=== PATIENT | male | born 1940 | race African-American/Black ===

== ENCOUNTER 2016-05-29 23:06 | Inpatient (IN) | payer OTHER, BC ==
[2016-05-29] MEDS ORDERED: ASPIRIN 81 MG CHEWABLE TABLETS PO ONE (23:47)
--- NOTE | 2016-05-29 23:47 | PDOC ---
History of Present Illness - General History Source: Patient Exam Limitations: No Limitations - History of Present Illness Initial Comments: 05/29/16 23:48 The patient is a 76 year old with a significant past medical history of hypertension, diabetes, non-ischemic dilated cardiomyopathy s/p AICD, and CHF who presents the emergency department with SOB and tachycardia since yesterday. Patient states the SOB has worsened today since 1 PM. He denies Chest pain, fever, chills, nausea, vomiting. He reports having sick contacts at home, denies recent travels. Hemodialysis Charge Nurse: Dr. Doe PCP: Dr. Negro <Philippe Toribio - Last Filed: 05/30/16 02:01> <Katia Haney - Last Filed: 05/30/16 02:04> - General Chief Complaint: Chest Pain Stated Complaint: CHEST PAIN Time Seen by Provider: 05/29/16 23:29 Past History <Philippe Toribio - Last Filed: 05/30/16 02:01> - Past Medical History Anemia: No Cancer: No Cardiac Disorders: Yes COPD: Yes CHF: No Diabetes: Yes HTN: Yes Hypercholesterolemia: Yes Kidney Stones: Yes Suicide Attempt (Hx): No Thyroid Disease: No - Surgical History Cardiac Surgery: Yes (AICD) Orthopedic Surgery: Yes (lt KNEE SX) - Psycho/Social/Smoking Cessation Hx Anxiety: No Suicidal Ideation: No Smoking Status: Yes Smoking History: Former smoker Have you smoked in the past 12 months: No Number of Cigarettes Smoked Daily: 0 If you are a former smoker, when did you quit?: 6 years ago Information on smoking cessation initiated: No 'Breaking Loose' booklet given: 06/20/11 Hx Alcohol Use: No Drug/Substance Use Hx: No Substance Use Type: None Hx Substance Use Treatment: No <Katia Haney - Last Filed: 05/30/16 02:04> - Past Medical History Allergies/Adverse Reactions: Allergies Allergy/AdvReac Type Severity Reaction Status Date / Time weed pollen Allergy Verified 05/29/16 23:22 Home Medications: Ambulatory Orders Lisinopril 2.5 mg PO DAILY 07/19/11 Cholecalciferol (Vitamin D3) [Vitamin D3 -] 1,000 unit PO DAILY 09/09/14 Metformin HCl [Metformin HCl ER] 1,000 mg PO BID 09/09/14 Metoprolol Succinate [Toprol Xl] 125 mg PO AM 09/09/14 [place]-3 Fatty Acids [Fish Oil] 300 mg PO DAILY 09/09/14 Potassium Chloride 10 meq PO BID 09/09/14 Furosemide [Lasix -] 40 mg PO DAILY #30 tablet 04/30/15 Ipratropium/Albuterol Sulfate [Combivent Respimat Inhal [place]] 4 gm IH QID #1 aer.w.adap 04/30/15 Acetaminophen W/ Codeine #3 [Tylenol # 3] 1 combo PO Q4H PRN #14 tablet MDD 6 Metoprolol Succinate [Toprol Xl] 100 mg PO HS 05/18/15 Rosuvastatin Calcium [Crestor] 5 mg PO DAILY 05/18/15 Tamsulosin HCl [Flomax] 0.4 mg PO DAILY 05/18/15 Acetaminophen [Tylenol] 650 mg PO Q4HWA PRN #50 tablet 12/31/15 Apixaban [Eliquis] 5 mg PO DAILY 05/30/16 Review of Systems - Review of Systems Able to Perform ROS?: Yes Comments:: 05/29/16 23:49 CONSTITUTIONAL: Absent: fever, chills, diaphoresis, generalized weakness, malaise, loss of appetite HEENT: Absent: rhinorrhea, nasal congestion, throat pain, throat swelling, difficulty swallowing, mouth swelling, ear pain, eye pain, visual Changes CARDIOVASCULAR: Absent: chest pain, syncope, palpitations, irregular heart rate, lightheadedness , peripheral edema RESPIRATORY: Present: SOB Absent: cough, dyspnea with exertion, orthopnea, wheezing, stridor, hemoptysis GASTROINTESTINAL: Absent: abdominal pain, abdominal distension, nausea, vomiting, diarrhea, constipation, melena, hematochezia GENITOURINARY: Absent: dysuria, frequency, urgency, hesitancy, hematuria, flank pain, genital pain MUSCULOSKELETAL: Absent: myalgia, arthralgia, joint swelling SKIN: Absent: rash, itching, pallor HEMATOLOGIC/IMMUNOLOGIC: Absent: easy bleeding, easy bruising, lymphadenopathy, frequent infections ENDOCRINE: Absent: unexplained weight gain, unexplained weight loss, heat intolerance, cold intolerance NEUROLOGIC: Absent: headache, focal weakness or paresthesias, dizziness, unsteady gait, seizure, mental status changes, bladder or bowel incontinence PSYCHIATRIC: Absent: anxiety, depression, suicidal or homicidal ideation, hallucinations. <Philippe Toribio - Last Filed: 05/30/16 02:01> *Physical Exam - Vital Signs Last Vital Signs Temp Pulse Resp BP Pulse Ox 98.0 F 91 H 20 156/86 96 05/29/16 23:22 05/29/16 23:22 05/29/16 23:22 05/29/16 23:22 05/29/16 23:22 - Physical Exam Comments: 05/29/16 23:50 GENERAL: Well developed, well nourished. Awake and alert. No acute distress. HEENT: Normocephalic, atraumatic. PERRLA, EOMI. No conjunctival pallor. Sclera are non- icteric. Moist mucous membranes. Oropharynx is clear. NECK: Supple. Full ROM. No JVD. Carotid pulses 2+ and symmetric, without bruits. No thyromegaly. No lymphadenopathy. CARDIOVASCULAR: Tachycardia. No murmurs, rubs, or gallops. Distal pulses are 2+ and symmetric. PULMONARY: No evidence of respiratory distress. Lungs clear to auscultation bilaterally. No wheezing, rales or rhonchi. ABDOMINAL: Soft. Non-tender. Non-distended. No rebound or guarding. No organomegaly. Normoactive bowel sounds. MUSCULOSKELETAL Normal range of motion at all joints. No bony deformities or tenderness. No CVA tenderness. EXTREMITIES: No cyanosis. No clubbing. No edema. No calf tenderness. SKIN: Warm and dry. Normal capillary refill. No rashes. No jaundice. NEUROLOGICAL: Alert, awake, appropriate. Cranial nerves 2-12 intact. No deficits to light touch and temperature in face, upper extremities and lower extremities. No motor deficits in the in face, upper extremities and lower extremities. Normoreflexic in the upper and lower extremities. Normal speech. Toes are down-going bilaterally. Gait is normal without ataxia. PSYCHIATRIC: Cooperative. Good eye contact. Appropriate mood and affect. <Philippe Toribio - Last Filed: 05/30/16 02:01> - Vital Signs Last Vital Signs Temp Pulse Resp BP Pulse Ox 98.0 F 91 H 20 156/86 96 05/29/16 23:22 05/29/16 23:22 05/29/16 23:22 05/29/16 23:22 05/29/16 23:22 <Katia Haney - Last Filed: 05/30/16 02:04> ED Treatment Course - LABORATORY CBC & Chemistry Diagram: 05/30/16 00:05 05/30/16 00:05 <Philippe Toribio - Last Filed: 05/30/16 02:01> - LABORATORY CBC & Chemistry Diagram: 05/30/16 00:05 05/30/16 00:05 <Katia Haney - Last Filed: 05/30/16 02:04> Medical Decision Making - Medical Decision Making 05/30/16 01:[address] Negro at 01:33. Paged [address]. Negro at 01:50. 05/30/16 02:[address] Negro. 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 <Philippe Toribio - Last Filed: 05/30/16 02:01> - Discharge Dispostion Admit: Yes <Katia Haney - Last Filed: 05/30/16 02:04> Diagnosis at time of Disposition: Acute on chronic systolic CHF (congestive heart failure) - Referrals Referrals: Lyndsey Nergo MD [Primary Care Provider] -
[2016-05-30] MEDS ORDERED: ASPIRIN 81 MG CHEWABLE TABLETS ONE (00:13)
[2016-05-30 00:26] LABS: BASOPHIL 0.5 % (0-2.0); EOSINOPHIL 1.8 % (0-4.5); MCH 23.3 pg (25.7-33.7); MCHC 31.8 g/dl (32.0-35.9); MEAN CELL VOLUME 73.4 fl (80-96); MEAN PLT VOLUME 9.1 fl (7.5-11.1); NEUTROPHILS 70.7 % (42.8-82.8); PLATELET COUNT 212 K/MM3 (134-434); RDW 16.7 % (11.9-15.9); WHITE BLOOD COUNT 10.2 K/mm3 (4.0-10.0)
[2016-05-30 00:52] LABS: ALBUMIN 3.4 g/dl (3.4-5.0); ANION GAP 11 (8-16); BILIRUBIN,TOTAL 1.5 mg/dL (0.2-1.0); CALCIUM 8.5 mg/dL (8.5-10.1); CO2 27 mmol/L (21-32); COCKROFT - GAULT 78.17; CREATININE 1.1 mg/dL (0.7-1.3); GLUCOSE,RANDOM 144 mg/dL (74-106); MAGNESIUM 1.5 mg/dL (1.8-2.4); SGOT/AST 10 U/L (15-37); SGPT/ALT 16 U/L (12-78); TOT PROT 6.9 g/dl (6.4-8.2)
[2016-05-30 00:55] LABS: ALK PHOS 52 U/L (45-117); TROPONIN I < 0.02 ng/ml (0.00-0.05)
[2016-05-30 00:58] LABS: INR 1.43 (0.82-1.09); PROTHROMBIN TIME (PATIENT) 15.8 SEC (9.98-11.88)
[2016-05-30] MEDS ORDERED: MAGNESIUM SULF 50% (8.12 MEQ/2 ML-1 GM VIAL) IVPB ONE (01:22)
[2016-05-30] MEDS ORDERED: FUROSEMIDE 40 MG/4 ML INJECTABLE VIAL IVPUSH ONE (01:23)
[2016-05-30] MEDS ORDERED: MAGNESIUM SULF 50% (8.12 MEQ/2 ML-1 GM VIAL) ONE (01:42)
[2016-05-30] MEDS: FUROSEMIDE 40 MG/4 ML INJECTABLE VIAL IVPUSH SCH ×2 (06:18→14:07)
[2016-05-30 06:29] LABS: TROPONIN I < 0.02 ng/ml (0.00-0.05)
--- NOTE | 2016-05-30 10:42 | HP ---
Admitting History and Physical - Primary Care Physician PCP: Lyndsey Negro - Admission Chief Complaint: sob, not able to sleep History of Present Illness: 76 yr old male came in for Shortness of breath not able to sleep at night, constantly turning. he said thjs started about a week ago , no leg swelling no chest pain, no nausea. per patient his abdomen has been increasing in size, he is schedule for kidney stones removal on june 07 he says he feels that he feels better since he got oxygen and lasix in ER History Source: Patient, Medical Record - Past Medical History Cardiovascular: Yes: CAD (non-obstructive CAD, recent cath at [facility]--2014, 30% LAD, EF 35%), CHF (Non-ischemic cardiomyopathy s/p ICD for primary prevention), HTN, Other ([employer] device interrogation 12/2014: NSVT, one run required ATP) Endocrine: Yes: Diabetes Mellitus - Smoking History Smoking history: Former smoker Have you smoked in the past 12 months: No Aproximately how many cigarettes per day: 0 If you are a former smoker, when did you quit?: 2009 - Alcohol/Substance Use Hx Alcohol Use: No - Social History ADL: Independent History of Recent Travel: No Home Medications - Allergies Allergies/Adverse Reactions: Allergies Allergy/AdvReac Type Severity Reaction Status Date / Time weed pollen Allergy Verified 05/29/16 23:22 - Home Medications Home Medications: Ambulatory Orders Lisinopril 2.5 mg PO DAILY 07/19/11 Cholecalciferol (Vitamin D3) [Vitamin D3 -] 1,000 unit PO DAILY 09/09/14 Metformin HCl [Metformin HCl ER] 1,000 mg PO BID 09/09/14 Metoprolol Succinate [Toprol Xl] 125 mg PO AM 09/09/14 [place]-3 Fatty Acids [Fish Oil] 300 mg PO DAILY 09/09/14 Potassium Chloride 10 meq PO BID 09/09/14 Furosemide [Lasix -] 40 mg PO DAILY #30 tablet 04/30/15 Ipratropium/Albuterol Sulfate [Combivent Respimat Inhal [place]] 4 gm IH QID #1 aer.w.adap 04/30/15 Acetaminophen W/ Codeine #3 [Tylenol # 3] 1 combo PO Q4H PRN #14 tablet MDD 6 Metoprolol Succinate [Toprol Xl] 100 mg PO HS 05/18/15 Rosuvastatin Calcium [Crestor] 5 mg PO DAILY 05/18/15 Tamsulosin HCl [Flomax] 0.4 mg PO DAILY 05/18/15 Acetaminophen [Tylenol] 650 mg PO Q4HWA PRN #50 tablet 12/31/15 Apixaban [Eliquis] 5 mg PO DAILY 05/30/16 Tamsulosin HCl [Flomax] 0.4 mg PO DAILY #30 cap.er.24h 05/30/16 Physical Examination Vital Signs: Vital Signs Temperature 98.2 F 05/30/16 09:52 Pulse Rate 60 05/30/16 09:52 Respiratory Rate 18 05/30/16 09:52 Blood Pressure 121/87 05/30/16 09:52 O2 Sat by Pulse Oximetry (%) 98 05/30/16 09:52 Problem List - Problems (1) Acute on chronic systolic CHF (congestive heart failure) Assessment/Plan: tele admission cardiac enzymes 2 sets negative echo iv lasix bid monitor lytes K> 4 Mag > 2 magnesium repleted recheck daily weights nasal oxygen Code(s): I50.23 - ACUTE ON CHRONIC SYSTOLIC (CONGESTIVE) HEART FAILURE (2) Diabetes Assessment/Plan: check hga1c and lipid profile metformin bid Code(s): E11.9 - TYPE 2 DIABETES MELLITUS WITHOUT COMPLICATIONS Qualifiers: Diabetes mellitus type: type 2 (3) BPH (benign prostatic hyperplasia) Assessment/Plan: flomax Code(s): N40.0 - BENIGN PROSTATIC HYPERPLASIA WITHOUT LOWER URINRY TRACT SYMP (4) ASHD (arteriosclerotic heart disease) Assessment/Plan: asa cath in past non obstructive check lipd proifle LDL < 100 goal Code(s): I25.10 - ATHSCL HEART DISEASE OF [place] CORONARY ARTERY W/O ANG PCTRS (5) Hypertension Assessment/Plan: toprol lisinopril Code(s): I10 - ESSENTIAL (PRIMARY) HYPERTENSION Qualifiers: Hypertension type: essential hypertension Qualified Code(s): I10 - Essential (primary) hypertension (6) Non-ischemic cardiomyopathy Assessment/Plan: icd Code(s): I42.9 - CARDIOMYOPATHY, UNSPECIFIED
--- NOTE | 2016-05-30 12:04 | CON.CARD ---
Consult Consult Specialty:: Cardiology Referred by:: ER Reason for Consultation:: SOB - History of Present Illness Chief Complaint: SOB History of Present Illness: 76 year old man with a history of HTN, DMII, NICM with severe LV dysfunction s/ p ICD, chronic systolic CHF, recently dx paroxysmal atrial fibrillation admitted with sob. Pt. seen and examined today in [facility]. He states that for the past few days he has been experiencing some orthopnea at night time. Then last night he felt severe sob and thus came to the ER. He also admits to eating barbeque ribs yesterday for . He also states that he has had some confusion with his lasix recently and has been taking it every other day instead of everyday. denies palpitations, lightheadedness, dizziness. no chest pain. - History Source History Provided By: Patient, Medical Record Limitations to Obtaining History: No Limitations - Past Medical History Cardio/Vascular: Yes: AFIB, CAD (non-obstructive CAD, recent cath at [facility] --12/2014, 30% LAD, EF 35%), CHF (Non-ischemic cardiomyopathy s/p ICD for primary prevention), HTN, Other ([employer] device interrogation 12/2014: NSVT, one run required ATP) Endocrine: Yes: Diabetes Mellitus - Past Surgical History Past Surgical History: Yes: AICD - Alcohol/Substance Use Hx Alcohol Use: No - Smoking History Smoking history: Former smoker Have you smoked in the past 12 months: No Aproximately how many cigarettes per day: 0 If you are a former smoker, when did you quit?: 2009 - Social History Usual Living Arrangement: With Spouse ADL: Independent History of Recent Travel: No Home Medications - Allergies Allergies/Adverse Reactions: Allergies Allergy/AdvReac Type Severity Reaction Status Date / Time weed pollen Allergy Verified 05/29/16 23:22 - Home Medications Home Medications: Ambulatory Orders Lisinopril 2.5 mg PO DAILY 07/19/11 Cholecalciferol (Vitamin D3) [Vitamin D3 -] 1,000 unit PO DAILY 09/09/14 Metformin HCl [Metformin HCl ER] 1,000 mg PO BID 09/09/14 Metoprolol Succinate [Toprol Xl] 125 mg PO AM 09/09/14 [place]-3 Fatty Acids [Fish Oil] 300 mg PO DAILY 09/09/14 Potassium Chloride 10 meq PO BID 09/09/14 Furosemide [Lasix -] 40 mg PO DAILY #30 tablet 04/30/15 Ipratropium/Albuterol Sulfate [Combivent Respimat Inhal [place]] 4 gm IH QID #1 aer.w.adap 04/30/15 Acetaminophen W/ Codeine #3 [Tylenol # 3] 1 combo PO Q4H PRN #14 tablet MDD 6 Metoprolol Succinate [Toprol Xl] 100 mg PO HS 05/18/15 Rosuvastatin Calcium [Crestor] 5 mg PO DAILY 05/18/15 Tamsulosin HCl [Flomax] 0.4 mg PO DAILY 05/18/15 Acetaminophen [Tylenol] 650 mg PO Q4HWA PRN #50 tablet 12/31/15 Apixaban [Eliquis] 5 mg PO DAILY 05/30/16 Tamsulosin HCl [Flomax] 0.4 mg PO DAILY #30 cap.er.24h 05/30/16 Family Disease History - Family Disease History Family History: Denies Review of Systems - Review of Systems Constitutional: denies: No Symptoms, Chills, Diaphoresis, Fever, Lethargy, Loss of Appetite, Malaise, Night Sweats, Unintentional Wgt. Loss, Weakness, Other Eyes: denies: No Symptoms, Blind Spots, Blurred Vision, Double Vision, Eye Pain , Floaters, Photophobia, Recent Change in Vision, Other HENT: denies: No Symptoms, Difficult Swallowing, Ear Discharge, Ear Pain, Epistaxis, Gingival Bleeding, Hearing Loss, Mouth Swelling, Nasal Congestion, Ocular Prosthesis, Throat Pain, Toothache, Ringing in Ears, Other Neck: denies: No Symptoms, Decreased ROM, Lumps, Pain on Movement, Stiffness, Swollen Glands, Tenderness, Other Cardiovascular: reports: Edema, Shortness of Breath. denies: No Symptoms, Chest Pain, Palpitations, Other Respiratory: reports: Exercise Intolerance, Orthopnea, PND, SOB, SOB on Exertion. denies: No Symptoms, Cough, Hemoptysis, Snoring, Wheezing, Other Gastrointestinal: reports: Bloating. denies: No Symptoms, Abdominal Pain, Constipation, Diarrhea, Dysphagia, Indigestion, Melena, Nausea, Rectal Bleeding , Vomiting, Vomiting Blood, Other Genitourinary: denies: No Symptoms, Burning, Discharge, Dysuria, Flank Pain, Frequency, Hematuria, Incontinence, Lesions, Menses, Pain, Testicular Mass, Testicular Pain, Testicular Swelling, Urgency, Vaginal Bleeding, Other Breasts: denies: No Symptoms Reported, See HPI, Breast Implants, Discharge from Nipple, Lumps, Pain, Skin Changes, Other Musculoskeletal: denies: No Symptoms, Back Pain, Crepitus, Decreased ROM, Extremity Pain, Joint Pain, Joint Swelling, Muscle Pain, Muscle Cramps, Muscle Weakness, Other Integumentary: denies: No Symptoms, Blister, Bruising, Change in Color, Eczema, Erythema, Incision, Lesions, Lump, Pallor, Pruritis, Rash, Wound, Other Neurological: denies: No Symptoms, Change in LOC, Change in Speech, Confusion, Dizziness, Headache, Incoordination, Numbness, Parasthesia, Pre-Existing Deficit , Seizure, Syncope, Tremors, Unsteady Gait, Weakness, Other Endocrine: denies: No Symptoms, Excessive Sweating, Flushing, Increased Hunger, Increased Thirst, Intolerance to Cold, Intolerance to Heat, Unexplained Weight Gain, Unexplained Weight Loss, Other Hematology/Lymphatic: denies: No Symptoms, Easily Bruised, Excessive Bleeding, Swollen Glands, Other Psychiatric: denies: No Symptoms, Altered Sleep Pattern, Anxiety, Depression, Hallucinations, Panic, Paranoia, Suicidal, Other - Risk Factors Known Risk Factors: Yes: Diabetes Mellitus, Hypercholesterolemia, Hypertension Vital Signs: Vital Signs Temperature 98.2 F 05/30/16 09:52 Pulse Rate 60 05/30/16 09:52 Respiratory Rate 18 05/30/16 09:52 Blood Pressure 121/87 05/30/16 09:52 O2 Sat by Pulse Oximetry (%) 98 05/30/16 09:52 Constitutional: Yes: Well Nourished, No Distress, Calm Eyes: Yes: WNL, Conjunctiva Clear, EOM Intact, PERRL HENT: Yes: WNL, Atraumatic, Normocephalic Neck: Yes: WNL, Supple, Trachea Midline Respiratory: Yes: Regular, On Nasal O2, Rales. No: Rhonchi, SOB, Wheezes Gastrointestinal: Yes: WNL, Normal Bowel Sounds, Soft. No: Distention, Tenderness Renal/: Yes: WNL Cardiovascular: Yes: Pulse Irregular. No: Bradycardia, Tachycardia, Gallop, Rub , Varicosities JVD: No Carotid Bruit: No PMI: Non-Displaced Heart Sounds: Yes: S1, S2. No: Split S2, S3, S4, Clicks, Gallop, Rub, Bruit Murmur: No: Systolic Murmur, Diastolic Murmur Musculoskeletal: Yes: WNL Extremities: Yes: WNL Edema: Yes Edema: LLE: Trace, RLE: Trace Peripheral Pulses WNL: Yes Peripheral Pulses: 2+ Left Doralis Pedis, 2+ Right Dorsalis Pedis Integumentary: Yes: WNL Neurological: Yes: WNL, Alert, Oriented, Cran Nerves II-XII Intact ...Motor Strength: WNL Psychiatric: Yes: WNL, Alert, Oriented - Other Data Labs, Other Data: INR, PTT INR 1.43 (0.82-1.09) H D 05/30/16 00:05 Troponin, BNP 05/30/16 05:40 Troponin I < 0.02 Troponin, BNP 05/30/16 05:40 Troponin I < 0.02 [id number], apcs, pvcs, nonspecific ST abnl, possible Lateral ischemia Echo: Report Reviewed Prior Cardiac Procedures: Cardiac Catheterization Imaging - Results Chest X-ray: Report Reviewed, Image Reviewed EKG: Report Reviewed, Image Reviewed Other: Report Reviewed, Image Reviewed Problem List - Problems (1) Acute on chronic systolic CHF (congestive heart failure) Code(s): I50.23 - ACUTE ON CHRONIC SYSTOLIC (CONGESTIVE) HEART FAILURE (2) Diabetes Code(s): E11.9 - TYPE 2 DIABETES MELLITUS WITHOUT COMPLICATIONS Qualifiers: Diabetes mellitus type: type 2 (3) Hypertension Code(s): I10 - ESSENTIAL (PRIMARY) HYPERTENSION Qualifiers: Hypertension type: essential hypertension Qualified Code(s): I10 - Essential (primary) hypertension (4) Non-ischemic cardiomyopathy Code(s): I42.9 - CARDIOMYOPATHY, UNSPECIFIED (5) Pulmonary hypertension Code(s): I27.2 - OTHER SECONDARY PULMONARY HYPERTENSION (6) Shortness of breath Code(s): R06.02 - SHORTNESS OF BREATH Assessment/Plan 76 year old man with a history of HTN, DMII, NICM with severe LV dysfunction s/ p ICD, chronic systolic CHF, recently dx paroxysmal atrial fibrillation admitted with sob. Pt. seen and examined today in [facility]. He states that for the past few days he has been experiencing some orthopnea at night time. Then last night he felt severe sob and thus came to the ER. He also admits to eating barbeque ribs yesterday for . He also states that he has had some confusion with his lasix recently and has been taking it every other day instead of everyday. denies palpitations, lightheadedness, dizziness. no chest pain. SOB-acute on chronic systolic CHF with known chronic systolic CHF, NICM -secondary to Lasix and dietary non-adherence -significantly improved with Lasix in ER -cont Lasix diuresis 40mg IV BID -monitor strict I/Os and daily weights -monitor bun/creat and electrolytes and replete as needed -re-evaluate tomorrow can likely transition back to po lasix -cont home toprol and lisinopril Afib-paroxysmal, NSR on admission ekg -resume home Toprol XL 125mg po in am and 100mg in pm -resume home eliquis 5mg bid HTN-adequately controlled -cont home medical regimen
[2016-05-30] MEDS ORDERED: METOPROLOL SUCCINATE 100 MG TAB.SR.24H (FP) PO ONE (12:26)
[2016-05-30] MEDS ORDERED: LISINOPRIL 5 MG TABLET (FP) PO ONE (12:27)
[2016-05-30] MEDS ORDERED: POTASSIUM CHLORIDE TABS 20 MEQ TABLET.ER (FP) PO ONE ×2 (12:27→12:31)
[2016-05-30] MEDS ORDERED: METOPROLOL SUCCINATE 50 MG TAB.SR.24H (FP) ONE (12:31)
[2016-05-30] MEDS ORDERED: LISINOPRIL 5 MG TABLET (FP) ONE (12:31)
[2016-05-30 13:28] LABS: ANION GAP 9 (8-16); CALCIUM 8.8 mg/dL (8.5-10.1); CO2 30 mmol/L (21-32); COCKROFT - GAULT 95.54; CREATININE 0.9 mg/dL (0.7-1.3); GLUCOSE,RANDOM 102 mg/dL (74-106); MAGNESIUM 1.9 mg/dL (1.8-2.4)
[2016-05-30 13:31] LABS: TROPONIN I < 0.02 ng/ml (0.00-0.05)
[2016-05-30] MEDS ORDERED: FUROSEMIDE 40 MG/4 ML INJECTABLE VIAL ONE (14:04)
[2016-05-30] MEDS: APIXABAN 5 MG TABLET PO SCH ×2 (14:07→21:10)
--- NOTE | 2016-05-30 15:08 | EKG ---
Test Reason : Blood Pressure : / mmHG Vent. Rate : 091 BPM Atrial Rate : 091 BPM P-R Int : 230 ms QRS Dur : 122 ms QT Int : 374 ms P-R-T Axes : 086 -61 096 degrees QTc Int : 460 ms SINUS RHYTHM WITH MARKED SINUS ARRHYTHMIA WITH 1ST DEGREE A-V BLOCK WITH FREQUENT PREMATURE VENTRICULAR COMPLEXES LEFT AXIS DEVIATION NON-SPECIFIC INTRA-VENTRICULAR CONDUCTION DELAY ABNORMAL ECG WHEN COMPARED WITH ECG OF 18-MAY-2015 16:49, ABERRANT CONDUCTION IS NO LONGER PRESENT MA INTERVAL HAS INCREASED INVERTED T WAVES HAVE REPLACED NONSPECIFIC T WAVE ABNORMALITY IN LATERAL LEADS Confirmed by ABRAHAM NOLEN MD ([id number]) on 05/30/2016 3:07:52 PM Referred By: Confirmed By:ABRAHAM NOLEN MD
[2016-05-30] MEDS: metFORMIN HCL 500 MG TABLET (FP) PO SCH (18:15)
[2016-05-30 18:54] VITALS: BMI 29.5
[2016-05-30] MEDS: METOPROLOL SUCCINATE 100 MG TAB.SR.24H (FP) PO SCH (21:10)
[2016-05-30] MEDS: ROSUVASTATIN CA 5 MG TABLET (FP) PO SCH (21:10)
[2016-05-30] MEDS ORDERED: APIXABAN 2.5 MG TABLET PO SCH (22:00)
[2016-05-30] MEDS ORDERED: ONDANSETRON 4 MG/2 ML VIAL ONE (22:57)
[2016-05-30] MEDS ORDERED: ONDANSETRON 4 MG/2 ML VIAL IVPB ONE (23:45)
[2016-05-31] MEDS: metFORMIN HCL 500 MG TABLET (FP) PO SCH ×2 (06:06→17:34)
[2016-05-31] MEDS: FUROSEMIDE 40 MG/4 ML INJECTABLE VIAL IVPUSH SCH ×2 (06:06→14:28)
[2016-05-31 07:42] LABS: CHOLESTEROL 93 mg/dL (50-200)
[2016-05-31 07:43] LABS: ALBUMIN 3.6 g/dl (3.4-5.0); ANION GAP 7 (8-16); CO2 32 mmol/L (21-32); GLUCOSE,RANDOM 113 mg/dL (74-106); MAGNESIUM 1.7 mg/dL (1.8-2.4)
[2016-05-31 07:46] LABS: MCH 23.3 pg (25.7-33.7); MCHC 31.5 g/dl (32.0-35.9); MEAN CELL VOLUME 73.9 fl (80-96); MEAN PLT VOLUME 8.8 fl (7.5-11.1); PLATELET COUNT 225 K/MM3 (134-434); RDW 16.6 % (11.9-15.9); WHITE BLOOD COUNT 9.6 K/mm3 (4.0-10.0)
[2016-05-31 07:50] LABS: ALK PHOS 56 U/L (45-117); BILIRUBIN,TOTAL 1.6 mg/dL (0.2-1.0); COCKROFT - GAULT 85.01; PHOSPHOROUS 4.2 mg/dL (2.5-4.9); SGOT/AST 8 U/L (15-37); SGPT/ALT 18 U/L (12-78); TOT PROT 7.4 g/dl (6.4-8.2)
[2016-05-31 08:21] LABS: INR 1.47 (0.82-1.09); PROTHROMBIN TIME (PATIENT) 16.3 SEC (9.98-11.88)
[2016-05-31 08:24] LABS: ACTIVATED PTT 39.5 SECONDS (26.9-34.4)
[2016-05-31 08:42] LABS: LDL CHOLESTEROL (ONLY SJRH) 44 mg/dL (5-100)
[2016-05-31] MEDS ORDERED: MAGNESIUM SULF 50% (8.12 MEQ/2 ML-1 GM VIAL) IVPB ONE (08:53)
--- NOTE | 2016-05-31 08:53 | PN ---
Progress Note, Physician History of Present Illness: feels better - Current Medication List Current Medications: Active Medications Apixaban (Eliquis -) 5 mg PO BID [facility] Last Admin: 05/30/16 21:10 Dose: 5 mg Aspirin (Ecotrin -) 81 mg PO DAILY [facility] Cholecalciferol (Vitamin D3 -) 1,000 unit PO DAILY [facility] Furosemide (Lasix Injection -) 40 mg IVPUSH BID@0600,1400 [facility] Last Admin: 05/31/16 06:06 Dose: 40 mg Lisinopril (Prinivil) 2.5 mg PO DAILY [facility] Magnesium Sulfate (Magnesium Sulfate) 1 gm IVPB ONCE ONE Stop: 05/31/16 08:54 Metformin HCl (Glucophage -) 1,000 mg PO BID@0700,1630 [facility] Last Admin: 05/31/16 06:06 Dose: 1,000 mg Metoprolol Succinate (Toprol Xl -) 100 mg PO BID [facility] Last Admin: 05/30/16 21:10 Dose: 100 mg Potassium Chloride (K-Dur -) 20 meq PO DAILY [facility] Rosuvastatin Calcium (Crestor -) 5 mg PO HS [facility] Last Admin: 05/30/16 21:10 Dose: 5 mg - Objective Vital Signs: Vital Signs Temperature 97.9 F 05/31/16 06:00 Pulse Rate 69 05/31/16 06:00 Respiratory Rate 20 05/31/16 06:00 Blood Pressure 116/71 05/31/16 06:00 O2 Sat by Pulse Oximetry (%) 96 05/30/16 21:00 Cardiovascular: Yes: Regular Rate and Rhythm Respiratory: Yes: Regular, CTA Bilaterally Gastrointestinal: Yes: Normal Bowel Sounds, Soft Labs: CBC, BMP 05/31/16 06:00 05/31/16 06:00 INR, PTT INR 1.47 (0.82-1.09) H 05/31/16 06:00 Assessment/Plan - Problems (1) Acute on chronic systolic CHF (congestive heart failure) Assessment/Plan: tele admission cardiac enzymes 2 sets negative echo iv lasix bid monitor lytes K> 4 Mag > 2 magnesium repleted recheck daily weights nasal oxygen Code(s): I50.23 - ACUTE ON CHRONIC SYSTOLIC (CONGESTIVE) HEART FAILURE (2) Diabetes Assessment/Plan: check hga1c and lipid profile metformin bid add jardiance as outpatient for elevated a1c and cardio protection Code(s): E11.9 - TYPE 2 DIABETES MELLITUS WITHOUT COMPLICATIONS Qualifiers: Diabetes mellitus type: type 2 (3) BPH (benign prostatic hyperplasia) Assessment/Plan: flomax Code(s): N40.0 - BENIGN PROSTATIC HYPERPLASIA WITHOUT LOWER URINRY TRACT SYMP (4) ASHD (arteriosclerotic heart disease) Assessment/Plan: asa cath in past non obstructive check lipd proifle LDL < 100 goal Code(s): I25.10 - ATHSCL HEART DISEASE OF [place] CORONARY ARTERY W/O ANG PCTRS (5) Hypertension Assessment/Plan: toprol lisinopril Code(s): I10 - ESSENTIAL (PRIMARY) HYPERTENSION Qualifiers: Hypertension type: essential hypertension Qualified Code(s): I10 - Essential (primary) hypertension (6) Non-ischemic cardiomyopathy Assessment/Plan: icd Code(s): I42.9 - CARDIOMYOPATHY, UNSPECIFIED
[2016-05-31] MEDS: METOPROLOL SUCCINATE 100 MG TAB.SR.24H (FP) PO SCH ×2 (09:03→21:11)
[2016-05-31] MEDS: CHOLECALCIFEROL (VITAMIN D3) 1,000 UNIT TABLET (FP) PO SCH (09:03)
[2016-05-31] MEDS: POTASSIUM CHLORIDE TABS 20 MEQ TABLET.ER (FP) PO SCH (09:03)
[2016-05-31] MEDS: ASPIRIN COATED 81 MG TABLET.EC PO SCH (09:04)
[2016-05-31] MEDS: APIXABAN 5 MG TABLET PO SCH ×2 (09:04→21:11)
--- NOTE | 2016-05-31 09:08 | PN ---
Progress Note, Physician Chief Complaint: Feeling mild improvement TELE: NSR, PACs, PVCs rare - Current Medication List Current Medications: Active Medications Apixaban (Eliquis -) 5 mg PO BID [facility] Last Admin: 05/31/16 09:04 Dose: 5 mg Aspirin (Ecotrin -) 81 mg PO DAILY [facility] Last Admin: 05/31/16 09:04 Dose: 81 mg Cholecalciferol (Vitamin D3 -) 1,000 unit PO DAILY [facility] Last Admin: 05/31/16 09:03 Dose: 1,000 unit Furosemide (Lasix Injection -) 40 mg IVPUSH BID@0600,1400 [facility] Last Admin: 05/31/16 06:06 Dose: 40 mg Lisinopril (Prinivil) 2.5 mg PO DAILY [facility] Metformin HCl (Glucophage -) 1,000 mg PO BID@0700,1630 [facility] Last Admin: 05/31/16 06:06 Dose: 1,000 mg Metoprolol Succinate (Toprol Xl -) 100 mg PO BID [facility] Last Admin: 05/31/16 09:03 Dose: 100 mg Potassium Chloride (K-Dur -) 20 meq PO DAILY [facility] Last Admin: 05/31/16 09:03 Dose: 20 meq Rosuvastatin Calcium (Crestor -) 5 mg PO HS [facility] Last Admin: 05/30/16 21:10 Dose: 5 mg - Objective Vital Signs: Vital Signs Temperature 97.9 F 05/31/16 06:00 Pulse Rate 69 05/31/16 06:00 Respiratory Rate 20 05/31/16 06:00 Blood Pressure 116/71 05/31/16 06:00 O2 Sat by Pulse Oximetry (%) 96 05/30/16 21:00 Constitutional: Yes: Calm Cardiovascular: Yes: Regular Rate and Rhythm Respiratory: Yes: CTA Bilaterally Gastrointestinal: Yes: Soft Edema: No Neurological: Yes: Alert Labs: CBC, BMP 05/31/16 06:00 05/31/16 06:00 INR, PTT INR 1.47 (0.82-1.09) H 05/31/16 06:00 Laboratory Tests 05/31/16 05/31/16 06:00 06:00 WBC 9.6 Hct 41.0 Plt Count 225 Sodium 139 Potassium 4.5 Creatinine 1.0 B-Natriuretic Peptide 1045.11 H - ....Imaging EKG: Image Reviewed Assessment/Plan NICM s/p ICD PAF Acute on chronic exacerbation systolic CHF 1.SOB-acute on chronic systolic CHF with known chronic systolic CHF, NICM -secondary to Lasix and dietary non-adherence -cont Lasix diuresis 40mg IV BID -monitor strict I/Os and daily weights; replete electrolytes -monitor bun/creat and electrolytes and replete as needed -cont home toprol and lisinopril Afib-paroxysmal, NSR on admission ekg -resume home Toprol XL 125mg po in am and 100mg in pm -resume home eliquis 5mg bid
[2016-05-31 09:29] LABS: PLATELET ESTIMATE ADEQUATE (NORMAL)
[2016-05-31 09:37] LABS: FRAGMENTED CELL 1+; OVALOCYTES 1+
[2016-05-31] MEDS: LISINOPRIL 5 MG TABLET (FP) PO SCH ×2 (10:10→12:40)
[2016-05-31] MEDS: ROSUVASTATIN CA 5 MG TABLET (FP) PO SCH (21:11)
[2016-06-01] MEDS: metFORMIN HCL 500 MG TABLET (FP) PO SCH ×2 (06:16→16:42)
[2016-06-01] MEDS: FUROSEMIDE 40 MG/4 ML INJECTABLE VIAL IVPUSH SCH (06:16)
[2016-06-01 08:20] LABS: ALBUMIN 3.5 g/dl (3.4-5.0); ANION GAP 8 (8-16); CALCIUM 8.6 mg/dL (8.5-10.1); CO2 32 mmol/L (21-32); GLUCOSE,RANDOM 124 mg/dL (74-106); MAGNESIUM 1.8 mg/dL (1.8-2.4)
[2016-06-01 08:24] LABS: ALK PHOS 52 U/L (45-117); BILIRUBIN,TOTAL 0.9 mg/dL (0.2-1.0); COCKROFT - GAULT 78.96; CREATININE 1.1 mg/dL (0.7-1.3); SGOT/AST 7 U/L (15-37); SGPT/ALT 15 U/L (12-78); TOT PROT 7.1 g/dl (6.4-8.2)
--- NOTE | 2016-06-01 08:51 | PN ---
Progress Note, Physician Chief Complaint: feels much better TELE: NSR, first degree AV block, rare PVCs - Current Medication List Current Medications: Active Medications Apixaban (Eliquis -) 5 mg PO BID [facility] Last Admin: 05/31/16 21:11 Dose: 5 mg Aspirin (Ecotrin -) 81 mg PO DAILY [facility] Last Admin: 05/31/16 09:04 Dose: 81 mg Cholecalciferol (Vitamin D3 -) 1,000 unit PO DAILY [facility] Last Admin: 05/31/16 09:03 Dose: 1,000 unit Furosemide (Lasix Injection -) 40 mg IVPUSH BID@0600,1400 [facility] Last Admin: 06/01/16 06:16 Dose: 40 mg Lisinopril (Prinivil) 2.5 mg PO DAILY [facility] Last Admin: 05/31/16 12:40 Dose: 2.5 mg Metformin HCl (Glucophage -) 1,000 mg PO BID@0700,1630 [facility] Last Admin: 06/01/16 06:16 Dose: 1,000 mg Metoprolol Succinate (Toprol Xl -) 100 mg PO [facility] Last Admin: 05/31/16 21:11 Dose: 100 mg Metoprolol Succinate 100 mg/ (Metoprolol Succinate 25 mg) 125 mg PO DAILY [facility] Potassium Chloride (K-Dur -) 20 meq PO DAILY [facility] Last Admin: 05/31/16 09:03 Dose: 20 meq Rosuvastatin Calcium (Crestor -) 5 mg PO [facility] Last Admin: 05/31/16 21:11 Dose: 5 mg - Objective Vital Signs: Vital Signs Temperature 97.2 F L 06/01/16 06:00 Pulse Rate 76 06/01/16 06:00 Respiratory Rate 18 06/01/16 06:00 Blood Pressure 106/59 06/01/16 06:00 O2 Sat by Pulse Oximetry (%) 95 05/31/16 20:10 Constitutional: Yes: Calm Cardiovascular: Yes: Regular Rate and Rhythm Respiratory: Yes: CTA Bilaterally Gastrointestinal: Yes: Soft Edema: No Neurological: Yes: Alert, Oriented Labs: CBC, BMP 05/31/16 06:00 06/01/16 07:00 INR, PTT INR 1.47 (0.82-1.09) H 05/31/16 06:00 Laboratory Tests 06/01/16 07:00 Potassium 4.5 BUN 19 H D Creatinine 1.1 Magnesium 1.8 - ....Imaging EKG: Image Reviewed Assessment/Plan NICM s/p ICD PAF Acute on chronic exacerbation systolic CHF REC: Switch to PO Lasix today. D/C planning for tomorrow if remains stable.
[2016-06-01] MEDS ORDERED: METOPROLOL SUCCINATE 100 MG TAB.SR.24H (FP) PO ONE (09:04)
[2016-06-01] MEDS ORDERED: METOPROLOL SUCCINATE 25 MG TAB.SR.24H (FP) ONE (09:04)
[2016-06-01] MEDS: METOPROLOL SUCCINATE 100 MG, METOPROLOL SUCCINATE 25 MG PO SCH (09:12)
[2016-06-01] MEDS: ASPIRIN COATED 81 MG TABLET.EC PO SCH (09:12)
[2016-06-01] MEDS: CHOLECALCIFEROL (VITAMIN D3) 1,000 UNIT TABLET (FP) PO SCH (09:12)
[2016-06-01] MEDS: POTASSIUM CHLORIDE TABS 20 MEQ TABLET.ER (FP) PO SCH (09:13)
[2016-06-01] MEDS: LISINOPRIL 5 MG TABLET (FP) PO SCH (09:13)
[2016-06-01] MEDS: APIXABAN 5 MG TABLET PO SCH ×2 (09:13→21:23)
[2016-06-01] MEDS ORDERED: METOPROLOL SUCCINATE 100 MG TAB.SR.24H (FP) PO SCH (10:00)
--- NOTE | 2016-06-01 10:09 | PN ---
Progress Note, Physician History of Present Illness: feels better - Current Medication List Current Medications: Active Medications Apixaban (Eliquis -) 5 mg PO BID [facility] Last Admin: 06/01/16 09:13 Dose: 5 mg Aspirin (Ecotrin -) 81 mg PO DAILY [facility] Last Admin: 06/01/16 09:12 Dose: 81 mg Cholecalciferol (Vitamin D3 -) 1,000 unit PO DAILY [facility] Last Admin: 06/01/16 09:12 Dose: 1,000 unit Furosemide (Lasix -) 40 mg PO DAILY [facility] Lisinopril (Prinivil) 2.5 mg PO DAILY [facility] Last Admin: 06/01/16 09:13 Dose: 2.5 mg Metformin HCl (Glucophage -) 1,000 mg PO BID@0700,1630 [facility] Last Admin: 06/01/16 06:16 Dose: 1,000 mg Metoprolol Succinate (Toprol Xl -) 100 mg PO [facility] Last Admin: 05/31/16 21:11 Dose: 100 mg Metoprolol Succinate 100 mg/ (Metoprolol Succinate 25 mg) 125 mg PO DAILY [facility] Last Admin: 06/01/16 09:12 Dose: 125 mg Potassium Chloride (K-Dur -) 20 meq PO DAILY [facility] Last Admin: 06/01/16 09:13 Dose: 20 meq Rosuvastatin Calcium (Crestor -) 5 mg PO HS [facility] Last Admin: 05/31/16 21:11 Dose: 5 mg - Objective Vital Signs: Vital Signs Temperature 98.1 F 06/01/16 09:15 Pulse Rate 70 06/01/16 09:15 Respiratory Rate 20 06/01/16 09:15 Blood Pressure 120/64 06/01/16 09:15 O2 Sat by Pulse Oximetry (%) 95 05/31/16 20:10 Cardiovascular: Yes: Murmur, S1, S2 Respiratory: Yes: Regular, CTA Bilaterally Gastrointestinal: Yes: Normal Bowel Sounds, Soft Labs: CBC, BMP 05/31/16 06:00 06/01/16 07:00 INR, PTT INR 1.47 (0.82-1.09) H 05/31/16 06:00 Assessment/Plan - Problems (1) Acute on chronic systolic CHF (congestive heart failure) Assessment/Plan: tele admission cardiac enzymes 2 sets negative echo iv lasix bid--TO PO TODAY monitor lytes K> 4 Mag > 2 magnesium repleted recheck daily weights nasal oxygen Code(s): I50.23 - ACUTE ON CHRONIC SYSTOLIC (CONGESTIVE) HEART FAILURE (2) Diabetes Assessment/Plan: check hga1c and lipid profile metformin bid add jardiance as outpatient for elevated a1c and cardio protection Code(s): E11.9 - TYPE 2 DIABETES MELLITUS WITHOUT COMPLICATIONS Qualifiers: Diabetes mellitus type: type 2 (3) BPH (benign prostatic hyperplasia) Assessment/Plan: flomax Code(s): N40.0 - BENIGN PROSTATIC HYPERPLASIA WITHOUT LOWER URINRY TRACT SYMP (4) ASHD (arteriosclerotic heart disease) Assessment/Plan: asa cath in past non obstructive check lipd proifle LDL < 100 goal Code(s): I25.10 - ATHSCL HEART DISEASE OF [place] CORONARY ARTERY W/O ANG PCTRS (5) Hypertension Assessment/Plan: toprol lisinopril Code(s): I10 - ESSENTIAL (PRIMARY) HYPERTENSION Qualifiers: Hypertension type: essential hypertension Qualified Code(s): I10 - Essential (primary) hypertension (6) Non-ischemic cardiomyopathy Assessment/Plan: icd Code(s): I42.9 - CARDIOMYOPATHY, UNSPECIFIED
[2016-06-01] MEDS: METOPROLOL SUCCINATE 100 MG TAB.SR.24H (FP) PO SCH (21:23)
[2016-06-01] MEDS: ROSUVASTATIN CA 5 MG TABLET (FP) PO SCH (21:23)
[2016-06-02] MEDS: metFORMIN HCL 500 MG TABLET (FP) PO SCH (06:34)
--- NOTE | 2016-06-02 08:41 | DS ---
Physical Examination Vital Signs: Vital Signs Temperature 97.9 F 06/02/16 02:00 Pulse Rate 79 06/02/16 02:00 Respiratory Rate 20 06/02/16 02:00 Blood Pressure 139/66 06/02/16 02:00 O2 Sat by Pulse Oximetry (%) 96 06/01/16 20:09 Findings/Remarks: FEELS BETTER Cardiovascular: Yes: S1, S2 Respiratory: Yes: Regular, CTA Bilaterally Gastrointestinal: Yes: Normal Bowel Sounds, Soft Edema: No Labs: CBC, BMP 05/31/16 06:00 06/01/16 07:00 Discharge Summary Reason For Visit: ACUTE SYSTOLIC CHF Current Active Problems ASHD (arteriosclerotic heart disease) (Acute) Acute CHF (congestive heart failure) (Acute) Acute on chronic systolic CHF (congestive heart failure) (Acute) BPH (benign prostatic hyperplasia) (Acute) Cough (Acute) Diabetes (Acute) Hypertension (Acute) Non-ischemic cardiomyopathy (Acute) Non-sustained ventricular tachycardia (Acute) Pulmonary hypertension (Acute) Shortness of breath (Acute) Hospital Course: 76 yr old male came in for Shortness of breath not able to sleep at night, constantly turning. he said thjs started about a week ago , no leg swelling no chest pain, no nausea. per patient his abdomen has been increasing in size, he is schedule for kidney stones removal on june 07 he says he feels that he feels better since he got oxygen and lasix in ER History Source: Patient, Medical Record - Past Medical History Cardiovascular: Yes: CAD (non-obstructive CAD, recent cath at [facility]--2014, 30% LAD, EF 35%), CHF (Non-ischemic cardiomyopathy s/p ICD for primary prevention), HTN, Other (Silver Push device interrogation 12/2014: NSVT, one run required ATP) Endocrine: Yes: Diabetes Mellitus - Smoking History Smoking history: Former smoker - Problems (1) Acute on chronic systolic CHF (congestive heart failure) Assessment/Plan: tele admission cardiac enzymes 2 sets negative echo iv lasix bid--ON PO LASIX monitor lytes K> 4 Mag > 2 magnesium repleted recheck daily weights nasal oxygen Code(s): I50.23 - ACUTE ON CHRONIC SYSTOLIC (CONGESTIVE) HEART FAILURE (2) Diabetes Assessment/Plan: check hga1c and lipid profile metformin bid add jardiance as outpatient for elevated a1c and cardio protection Code(s): E11.9 - TYPE 2 DIABETES MELLITUS WITHOUT COMPLICATIONS Qualifiers: Diabetes mellitus type: type 2 (3) BPH (benign prostatic hyperplasia) Assessment/Plan: flomax Code(s): N40.0 - BENIGN PROSTATIC HYPERPLASIA WITHOUT LOWER URINRY TRACT SYMP (4) ASHD (arteriosclerotic heart disease) Assessment/Plan: asa cath in past non obstructive check lipd proifle LDL < 100 goal Code(s): I25.10 - ATHSCL HEART DISEASE OF [place] CORONARY ARTERY W/O ANG PCTRS (5) Hypertension Assessment/Plan: toprol lisinopril Code(s): I10 - ESSENTIAL (PRIMARY) HYPERTENSION Qualifiers: Hypertension type: essential hypertension Qualified Code(s): I10 - Essential (primary) hypertension (6) Non-ischemic cardiomyopathy Assessment/Plan: icd Code(s): I42.9 - CARDIOMYOPATHY, UNSPECIFIED - Instructions Referrals: Lyndsey Negro MD [Primary Care Provider] - - Home Medications Comprehensive Discharge Medication List: Ambulatory Orders Lisinopril 2.5 mg PO DAILY 07/19/11 Cholecalciferol (Vitamin D3) [Vitamin D3 -] 1,000 unit PO DAILY 09/09/14 Metformin HCl [Metformin HCl ER] 1,000 mg PO BID 09/09/14 Metoprolol Succinate [Toprol Xl] 125 mg PO AM 09/09/14 [place]-3 Fatty Acids [Fish Oil] 300 mg PO DAILY 09/09/14 Potassium Chloride 10 meq PO BID 09/09/14 Furosemide [Lasix -] 40 mg PO DAILY #30 tablet 04/30/15 Ipratropium/Albuterol Sulfate [Combivent Respimat Inhal [place]] 4 gm IH QID #1 aer.w.adap 04/30/15 Acetaminophen W/ Codeine #3 [Tylenol # 3] 1 combo PO Q4H PRN #14 tablet MDD 6 Metoprolol Succinate [Toprol Xl] 100 mg PO HS 05/18/15 Rosuvastatin Calcium [Crestor] 5 mg PO DAILY 05/18/15 Tamsulosin HCl [Flomax] 0.4 mg PO DAILY 05/18/15 Acetaminophen [Tylenol] 650 mg PO Q4HWA PRN #50 tablet 12/31/15 Apixaban [Eliquis] 5 mg PO DAILY 05/30/16 Tamsulosin HCl [Flomax] 0.4 mg PO DAILY #30 cap.er.24h 05/30/16
[2016-06-02] MEDS ORDERED: METOPROLOL SUCCINATE 100 MG TAB.SR.24H (FP) PO ONE (09:04)
[2016-06-02] MEDS ORDERED: METOPROLOL SUCCINATE 25 MG TAB.SR.24H (FP) ONE (09:05)
[2016-06-02] MEDS: CHOLECALCIFEROL (VITAMIN D3) 1,000 UNIT TABLET (FP) PO SCH (09:12)
[2016-06-02] MEDS: APIXABAN 5 MG TABLET PO SCH (09:12)
[2016-06-02] MEDS: METOPROLOL SUCCINATE 100 MG, METOPROLOL SUCCINATE 25 MG PO SCH (09:12)
[2016-06-02] MEDS: POTASSIUM CHLORIDE TABS 20 MEQ TABLET.ER (FP) PO SCH (09:12)
[2016-06-02] MEDS: ASPIRIN COATED 81 MG TABLET.EC PO SCH (09:12)
[2016-06-02] MEDS: LISINOPRIL 5 MG TABLET (FP) PO SCH (09:17)
--- NOTE | 2016-06-02 09:17 | PN ---
Progress Note, Physician Chief Complaint: feels much better TELE: NSR w/ PVCs - Current Medication List Current Medications: Active Medications Apixaban (Eliquis -) 5 mg PO BID [facility] Last Admin: 06/01/16 21:23 Dose: 5 mg Aspirin (Ecotrin -) 81 mg PO DAILY [facility] Last Admin: 06/01/16 09:12 Dose: 81 mg Cholecalciferol (Vitamin D3 -) 1,000 unit PO DAILY [facility] Last Admin: 06/01/16 09:12 Dose: 1,000 unit Furosemide (Lasix -) 40 mg PO DAILY [facility] Lisinopril (Prinivil) 2.5 mg PO DAILY [facility] Last Admin: 06/01/16 09:13 Dose: 2.5 mg Metformin HCl (Glucophage -) 1,000 mg PO BID@0700,1630 [facility] Last Admin: 06/02/16 06:34 Dose: 1,000 mg Metoprolol Succinate (Toprol Xl -) 100 mg PO [facility] Last Admin: 06/01/16 21:23 Dose: 100 mg Metoprolol Succinate 100 mg/ (Metoprolol Succinate 25 mg) 125 mg PO DAILY [facility] Last Admin: 06/01/16 09:12 Dose: 125 mg Potassium Chloride (K-Dur -) 20 meq PO DAILY [facility] Last Admin: 06/01/16 09:13 Dose: 20 meq Rosuvastatin Calcium (Crestor -) 5 mg PO HS [facility] Last Admin: 06/01/16 21:23 Dose: 5 mg - Objective Vital Signs: Vital Signs Temperature 97.9 F 06/02/16 02:00 Pulse Rate 79 06/02/16 02:00 Respiratory Rate 20 06/02/16 02:00 Blood Pressure 139/66 06/02/16 02:00 O2 Sat by Pulse Oximetry (%) 96 06/01/16 20:09 Constitutional: Yes: No Distress Respiratory: Yes: CTA Bilaterally Gastrointestinal: Yes: Soft Edema: No Neurological: Yes: Alert Labs: CBC, BMP 05/31/16 06:00 06/01/16 07:00 INR, PTT INR 1.47 (0.82-1.09) H 05/31/16 06:00 Assessment/Plan Assessment/Plan NICM s/p ICD PAF Acute on chronic exacerbation systolic CHF REC: Clinically much improved. No sig arrhythmias on tele Ok to d/c home with outpatient f/u with me in 1-2 weeks.
[2016-06-02 09:19] VITALS: BP 111/63; PULSE 65; TEMP 97.7
[2016-06-02] MEDS ORDERED: FUROSEMIDE 40 MG TABLET (FP) PO SCH (10:00)
== END 2016-06-02 13:10 | disposition home or self-care (01) | DRG 293 ==
LOC: JER 23:06 → JERBED 05-30 02:04 → UNDOADMIN 05-30 02:15 → J4S 05-30 17:00
PROVIDERS: ADMIT Family Medicine; ATTEND Family Medicine
DX: I11.0 Hypertensive heart disease with heart failure (principal); I50.23 Acute on chronic systolic (congestive) heart failure; I25.10 Atherosclerotic heart disease of native coronary artery without angina pectoris; N40.0 Benign prostatic hyperplasia without lower urinary tract symptoms; E11.9 Type 2 diabetes mellitus without complications; I27.2 Other secondary pulmonary hypertension; I42.9 Cardiomyopathy, unspecified; I48.0 Paroxysmal atrial fibrillation; Z87.891 Personal history of nicotine dependence; R00.0 Tachycardia, unspecified
CPT/HCPCS: 36415; 71010-TC; 80048; 80053; 80061; 82550; 83036; 83721; 83735; 83880; 84100; 84484; 85025; 85379; 85610; 85730; 93005; 93010; 97116-GP; 97161-GP; 99285-25

== ENCOUNTER 2016-08-18 02:01 | Inpatient (IN) | payer OTHER, BC ==
--- NOTE | 2016-08-18 03:03 | PDOC ---
History of Present Illness - General History Source: Patient Exam Limitations: No Limitations - History of Present Illness Initial Comments: 08/18/16 03:14 The patient is a 76 year old male with significant past medical history of hypertension, hyperlipidemia, diabetes, CAD, nonischemic dilated cardiomyopathy s/p AICD, CHF, kidney stones who presents to the ED for 3 days of SOB. Patient reports his SOB is alleviated at rest. States he has not seen his PMD or baby sitter in over a month, but is compliant with his medications. Patient reports he feels his SOB is consistent with his previous CHF. Patient also has complaints of chest tightness, bilateral lower extremities swelling, and bilateral flank pain. Denies lightheadedness, diaphoresis, chest pain, jaw pain , shoulder pain, arm pain, nausea or vomiting. The patient denies fever, chills, cough, abdominal pain, and diarrhea. The patient denies dysuria, hematuria, urgency, and frequency. Allergies: NKDA Social History: No alcohol, tobacco, or drug use reported. Past [facility] PCP: Dr. Lyndsey Negro Contact Center Consultant: Dr. Steven Doe <Dona Morris - Last Filed: 08/18/16 03:43> - General History Source: Patient <Blu Tolbert - Last Filed: 08/18/16 23:45> - General Chief Complaint: Shortness of Breath Stated Complaint: DIFFICULTY BREATHING Time Seen by Provider: 08/18/16 02:59 Past History <Dona Morris - Last Filed: 08/18/16 03:43> - Past Medical History Anemia: No Cancer: No Cardiac Disorders: Yes COPD: Yes CHF: No Diabetes: Yes HTN: Yes Hypercholesterolemia: Yes Kidney Stones: Yes Suicide Attempt (Hx): No Thyroid Disease: No - Surgical History Cardiac Surgery: Yes (AICD) Orthopedic Surgery: Yes (LEFT KNEE) - Psycho/Social/Smoking Cessation Hx Anxiety: No Suicidal Ideation: No Smoking Status: Yes Smoking History: Never smoked Have you smoked in the past 12 months: No Number of Cigarettes Smoked Daily: 0 If you are a former smoker, when did you quit?: 2009 Information on smoking cessation initiated: No 'Breaking Loose' booklet given: 06/20/11 Hx Alcohol Use: No Drug/Substance Use Hx: No Substance Use Type: None Hx Substance Use Treatment: No <DeboraBlu - Last Filed: 08/18/16 23:45> - Past Medical History Allergies/Adverse Reactions: Allergies Allergy/AdvReac Type Severity Reaction Status Date / Time weed pollen Allergy Verified 08/18/16 02:26 Home Medications: Ambulatory Orders Lisinopril 2.5 mg PO DAILY 07/19/11 Cholecalciferol (Vitamin D3) [Vitamin D3 -] 1,000 unit PO DAILY 09/09/14 Metformin HCl [Metformin HCl ER] 1,000 mg PO BID 09/09/14 Metoprolol Succinate [Toprol Xl] 125 mg PO AM 09/09/14 [place]-3 Fatty Acids [Fish Oil] 300 mg PO DAILY 09/09/14 Potassium Chloride 10 meq PO BID 09/09/14 Furosemide [Lasix -] 40 mg PO DAILY #30 tablet 04/30/15 Ipratropium/Albuterol Sulfate [Combivent Respimat Inhal [place]] 4 gm IH QID #1 aer.w.adap 04/30/15 Rosuvastatin Calcium [Crestor] 5 mg PO DAILY 05/18/15 Apixaban [Eliquis] 5 mg PO DAILY 05/30/16 Tamsulosin HCl [Flomax] 0.4 mg PO DAILY #30 cap.er.24h 05/30/16 Cholecalciferol (Vitamin D3) [Vitamin D3] 1,000 unit PO DAILY 08/18/16 Cyanocobalamin (Vitamin B-12) [Vitamin B-12] 1,000 mcg SL DAILY 08/18/16 Review of Systems - Review of Systems Able to Perform ROS?: Yes Comments:: 08/18/16 03:15 CONSTITUTIONAL: Absent: fever, chills, diaphoresis, generalized weakness, malaise, loss of appetite HEENT: Absent: rhinorrhea, nasal congestion, throat pain, throat swelling, difficulty swallowing, mouth swelling, ear pain, eye pain, visual Changes CARDIOVASCULAR: +bilateral leg swelling Absent: chest pain, syncope, palpitations, irregular heart rate, lightheadedness RESPIRATORY: +SOB, chest tightness Absent: cough, dyspnea with exertion, orthopnea, wheezing , stridor, hemoptysis GASTROINTESTINAL: Absent: abdominal pain, abdominal distension, nausea, vomiting, diarrhea, constipation, melena, hematochezia GENITOURINARY: +bilateral flank pain Absent: dysuria, frequency, urgency, hesitancy, hematuria , genital pain MUSCULOSKELETAL: Absent: myalgia, arthralgia, joint swelling SKIN: Absent: rash, itching, pallor NEUROLOGIC: Absent: headache, focal weakness or paresthesias, dizziness, unsteady gait, seizure, mental status changes, bladder or bowel incontinence <Dona Morris - Last Filed: 08/18/16 03:43> *Physical Exam - Vital Signs Last Vital Signs Temp Pulse Resp BP Pulse Ox 99.5 F 84 18 148/96 95 08/18/16 02:17 08/18/16 02:17 08/18/16 02:17 08/18/16 02:17 08/18/16 02:17 - Physical Exam Comments: 08/18/16 03:15 GENERAL: Well developed, well nourished. Awake and alert. No acute distress. HEENT: Normocephalic, atraumatic. PERRLA, EOMI. No conjunctival pallor. Sclera are non- icteric. Moist mucous membranes. Oropharynx is clear. NECK: Supple. Full ROM. No JVD. Carotid pulses 2+ and symmetric, without bruits. No thyromegaly. No lymphadenopathy. CARDIOVASCULAR: Regular rate and rhythm. No murmurs, rubs, or gallops. Distal pulses are 2+ and symmetric. PULMONARY: No evidence of respiratory distress. Decreased breath sounds bilaterally. Lungs clear to auscultation bilaterally. No wheezing, rales or rhonchi. No conversational dyspnea. No retractions. ABDOMINAL: Soft. Non-tender. Non-distended. No rebound or guarding. No organomegaly. Normoactive bowel sounds. MUSCULOSKELETAL Normal range of motion at all joints. No bony deformities or tenderness. No CVA tenderness. EXTREMITIES: No cyanosis. No clubbing. Bilateral lower extremities +1 nonpitting edema. No calf tenderness. SKIN: Warm and dry. Normal capillary refill. No rashes. No jaundice. NEUROLOGICAL: Alert, awake, appropriate. Cranial nerves 2-12 intact. Moving all extremities. No gross neurological deficits. <Dona Morris - Last Filed: 08/18/16 03:43> - Vital Signs Last Vital Signs Temp Pulse Resp BP Pulse Ox 99.5 F 84 18 148/96 95 08/18/16 02:17 08/18/16 02:17 08/18/16 02:17 08/18/16 02:17 08/18/16 02:17 <Blu Tolbert - Last Filed: 08/18/16 23:45> Heart Score/ECG Review - ECG Impressions Comment:: 08/18/16 03:43 Sinus rhythm with frequent and consecutive premature ventricular complexes and fusion complexes @82bpm L axis deviation Nonspecific intraventricular conduction delay ST & T wave abnormality, consider lateral ischemia Abnormal ECG <Dona Morris - Last Filed: 08/18/16 03:43> ED Treatment Course - LABORATORY CBC & Chemistry Diagram: 08/18/16 03:19 08/18/16 03:19 <Dona Morris - Last Filed: 08/18/16 03:43> - LABORATORY CBC & Chemistry Diagram: 08/18/16 03:19 08/18/16 11:00 <Blu Tolbert - Last Filed: 08/18/16 23:45> Medical Decision Making - Medical Decision Making 08/18/16 23:45 Dr. Tolbert: The scribe's documentation has been prepared under my direction and personally reviewed by me in its entirery. I confirm that the note above accurately reflects all work, treatment, procedures, and medical decision making performed by me. <Blu Tolbert - Last Filed: 08/18/16 23:45> *DC/Admit/Observation/Transfer - Attestations Scribe Attestion: 08/18/16 03:15 Documentation prepared by Dona Morris, acting as diagnostic medical sonographer for Blu Tolbert MD/DO. <Dona Morris - Last Filed: 08/18/16 03:43> <Blu Tolbert - Last Filed: 08/18/16 23:45> Diagnosis at time of Disposition: Acute on chronic systolic CHF (congestive heart failure) - Discharge Dispostion Condition at time of disposition: Stable - Referrals
[2016-08-18] MEDS ORDERED: FUROSEMIDE 40 MG/4 ML INJECTABLE VIAL IVPUSH ONE (03:04)
[2016-08-18] MEDS ORDERED: FUROSEMIDE 40 MG/4 ML INJECTABLE VIAL ONE (03:29)
[2016-08-18 03:30] LABS: BASOPHIL 0.5 % (0-2.0); EOSINOPHIL 0.7 % (0-4.5); MCH 22.9 pg (25.7-33.7); MCHC 31.4 g/dl (32.0-35.9); MEAN CELL VOLUME 73.1 fl (80-96); MEAN PLT VOLUME 8.3 fl (7.5-11.1); PLATELET COUNT 211 K/MM3 (134-434); RDW 15.8 % (11.9-15.9); WHITE BLOOD COUNT 12.7 K/mm3 (4.0-10.0)
[2016-08-18 03:44] LABS: URINE APPEARANCE CLEAR; URINE BILIRUBIN NEGATIVE (NEGATIVE); URINE BLOOD NEGATIVE (NEGATIVE); URINE COLOR YELLOW; URINE GLUCOSE (UA) NEGATIVE (NEGATIVE); URINE KETONE NEGATIVE (NEGATIVE); URINE LEUK ESTERASE NEGATIVE (NEGATIVE); URINE NITRITE NEGATIVE (NEGATIVE); URINE UROBILINOGEN NEGATIVE E.U./dl (0.2-1.0)
[2016-08-18 03:46] LABS: INR 1.28 (0.82-1.09); PROTHROMBIN TIME (PATIENT) 14.2 SEC (9.98-11.88)
[2016-08-18 03:50] LABS: URINE PROTEIN 1+ (NEGATIVE)
[2016-08-18 03:54] LABS: URINE BACTERIA RARE /hpf (NONE SEEN); URINE HYALINE CAST 13 /lpf; URINE MUCUS RARE; URINE RBC 1 /hpf (0-3); URINE WBC 4 /hpf (3-5)
[2016-08-18 03:57] LABS: ALBUMIN 3.5 g/dl (3.4-5.0); ANION GAP 7 (8-16); BILIRUBIN,TOTAL 1.5 mg/dL (0.2-1.0); CALCIUM 8.6 mg/dL (8.5-10.1); CO2 27 mmol/L (21-32); CREATININE 0.9 mg/dL (0.7-1.3); GLUCOSE,RANDOM 153 mg/dL (74-106); SGOT/AST 11 U/L (15-37); SGPT/ALT 14 U/L (12-78); TOT PROT 6.9 g/dl (6.4-8.2)
[2016-08-18 04:00] LABS: ALK PHOS 54 U/L (45-117); TROPONIN I < 0.02 ng/ml (0.00-0.05)
--- NOTE | 2016-08-18 07:56 | PDOC ---
*Physical Exam - Vital Signs Last Vital Signs Temp Pulse Resp BP Pulse Ox 99.5 F 84 20 108/62 96 08/18/16 02:17 08/18/16 06:12 08/18/16 06:12 08/18/16 06:12 08/18/16 06:12 <Teresa Sun - Last Filed: 08/18/16 10:41> - Vital Signs Last Vital Signs Temp Pulse Resp BP Pulse Ox 99.5 F 84 20 108/62 96 08/18/16 02:17 08/18/16 06:12 08/18/16 06:12 08/18/16 06:12 08/18/16 06:12 <Yamilet Us - Last Filed: 08/18/16 14:53> ED Treatment Course - LABORATORY CBC & Chemistry Diagram: 08/18/16 03:19 08/18/16 03:19 - ADDITIONAL ORDERS Additional order review: Laboratory Results 08/18/16 08/18/16 08/18/16 03:43 03:19 03:19 INR 1.28 H Sodium 140 Potassium 4.3 Chloride 106 Carbon Dioxide 27 Anion Gap 7 L BUN 16 Creatinine 0.9 Creat Clearance w eGFR > 60 Random Glucose 153 H D Calcium 8.6 Total Bilirubin 1.5 H D AST 11 L D ALT 14 Alkaline Phosphatase 54 Creatine Kinase 72 Troponin I < 0.02 B-Natriuretic Peptide 2654.98 H Total Protein 6.9 Albumin 3.5 Urine Color Yellow Urine Appearance Clear Urine pH 5.0 Urine Protein 1+ H Urine Glucose (UA) Negative Urine Ketones Negative Urine Blood Negative Urine Nitrite Negative Urine Bilirubin Negative Urine Urobilinogen Negative Ur Leukocyte Esterase Negative Urine RBC 1 Urine WBC 4 Ur Epithelial Cells Rare Urine Bacteria Rare Hyaline Casts 13 Urine Mucus Rare 08/18/16 03:19 RBC 4.68 MCV 73.1 L MCHC 31.4 L RDW 15.8 MPV 8.3 Neutrophils % 84.0 H D Lymphocytes % 5.3 L D Monocytes % 9.5 Eosinophils % 0.7 Basophils % 0.5 - Medications Given in the ED: ED Medications Discontinued Medications Generic Name Dose Route Start Last Admin Trade Name Freq PRN Reason Stop Dose Admin Furosemide 60 mg 08/18/16 03:04 08/18/16 03:43 Lasix Injection - IVPUSH 08/18/16 03:05 60 mg ONCE ONE Administration <Teresa Sun - Last Filed: 08/18/16 10:41> - LABORATORY CBC & Chemistry Diagram: 08/18/16 03:19 08/18/16 11:00 - ADDITIONAL ORDERS Additional order review: Laboratory Results 08/18/16 08/18/16 08/18/16 03:43 03:19 03:19 INR 1.28 H Sodium 140 Potassium 4.3 Chloride 106 Carbon Dioxide 27 Anion Gap 7 L BUN 16 Creatinine 0.9 Creat Clearance w eGFR > 60 Random Glucose 153 H D Calcium 8.6 Total Bilirubin 1.5 H D AST 11 L D ALT 14 Alkaline Phosphatase 54 Creatine Kinase 72 Troponin I < 0.02 B-Natriuretic Peptide 2654.98 H Total Protein 6.9 Albumin 3.5 Urine Color Yellow Urine Appearance Clear Urine pH 5.0 Urine Protein 1+ H Urine Glucose (UA) Negative Urine Ketones Negative Urine Blood Negative Urine Nitrite Negative Urine Bilirubin Negative Urine Urobilinogen Negative Ur Leukocyte Esterase Negative Urine RBC 1 Urine WBC 4 Ur Epithelial Cells Rare Urine Bacteria Rare Hyaline Casts 13 Urine Mucus Rare 08/18/16 03:19 RBC 4.68 MCV 73.1 L MCHC 31.4 L RDW 15.8 MPV 8.3 Neutrophils % 84.0 H D Lymphocytes % 5.3 L D Monocytes % 9.5 Eosinophils % 0.7 Basophils % 0.5 - Medications Given in the ED: ED Medications Discontinued Medications Generic Name Dose Route Start Last Admin Trade Name Ena PRN Reason Stop Dose Admin Furosemide 60 mg 08/18/16 03:04 08/18/16 03:43 Lasix Injection - IVPUSH 08/18/16 03:05 60 mg ONCE ONE Administration <Yamilet Us - Last Filed: 08/18/16 14:53> Medical Decision Making - Medical Decision Making 08/18/16 07:[address] Lyndsey Negro. Phone service states that Dr. Lyndsey Negro is hooker on for himself. 08/18/16 08:[address] Lyndsey Negro. 08/18/16 09:[address] Lyndsey Negro. 08/18/16 09:[address] Lyndsey Negro. Office states that Dr. Mayberry is hooker on as is in house. 08/18/16 09:[address] Mayberry 08/18/16 09:45 Second overhead page to Dr. Mayberry 08/18/16 10:25 Third overhead page to Dr. Mayberry 08/18/16 10:27 Placed call to the office, to inform staff of multiple page attempts in order to reach wither Dr. Mayberry or their [employer]PERATOR with no response. Dayna states that she will page Dr. Mayberry. <Teresa Sun - Last Filed: 08/18/16 10:41> - Medical Decision Making 08/18/16 07:52 Pt reassessed. He states the shortness of breath has not changed much. I will d/ w PMD and admit. Will consult Dr. Doe from cardiology. <Yamilet Us - Last Filed: 08/18/16 14:53> *DC/Admit/Observation/Transfer - Attestations Scribe Attestion: 08/18/16 07:55 Documentation prepared by Teresa Sun, acting as medical language specialist for Yamilet Us MD. <Teresa Sun - Last Filed: 08/18/16 10:41> - Discharge Dispostion Admit: Yes <Yamilet Us - Last Filed: 08/18/16 14:53> Diagnosis at time of Disposition: Acute on chronic systolic CHF (congestive heart failure) - Discharge Dispostion Condition at time of disposition: Stable - Referrals - Patient Instructions - Post Discharge Activity
--- NOTE | 2016-08-18 09:14 | PN ---
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 Denies chest pain, palps or ICD discharges. No fever or chills. + PND Denies recent dietary indiscretions. Has been compliant with all meds including his usual Lasix 40mg PO daily. Of note, he had not required diuretics despite longstanding severe LV dysfunction until 2016. - Current Medication List Current Medications: Reviewed in EMR - Objective Vital Signs: Vital Signs Temperature 99.5 F 08/18/16 02:17 Pulse Rate 84 08/18/16 06:12 Respiratory Rate 20 08/18/16 06:12 Blood Pressure 108/62 08/18/16 06:12 O2 Sat by Pulse Oximetry (%) 96 08/18/16 06:12 Constitutional: Yes: No Distress, Calm HENT: Yes: Other Neck: Yes: Other (+ JVD) Cardiovascular: Yes: Pulse Irregular (PVCs) Respiratory: Yes: Other (Slight decreased breath sounds at bases. No wheezing or rales.) Gastrointestinal: Yes: Soft, Distention (No rebound or guarding tenderness.) Edema: Yes Edema: LLE: 1+ (at ankle), RLE: 1+ (at ankle) Peripheral Pulses WNL: Yes Neurological: Yes: Alert, Oriented ...Motor Strength: WNL Labs: CBC, BMP 08/18/16 03:19 08/18/16 03:19 INR, PTT INR 1.28 (0.82-1.09) H 08/18/16 03:19 Laboratory Tests 08/18/16 08/18/16 08/18/16 03:19 03:19 03:19 WBC 12.7 H D Hgb 10.7 L D Hct 34.2 L D Plt Count 211 INR 1.28 H Sodium 140 Potassium 4.3 BUN 16 Creatinine 0.9 Random Glucose 153 H D AST 11 L D ALT 14 Troponin I < 0.02 B-Natriuretic Peptide 2654.98 H Urine Protein Urine Glucose (UA) Urine Ketones Urine Blood Urine Nitrite Urine Bilirubin Urine Urobilinogen Ur Leukocyte Esterase 08/18/16 03:43 WBC Hgb Hct Plt Count INR Sodium Potassium BUN Creatinine Random Glucose AST ALT Troponin I B-Natriuretic Peptide Urine Protein 1+ H Urine Glucose (UA) Negative Urine Ketones Negative Urine Blood Negative Urine Nitrite Negative Urine Bilirubin Negative Urine Urobilinogen Negative Ur Leukocyte Esterase Negative - ....Imaging X-ray: Image Reviewed EKG: Image Reviewed (NSR, IVCD, PVCs, NSST changes) Problem List - Problems (1) Acute CHF (congestive heart failure) Code(s): I50.9 - HEART FAILURE, UNSPECIFIED Qualifiers: Congestive heart failure type: systolic Qualified Code(s): I50.21 - Acute systolic (congestive) heart failure (2) ASHD (arteriosclerotic heart disease) Assessment/Plan: -Non-obstructive Code(s): I25.10 - ATHSCL HEART DISEASE OF [place] CORONARY ARTERY W/O ANG PCTRS (3) Non-ischemic cardiomyopathy Assessment/Plan: s/p ICD Code(s): I42.9 - CARDIOMYOPATHY, UNSPECIFIED (4) Non-sustained ventricular tachycardia Code(s): I47.2 - VENTRICULAR TACHYCARDIA (5) Diabetes Code(s): E11.9 - TYPE 2 DIABETES MELLITUS WITHOUT COMPLICATIONS Qualifiers: Diabetes mellitus type: type 2 Diabetes mellitus complication status: with unspecified complications Assessment/Plan IMP: Non-ischemic CM with acute on chronic systolic CHF Non-obstructive CAD NSVT PAF REC: 1. Acute on chronic systolic CHF: -cycle cardiac enzymes and repeat Echo -Telemetry -Lasix 40mg IV daily with daily electrolytes and daily weights. -Routine ICD interrogations in office have been fine 2. CAD: -non-obstructive -Continue ASA 81mg daily and statin 3. NSVT: -Telemetry -Continue Toprol 125mg AM, 100mg PM -Keep Mg2+ > 2.0 and K+ > 4.0 4. PAF: -Continue Eliquis 5mg PO BID and Toprol
[2016-08-18] MEDS: APIXABAN 5 MG TABLET PO SCH ×2 (10:56→21:59)
[2016-08-18] MEDS: METOPROLOL SUCCINATE 100 MG TAB.SR.24H (FP) PO SCH ×2 (10:56→21:59)
--- NOTE | 2016-08-18 11:21 | EKG ---
Test Reason : Blood Pressure : / mmHG Vent. Rate : 082 BPM Atrial Rate : 082 BPM P-R Int : 206 ms QRS Dur : 122 ms QT Int : 380 ms P-R-T Axes : 086 -39 103 degrees QTc Int : 443 ms SINUS RHYTHM WITH FREQUENT and consecutive PREMATURE VENTRICULAR COMPLEXES AND FUSION COMPLEXES LEFT AXIS DEVIATION NON-SPECIFIC INTRA-VENTRICULAR CONDUCTION DELAY ABNORMAL ECG WHEN COMPARED WITH ECG OF 29-MAY-2016 23:16, FUSION COMPLEXES ARE NOW PRESENT Confirmed by DAVID LYNCH MD ([id number]) on 08/18/2016 11:21:16 AM Referred By: Confirmed By:ADVID LYNCH MD
--- NOTE | 2016-08-18 11:40 | HP ---
Admitting History and Physical - Primary Care Physician PCP: Lyndsey Negro - Admission Chief Complaint: SOB, CHF EXACERBATION History of Present Illness: The patient is a 76 year old male with significant past medical history of hypertension, hyperlipidemia, diabetes, CAD, nonischemic dilated cardiomyopathy s/p AICD, CHF, kidney stones who presented to the [facility] ED with chief complain of SOB on exertion,gradually worsening, from past 3 days. He was seen by his Ceo Dr Doe 1 month ago, and is compliant with his medication. He also complains of mild bilateral flank discomfort secondary to known renal stones that is being followed up by Dr Sanchez as outpatient. Denies lightheadedness, diaphoresis, chest pain, jaw pain, shoulder pain, arm pain, nausea or vomiting. History Source: Patient - Past Medical History Cardiovascular: Yes: AFIB, CAD (non-obstructive CAD, recent cath at [facility]- -12/2014, 30% LAD, EF 35%), CHF (Non-ischemic cardiomyopathy s/p ICD for primary prevention), HTN, Other ([employer] device interrogation 12/2014: NSVT, one run required ATP) Renal/: Yes: Renal Calculi Endocrine: Yes: Diabetes Mellitus - Past Surgical History Past Surgical History: Yes: AICD - Smoking History Smoking history: Never smoked Have you smoked in the past 12 months: No Aproximately how many cigarettes per day: 0 If you are a former smoker, when did you quit?: 2009 - Alcohol/Substance Use Hx Alcohol Use: No - Social History ADL: Independent History of Recent Travel: No Home Medications - Allergies Allergies/Adverse Reactions: Allergies Allergy/AdvReac Type Severity Reaction Status Date / Time weed pollen Allergy Verified 08/18/16 02:26 - Home Medications Home Medications: Ambulatory Orders Lisinopril 2.5 mg PO DAILY 07/19/11 Cholecalciferol (Vitamin D3) [Vitamin D3 -] 1,000 unit PO DAILY 09/09/14 Metformin HCl [Metformin HCl ER] 1,000 mg PO BID 09/09/14 Metoprolol Succinate [Toprol Xl] 125 mg PO AM 09/09/14 [place]-3 Fatty Acids [Fish Oil] 300 mg PO DAILY 09/09/14 Potassium Chloride 10 meq PO BID 09/09/14 Furosemide [Lasix -] 40 mg PO DAILY #30 tablet 04/30/15 Ipratropium/Albuterol Sulfate [Combivent Respimat Inhal [place]] 4 gm IH QID #1 aer.w.adap 04/30/15 Rosuvastatin Calcium [Crestor] 5 mg PO DAILY 05/18/15 Apixaban [Eliquis] 5 mg PO DAILY 05/30/16 Tamsulosin HCl [Flomax] 0.4 mg PO DAILY #30 cap.er.24h 05/30/16 Cholecalciferol (Vitamin D3) [Vitamin D3] 1,000 unit PO DAILY 08/18/16 Cyanocobalamin (Vitamin B-12) [Vitamin B-12] 1,000 mcg SL DAILY 08/18/16 Review of Systems - Review of Systems Constitutional: reports: Lethargy Eyes: reports: No Symptoms HENT: reports: No Symptoms Neck: reports: No Symptoms Cardiovascular: reports: Edema (BLLE), Shortness of Breath Respiratory: reports: Orthopnea, SOB on Exertion Gastrointestinal: reports: No Symptoms Genitourinary: reports: Flank Pain (BL) Breasts: reports: No Symptoms Reported Musculoskeletal: reports: No Symptoms Integumentary: reports: No Symptoms Neurological: reports: No Symptoms Endocrine: reports: No Symptoms Hematology/Lymphatic: reports: No Symptoms Psychiatric: reports: No Symptoms Pain Intensity: 3 Physical Examination Vital Signs: Vital Signs Temperature 99.5 F 08/18/16 02:17 Pulse Rate 70 08/18/16 11:07 Respiratory Rate 18 08/18/16 11:07 Blood Pressure 112/72 08/18/16 11:07 O2 Sat by Pulse Oximetry (%) 99 08/18/16 11:07 Constitutional: Yes: Well Nourished, No Distress, Calm Cardiovascular: Yes: Regular Rate and Rhythm Respiratory: Yes: Regular, Diminished (BLL) Gastrointestinal: Yes: Normal Bowel Sounds Musculoskeletal: Yes: WNL Extremities: Yes: WNL Edema: Yes Edema: LLE: Trace, RLE: Trace Peripheral Pulses WNL: Yes Neurological: Yes: Alert, Oriented Psychiatric: Yes: Alert, Oriented Imaging - Results Chest X-ray: Report Reviewed Problem List - Problems (1) Acute on chronic systolic CHF (congestive heart failure) Assessment/Plan: -telemetry -IV furosemide -cardiology consult -echo -monitor I&O's -daily weights Code(s): I50.23 - ACUTE ON CHRONIC SYSTOLIC (CONGESTIVE) HEART FAILURE (2) Shortness of breath Assessment/Plan: -nasal o2 to maintain spo2 >90% Code(s): R06.02 - SHORTNESS OF BREATH (3) Bilateral nephrolithiasis Assessment/Plan: -pain management -work up as outpatient by Dr Sanchez Code(s): N20.0 - CALCULUS OF KIDNEY Assessment/Plan -telemetry -IV furosemide -cardiology consult -echo -monitor I&O's -daily weights -pain management -labs in am -stool OB and iron profile for mild anemia -uc for leukocytosis, although could be inflammatory
[2016-08-18 11:51] LABS: TROPONIN I < 0.02 ng/ml (0.00-0.05)
[2016-08-18 11:53] LABS: ANION GAP 7 (8-16); CO2 32 mmol/L (21-32); GLUCOSE,RANDOM 129 mg/dL (74-106)
[2016-08-18 13:08] VITALS: BMI 28.8
[2016-08-19 07:33] LABS: BASOPHIL 0.4 % (0-2.0); EOSINOPHIL 1.4 % (0-4.5); MCH 23.6 pg (25.7-33.7); MCHC 32.4 g/dl (32.0-35.9); MEAN CELL VOLUME 72.8 fl (80-96); MEAN PLT VOLUME 8.7 fl (7.5-11.1); PLATELET COUNT 203 K/MM3 (134-434)
[2016-08-19 07:56] LABS: ALBUMIN 3.3 g/dl (3.4-5.0); ANION GAP 6 (8-16); BILIRUBIN,TOTAL 1.5 mg/dL (0.2-1.0); CALCIUM 8.7 mg/dL (8.5-10.1); CO2 33 mmol/L (21-32); CREATININE 0.8 mg/dL (0.7-1.3); GLUCOSE,RANDOM 123 mg/dL (74-106); SGOT/AST 8 U/L (15-37); SGPT/ALT 12 U/L (12-78)
[2016-08-19 07:57] LABS: ALK PHOS 48 U/L (45-117); TOT PROT 6.6 g/dl (6.4-8.2)
--- NOTE | 2016-08-19 08:16 | PN ---
Progress Note, Physician Chief Complaint: feeling slightly improved ECHO: Severe global LV dysfx, mild to mod MR TELE: NSR with intermittent pacing and one 18 beat run NSVT - Current Medication List Current Medications: Active Medications Acetaminophen (Tylenol -) 650 mg PO Q6H PRN PRN Reason: FEVER OR PAIN Apixaban (Eliquis -) 5 mg PO BID [facility] Last Admin: 08/18/16 21:59 Dose: 5 mg Furosemide (Lasix Injection -) 40 mg IVPB DAILY [facility] Metoprolol Succinate (Toprol Xl -) 100 mg PO BID [facility] Last Admin: 08/18/16 21:59 Dose: 100 mg - Objective Vital Signs: Vital Signs Temperature 98.4 F 08/19/16 06:00 Pulse Rate 70 08/19/16 06:00 Respiratory Rate 20 08/19/16 06:00 Blood Pressure 108/63 08/19/16 06:00 O2 Sat by Pulse Oximetry (%) 97 08/18/16 21:00 Constitutional: Yes: No Distress Eyes: Yes: Conjunctiva Clear Cardiovascular: Yes: Regular Rate and Rhythm Respiratory: Yes: Other (slightly decreased breath sounds at bases) Gastrointestinal: Yes: Soft, Abdomen, Obese Edema: Yes Edema: LLE: 1+, RLE: 1+ Neurological: Yes: Alert, Oriented ...Motor Strength: WNL Labs: CBC, BMP 08/19/16 06:07 INR, PTT INR 1.28 (0.82-1.09) H 08/18/16 03:19 - ....Imaging EKG: Image Reviewed Problem List - Problems (1) Acute CHF (congestive heart failure) Code(s): I50.9 - HEART FAILURE, UNSPECIFIED Qualifiers: Congestive heart failure type: systolic Qualified Code(s): I50.21 - Acute systolic (congestive) heart failure (2) ASHD (arteriosclerotic heart disease) Code(s): I25.10 - ATHSCL HEART DISEASE OF [place] CORONARY ARTERY W/O ANG PCTRS (3) Non-ischemic cardiomyopathy Code(s): I42.9 - CARDIOMYOPATHY, UNSPECIFIED (4) Non-sustained ventricular tachycardia Code(s): I47.2 - VENTRICULAR TACHYCARDIA (5) Diabetes Code(s): E11.9 - TYPE 2 DIABETES MELLITUS WITHOUT COMPLICATIONS Qualifiers: Diabetes mellitus type: type 2 Diabetes mellitus complication status: with unspecified complications Assessment/Plan IMP: Non-ischemic CM with acute on chronic systolic CHF Non-obstructive CAD NSVT PAF REC: 1. Acute on chronic systolic CHF: -Telemetry -Lasix 40mg IV daily with daily electrolytes and daily weights. 2. CAD: -non-obstructive -Continue ASA 81mg daily and statin 3. NSVT: -Telemetry -Continue Toprol 125mg AM, 100mg PM -Keep Mg2+ > 2.0 and K+ > 4.0
[2016-08-19 09:30] LABS: MAGNESIUM 1.9 mg/dL (1.8-2.4)
[2016-08-19] MEDS: FUROSEMIDE 40 MG/4 ML INJECTABLE VIAL IVPB SCH (09:39)
[2016-08-19] MEDS: METOPROLOL SUCCINATE 25 MG TAB.SR.24H (FP) PO SCH (09:40)
[2016-08-19] MEDS: APIXABAN 5 MG TABLET PO SCH ×2 (09:40→21:31)
[2016-08-19] MEDS: METOPROLOL SUCCINATE 100 MG TAB.SR.24H (FP) PO SCH ×2 (09:40→21:31)
[2016-08-19] MEDS: MAGNESIUM OXIDE 400 MG TABLET (FP) PO SCH ×2 (09:40→21:31)
[2016-08-19] MEDS: ACETAMINOPHEN 325 MG TABLET (FP) PO PRN (09:46)
--- NOTE | 2016-08-19 11:38 | PN ---
Progress Note, Physician - Current Medication List Current Medications: Active Medications Acetaminophen (Tylenol -) 650 mg PO Q6H PRN PRN Reason: FEVER OR PAIN Last Admin: 08/19/16 09:46 Dose: 650 mg Apixaban (Eliquis -) 5 mg PO BID [facility] Last Admin: 08/19/16 09:40 Dose: 5 mg Furosemide (Lasix Injection -) 40 mg IVPB DAILY [facility] Last Admin: 08/19/16 09:39 Dose: 40 mg Magnesium Oxide (Mag-Ox -) 400 mg PO BID [facility] Stop: 08/22/16 23:59 Last Admin: 08/19/16 09:40 Dose: 400 mg Metoprolol Succinate (Toprol Xl -) 100 mg PO BID [facility] Last Admin: 08/19/16 09:40 Dose: 100 mg Metoprolol Succinate (Toprol Xl -) 25 mg PO DAILY [facility] Last Admin: 08/19/16 09:40 Dose: 25 mg - Objective Vital Signs: Vital Signs Temperature 98.2 F 08/19/16 09:00 Pulse Rate 73 08/19/16 09:00 Respiratory Rate 20 08/19/16 09:00 Blood Pressure 139/85 08/19/16 09:00 O2 Sat by Pulse Oximetry (%) 97 08/19/16 09:00 Constitutional: Yes: Calm Cardiovascular: Yes: Regular Rate and Rhythm, S1, S2 Respiratory: Yes: Diminished, Wheezes Gastrointestinal: Yes: Normal Bowel Sounds, Soft Neurological: Yes: Alert Labs: CBC, BMP 08/19/16 06:07 08/19/16 06:07 INR, PTT INR 1.28 (0.82-1.09) H 08/18/16 03:19 Problem List - Problems (1) Acute on chronic systolic CHF (congestive heart failure) Assessment/Plan: iv lasix monitor the lytes Code(s): I50.23 - ACUTE ON CHRONIC SYSTOLIC (CONGESTIVE) HEART FAILURE (2) ASHD (arteriosclerotic heart disease) Assessment/Plan: statin and asa Code(s): I25.10 - ATHSCL HEART DISEASE OF [place] CORONARY ARTERY W/O ANG PCTRS (3) Non-sustained ventricular tachycardia Assessment/Plan: monitor lytes toprol Code(s): I47.2 - VENTRICULAR TACHYCARDIA (4) PAF (paroxysmal atrial fibrillation) Assessment/Plan: BB and eliquis Code(s): I48.0 - PAROXYSMAL ATRIAL FIBRILLATION
[2016-08-20 06:06] LABS: SERUM IRON 27 ug/dL (38-169); TOTAL IRON BINDING CAPACITY 243 ug/dL (250-450); UIBC 216 ug/dL (111-343)
[2016-08-20 08:18] LABS: ALBUMIN 3.4 g/dl (3.4-5.0); ANION GAP 5 (8-16); CALCIUM 9.1 mg/dL (8.5-10.1); CO2 34 mmol/L (21-32); GLUCOSE,RANDOM 122 mg/dL (74-106); MAGNESIUM 2.1 mg/dL (1.8-2.4)
[2016-08-20 08:21] LABS: ALK PHOS 52 U/L (45-117); BILIRUBIN,TOTAL 0.9 mg/dL (0.2-1.0); CREATININE 0.8 mg/dL (0.7-1.3); SGOT/AST 8 U/L (15-37); SGPT/ALT 14 U/L (12-78)
--- NOTE | 2016-08-20 09:13 | PN ---
Progress Note, Physician History of Present Illness: seen and examined today in [facility]. no overnight events. no new complaints. states he is feeling better. le edema resolved, abdominal distention improved. - Current Medication List Current Medications: Active Medications Acetaminophen (Tylenol -) 650 mg PO Q6H PRN PRN Reason: FEVER OR PAIN Last Admin: 08/19/16 09:46 Dose: 650 mg Apixaban (Eliquis -) 5 mg PO BID [facility] Last Admin: 08/19/16 21:31 Dose: 5 mg Furosemide (Lasix Injection -) 40 mg IVPB DAILY [facility] Last Admin: 08/19/16 09:39 Dose: 40 mg Magnesium Oxide (Mag-Ox -) 400 mg PO BID [facility] Stop: 08/22/16 23:59 Last Admin: 08/19/16 21:31 Dose: 400 mg Metoprolol Succinate (Toprol Xl -) 100 mg PO BID [facility] Last Admin: 08/19/16 21:31 Dose: 100 mg Metoprolol Succinate (Toprol Xl -) 25 mg PO DAILY [facility] Last Admin: 08/19/16 09:40 Dose: 25 mg - Objective Vital Signs: Vital Signs Temperature 98 F 08/20/16 06:00 Pulse Rate 60 08/20/16 06:00 Respiratory Rate 18 08/20/16 06:00 Blood Pressure 127/77 08/20/16 06:00 O2 Sat by Pulse Oximetry (%) 97 08/19/16 21:00 Constitutional: Yes: Well Nourished, No Distress, Calm Eyes: Yes: WNL, Conjunctiva Clear, EOM Intact, PERRL HENT: Yes: WNL, Atraumatic, Normocephalic Neck: Yes: WNL, Supple, Trachea Midline Cardiovascular: Yes: Regular Rate and Rhythm, S1, S2. No: Bradycardia, Tachycardia, Pulse Irregular, Bruit, JVD, Gallop, Murmur, Rub, S3, S4, Varicosities Respiratory: Yes: Regular, CTA Bilaterally. No: Rales, Rhonchi, Wheezes Gastrointestinal: Yes: Normal Bowel Sounds, Soft, Distention. No: Tenderness Musculoskeletal: Yes: WNL Extremities: Yes: WNL Edema: No Peripheral Pulses WNL: Yes Peripheral Pulses: Left Doralis Pedis: 2+, Right Dorsalis Pedis: 2+ Integumentary: Yes: WNL Neurological: Yes: Alert, Oriented Psychiatric: Yes: Alert, Oriented Labs: CBC, BMP 08/19/16 06:07 08/20/16 06:00 INR, PTT INR 1.28 (0.82-1.09) H 08/18/16 03:19 - ....Imaging Chest X-ray: Report Reviewed, Image Reviewed EKG: Report Reviewed, Image Reviewed Other: Report Reviewed, Image Reviewed (tele-nsr, pvcs, intermittent vpaced, no further NSVT recorded) Assessment/Plan IMP: Non-ischemic CM with acute on chronic systolic CHF Non-obstructive CAD NSVT PAF REC: SOB-abdominal distention, Acute on chronic systolic CHF, NICM with severe LV dysfunction, s/p ICD -significantly improved, close to euvolemic, no LE edema, lungs clear, abdominal distention improving -cont Lasix 40mg IV daily for 1 more day with a plan to transition to po Lasix tomorrow, monitor daily electrolytes and daily weights. CAD-stable, non-obstructive CAD -Cont ASA 81mg daily and statin -outpatient f/up NSVT-improved -ICD in place -cont Telemetry for now -Cont Toprol 125mg AM, 100mg PM -Keep Mg2+ > 2.0 and K+ > 4.0 PAF-controlled -cont eliquis -cont Toprol as above
[2016-08-20] MEDS: APIXABAN 5 MG TABLET PO SCH ×2 (09:40→21:45)
[2016-08-20] MEDS: FUROSEMIDE 40 MG/4 ML INJECTABLE VIAL IVPB SCH (09:40)
[2016-08-20] MEDS: METOPROLOL SUCCINATE 25 MG TAB.SR.24H (FP) PO SCH (09:40)
[2016-08-20] MEDS: MAGNESIUM OXIDE 400 MG TABLET (FP) PO SCH ×2 (09:41→21:45)
[2016-08-20] MEDS: METOPROLOL SUCCINATE 100 MG TAB.SR.24H (FP) PO SCH ×2 (09:41→21:45)
[2016-08-20] MEDS: ACETAMINOPHEN 325 MG TABLET (FP) PO PRN (09:52)
--- NOTE | 2016-08-20 14:23 | PN ---
Progress Note, Physician Chief Complaint: AWAKE ALERT MY FIRST ENCOUNTER WITH THIS PATIENT EVENTS AND RECORDS REVIEWED DENIES CHEST PAIN AND NO DYSPNEA - Current Medication List Current Medications: Active Medications Acetaminophen (Tylenol -) 650 mg PO Q6H PRN PRN Reason: FEVER OR PAIN Last Admin: 08/20/16 09:52 Dose: 650 mg Apixaban (Eliquis -) 5 mg PO BID [facility] Last Admin: 08/20/16 09:40 Dose: 5 mg Furosemide (Lasix Injection -) 40 mg IVPB DAILY [facility] Last Admin: 08/20/16 09:40 Dose: 40 mg Magnesium Oxide (Mag-Ox -) 400 mg PO BID [facility] Stop: 08/22/16 23:59 Last Admin: 08/20/16 09:41 Dose: 400 mg Metoprolol Succinate (Toprol Xl -) 100 mg PO BID [facility] Last Admin: 08/20/16 09:41 Dose: 100 mg Metoprolol Succinate (Toprol Xl -) 25 mg PO DAILY [facility] Last Admin: 08/20/16 09:40 Dose: 25 mg - Objective Vital Signs: Vital Signs Temperature 98.5 F 08/20/16 09:53 Pulse Rate 78 08/20/16 09:53 Respiratory Rate 20 08/20/16 09:53 Blood Pressure 113/78 08/20/16 09:53 O2 Sat by Pulse Oximetry (%) 96 08/20/16 09:53 Constitutional: Yes: No Distress Eyes: Yes: WNL HENT: Yes: WNL Neck: Yes: WNL Cardiovascular: Yes: Pulse Irregular Respiratory: Yes: WNL Gastrointestinal: Yes: WNL Genitourinary: Yes: WNL Musculoskeletal: Yes: Muscle Weakness Extremities: Yes: WNL Edema: No Peripheral Pulses WNL: Yes Integumentary: Yes: WNL Wound/Incision: Yes: Clean/Dry Neurological: Yes: WNL ...Motor Strength: WNL Psychiatric: Yes: WNL Labs: CBC, BMP 08/19/16 06:07 08/20/16 06:00 INR, PTT INR 1.28 (0.82-1.09) H 08/18/16 03:19 Problem List - Problems (1) ASHD (arteriosclerotic heart disease) Code(s): I25.10 - ATHSCL HEART DISEASE OF [place] CORONARY ARTERY W/O ANG PCTRS (2) Acute CHF (congestive heart failure) Code(s): I50.9 - HEART FAILURE, UNSPECIFIED Qualifiers: Congestive heart failure type: systolic Qualified Code(s): I50.21 - Acute systolic (congestive) heart failure (3) Acute on chronic systolic CHF (congestive heart failure) Code(s): I50.23 - ACUTE ON CHRONIC SYSTOLIC (CONGESTIVE) HEART FAILURE (4) Hypertension Code(s): I10 - ESSENTIAL (PRIMARY) HYPERTENSION Qualifiers: Hypertension type: essential hypertension Qualified Code(s): I10 - Essential (primary) hypertension (5) Diabetes Code(s): E11.9 - TYPE 2 DIABETES MELLITUS WITHOUT COMPLICATIONS Qualifiers: Diabetes mellitus type: type 2 Diabetes mellitus complication status: with unspecified complications Assessment/Plan LASIX IV DAILY WEIGHTS LOW SODIUM DIET NUTRITION CONSULT LABS REVIEWED 02 SUPPORT
[2016-08-21] MEDS: METOPROLOL SUCCINATE 25 MG TAB.SR.24H (FP) PO SCH (09:05)
[2016-08-21] MEDS: METOPROLOL SUCCINATE 100 MG TAB.SR.24H (FP) PO SCH ×2 (09:06→22:10)
[2016-08-21] MEDS: MAGNESIUM OXIDE 400 MG TABLET (FP) PO SCH ×2 (09:06→22:09)
[2016-08-21] MEDS: FUROSEMIDE 40 MG/4 ML INJECTABLE VIAL IVPB SCH (09:06)
[2016-08-21] MEDS: APIXABAN 5 MG TABLET PO SCH ×2 (09:06→22:09)
--- NOTE | 2016-08-21 09:18 | PN ---
Progress Note, Physician History of Present Illness: seen and examined today in [facility]. no overnight events. no new complaints. ambulatory in room without limitation. - Current Medication List Current Medications: Active Medications Acetaminophen (Tylenol -) 650 mg PO Q6H PRN PRN Reason: FEVER OR PAIN Last Admin: 08/20/16 09:52 Dose: 650 mg Apixaban (Eliquis -) 5 mg PO BID [facility] Last Admin: 08/21/16 09:06 Dose: 5 mg Furosemide (Lasix Injection -) 40 mg IVPB DAILY [facility] Last Admin: 08/21/16 09:06 Dose: 40 mg Magnesium Oxide (Mag-Ox -) 400 mg PO BID [facility] Stop: 08/22/16 23:59 Last Admin: 08/21/16 09:06 Dose: 400 mg Metoprolol Succinate (Toprol Xl -) 100 mg PO BID [facility] Last Admin: 08/21/16 09:06 Dose: 100 mg Metoprolol Succinate (Toprol Xl -) 25 mg PO DAILY [facility] Last Admin: 08/21/16 09:05 Dose: 25 mg - Objective Vital Signs: Vital Signs Temperature 97.9 F 08/21/16 06:00 Pulse Rate 63 08/21/16 06:00 Respiratory Rate 19 08/21/16 06:00 Blood Pressure 121/60 08/21/16 06:00 O2 Sat by Pulse Oximetry (%) 99 08/20/16 21:00 Constitutional: Yes: No Distress, Calm, Obese Eyes: Yes: Conjunctiva Clear, EOM Intact, PERRL HENT: Yes: Atraumatic, Normocephalic Neck: Yes: Supple, Trachea Midline Cardiovascular: Yes: Pulse Irregular, Murmur, S1, S2. No: Regular Rate and Rhythm, Bradycardia, Tachycardia, Bruit, JVD, Gallop, Rub, S3, S4, Varicosities Respiratory: Yes: Regular, Diminished, On Nasal O2. No: Rales, Rhonchi, SOB, Wheezes Gastrointestinal: Yes: Normal Bowel Sounds, Abdomen, Obese. No: Distention, Tenderness Musculoskeletal: Yes: WNL Extremities: Yes: WNL Edema: No Peripheral Pulses WNL: Yes Peripheral Pulses: Left Doralis Pedis: 2+, Right Dorsalis Pedis: 2+ Integumentary: Yes: WNL Neurological: Yes: Alert, Oriented Psychiatric: Yes: Alert, Oriented Labs: CBC, BMP 08/19/16 06:07 08/20/16 06:00 INR, PTT INR 1.28 (0.82-1.09) H 08/18/16 03:19 - ....Imaging Chest X-ray: Report Reviewed, Image Reviewed EKG: Report Reviewed, Image Reviewed Other: Report Reviewed, Image Reviewed (tele-nsr, frequent pvcs, intermittent vpaced, v couplets and occ triplet) Assessment/Plan IMP: Non-ischemic CM with acute on chronic systolic CHF Non-obstructive CAD NSVT PAF REC: SOB-abdominal distention, Acute on chronic systolic CHF, NICM with severe LV dysfunction, s/p ICD -significantly improved, close to euvolemic -I/Os not recorded, weight approx the same -cont Lasix 40mg IV daily again for 1 more day with a plan to likely transition to po Lasix tomorrow, monitor daily electrolytes and daily weights. -ok from a cardiac standpoint to start discharge planning CAD-stable, non-obstructive CAD -Cont ASA 81mg daily and statin -outpatient f/up NSVT-improved, no further NSVT recorded -ICD in place -cont Telemetry for now -Cont Toprol 125mg AM, 100mg PM -Keep Mg2+ > 2.0 and K+ > 4.0 PAF-controlled -cont eliquis -cont Toprol as above
[2016-08-21] MEDS ORDERED: SIMETHICONE 80 MG TAB.CHEW (FP) PO PRN (14:06)
--- NOTE | 2016-08-21 14:10 | PN ---
Progress Note, Physician Chief Complaint: AWAKE ALERT C/O ABD BLOATING - Current Medication List Current Medications: Active Medications Acetaminophen (Tylenol -) 650 mg PO Q6H PRN PRN Reason: FEVER OR PAIN Last Admin: 08/20/16 09:52 Dose: 650 mg Al Hydroxide/Mg Hydroxide (Mylanta Suspension -) 30 ml PO Q6HPO [facility] Apixaban (Eliquis -) 5 mg PO BID [facility] Last Admin: 08/21/16 09:06 Dose: 5 mg Furosemide (Lasix Injection -) 40 mg IVPB DAILY [facility] Last Admin: 08/21/16 09:06 Dose: 40 mg Magnesium Oxide (Mag-Ox -) 400 mg PO BID [facility] Stop: 08/22/16 23:59 Last Admin: 08/21/16 09:06 Dose: 400 mg Metoprolol Succinate (Toprol Xl -) 100 mg PO BID [facility] Last Admin: 08/21/16 09:06 Dose: 100 mg Metoprolol Succinate (Toprol Xl -) 25 mg PO DAILY [facility] Last Admin: 08/21/16 09:05 Dose: 25 mg Simethicone (Mylicon -) 80 mg PO Q4H PRN PRN Reason: GAS - Objective Vital Signs: Vital Signs Temperature 98.5 F 08/21/16 13:34 Pulse Rate 59 L 08/21/16 13:34 Respiratory Rate 18 08/21/16 13:34 Blood Pressure 125/58 08/21/16 13:34 O2 Sat by Pulse Oximetry (%) 94 L 08/21/16 09:00 Constitutional: Yes: No Distress Eyes: Yes: WNL HENT: Yes: WNL Neck: Yes: WNL Cardiovascular: Yes: WNL Respiratory: Yes: WNL Gastrointestinal: Yes: Other Genitourinary: Yes: WNL Musculoskeletal: Yes: WNL Extremities: Yes: WNL Edema: No Peripheral Pulses WNL: Yes Integumentary: Yes: WNL Wound/Incision: Yes: Clean/Dry Neurological: Yes: WNL ...Motor Strength: WNL Psychiatric: Yes: WNL Labs: CBC, BMP 08/19/16 06:07 08/20/16 06:00 INR, PTT INR 1.28 (0.82-1.09) H 08/18/16 03:19 Problem List - Problems (1) ASHD (arteriosclerotic heart disease) Code(s): I25.10 - ATHSCL HEART DISEASE OF [place] CORONARY ARTERY W/O ANG PCTRS (2) Acute CHF (congestive heart failure) Code(s): I50.9 - HEART FAILURE, UNSPECIFIED Qualifiers: Congestive heart failure type: systolic Qualified Code(s): I50.21 - Acute systolic (congestive) heart failure (3) Acute on chronic systolic CHF (congestive heart failure) Code(s): I50.23 - ACUTE ON CHRONIC SYSTOLIC (CONGESTIVE) HEART FAILURE (4) Hypertension Code(s): I10 - ESSENTIAL (PRIMARY) HYPERTENSION Qualifiers: Hypertension type: essential hypertension Qualified Code(s): I10 - Essential (primary) hypertension (5) Diabetes Code(s): E11.9 - TYPE 2 DIABETES MELLITUS WITHOUT COMPLICATIONS Qualifiers: Diabetes mellitus type: type 2 Diabetes mellitus complication status: with unspecified complications Assessment/Plan LASIX IV DAILY WEIGHTS LOW SODIUM DIET NUTRITION CONSULT LABS REVIEWED 02 SUPPORT GORDON AND GAS-X ADDED
[2016-08-21] MEDS ORDERED: MAG HYDROX/AL HYDROX/SIMETH 355 ML ORAL.SUSP PO SCH (18:00)
[2016-08-22 07:41] LABS: WHITE BLOOD COUNT 9.9 K/mm3 (4.0-10.0)
[2016-08-22 07:42] LABS: MCH 23.3 pg (25.7-33.7); MCHC 31.7 g/dl (32.0-35.9); MEAN CELL VOLUME 73.5 fl (80-96); MEAN PLT VOLUME 8.8 fl (7.5-11.1); PLATELET COUNT 238 K/MM3 (134-434); RDW 15.6 % (11.9-15.9)
[2016-08-22 08:04] LABS: ALBUMIN 3.6 g/dl (3.4-5.0); ANION GAP 6 (8-16); BILIRUBIN,TOTAL 0.9 mg/dL (0.2-1.0); CALCIUM 9.2 mg/dL (8.5-10.1); CO2 34 mmol/L (21-32); CREATININE 0.9 mg/dL (0.7-1.3); GLUCOSE,RANDOM 139 mg/dL (74-106); SGPT/ALT 19 U/L (12-78); TOT PROT 7.3 g/dl (6.4-8.2)
[2016-08-22 08:05] LABS: ALK PHOS 57 U/L (45-117); SGOT/AST 12 U/L (15-37)
--- NOTE | 2016-08-22 09:36 | PN ---
Progress Note, Physician History of Present Illness: seen and examined today in [facility]. states he is feeling better. states he was ambulatory in the hallway yesterday with no limitations. - Current Medication List Current Medications: Active Medications Acetaminophen (Tylenol -) 650 mg PO Q6H PRN PRN Reason: FEVER OR PAIN Last Admin: 08/20/16 09:52 Dose: 650 mg Apixaban (Eliquis -) 5 mg PO BID [facility] Last Admin: 08/21/16 22:09 Dose: 5 mg Furosemide (Lasix -) 40 mg PO BID@1000,1400 [facility] Magnesium Oxide (Mag-Ox -) 400 mg PO BID [facility] Stop: 08/22/16 23:59 Last Admin: 08/21/16 22:09 Dose: 400 mg Metoprolol Succinate (Toprol Xl -) 100 mg PO BID [facility] Last Admin: 08/21/16 22:10 Dose: 100 mg Metoprolol Succinate (Toprol Xl -) 25 mg PO DAILY [facility] Last Admin: 08/21/16 09:05 Dose: 25 mg Simethicone (Mylicon -) 80 mg PO Q4H PRN PRN Reason: GAS - Objective Vital Signs: Vital Signs Temperature 98.1 F 08/22/16 05:21 Pulse Rate 60 08/22/16 05:21 Respiratory Rate 20 08/22/16 05:21 Blood Pressure 116/60 08/22/16 05:21 O2 Sat by Pulse Oximetry (%) 96 08/21/16 20:34 Constitutional: Yes: No Distress, Calm, Obese Eyes: Yes: Conjunctiva Clear, EOM Intact, PERRL HENT: Yes: Atraumatic, Normocephalic Neck: Yes: Supple, Trachea Midline Cardiovascular: Yes: Pulse Irregular, S1, S2. No: Regular Rate and Rhythm, Bradycardia, Tachycardia, Bruit, JVD, Gallop, Murmur, Rub, S3, S4, Varicosities Respiratory: Yes: Regular, Diminished. No: Rales, Rhonchi, SOB, Wheezes Gastrointestinal: Yes: Normal Bowel Sounds, Distention. No: Tenderness Musculoskeletal: Yes: WNL Extremities: Yes: WNL Edema: No Peripheral Pulses WNL: Yes Peripheral Pulses: Left Doralis Pedis: 2+, Right Dorsalis Pedis: 2+ Integumentary: Yes: WNL Neurological: Yes: Alert, Oriented, Cran Nerves II-XII Intact Psychiatric: Yes: Alert, Oriented Labs: CBC, BMP 08/22/16 05:35 08/22/16 05:35 INR, PTT INR 1.28 (0.82-1.09) H 08/18/16 03:19 - ....Imaging Chest X-ray: Report Reviewed, Image Reviewed EKG: Report Reviewed, Image Reviewed Other: Report Reviewed, Image Reviewed (tele-nsr, frequent pvcs, intermittent vpaced, no further nsvt) Assessment/Plan IMP: Non-ischemic CM with acute on chronic systolic CHF Non-obstructive CAD NSVT PAF REC: SOB-abdominal distention, Acute on chronic systolic CHF, NICM with severe LV dysfunction, s/p ICD -significantly improved, close to euvolemic -can transition Lasix to 40mg po bid with plan for continued gentle diuresis as outpatient and close outpatient f/up -ok from a cardiac standpoint for discharge CAD-stable, non-obstructive CAD -Cont ASA 81mg daily and statin -outpatient f/up NSVT-improved, no further NSVT recorded -ICD in place -cont Telemetry for now -Cont Toprol 125mg AM, 100mg PM -Keep Mg2+ > 2.0 and K+ > 4.0 PAF-controlled -cont eliquis -cont Toprol as above
[2016-08-22] MEDS: METOPROLOL SUCCINATE 100 MG TAB.SR.24H (FP) PO SCH ×2 (09:38→21:49)
[2016-08-22] MEDS: APIXABAN 5 MG TABLET PO SCH ×2 (09:38→21:49)
[2016-08-22] MEDS: METOPROLOL SUCCINATE 25 MG TAB.SR.24H (FP) PO SCH (09:38)
[2016-08-22] MEDS: MAGNESIUM OXIDE 400 MG TABLET (FP) PO SCH ×2 (09:39→21:49)
[2016-08-22] MEDS: FUROSEMIDE 40 MG TABLET (FP) PO SCH ×2 (09:39→13:19)
--- NOTE | 2016-08-22 12:26 | PN ---
Progress Note, Physician Chief Complaint: patient complaining of abdominal bloating and nausea when he drinks water he says he is scared of eating food he has been passing gas - Current Medication List Current Medications: Active Medications Acetaminophen (Tylenol -) 650 mg PO Q6H PRN PRN Reason: FEVER OR PAIN Last Admin: 08/20/16 09:52 Dose: 650 mg Apixaban (Eliquis -) 5 mg PO BID [facility] Last Admin: 08/22/16 09:38 Dose: 5 mg Furosemide (Lasix -) 40 mg PO BID@1000,1400 [facility] Last Admin: 08/22/16 09:39 Dose: 40 mg Magnesium Oxide (Mag-Ox -) 400 mg PO BID [facility] Stop: 08/22/16 23:59 Last Admin: 08/22/16 09:39 Dose: 400 mg Metoprolol Succinate (Toprol Xl -) 100 mg PO BID [facility] Last Admin: 08/22/16 09:38 Dose: 100 mg Metoprolol Succinate (Toprol Xl -) 25 mg PO DAILY [facility] Last Admin: 08/22/16 09:38 Dose: 25 mg Simethicone (Mylicon -) 80 mg PO Q4H PRN PRN Reason: GAS Last Admin: 08/22/16 11:23 Dose: 80 mg - Objective Vital Signs: Vital Signs Temperature 98.5 F 08/22/16 10:00 Pulse Rate 64 08/22/16 10:00 Respiratory Rate 18 08/22/16 10:00 Blood Pressure 105/64 08/22/16 10:00 O2 Sat by Pulse Oximetry (%) 96 08/22/16 09:00 Constitutional: Yes: Calm Neck: Yes: Trachea Midline Cardiovascular: Yes: Regular Rate and Rhythm, S1, S2 Respiratory: Yes: CTA Bilaterally Gastrointestinal: Yes: Normal Bowel Sounds, Soft, Distention Edema: No Neurological: Yes: Alert, Oriented Labs: CBC, BMP 08/22/16 05:35 08/22/16 05:35 INR, PTT INR 1.28 (0.82-1.09) H 08/18/16 03:19 Problem List - Problems (1) Abdominal bloating Assessment/Plan: GI abdominal ct scan Code(s): R14.0 - ABDOMINAL DISTENSION (GASEOUS) (2) Acute on chronic systolic CHF (congestive heart failure) Assessment/Plan: iv lasix to po lasix bid monitor the lytes- stable Code(s): I50.23 - ACUTE ON CHRONIC SYSTOLIC (CONGESTIVE) HEART FAILURE (3) ASHD (arteriosclerotic heart disease) Assessment/Plan: statin and asa Code(s): I25.10 - ATHSCL HEART DISEASE OF [place] CORONARY ARTERY W/O ANG PCTRS (4) Non-sustained ventricular tachycardia Assessment/Plan: stable Code(s): I47.2 - VENTRICULAR TACHYCARDIA (5) PAF (paroxysmal atrial fibrillation) Assessment/Plan: BB and eliquis Code(s): I48.0 - PAROXYSMAL ATRIAL FIBRILLATION
--- NOTE | 2016-08-22 20:26 | CON.GI ---
Consult Consult Specialty:: gastroenterology Referred by:: Dr Perry - History of Present Illness History of Present Illness: Patient is a 89 year old male of descent with underlying history of paroxysmal afib, HTN, hypercholesterolemia, COPD, diastolic dysfunction, hypertrophic cardiomyopathy, mild aortic stenosis, diabetes mellitus, carotid stenosis, OSAS, GERD and DJD referred from rehab for rapid afib over 100 bpm, strip not available for review, reports mild weakness but denies chest pain, dyspnea, palpitations, near or true syncope, orthopnea, PND or LE edema. Patient has chronic constipation, excessive bloating and abdominal distention. Never had a colonoscopy. He denies family history of colon cancer - Past Medical History Cardio/Vascular: Yes: AFIB, CAD (non-obstructive CAD, recent cath at [facility] --12/2014, 30% LAD, EF 35%), CHF (Non-ischemic cardiomyopathy s/p ICD for primary prevention), HTN, Other ([employer] device interrogation 12/2014: NSVT, one run required ATP) Renal/: Yes: Renal Calculi Endocrine: Yes: Diabetes Mellitus - Past Surgical History Past Surgical History: Yes: AICD - Alcohol/Substance Use Hx Alcohol Use: No - Smoking History Smoking history: Never smoked Have you smoked in the past 12 months: No Aproximately how many cigarettes per day: 0 If you are a former smoker, when did you quit?: 2009 - Social History Usual Living Arrangement: With Spouse ADL: Independent History of Recent Travel: No Home Medications - Allergies Allergies/Adverse Reactions: Allergies Allergy/AdvReac Type Severity Reaction Status Date / Time weed pollen Allergy Verified 08/18/16 02:26 - Home Medications Home Medications: Ambulatory Orders Lisinopril 2.5 mg PO DAILY 07/19/11 Cholecalciferol (Vitamin D3) [Vitamin D3 -] 1,000 unit PO DAILY 09/09/14 Metformin HCl [Metformin HCl ER] 1,000 mg PO BID 09/09/14 Metoprolol Succinate [Toprol Xl] 125 mg PO AM 09/09/14 [place]-3 Fatty Acids [Fish Oil] 300 mg PO DAILY 09/09/14 Potassium Chloride 10 meq PO BID 09/09/14 Furosemide [Lasix -] 40 mg PO DAILY #30 tablet 04/30/15 Ipratropium/Albuterol Sulfate [Combivent Respimat Inhal [place]] 4 gm IH QID #1 aer.w.adap 04/30/15 Rosuvastatin Calcium [Crestor] 5 mg PO DAILY 05/18/15 Apixaban [Eliquis] 5 mg PO DAILY 05/30/16 Tamsulosin HCl [Flomax] 0.4 mg PO DAILY #30 cap.er.24h 05/30/16 Cholecalciferol (Vitamin D3) [Vitamin D3] 1,000 unit PO DAILY 08/18/16 Cyanocobalamin (Vitamin B-12) [Vitamin B-12] 1,000 mcg SL DAILY 08/18/16 Physical Exam-GI Vital Signs: Vital Signs Temperature 98.1 F 08/22/16 18:00 Pulse Rate 57 L 08/22/16 18:00 Respiratory Rate 18 08/22/16 18:00 Blood Pressure 121/54 08/22/16 18:00 O2 Sat by Pulse Oximetry (%) 96 08/22/16 09:00 Constitutional: Yes: Well Nourished Eyes: Yes: Conjunctiva Clear HENT: Yes: Atraumatic Neck: Yes: Supple Cardiovascular: Yes: Regular Rate and Rhythm Respiratory: Yes: CTA Bilaterally Gastrointestinal Inspection: Yes: Distention ...Palpate: Yes: Soft. No: Firm/Rigid, Guarding, Hepatomegaly, Mass, Pulsatile Mass, Splenomegaly Labs: CBC, BMP 08/22/16 05:35 08/22/16 05:35 INR, PTT INR 1.28 (0.82-1.09) H 08/18/16 03:19 Problem List - Problems (1) IBS (irritable bowel syndrome) Assessment/Plan: suspect small bowel bacterial overgrowth and pancreatic insufficiency R>FUA pancreatic enzyme fleet enema lactose free, low residue diet Code(s): K58.9 - IRRITABLE BOWEL SYNDROME WITHOUT DIARRHEA
[2016-08-22] MEDS: metroNIDAZOLE 250 MG TABLET PO SCH (21:49)
[2016-08-22] MEDS: SODIUM PHOSPHATE/NA BIPHOS 133 ML ENEMA PR SCH (21:50)
[2016-08-23] MEDS: SODIUM PHOSPHATE/NA BIPHOS 133 ML ENEMA PR SCH (01:25)
[2016-08-23] MEDS: metroNIDAZOLE 250 MG TABLET PO SCH ×2 (06:10→13:08)
[2016-08-23] MEDS ORDERED: PT OWN MED DRAWER 7, Y5N ONE (09:08)
[2016-08-23] MEDS: METOPROLOL SUCCINATE 25 MG TAB.SR.24H (FP) PO SCH (09:09)
[2016-08-23] MEDS: FUROSEMIDE 40 MG TABLET (FP) PO SCH ×2 (09:09→13:08)
[2016-08-23] MEDS: METOPROLOL SUCCINATE 100 MG TAB.SR.24H (FP) PO SCH (09:09)
[2016-08-23] MEDS: APIXABAN 5 MG TABLET PO SCH (09:09)
[2016-08-23] MEDS: LIPASE/PROTEASE/AMYLASE 6,000 UNIT CAPSULE PO SCH ×2 (09:10→12:31)
--- NOTE | 2016-08-23 09:12 | PN ---
Progress Note, Physician Chief Complaint: returned from Abdominal Xray CT A/P yesterday showed diverticulosis, but no other acute pathology He feels better- less SOB, walked around. No palps or chest pain History of Present Illness: TELE: reviewed. NSR with couplets and rare 3 beat clusters of NSVT (has ICD) - Current Medication List Current Medications: Active Medications Acetaminophen (Tylenol -) 650 mg PO Q6H PRN PRN Reason: FEVER OR PAIN Last Admin: 08/20/16 09:52 Dose: 650 mg Apixaban (Eliquis -) 5 mg PO BID [facility] Last Admin: 08/23/16 09:09 Dose: 5 mg Furosemide (Lasix -) 40 mg PO BID@1000,1400 [facility] Last Admin: 08/23/16 09:09 Dose: 40 mg Metoprolol Succinate (Toprol Xl -) 100 mg PO BID [facility] Last Admin: 08/23/16 09:09 Dose: 100 mg Metoprolol Succinate (Toprol Xl -) 25 mg PO DAILY [facility] Last Admin: 08/23/16 09:09 Dose: 25 mg Metronidazole (Flagyl -) 250 mg PO TID [facility] Last Admin: 08/23/16 06:10 Dose: 250 mg Pancrelipase (Creon Dr 6,000 Units Capsule) 3 cap PO TIDCM [facility] Last Admin: 08/23/16 09:10 Dose: 3 cap Simethicone (Mylicon -) 80 mg PO Q4H PRN PRN Reason: GAS Last Admin: 08/22/16 11:23 Dose: 80 mg - Objective Vital Signs: Vital Signs Temperature 97.7 F 08/23/16 06:00 Pulse Rate 68 08/23/16 06:00 Respiratory Rate 20 08/23/16 06:00 Blood Pressure 134/75 08/23/16 06:00 O2 Sat by Pulse Oximetry (%) 96 08/23/16 06:00 Constitutional: Yes: No Distress, Calm Eyes: Yes: Conjunctiva Clear, EOM Intact Neck: Yes: Supple Cardiovascular: Yes: Regular Rate and Rhythm Respiratory: Yes: CTA Bilaterally Gastrointestinal: Yes: Soft (mildly distended. Non-tender) Edema: No Neurological: Yes: Alert, Oriented Labs: CBC, BMP 08/22/16 05:35 08/22/16 05:35 INR, PTT INR 1.28 (0.82-1.09) H 08/18/16 03:19 Laboratory Tests 08/18/16 08/18/16 08/19/16 03:19 11:00 06:07 WBC 10.0 Hgb 11.3 L RDW 16.0 H Plt Count Sodium Potassium BUN Creatinine Calcium AST ALT Alkaline Phosphatase Troponin I < 0.02 < 0.02 Albumin Lipase 08/19/16 08/21/16 08/22/16 06:07 14:27 05:35 WBC 9.9 Hgb 12.3 RDW Plt Count 238 Sodium Potassium Pending BUN Creatinine Pending Calcium Pending AST ALT Alkaline Phosphatase Troponin I Albumin Lipase 43 L 08/22/16 05:35 WBC Hgb RDW Plt Count Sodium 145 Potassium 4.6 BUN 20 H Creatinine 0.9 Calcium AST 12 L D ALT 19 D Alkaline Phosphatase 57 Troponin I Albumin 3.6 Lipase - ....Imaging EKG: Image Reviewed Problem List - Problems (1) Acute CHF (congestive heart failure) Code(s): I50.9 - HEART FAILURE, UNSPECIFIED Qualifiers: Congestive heart failure type: systolic Qualified Code(s): I50.21 - Acute systolic (congestive) heart failure (2) ASHD (arteriosclerotic heart disease) Code(s): I25.10 - ATHSCL HEART DISEASE OF [place] CORONARY ARTERY W/O ANG PCTRS (3) Non-ischemic cardiomyopathy Code(s): I42.9 - CARDIOMYOPATHY, UNSPECIFIED (4) Non-sustained ventricular tachycardia Code(s): I47.2 - VENTRICULAR TACHYCARDIA (5) Diabetes Code(s): E11.9 - TYPE 2 DIABETES MELLITUS WITHOUT COMPLICATIONS Qualifiers: Diabetes mellitus type: type 2 Diabetes mellitus complication status: with unspecified complications Assessment/Plan IMP: Non-ischemic CM with acute on chronic systolic CHF now clinically improved after several days IV Lasix Non-obstructive CAD NSVT PAF REC: SOB-abdominal distention, Acute on chronic systolic CHF, NICM with severe LV dysfunction, s/p ICD -now euvolemic. -Agree with increased maintenance dose of Lasix: 40mg BID. -ok from a cardiac standpoint for discharge, will consider Entresto for him going forward. CAD-stable, non-obstructive CAD -Cont ASA 81mg daily and statin NSVT-improved -ICD in place -Cont Toprol 125mg AM, 100mg PM -Keep Mg2+ > 2.0 and K+ > 4.0 -Will need close monitoring of outpatient labs; may need oral K+ and Mg2+ supplimentation in future. PAF-discovered on routine ICD interrogation in office this year. -cont Liu.
--- NOTE | 2016-08-23 12:19 | DS ---
Physical Examination Vital Signs: Vital Signs Temperature 98 F 08/23/16 10:00 Pulse Rate 68 08/23/16 10:00 Respiratory Rate 18 08/23/16 10:00 Blood Pressure 148/64 08/23/16 10:00 O2 Sat by Pulse Oximetry (%) 96 08/23/16 09:00 feeling better today had multiple BM and now feels less bloated Constitutional: Yes: Calm Neck: Yes: Trachea Midline Cardiovascular: Yes: Regular Rate and Rhythm, S1, S2 Respiratory: Yes: CTA Bilaterally Gastrointestinal: Yes: Soft, Distention (less distended today) Neurological: Yes: Alert, Oriented Labs: CBC, BMP 08/22/16 05:35 08/22/16 05:35 Discharge Summary Reason For Visit: ACUTE ON CHRONIC SYSTOLIC CHF Current Active Problems ASHD (arteriosclerotic heart disease) (Acute) Abdominal bloating (Acute) Acute CHF (congestive heart failure) (Acute) Acute on chronic systolic CHF (congestive heart failure) (Acute) Bilateral nephrolithiasis (Acute) Cough (Acute) Hypertension (Acute) IBS (irritable bowel syndrome) (Acute) Non-ischemic cardiomyopathy (Acute) Non-sustained ventricular tachycardia (Acute) PAF (paroxysmal atrial fibrillation) (Acute) Pulmonary hypertension (Acute) Shortness of breath (Acute) Hospital Course: PCP: Lyndsey Negro - Admission Chief Complaint: SOB, CHF EXACERBATION History of Present Illness: The patient is a 76 year old male with significant past medical history of hypertension, hyperlipidemia, diabetes, CAD, nonischemic dilated cardiomyopathy s/p AICD, CHF, kidney stones who presented to the [facility] ED with chief complain of SOB on exertion,gradually worsening, from past 3 days. He was seen by his Pediatric Genetic Counselor Dr Doe 1 month ago, and is compliant with his medication. He also complains of mild bilateral flank discomfort secondary to known renal stones that is being followed up by Dr Sanchez as outpatient. Denies lightheadedness, diaphoresis, chest pain, jaw pain, shoulder pain, arm pain, nausea or vomiting. History Source: Patient - Past Medical History Cardiovascular: Yes: AFIB, CAD (non-obstructive CAD, recent cath at [facility]- -12/2014, 30% LAD, EF 35%), CHF (Non-ischemic cardiomyopathy s/p ICD for primary prevention), HTN, Other ([employer] device interrogation 12/2014: NSVT, one run required ATP) Renal/: Yes: Renal Calculi Endocrine: Yes: Diabetes Mellitus - Past Surgical History Past Surgical History: Yes: AICD - Smoking History Smoking history: Never smoked Have you smoked in the past 12 months: No Aproximately how many cigarettes per day: 0 If you are a former smoker, when did you quit?: 2009 in hospital acute on chronic systolic CHF improved with iv lasix switched to lasix bid monitor lytes at outpatient NSVT improved ICD In place toprol 125mg in am and toprol 100mg in pm abdominal distension ct scan shows sigmoid diverticulosis stop metformin GI saw patient pancreatic enzynes and flagyl started patient got fleet enema now improved Condition: Stable - Instructions Diet, Activity, Other Instructions: stop metformin because of bloating take lasix twice daily continue flagyl and pancreatic enzymes for alteast for one month Referrals: Lyndsey Negro MD [Primary Care Provider] - 1 Week Nicolas Huang MD [Staff Physician] - 3 Weeks Disposition: HOME - Home Medications Comprehensive Discharge Medication List: Ambulatory Orders Lisinopril 2.5 mg PO DAILY 07/19/11 Cholecalciferol (Vitamin D3) [Vitamin D3 -] 1,000 unit PO DAILY 09/09/14 Metformin HCl [Metformin HCl ER] 1,000 mg PO BID 09/09/14 Metoprolol Succinate [Toprol Xl] 125 mg PO AM 09/09/14 [place]-3 Fatty Acids [Fish Oil] 300 mg PO DAILY 09/09/14 Potassium Chloride 10 meq PO BID 09/09/14 Furosemide [Lasix -] 40 mg PO DAILY #30 tablet 04/30/15 Ipratropium/Albuterol Sulfate [Combivent Respimat Inhal [place]] 4 gm IH QID #1 aer.w.adap 04/30/15 Rosuvastatin Calcium [Crestor] 5 mg PO DAILY 05/18/15 Apixaban [Eliquis] 5 mg PO DAILY 05/30/16 Tamsulosin HCl [Flomax] 0.4 mg PO DAILY #30 cap.er.24h 05/30/16 Cholecalciferol (Vitamin D3) [Vitamin D3] 1,000 unit PO DAILY 08/18/16 Cyanocobalamin (Vitamin B-12) [Vitamin B-12] 1,000 mcg SL DAILY 08/18/16
[2016-08-23 15:59] VITALS: BP 115/52; PULSE 58; TEMP 97.9
== END 2016-08-23 16:00 | disposition home or self-care (01) | DRG 292 ==
LOC: JER 02:01 → JERBED 09:25 → J4W 11:19
PROVIDERS: ADMIT Family Medicine; ATTEND Family Medicine
DX: I11.0 Hypertensive heart disease with heart failure (principal); I47.1 Supraventricular tachycardia; I50.23 Acute on chronic systolic (congestive) heart failure; I48.0 Paroxysmal atrial fibrillation; I27.2 Other secondary pulmonary hypertension; E78.5 Hyperlipidemia, unspecified; I25.10 Atherosclerotic heart disease of native coronary artery without angina pectoris; E11.9 Type 2 diabetes mellitus without complications; N20.0 Calculus of kidney; N40.0 Benign prostatic hyperplasia without lower urinary tract symptoms; K57.90 Diverticulosis of intestine, part unspecified, without perforation or abscess without bleeding; K58.9 Irritable bowel syndrome, unspecified
CPT/HCPCS: 36415; 71010-TC; 74020-TC; 74176-TC; 80048; 80053; 81003; 81015; 82550; 82728; 83036; 83540; 83550; 83690; 83735; 83880; 84484; 85025; 85027; 85610; 93005; 93010; 93306-TC; 99285-25; Q9967

== ENCOUNTER 2019-02-26 09:59 | Inpatient (IN) | payer OTHER, BC ==
--- NOTE | 2019-02-26 11:10 | PDOC ---
History of Present Illness <Armida Mcmillan - Last Filed: 02/26/19 13:07> - General History Source: Patient Exam Limitations: No Limitations - History of Present Illness Initial Comments: 02/26/19 10:30 PCP: Dr. Negro Cards: Dr. Doe GI: Dr. Huang PMH: 78 yo M PMH hypertension, hyperlipidemia, diverticulitis, diabetes, CAD, non-ischemic dilated cardiomyopathy s/p AICD, CHF, kidney stones presenting with diarrhea for 2 days. Patient reports chronic intermittent diarrhea / " loose stools" that have been worked up by PCP with abx (Flagyl?) in 2017 with some symptomatic improvement. Multiple episodes per month, current episode 2 days with 7-8 watery BMs, fecal urgency has resulted in several accidents - denies incontinence. No numbness / tingling / neuro complaints in saddle region or other. Denies travel, recent novel foods, any milk products, bloody BMs, recent ABX / hospitalizations, no current fevers, chills, nausea, vomiting. Patient endorses feeling in his USOH except for diarrhea. He denies back pain, endorsing diffuse abdominal discomfort. Endorses dark colored stools - on iron. Compliant with all medications, questionable followup. No colonoscopies previously. Ventral abdominal hernia, never given him issues. No Hx of abdominal surgery. All: NKDA Meds: Per chart PMH: As above PSH: Denies abdominal surgeries <Kaz Gonzalez - Last Filed: 02/26/19 14:32> - General Chief Complaint: Back Pain Stated Complaint: LOWER BACK/ CHILLS Time Seen by Provider: 02/26/19 10:26 Past History <McmillanArmida - Last Filed: 02/26/19 13:07> - Travel Traveled outside of the country in the last 30 days: No Close contact w/someone who was outside of country & ill: No - Past Medical History Anemia: No Cancer: No Cardiac Disorders: Yes COPD: Yes CHF: No Diabetes: Yes HTN: Yes Hypercholesterolemia: Yes Kidney Stones: Yes Thyroid Disease: No - Surgical History Cardiac Surgery: Yes (AICD) Orthopedic Surgery: Yes (LEFT KNEE) - Immunization History Immunization Up to Date: Yes - Psycho Social/Smoking Cessation Hx Smoking Status: Yes Smoking History: Never smoked Have you smoked in the past 12 months: No Number of Cigarettes Smoked Daily: 0 If you are a former smoker, when did you quit?: 2009 Information on smoking cessation initiated: No 'Breaking Loose' booklet given: 06/20/11 Hx Alcohol Use: No Drug/Substance Use Hx: No Substance Use Type: None Hx Substance Use Treatment: No <Kaz Gonzalez - Last Filed: 02/26/19 14:32> - Past Medical History Allergies/Adverse Reactions: Allergies Allergy/AdvReac Type Severity Reaction Status Date / Time weed pollen Allergy Verified 08/18/16 02:26 Home Medications: Ambulatory Orders Metoprolol Succinate [Toprol Xl] 125 mg PO AM 09/09/14 Potassium Chloride 10 meq PO BID 09/09/14 Ipratropium/Albuterol Sulfate [Combivent Respimat 20-100 Mcg] 4 gm IH QID #1 aer.w.adap 04/30/15 Rosuvastatin Calcium [Crestor] 5 mg PO DAILY 05/18/15 Tamsulosin HCl [Flomax] 0.4 mg PO DAILY #30 cap.er.24h 05/30/16 Cholecalciferol (Vitamin D3) [Vitamin D3] 1,000 unit PO DAILY 08/18/16 Cyanocobalamin (Vitamin B-12) [Vitamin B-12] 1,000 mcg SL DAILY 08/18/16 Apixaban [Eliquis -] 5 mg PO BID tablet 08/23/16 Apixaban [Eliquis] 5 mg PO DAILY #60 tab MDD 2 08/23/16 Furosemide [Lasix -] 40 mg PO BID@1000,1400 #20 tablet MDD 2 08/23/16 Lipase/Protease/Amylase [Creon Dr 6,000 Units Capsule] 3 cap PO TIDCM #90 cap MDD 3 08/23/16 Magnesium Oxide [Mag-Ox -] 400 mg PO BID #20 tablet MDD 2 08/23/16 Metoprolol Succinate [Toprol XL -] 25 mg PO DAILY #30 tab MDD 1 08/23/16 Metoprolol Succinate [Toprol XL -] 100 mg PO BID #60 tab MDD 2 08/23/16 [place]-3 Fatty Acids [Fish Oil] 300 mg PO DAILY #30 tab MDD 1 08/23/16 metroNIDAZOLE [Flagyl -] 250 mg PO TID #60 tablet MDD 3 08/23/16 Review of Systems - Review of Systems Able to Perform ROS?: Yes Is the patient limited Upper Sorbian proficient: Yes Constitutional: Yes: Chills (several days ago). No: Diaphoresis, Fever, Loss of Appetite, Weakness HEENTM: Yes: Nose Congestion (several days ago). No: Recent change in vision, Throat Pain Respiratory: Yes: Wheezing (chronic). No: Cough, Shortness of Breath Cardiac (ROS): No: Chest Pain, Edema, Irregular Heart Rate, Lightheadedness, Palpitations, Chest Tightness ABD/GI: Yes: Abdominal Distended (intermittent), Diarrhea, Other (ventral hernia ). No: Constipated, Nausea, Poor Appetite, Poor Fluid Intake, Vomiting : No: Dysuria, Discharge, Frequency Musculoskeletal: No: Muscle Pain, Muscle Weakness Integumentary: No: Change in Color, Lesions, Pallor, Rash Neurological: No: Headache, Numbness, Tingling, Weakness Psychiatric: No: Stressors, Change in Appetite Endocrine: No: Increased Urine, Unexplained Weight Gain, Change in Weight Hematologic/Lymphatic: Yes: Other (on blood thinner). No: Anemia, Blood Clots, Easy Bleeding All Other Systems: Reviewed and Negative <Kaz Gonzalez - Last Filed: 02/26/19 14:32> *Physical Exam - Vital Signs Last Vital Signs Temp Pulse Resp BP Pulse Ox 100.0 F H 72 18 112/58 L 100 02/26/19 11:17 02/26/19 11:17 02/26/19 11:17 02/26/19 11:17 02/26/19 11:17 <Armida Mcmillan - Last Filed: 02/26/19 13:07> - Vital Signs Last Vital Signs Temp Pulse Resp BP Pulse Ox 98.6 F 85 17 137/66 98 02/26/19 10:08 02/26/19 10:08 02/26/19 10:08 02/26/19 10:08 02/26/19 10:08 - Physical Exam 02/26/19 11:48 Vitals reviewed, AFVSS, low-grade 100.0 rectal temp GEN: Well appearing, appears stated age, NAD, comfortable. AAOx3. HEENT: NCAT, EOMI, PERRL. Sclera anicteric, noninjected. No facial asymmetry. Moist mucous membranes. Normal voice. Trachea midline. CV: RRR, S1/S2, no murmurs / rubs / gallops appreciated. LUNG: CTAB, normal work of breathing. Diffuse wheezes, no rales or rhonchi. No cough. Speaking full sentences. GI: Soft, mild distention compared with baseline, diffusely tender to aggressive palpation, +BS, no guarding, no rebound. No masses. Neg CVAT b/l. EXTREMITIES: 2+ distal pulses. No LE edema. No obvious deformities of all extremities. SKIN: Warm, dry, no rashes appreciated. PSYCH: Normal mood and affect. Cooperative and appropriate. NEURO: CN grossly intact. Moving all extremities well. Normal strength and sensation grossly. Normal gait. No saddle anesthesia. Rectal: Normal tone, no masses, brown stool in vault <Kaz Gonzalez - Last Filed: 02/26/19 14:32> ED Treatment Course - LABORATORY CBC & Chemistry Diagram: 02/26/19 11:10 02/26/19 11:10 - ADDITIONAL ORDERS Additional order review: Laboratory Results 02/26/19 02/26/19 02/26/19 11:15 11:10 11:10 PT with INR 17.80 H INR 1.50 H Sodium Potassium Chloride Carbon Dioxide Anion Gap BUN Creatinine Est GFR (CKD-EPI)AfAm Est GFR (CKD-EPI)NonAf Random Glucose Calcium Phosphorus 4.0 Magnesium 2.3 Total Bilirubin AST ALT Alkaline Phosphatase Total Protein Albumin Urine Color Urine Appearance Urine pH Ur Specific [place] Urine Protein Urine Glucose (UA) Urine Ketones Urine Blood Urine Nitrite Urine Bilirubin Urine Urobilinogen Ur Leukocyte Esterase Urine WBC (Auto) Urine RBC (Auto) Urine Casts (Auto) U Epithel Cells (Auto) Urine Bacteria (Auto) Stool Occult Blood Negative 02/26/19 02/26/19 11:10 11:10 PT with INR INR Sodium 137 Potassium 4.5 Chloride 104 Carbon Dioxide 28 Anion Gap 5 L BUN 30.9 H Creatinine 1.5 H Est GFR (CKD-EPI)AfAm 51.31 Est GFR (CKD-EPI)NonAf 44.27 Random Glucose 112 H Calcium 8.8 Phosphorus Magnesium Total Bilirubin 0.8 AST 27 ALT 22 Alkaline Phosphatase 66 Total Protein 8.1 Albumin 3.9 Urine Color Yellow Urine Appearance Cloudy Urine pH 5.0 Ur Specific [place] 1.017 Urine Protein 1+ H Urine Glucose (UA) Negative Urine Ketones Negative Urine Blood 1+ H Urine Nitrite Negative Urine Bilirubin Negative Urine Urobilinogen 0.2 Ur Leukocyte Esterase 2+ H Urine WBC (Auto) 138 Urine RBC (Auto) 8.2 Urine Casts (Auto) 32 U Epithel Cells (Auto) 1.3 Urine Bacteria (Auto) 2321.1 Stool Occult Blood 02/26/19 11:10 RBC 4.74 MCV 71.3 L MCHC 31.2 L RDW 17.4 H MPV 8.9 Neutrophils % 66.3 Lymphocytes % 11.8 Monocytes % 20.9 H Eosinophils % 0.1 D Basophils % 0.9 - Medications Given in the ED: ED Medications Discontinued Medications Generic Name Dose Route Start Last Admin Trade Name Luis Fernandoq PRN Reason Stop Dose Admin Acetaminophen 1,000 mg 02/26/19 11:24 02/26/19 11:35 Ofirmev Injection - IVPB 02/26/19 11:25 1,000 mg ONCE ONE Administration Albuterol/Ipratropium 1 amp 02/26/19 11:34 02/26/19 11:54 Duoneb - NEB 02/26/19 11:35 1 amp ONCE ONE Administration Sodium Chloride 500 ml 02/26/19 11:24 02/26/19 11:35 Normal Saline - IV 02/26/19 11:25 500 ml ONCE ONE Administration <Armida Mcmillan - Last Filed: 02/26/19 13:07> - LABORATORY CBC & Chemistry Diagram: 02/26/19 11:10 02/26/19 11:10 <Kaz Gonzalez - Last Filed: 02/26/19 14:32> Medical Decision Making - Medical Decision Making 02/26/19 11:52 78 yo M PMH hypertension, hyperlipidemia, diverticulitis, diabetes, CAD, non- ischemic dilated cardiomyopathy s/p AICD, CHF, kidney stones presenting with acute on chronic diarrhea. Hx notable for prior workup with infectious diarrhea as outpatient, history of diverticulitis, recent ?viral syndrome, good PO, watery diarrhea, no recent ABX/hospitalizations/different foods, no colonoscopies. Exam notable for low-grade fever, normal rectal tone, very mild abdominal tenderness, some distention. DDX: Infectious diarrhea (bacterial overgrowth vs colonization), diverticulitis, malignancy, no concern for spinal cord pathology - no signs of compression / patient denies incontinence. - CBC, CMP, Mg, Phos - UA, UCx - CTAP with contrast - 1g Ofirmev - 500cc NS - FOBT - Influenza - Duonebs 02/26/19 12:39 - Pt with Cr 1.5, GFR adequate, s/p 500cc bolus, consentable 02/26/19 13:09 - UTI, Cr elevation 0.9>1.5 - Admit for UTI - Anemic, FOBT negative - Electrolytes WNL - Influenza negative - CTX 1 g - CT pending official read Dispo: Admit, pending CTAP 02/26/19 14:30 EKbpm, first degree AV block with PVCs, Left [place] Deviation, widened QRS, T wave aVL c/w prior, unchanged since August 18, 2016 <Kaz Gonzalez - Last Filed: 02/26/19 14:32> Discharge - Discharge Information Problems reviewed: Yes - Admission Yes <Armida Mcmillan - Last Filed: 02/26/19 13:07> - Discharge Information Problems reviewed: Yes <Kaz Gonzalez - Last Filed: 02/26/19 14:32> - Discharge Information Clinical Impression/Diagnosis: ARLENE (acute kidney injury), UTI (urinary tract infection), Diarrhea Condition: Fair
[2019-02-26] MEDS ORDERED: SODIUM CHLORIDE 0.9% 500 ML INFUS.BAG IV ONE (11:24)
[2019-02-26] MEDS ORDERED: ACETAMINOPHEN 1000 MG/100 ML VIAL (NON FORMULARY) IVPB ONE (11:24)
--- NOTE | 2019-02-26 11:24 | PDOC ---
Attending Attestation - Resident Resident Name: Kaz Gonzalez - ED Attending Attestation I have performed the following: I have examined & evaluated the patient, The case was reviewed & discussed with the resident, I agree w/resident's findings & plan - HPI HPI: 02/26/19 11:27 78 year old male with significant past medical history of hypertension, hyperlipidemia, diabetes, CAD, nonischemic dilated cardiomyopathy s/p AICD, CHF , kidney stones, diverticular disease who presented to the [facility] ED with watery diarrhea x 3 days, a/w diffuse abdominal pain. +dark stools, but no blood, takes iron pills. 2 days ago he had mild cough, since resolved. No vomiting, nausea, no fever or chills. No SOB or CP. No recent hospitalization, no travel. No sick contacts No suspicious food intake. no prior colonoscopy PMD Dr Negro 02/26/19 11:27 02/26/19 13:09 - Physicial Exam PE: 02/26/19 11:27 Agree with the resident's HPI and PE as documented in the electronic medical record. NAD, well appearing, EOMI, PERRL, nl conjunctiva, anicteric; neck supple. lungs with bilateral wheezing, no respiratory distress. RRR, abdomen soft Ventral hernia, reducible. +diffuse abdominal tenderness, +protuberant.. No rebound, no guarding. Back nontender. no CVAT. no aguila's no mcburneys point tenderness. rectal tone intact, no gross bleed. SEGUNDO x4, no focal neuro deficits. No peripheral edema. normal color for ethnicity , WW. 02/26/19 11:34 - Medical Decision Making 02/26/19 11:35 Vital Signs Temp Pulse Resp BP Pulse Ox 100.0 F H 72 18 112/58 L 100 02/26/19 11:17 02/26/19 11:17 02/26/19 11:17 02/26/19 11:17 02/26/19 11:17 DDx abdominal pain: Renal colic, biliary colic, metabolic/electrolyte derangements. GERD, PUD, esophageal spasm, pancreatitis, hepatitis, constipation , colitis, gastroenteritis, cholecystitis, UTI, pyelonephritis, ileus, SBO, medication side effect, hernia, appendicitis, diverticulitis, msk strain, mesenteric adenitis, psoas abscess. Vital signs with low-grade fever, normotensive no tachycardia normal respirations., Patient is given gentle IV fluids given his CHF, Tylenol for pain and low-grade fever. Laboratory results with normal WBC count, Coags normal. LFTs are normal. Electrolytes are also normal. However creatinine is increased up to 1.5 when his baseline of 0.8 nearly doubling compared to his prior results in 2017 Urinalysis preliminarily positive for some blood, leukoesterase and WBCs could be UTI will treat appropriately, IV ceftriaxone. Follow-up on urine cultures. Negative flu test and negative occult blood in stool CT scan with IV contrast The patient has been educated on the risks and benefits of exam including nephrotoxicity/renal injury and organ failure. Hydration with IV fluids Consent form signed for the iodinated contrast. GFR 44-31 can receive IV contrast 02/26/19 13:05 CT without acute pathology noted. Incidental left adrenal nodule could be adenoma slightly more prominent, follow-up is advised chronic colonic diverticuli nonobstructing kidney stones results provided to the patient admitting for ARLENE/diarrheal illness, UTI f/u cultures, IV ceftriaxone, continued medical management, gentle fluids. supportive care for the diarrhea., likely viral (no other risk factors to suggest C diff, bacterial, no recent travel, no abx use) s/o to KATIE Aguayo admitting to Dr Negro/Vicky 02/26/19 15:20
[2019-02-26] MEDS ORDERED: ACETAMINOPHEN INJECTION 100 ML IVPB ONE (11:31)
[2019-02-26] MEDS ORDERED: ALBUTEROL SO4 2.5/IPRATROPIUM 0.5 INH SOL 3 ML VIAL.NEB. NEB ONE ×2 (11:34→11:52)
[2019-02-26 11:48] LABS: HEMATOCRIT 33.8 % (35.4-49); HEMOGLOBIN 10.6 GM/dL (11.7-16.9); MCH 22.3 pg (25.7-33.7); MCHC 31.2 g/dl (32.0-35.9); MEAN CELL VOLUME 71.3 fl (80-96); RBC 4.74 M/mm3 (4.00-5.60); RDW 17.4 % (11.9-15.9); WHITE BLOOD COUNT 7.5 K/mm3 (4.0-10.0)
[2019-02-26 11:49] LABS: BASO % 0.9 % (0-2.0); EOS % 0.1 % (0-4.5); LYMPH % 11.8 % (8-40); MEAN PLT VOLUME 8.9 fl (7.5-11.1); MONO % 20.9 % (3.8-10.2); NEUT % 66.3 % (42.8-82.8); PLATELET COUNT 286 K/MM3 (134-434)
[2019-02-26 11:55] LABS: EPI CELLS 1.3 /HPF (0-5/HPF); HYALINE CASTS 32 /lpf (0-8); URINE APPEARANCE CLOUDY; URINE BACTERIA 2321.1 /hpf (NEGATIVE); URINE BILIRUBIN NEGATIVE (NEGATIVE); URINE COLOR YELLOW; URINE GLUCOSE (UA) NEGATIVE (NEGATIVE); URINE KETONE NEGATIVE (NEGATIVE); URINE LEUK ESTERASE 2+ (NEGATIVE); URINE NITRITE NEGATIVE (NEGATIVE); URINE PROTEIN 1+ (NEGATIVE); URINE UROBILINOGEN 0.2 mg/dL (0.2-1.0); URINE WBC 138 /hpf (0-5)
[2019-02-26 12:08] LABS: MAGNESIUM 2.3 mg/dL (1.8-2.4)
[2019-02-26 12:09] LABS: INR 1.5 (0.83-1.09); PROTHROMBIN TIME (PATIENT) 17.8 SEC (9.7-13.0)
[2019-02-26 12:11] LABS: ALBUMIN 3.9 g/dl (3.4-5.0); BILIRUBIN,TOTAL 0.8 mg/dL (0.2-1); BLOOD UREA NITROGEN 30.9 mg/dL (7-18); CALCIUM 8.8 mg/dL (8.5-10.1); CREATININE 1.5 mg/dL (0.55-1.3); POTASSIUM 4.5 mmol/L (3.5-5.1); TOT PROT 8.1 g/dl (6.4-8.2)
[2019-02-26 12:35] LABS: URINE RBC 8.2 /hpf (0-4)
[2019-02-26 14:17] LABS: ANISOCYTOSIS 3+; MACROCYTOSIS 0; OVALOCYTE 1+; PLATELET ESTIMATE NORMAL
[2019-02-26] MEDS ORDERED: CEFTRIAXONE 1 GM in DEXTROSE 5%-WATER - 100 ML IVPB ONE (14:20)
[2019-02-26] MEDS ORDERED: CEFTRIAXONE 1 GM/50 ML BAG ONE (14:31)
--- NOTE | 2019-02-26 16:34 | HP ---
Admitting History and Physical - Primary Care Physician PCP: Lyndsey Negro - Admission Chief Complaint: Loose stools History of Present Illness: Patient is a 78 y/o male with past medical history of HTN, HLD, DM, CAD, nonischemic dilated cardiomyopathy s/p AICD, CHF, kidney stones, diverticular disease. Patient presented to ER after experiencing non-bloody loose stool for 2 days. He also states having episodes where he is losing control of BM. Denies recent travel, but states experiencing night wakening. Denies abdominal pain. Complain of lower back pain described as burning and sharp x 2 days, denies hematuria and dysuria. History Source: Patient Limitations to Obtaining History: No Limitations - Past Medical History Cardiovascular: Yes: AFIB, CAD (non-obstructive CAD, recent cath at [facility]- -12/2014, 30% LAD, EF 35%), CHF (Non-ischemic cardiomyopathy s/p ICD for primary prevention), HTN, Other ([employer] device interrogation 12/2014: NSVT, one run required ATP) Renal/: Yes: Renal Calculi Endocrine: Yes: Diabetes Mellitus - Past Surgical History Past Surgical History: Yes: AICD - Smoking History Smoking history: Never smoked Have you smoked in the past 12 months: No Aproximately how many cigarettes per day: 0 If you are a former smoker, when did you quit?: 2009 - Alcohol/Substance Use Hx Alcohol Use: No - Social History ADL: Independent History of Recent Travel: No Home Medications - Allergies Allergies/Adverse Reactions: Allergies Allergy/AdvReac Type Severity Reaction Status Date / Time weed pollen Allergy Verified 08/18/16 02:26 - Home Medications Home Medications: Ambulatory Orders Apixaban [Eliquis] 5 mg PO BID 02/26/19 Cholecalciferol (Vitamin D3) [Vitamin D3 -] 1,000 unit PO DAILY 02/26/19 Cyanocobalamin (Vitamin B-12) [Vitamin B-12] 1,000 mcg PO DAILY 02/26/19 Fluticasone/Umeclidin/Vilanter [Trelegy Ellipta 100-62.5-25] 1 puff PO DAILY Furosemide [Lasix -] 40 mg PO DAILY 02/26/19 Lipase/Protease/Amylase [Zenpep Dr 25,000 Unit Capsule] 1 cap PO TID 02/26/19 Metoprolol Succinate 125 mg PO AM 02/26/19 Metoprolol Succinate [Toprol Xl] 100 mg PO HS 02/26/19 [place]-3S/Dha/Epa/Fish Oil [[place]-3 Fish Oil 1,000 mg Sfgl] 1 cap PO DAILY Sacubitril/Valsartan [Entresto 97 mg-103 mg Tablet] 1 tab PO BID 02/26/19 Tamsulosin HCl [Flomax] 0.4 mg PO DAILY 02/26/19 Review of Systems - Review of Systems Constitutional: reports: No Symptoms Eyes: reports: No Symptoms HENT: reports: No Symptoms Neck: reports: No Symptoms Cardiovascular: reports: No Symptoms Respiratory: reports: No Symptoms Gastrointestinal: reports: Abdominal Pain, Diarrhea Genitourinary: reports: No Symptoms Musculoskeletal: reports: Back Pain Integumentary: reports: No Symptoms Neurological: reports: No Symptoms Endocrine: reports: No Symptoms Hematology/Lymphatic: reports: No Symptoms Psychiatric: reports: No Symptoms Physical Examination Vital Signs: Vital Signs Temperature 97.9 F 02/26/19 16:21 Pulse Rate 60 02/26/19 16:21 Respiratory Rate 20 02/26/19 16:21 Blood Pressure 110/55 L 02/26/19 16:21 O2 Sat by Pulse Oximetry (%) 100 02/26/19 16:21 Constitutional: Yes: No Distress, Calm Eyes: Yes: Conjunctiva Clear HENT: Yes: Atraumatic Neck: Yes: Supple Cardiovascular: Yes: Regular Rate and Rhythm Respiratory: Yes: Regular Gastrointestinal: Yes: Normal Bowel Sounds, Soft Musculoskeletal: Yes: WNL Extremities: Yes: WNL Edema: No Neurological: Yes: Alert, Oriented Psychiatric: Yes: Alert, Oriented Labs: CBC, BMP 02/26/19 11:10 02/26/19 11:10 Problem List - Problems (1) ARLENE (acute kidney injury) Assessment/Plan: -BUN/Cr 30.9/1.5 -Renal consult -monitor renal function daily for downtrend Code(s): N17.9 - ACUTE KIDNEY FAILURE, UNSPECIFIED (2) Diarrhea Assessment/Plan: -GI consult -CTAP shows 1.2cm left adrenal nodule which appears slightly more prominent probably representing an adenoma, colonic diverticulosis, small nonobstructing bilateral renal calculi -Stool O&P, Stool Culture, Stool WBC, Calpoprectin -clear liquid diet Code(s): R19.7 - DIARRHEA, UNSPECIFIED (3) UTI (urinary tract infection) Assessment/Plan: -ID consult -UA shows 2+ leuks, 1+ blood, 1+ protein -UC pending -no leukocytosis -afebrile -received Ceftriaxone 1g IVPB x 1 dose in ER Code(s): N39.0 - URINARY TRACT INFECTION, SITE NOT SPECIFIED (4) Diabetes Assessment/Plan: -BGM ACHS -ISS -HgA1c Code(s): E11.9 - TYPE 2 DIABETES MELLITUS WITHOUT COMPLICATIONS Qualifiers: Diabetes mellitus type: type 2 Diabetes mellitus complication status: with unspecified complications (5) Hypertension Assessment/Plan: -Furosemide -low Na diet Code(s): I10 - ESSENTIAL (PRIMARY) HYPERTENSION Qualifiers: Hypertension type: essential hypertension Qualified Code(s): I10 - Essential (primary) hypertension (6) PAF (paroxysmal atrial fibrillation) Assessment/Plan: -Eliquis Code(s): I48.0 - PAROXYSMAL ATRIAL FIBRILLATION Assessment/Plan see problem list dvt ppx
[2019-02-26 17:50] VITALS: BMI 29.2
[2019-02-26] MEDS ORDERED: PATIENT'S OWN MEDICATION (NON-FORMULARY) (Ipratropium/Albuterol Sulfate [Combivent Respima IH SCH (18:00)
[2019-02-26] MEDS: LIPASE/PROTEASE/AMYLASE 6,000 UNIT CAPSULE PO SCH (18:43)
[2019-02-26] MEDS ORDERED: HEPARIN NA (PORCINE) 5,000 UNITS/ML 1ML VIAL SQ SCH (22:00)
[2019-02-26] MEDS ORDERED: MAGNESIUM OXIDE 400 MG TABLET (FP) PO SCH (22:00)
[2019-02-26] MEDS: APIXABAN 5 MG TABLET PO SCH (23:06)
[2019-02-26] MEDS: ROSUVASTATIN CA 5 MG TABLET (FP) PO SCH (23:06)
[2019-02-26] MEDS: INSULIN SLIDING SCALE (NOVOLOG) 1 VIAL SQ SCH (23:25)
[2019-02-27] MEDS ORDERED: ALBUTEROL SO4 2.5/IPRATROPIUM 0.5 INH SOL 3 ML VIAL.NEB. NEB PRN (01:06)
[2019-02-27] MEDS: INSULIN SLIDING SCALE (NOVOLOG) 1 VIAL SQ SCH ×4 (06:47→21:47)
[2019-02-27 08:26] LABS: EOS % 0.4 % (0-4.5); HEMATOCRIT 31.2 % (35.4-49); HEMOGLOBIN 9.9 GM/dL (11.7-16.9); LYMPH % 16.5 % (8-40); MCH 22.2 pg (25.7-33.7); MCHC 31.8 g/dl (32.0-35.9); MEAN CELL VOLUME 69.9 fl (80-96); MEAN PLT VOLUME 8.3 fl (7.5-11.1); NEUT % 58.1 % (42.8-82.8); PLATELET COUNT 249 K/MM3 (134-434); RBC 4.47 M/mm3 (4.00-5.60); RDW 17.2 % (11.9-15.9); WHITE BLOOD COUNT 6.1 K/mm3 (4.0-10.0)
[2019-02-27] MEDS ORDERED: TAMSULOSIN HCL 0.4 MG CAP PO SCH (08:30)
[2019-02-27 09:00] LABS: ALBUMIN 3.2 g/dl (3.4-5.0); BILIRUBIN,TOTAL 0.5 mg/dL (0.2-1); BLOOD UREA NITROGEN 22.8 mg/dL (7-18); CALCIUM 7.9 mg/dL (8.5-10.1); CREATININE 1.2 mg/dL (0.55-1.3); MAGNESIUM 2.2 mg/dL (1.8-2.4); PHOSPHOROUS 3.5 mg/dL (2.5-4.9); POTASSIUM 3.8 mmol/L (3.5-5.1); TOT PROT 6.9 g/dl (6.4-8.2)
--- NOTE | 2019-02-27 09:04 | CON.GI ---
Consult Consult Specialty:: GI Referred by:: Nellie Aguayo NP Reason for Consultation:: Diarrhea - History of Present Illness History of Present Illness: Patient is a 78 y/o male with past medical history of HTN, HLD, DM, CAD, nonischemic dilated cardiomyopathy s/p AICD, CHF, kidney stones, diverticular disease. He says experiencing non-bloody loose stool which started 2 days ago. He also states having episodes where he is losing control of BM. Denies recent travel or antibiotic use, but states experiencing night wakening. He says loose stool was relieved with PeptoBismol at home. CTAP shows 1.2cm left adrenal nodule which appears slightly more prominent probably representing an adenoma, colonic diverticulosis, small nonobstructing bilateral renal calculi. He says this morning he began developing lower abdominal cramping. Denies nausea, vomiting, rectal bleeding, blood in stool or melena. He says he does not think he's had a colonoscopy before. - History Source History Provided By: Patient Limitations to Obtaining History: No Limitations - Past Medical History Cardio/Vascular: Yes: AFIB, CAD (non-obstructive CAD, recent cath at [facility] --12/2014, 30% LAD, EF 35%), CHF (Non-ischemic cardiomyopathy s/p ICD for primary prevention), HTN, Other ([employer] device interrogation 12/2014: NSVT, one run required ATP) Renal/: Yes: Renal Calculi Endocrine: Yes: Diabetes Mellitus - Past Surgical History Past Surgical History: Yes: AICD - Alcohol/Substance Use Hx Alcohol Use: No - Smoking History Smoking history: Never smoked Have you smoked in the past 12 months: No Aproximately how many cigarettes per day: 0 If you are a former smoker, when did you quit?: 2009 - Social History Usual Living Arrangement: With Spouse ADL: Independent History of Recent Travel: No Home Medications - Allergies Allergies/Adverse Reactions: Allergies Allergy/AdvReac Type Severity Reaction Status Date / Time weed pollen Allergy Verified 08/18/16 02:26 - Home Medications Home Medications: Ambulatory Orders Apixaban [Eliquis] 5 mg PO BID 02/26/19 Cholecalciferol (Vitamin D3) [Vitamin D3 -] 1,000 unit PO DAILY 02/26/19 Cyanocobalamin (Vitamin B-12) [Vitamin B-12] 1,000 mcg PO DAILY 02/26/19 Fluticasone/Umeclidin/Vilanter [Trelegy Ellipta 100-62.5-25] 1 puff PO DAILY Furosemide [Lasix -] 40 mg PO DAILY 02/26/19 Lipase/Protease/Amylase [Zenpep Dr 25,000 Unit Capsule] 1 cap PO TID 02/26/19 Metoprolol Succinate 125 mg PO AM 02/26/19 Metoprolol Succinate [Toprol Xl] 100 mg PO HS 02/26/19 [place]-3S/Dha/Epa/Fish Oil [[place]-3 Fish Oil 1,000 mg Sfgl] 1 cap PO DAILY Sacubitril/Valsartan [Entresto 97 mg-103 mg Tablet] 1 tab PO BID 02/26/19 Tamsulosin HCl [Flomax] 0.4 mg PO DAILY 02/26/19 Review of Systems - Review of Systems Constitutional: reports: No Symptoms Eyes: reports: No Symptoms HENT: reports: No Symptoms Neck: reports: No Symptoms Cardiovascular: reports: No Symptoms Respiratory: reports: No Symptoms Gastrointestinal: reports: Abdominal Pain, Diarrhea Genitourinary: reports: No Symptoms Breasts: reports: No Symptoms Reported Musculoskeletal: reports: No Symptoms Integumentary: reports: No Symptoms Neurological: reports: No Symptoms Endocrine: reports: No Symptoms Hematology/Lymphatic: reports: No Symptoms Psychiatric: reports: No Symptoms Physical Exam-GI Vital Signs: Vital Signs Temperature 98.4 F 02/27/19 05:00 Pulse Rate 91 H 02/27/19 05:00 Respiratory Rate 02/27/19 05:00 Blood Pressure 98/43 L 02/27/19 05:00 O2 Sat by Pulse Oximetry (%) 95 02/26/19 21:00 Constitutional: Yes: No Distress, Calm Eyes: Yes: Conjunctiva Clear HENT: Yes: Atraumatic Cardiovascular: Yes: Regular Rate and Rhythm Respiratory: Yes: Regular, CTA Bilaterally Gastrointestinal Inspection: Yes: Distention. No: WNL, Ascites, Hernia, Scars, Other ...Auscultate: Yes: Normoactive Bowel Sounds. No: Hyperactive Bowel Sounds, Hypoactive Bowel Sounds, No Bowel Sounds, Other ...Palpate: Yes: Soft, Tenderness (lower abdomen). No: Firm/Rigid, Guarding, Hepatomegaly, Mass, Pulsatile Mass, Splenomegaly, Tenderness, Epigastium, Tenderness, Rebound, Other ...Percussion: Yes: Tympanitic. No: Dullness, Fluid Wave, Other Neurological: Yes: Alert, Oriented Psychiatric: Yes: Alert, Oriented Labs: CBC, BMP 02/27/19 07:42 02/27/19 07:42 INR, PTT INR 1.50 (0.83-1.09) H 02/26/19 11:10 Imaging - Results Cat Scan: Report Reviewed Problem List - Problems (1) Diarrhea Assessment/Plan: >CTAP shows 1.2cm left adrenal nodule which appears slightly more prominent probably representing an adenoma, colonic diverticulosis, small nonobstructing bilateral renal calculi >Stool Culture, Stool WBC, Calpoprectin, and Ova and Parasite ordered >clear liquid diet >will start in Ceftriaxone 1g IVPB daily and Flagyl 500mg IVPB q8h Code(s): R19.7 - DIARRHEA, UNSPECIFIED
--- NOTE | 2019-02-27 09:06 | PN ---
Progress Note, Physician - Current Medication List Current Medications: Active Medications Albuterol/Ipratropium (Duoneb -) 1 amp NEB RQID PRN PRN Reason: SHORTNESS OF BREATH Last Admin: 02/27/19 02:45 Dose: 1 amp Apixaban (Eliquis -) 5 mg PO BID [facility] Last Admin: 02/26/19 23:06 Dose: 5 mg Cholecalciferol (Vitamin D3 -) 1,000 unit PO DAILY [facility] Cyanocobalamin (Vitamin B12 -) 1,000 mcg PO DAILY [facility] Furosemide (Lasix -) 40 mg PO DAILY [facility] Insulin Aspart (Novolog Vial Sliding Scale -) 1 vial SQ ACHS [facility]; Protocol Last Admin: 02/27/19 06:47 Dose: Not Given Mometasone Furoate (Asmanex 220mcg -) 1 puff IH HS [facility] Pancrelipase (Creon Dr 6,000 Units Capsule) 3 cap PO TIDCM [facility] Last Admin: 02/26/19 18:43 Dose: Not Given Rosuvastatin Calcium (Crestor -) 5 mg PO HS [facility] Last Admin: 02/26/19 23:06 Dose: 5 mg Umeclidinium/Vilanterol (Anoro Ellipta 62.5-25 Mcg Inh) 1 puff IH DAILY [facility] - Objective Vital Signs: Vital Signs Temperature 98.4 F 02/27/19 05:00 Pulse Rate 91 H 02/27/19 05:00 Respiratory Rate 20 02/27/19 05:00 Blood Pressure 98/43 L 02/27/19 05:00 O2 Sat by Pulse Oximetry (%) 95 02/26/19 21:00 Labs: CBC, BMP 02/27/19 07:42 02/27/19 07:42 INR, PTT INR 1.50 (0.83-1.09) H 02/26/19 11:10 Assessment/Plan - Problems (1) ARLENE (acute kidney injury) Assessment/Plan: -BUN/Cr 30.9/1.5 -Renal consult -monitor renal function daily for downtrend Code(s): N17.9 - ACUTE KIDNEY FAILURE, UNSPECIFIED (2) Diarrhea Assessment/Plan: -GI consult -CTAP shows 1.2cm left adrenal nodule which appears slightly more prominent probably representing an adenoma, colonic diverticulosis, small nonobstructing bilateral renal calculi -Stool O&P, Stool Culture, Stool WBC, Calpoprectin -clear liquid diet Code(s): R19.7 - DIARRHEA, UNSPECIFIED (3) UTI (urinary tract infection) Assessment/Plan: -ID consult -UA shows 2+ leuks, 1+ blood, 1+ protein -UC pending -no leukocytosis -afebrile -received Ceftriaxone 1g IVPB x 1 dose in ER Code(s): N39.0 - URINARY TRACT INFECTION, SITE NOT SPECIFIED (4) Diabetes Assessment/Plan: -BGM ACHS -ISS -HgA1c Code(s): E11.9 - TYPE 2 DIABETES MELLITUS WITHOUT COMPLICATIONS Qualifiers: Diabetes mellitus type: type 2 Diabetes mellitus complication status: with unspecified complications (5) Hypertension Assessment/Plan: -Furosemide -low Na diet Code(s): I10 - ESSENTIAL (PRIMARY) HYPERTENSION Qualifiers: Hypertension type: essential hypertension Qualified Code(s): I10 - Essential (primary) hypertension (6) PAF (paroxysmal atrial fibrillation) Assessment/Plan: -Eliquis Code(s): I48.0 - PAROXYSMAL ATRIAL FIBRILLATION
[2019-02-27] MEDS ORDERED: FUROSEMIDE 40 MG TABLET (FP) PO SCH (10:00)
[2019-02-27] MEDS ORDERED: PATIENT'S OWN MEDICATION (NON-FORMULARY) (Omega-3 Fatty Acids [Fish Oil] 300 MG) PO SCH (10:00)
[2019-02-27 10:21] LABS: ANISOCYTOSIS 3+; MACROCYTOSIS 0; PLATELET ESTIMATE NORMAL
[2019-02-27] MEDS: LIPASE/PROTEASE/AMYLASE 6,000 UNIT CAPSULE PO SCH ×3 (11:41→18:39)
[2019-02-27] MEDS: CHOLECALCIFEROL (VIT D3) 1,000 UNIT (25 MCG) TABLET PO SCH (11:44)
[2019-02-27] MEDS: FUROSEMIDE 40 MG TABLET (FP) PO SCH (11:44)
[2019-02-27] MEDS: APIXABAN 5 MG TABLET PO SCH ×2 (11:44→21:48)
[2019-02-27] MEDS: CYANOCOBALAMIN 1,000 MCG TABLET (FP) PO SCH (11:44)
[2019-02-27] MEDS: UMECLIDINIUM/VILANTEROL (ANORO) 62.5/25 MCG INHALER IH SCH (11:47)
[2019-02-27] MEDS ORDERED: cefTRIAXone SODIUM 1 GM VIAL ONE (11:48)
[2019-02-27] MEDS ORDERED: DEXTROSE 5%-WATER - 50 ML IVPB ONE (11:49)
[2019-02-27] MEDS: CEFTRIAXONE 1 GM in DEXTROSE 5%-WATER - 50 ML IVPB SCH (11:50)
--- NOTE | 2019-02-27 14:51 | CON.CARD ---
Cardiology Consult (text) - Consultation Consultation Note: Chief Complaint: diarrhea, abd pain History of Present Illness: 78 year old man with a history of HTN, DM, NICM with severe LV dysfunction s/p ICD, chronic systolic CHF, paroxysmal atrial fibrillation, hld here with diarrhea, abd pain. No cp sob palps dizzy loc pnd orthopnea le edema. Found to have colitis, evan. - History Source History Provided By: Patient, Medical Record Limitations to Obtaining History: No Limitations - Past Medical History Cardio/Vascular: Yes: AFIB, CAD (non-obstructive CAD, recent cath at [facility] --12/2014, 30% LAD, EF 35%), CHF (Non-ischemic cardiomyopathy s/p ICD for primary prevention), HTN, Other ([employer] device interrogation 12/2014: NSVT, one run required ATP) Endocrine: Yes: Diabetes Mellitus - Past Surgical History Past Surgical History: Yes: AICD - Alcohol/Substance Use Hx Alcohol Use: No - Smoking History Smoking history: Former smoker Have you smoked in the past 12 months: No Aproximately how many cigarettes per day: 0 If you are a former smoker, when did you quit?: 2009 - Social History Usual Living Arrangement: With Spouse ADL: Independent History of Recent Travel: No Home Medications - Allergies Allergies/Adverse Reactions: Home Medications Medication Instructions Recorded Apixaban [Eliquis] 5 mg PO BID 02/26/19 Cholecalciferol (Vitamin D3) 1,000 unit PO DAILY 02/26/19 [Vitamin D3 -] Cyanocobalamin (Vitamin B-12) 1,000 mcg PO DAILY 02/26/19 [Vitamin B-12] Fluticasone/Umeclidin/Vilanter 1 puff PO DAILY 02/26/19 [Trelegy Ellipta 100-62.5-25] Furosemide [Lasix -] 40 mg PO DAILY 02/26/19 Lipase/Protease/Amylase [Zenpep Dr 1 cap PO TID 02/26/19 25,000 Unit Capsule] Metoprolol Succinate 125 mg PO AM 02/26/19 Metoprolol Succinate [Toprol Xl] 100 mg PO HS 02/26/19 [place]-3S/Dha/Epa/Fish Oil [[place]-3 1 cap PO DAILY 02/26/19 Fish Oil 1,000 mg Sfgl] Sacubitril/Valsartan [Entresto 97 1 tab PO BID 02/26/19 mg-103 mg Tablet] Tamsulosin HCl [Flomax] 0.4 mg PO DAILY 02/26/19 Potassium Citrate ER 15 meq PO BID 02/27/19 Allergies Allergy/AdvReac Type Severity Reaction Status Date / Time weed pollen Allergy Verified 08/18/16 02:26 Family Disease History - Family Disease History Family History: Denies Review of Systems per hpi; all others nl - Risk Factors Known Risk Factors: Yes: Diabetes Mellitus, Hypercholesterolemia, Hypertension Vital Signs: Vital Signs Period Temp Pulse Resp BP Sys/[place] Pulse Ox Last 24 Hr 97.8 F-98.4 F 60-91 20-20 98-143/43-75 95-100 Constitutional: Yes: Well Nourished, No Distress, Calm Eyes: Conjunctiva Clear, HENT: Atraumatic, Normocephalic Neck: Supple, Trachea Midline Respiratory: Yes: Regular, On Nasal O2, Rales. No: Rhonchi, SOB, Wheezes Gastrointestinal: Normal Bowel Sounds, Soft. No: Distention, Tenderness Cardiovascular: Yes: Pulse Irregular. No: Bradycardia, Tachycardia, Gallop, Rub , Varicosities JVD: No Carotid Bruit: No PMI: Non-Displaced Heart Sounds: Yes: S1, S2. No: Split S2, S3, S4, Clicks, Gallop, Rub, Bruit Murmur: No: Systolic Murmur, Diastolic Murmur Musculoskeletal: Yes: WNL Extremities: Yes: WNL Edema: no Peripheral Pulses WNL: Yes Peripheral Pulses: 2+ Left Doralis Pedis, 2+ Right Dorsalis Pedis Integumentary: Yes: WNL Psychiatric: Yes: WNL, Alert, Oriented Laboratory Last Values WBC 6.1 K/mm3 (4.0-10.0) 02/27/19 07:42 RBC 4.47 M/mm3 (4.00-5.60) 02/27/19 07:42 Hgb 9.9 GM/dL (11.7-16.9) L 02/27/19 07:42 Hct 31.2 % (35.4-49) L 02/27/19 07:42 MCV 69.9 fl (80-96) L 02/27/19 07:42 MCH 22.2 pg (25.7-33.7) L 02/27/19 07:42 MCHC 31.8 g/dl (32.0-35.9) L 02/27/19 07:42 RDW 17.2 % (11.9-15.9) H 02/27/19 07:42 Plt Count 249 K/MM3 (134-434) 02/27/19 07:42 MPV 8.3 fl (7.5-11.1) 02/27/19 07:42 Absolute Neuts (auto) 3.5 K/mm3 (1.5-8.0) 02/27/19 07:42 Neutrophils % 58.1 % (42.8-82.8) 02/27/19 07:42 Neutrophils % (Manual) 54.7 % (42.8-82.8) 02/27/19 07:42 Band Neutrophils % 0.0 % 02/27/19 07:42 Lymphocytes % 16.5 % (8-40) D 02/27/19 07:42 Lymphocytes % (Manual) 18.6 % (8-40) D 02/27/19 07:42 Monocytes % 24.0 % (3.8-10.2) H 02/27/19 07:42 Monocytes % (Manual) 24 % (3.8-10.2) H D 02/27/19 07:42 Eosinophils % 0.4 % (0-4.5) D 02/27/19 07:42 Eosinophils % (Manual) 0.0 % (0-4.5) 02/27/19 07:42 Basophils % 1.0 % (0-2.0) 02/27/19 07:42 Basophils % (Manual) 1.0 % (0-2.0) 02/27/19 07:42 Myelocytes % (Man) 0 % (0-2) 02/27/19 07:42 Promyelocytes % (Man) 0 % (0-2) 02/27/19 07:42 Blast Cells % (Manual) 0 % (0-0) 02/27/19 07:42 Nucleated RBC % 0 % (0-0) 02/27/19 07:42 Metamyelocytes 1 % (0-2) D 02/27/19 07:42 Hypochromia 0 02/27/19 07:42 Platelet Estimate Normal 02/27/19 07:42 Polychromasia 2+ 02/27/19 07:42 Poikilocytosis 1+ 02/27/19 07:42 Anisocytosis 3+ 02/27/19 07:42 Microcytosis 3+ 02/27/19 07:42 Macrocytosis 0 02/27/19 07:42 Ovalocytes 1+ 02/26/19 11:10 Schistocytes 1+ 02/27/19 07:42 PT with INR 17.80 SEC (9.7-13.0) H 02/26/19 11:10 INR 1.50 (0.83-1.09) H 02/26/19 11:10 Sodium 139 mmol/L (136-145) 02/27/19 07:42 Potassium 3.8 mmol/L (3.5-5.1) 02/27/19 07:42 Chloride 107 mmol/L (98-107) 02/27/19 07:42 Carbon Dioxide 26 mmol/L (21-32) 02/27/19 07:42 Anion Gap 6 MMOL/L (8-16) L 02/27/19 07:42 BUN 22.8 mg/dL (7-18) H 02/27/19 07:42 Creatinine 1.2 mg/dL (0.55-1.3) 02/27/19 07:42 Est GFR (CKD-EPI)AfAm 67.20 02/27/19 07:42 Est GFR (CKD-EPI)NonAf 57.98 02/27/19 07:42 POC Glucometer 132 UNITS (80-120) 02/27/19 11:54 Random Glucose 108 mg/dL (74-106) H 02/27/19 07:42 Calcium 7.9 mg/dL (8.5-10.1) L 02/27/19 07:42 Phosphorus 3.5 mg/dL (2.5-4.9) 02/27/19 07:42 Magnesium 2.2 mg/dL (1.8-2.4) 02/27/19 07:42 Total Bilirubin 0.5 mg/dL (0.2-1) 02/27/19 07:42 AST 23 U/L (15-37) 02/27/19 07:42 ALT 21 U/L (13-61) 02/27/19 07:42 Alkaline Phosphatase 54 U/L (45-117) 02/27/19 07:42 Total Protein 6.9 g/dl (6.4-8.2) 02/27/19 07:42 Albumin 3.2 g/dl (3.4-5.0) L 02/27/19 07:42 TSH 2.01 uIU/ml (0.358-3.74) 02/27/19 07:42 Thyroxine (T4) 8.5 ug/dl (4.5-13.9) 02/27/19 07:42 Urine Color Yellow 02/26/19 11:10 Urine Appearance Cloudy 02/26/19 11:10 Urine pH 5.0 (5.0-8.0) 02/26/19 11:10 Ur Specific [place] 1.017 (1.010-1.035) 02/26/19 11:10 Urine Protein 1+ (NEGATIVE) H 02/26/19 11:10 Urine Glucose (UA) Negative (NEGATIVE) 02/26/19 11:10 Urine Ketones Negative (NEGATIVE) 02/26/19 11:10 Urine Blood 1+ (NEGATIVE) H 02/26/19 11:10 Urine Nitrite Negative (NEGATIVE) 02/26/19 11:10 Urine Bilirubin Negative (NEGATIVE) 02/26/19 11:10 Urine Urobilinogen 0.2 mg/dL (0.2-1.0) 02/26/19 11:10 Ur Leukocyte Esterase 2+ (NEGATIVE) H 02/26/19 11:10 Urine WBC (Auto) 138 /hpf (0-5) 02/26/19 11:10 Urine RBC (Auto) 8.2 /hpf (0-4) 02/26/19 11:10 Urine Casts (Auto) 32 /lpf (0-8) 02/26/19 11:10 U Epithel Cells (Auto) 1.3 /HPF (0-5/HPF) 02/26/19 11:10 Urine Bacteria (Auto) 2321.1 /hpf (NEGATIVE) 02/26/19 11:10 Stool Occult Blood Negative (NEGATIVE) 02/26/19 11:15 Influenza A (Rapid) Negative (Negative) 02/26/19 11:30 Influenza B (Rapid) Negative (Negative) 02/26/19 11:30 ecg: sr 1st avb, no ischemic changes, nonspec ivcd Assessment/Plan 78 year old man with a history of HTN, DM, NICM with severe LV dysfunction s/p ICD, chronic systolic CHF, paroxysmal atrial fibrillation, hld here with diarrhea, abd pain. colitis: -abx per GI evan: -likely due to diarrhea -cr improving today chronic systolic CHF: -seems euvolemic now -cont home lasix 40 qd -resume home toprol and entresto when bp improves (still low) -outpt icd checks Afib-paroxysmal: -in sr, cont bb for rate control when bp improves -cont eliquis hld: -cont statin HTN: -on low side, likely due to vol depletion 2/2 diarrhea, hold home meds for now
--- NOTE | 2019-02-27 16:49 | CONSULT ---
Consult - text type - Consultation Consultation Note: Renal consult for ARLENE/CKD This is a 78 year old gentleman with history of hypertension, CHF/nonischemic cardiomyopathy with AICD, CAD, DM, nephrolithiasis who presented with complaints of loose stools over several days. Pt denies any history of CKD but does have history of nephrolithiasis requiring stenting in the past. Denies any flank pain, hematuira, dysuria, frequency or urgency. He denies any abd pain or cramping. No diarrhea today. PMhx: as above Allergies: NKDA Family Hx: NC Social Hx: no T/A/D ROS: as per HPI, all other pertinent ros negative Home Medications Medication Instructions Recorded Apixaban [Eliquis] 5 mg PO BID 02/26/19 Cholecalciferol (Vitamin D3) 1,000 unit PO DAILY 02/26/19 [Vitamin D3 -] Cyanocobalamin (Vitamin B-12) 1,000 mcg PO DAILY 02/26/19 [Vitamin B-12] Fluticasone/Umeclidin/Vilanter 1 puff PO DAILY 02/26/19 [Trelegy Ellipta 100-62.5-25] Furosemide [Lasix -] 40 mg PO DAILY 02/26/19 Lipase/Protease/Amylase [Zenpep Dr 1 cap PO TID 02/26/19 25,000 Unit Capsule] Metoprolol Succinate 125 mg PO AM 02/26/19 Metoprolol Succinate [Toprol Xl] 100 mg PO HS 02/26/19 [place]-3S/Dha/Epa/Fish Oil [[place]-3 1 cap PO DAILY 02/26/19 Fish Oil 1,000 mg Sfgl] Sacubitril/Valsartan [Entresto 97 1 tab PO BID 02/26/19 mg-103 mg Tablet] Tamsulosin HCl [Flomax] 0.4 mg PO DAILY 02/26/19 Potassium Citrate ER 15 meq PO BID 02/27/19 Vital Signs Temperature 97.8 F 02/27/19 14:30 Pulse Rate 85 02/27/19 14:30 Respiratory Rate 02/27/19 14:30 Blood Pressure 113/75 02/27/19 14:30 O2 Sat by Pulse Oximetry (%) 95 02/27/19 09:00 Intake & Output 02/24/19 02/25/19 02/26/19 02/27/19 23:59 23:59 23:59 23:59 Intake Total 200 500 Balance 200 500 Weight 95.283 kg NAD awake and alert neck supple no JVD RRR, no M/R CTA, no rales or wheeze soft NT/ND no LE edema, clubbing or cyanoiss no CVA tenderness CBC, BMP 02/27/19 07:42 02/27/19 07:42 Current Medications Albuterol/Ipratropium (Duoneb -) 1 amp NEB RQID PRN PRN Reason: SHORTNESS OF BREATH Last Admin: 02/27/19 02:45 Dose: 1 amp Apixaban (Eliquis -) 5 mg PO BID [facility] Last Admin: 02/27/19 11:44 Dose: 5 mg Cholecalciferol (Vitamin D3 -) 1,000 unit PO DAILY [facility] Last Admin: 02/27/19 11:44 Dose: 1,000 unit Cyanocobalamin (Vitamin B12 -) 1,000 mcg PO DAILY [facility] Last Admin: 02/27/19 11:44 Dose: 1,000 mcg Furosemide (Lasix -) 40 mg PO DAILY [facility] Last Admin: 02/27/19 11:44 Dose: 40 mg Ceftriaxone Sodium 1 gm/ (Dextrose) 50 mls @ 100 mls/hr IVPB DAILY [facility]; Protocol Last Admin: 02/27/19 11:50 Dose: 100 mls/hr Metronidazole (Flagyl 500mg Premixed Ivpb -) 500 mg in 100 mls @ 100 mls/hr IVPB Q8H-IV [facility] Last Admin: 02/27/19 11:51 Dose: 100 mls/hr Insulin Aspart (Novolog Vial Sliding Scale -) 1 vial SQ ACHS [facility]; Protocol Last Admin: 02/27/19 11:55 Dose: Not Given Mometasone Furoate (Asmanex 220mcg -) 1 puff IH HS [facility] Pancrelipase (Creon Dr 6,000 Units Capsule) 3 cap PO TIDCM [facility] Last Admin: 02/27/19 11:44 Dose: 3 cap Rosuvastatin Calcium (Crestor -) 5 mg PO HS [facility] Last Admin: 02/26/19 23:06 Dose: 5 mg Umeclidinium/Vilanterol (Anoro Ellipta 62.5-25 Mcg Inh) 1 puff IH DAILY [facility] Last Admin: 02/27/19 11:47 Dose: 1 puff 78 year old gentleman with history of hypertension, CHF/nonischemic cardiomyopathy with AICD, CAD, DM, nephrolithiasis who presented with complaints of loose stools over several days. 1. Elevated serum Cr now normalized, with normal eGFR 2. Adrenal adenoma 3. Diarrhea 4. CHF/Cardiomyopathy 5. DM Renal function stable. No further work up is needed at this time. Pt tolerating oral diet, no need for IVF. Check plasma renin activity, serum aldosterone will need repeat imaging CT with contrast of adrenal glands in 3-4 months Continue Abx as per primary GI follow up Continue lasix daily, low sodium diet Thank you Toy Swanson DO
[2019-02-27] MEDS ORDERED: INSULIN (NOVOLOG) ASPART 100 UNITS/ML 10ML VIAL ONE (19:48)
[2019-02-27] MEDS: ROSUVASTATIN CA 5 MG TABLET (FP) PO SCH (21:48)
[2019-02-27] MEDS: MOMETASONE FUROATE 220 MCG/IH INHALER IH SCH (21:48)
[2019-02-28] MEDS: INSULIN SLIDING SCALE (NOVOLOG) 1 VIAL SQ SCH ×4 (06:05→21:33)
--- NOTE | 2019-02-28 08:11 | PN ---
Progress Note, Physician - Current Medication List Current Medications: Active Medications Albuterol/Ipratropium (Duoneb -) 1 amp NEB RQID PRN PRN Reason: SHORTNESS OF BREATH Last Admin: 02/27/19 02:45 Dose: 1 amp Apixaban (Eliquis -) 5 mg PO BID [facility] Last Admin: 02/27/19 21:48 Dose: 5 mg Cholecalciferol (Vitamin D3 -) 1,000 unit PO DAILY [facility] Last Admin: 02/27/19 11:44 Dose: 1,000 unit Cyanocobalamin (Vitamin B12 -) 1,000 mcg PO DAILY [facility] Last Admin: 02/27/19 11:44 Dose: 1,000 mcg Furosemide (Lasix -) 40 mg PO DAILY [facility] Last Admin: 02/27/19 11:44 Dose: 40 mg Ceftriaxone Sodium 1 gm/ (Dextrose) 50 mls @ 100 mls/hr IVPB DAILY [facility]; Protocol Last Admin: 02/27/19 11:50 Dose: 100 mls/hr Metronidazole (Flagyl 500mg Premixed Ivpb -) 500 mg in 100 mls @ 100 mls/hr IVPB Q8H-IV [facility] Last Admin: 02/28/19 02:25 Dose: 100 mls/hr Insulin Aspart (Novolog Vial Sliding Scale -) 1 vial SQ ACHS [facility]; Protocol Last Admin: 02/28/19 06:05 Dose: Not Given Mometasone Furoate (Asmanex 220mcg -) 1 puff IH HS [facility] Last Admin: 02/27/19 21:48 Dose: 1 puff Pancrelipase (Creon Dr 6,000 Units Capsule) 3 cap PO TIDCM [facility] Last Admin: 02/27/19 18:39 Dose: 3 cap Rosuvastatin Calcium (Crestor -) 5 mg PO HS [facility] Last Admin: 02/27/19 21:48 Dose: 5 mg Umeclidinium/Vilanterol (Anoro Ellipta 62.5-25 Mcg Inh) 1 puff IH DAILY [facility] Last Admin: 02/27/19 11:47 Dose: 1 puff - Objective Vital Signs: Vital Signs Temperature 98.1 F 02/28/19 06:02 Pulse Rate 88 02/28/19 06:02 Respiratory Rate 18 02/28/19 06:02 Blood Pressure 106/47 L 02/28/19 06:02 O2 Sat by Pulse Oximetry (%) 95 02/27/19 21:00 Cardiovascular: Yes: S1, S2 Respiratory: Yes: Regular, CTA Bilaterally Gastrointestinal: Yes: Normal Bowel Sounds, Soft Labs: CBC, BMP 02/27/19 07:42 02/27/19 07:42 INR, PTT INR 1.50 (0.83-1.09) H 02/26/19 11:10 Assessment/Plan - Problems (1) ARLENE (acute kidney injury) Assessment/Plan: -BUN/Cr Laboratory Tests 02/26/19 02/27/19 11:10 07:42 BUN 30.9 H 22.8 H Creatinine 1.5 H 1.2 -Stable -Renal consult -monitor renal function daily for downtrend Code(s): N17.9 - ACUTE KIDNEY FAILURE, UNSPECIFIED (2) Diarrhea Assessment/Plan: -GI consult -CTAP shows 1.2cm left adrenal nodule which appears slightly more prominent probably representing an adenoma, colonic diverticulosis, small nonobstructing bilateral renal calculi -Stool O&P, Stool Culture, Stool WBC, Calpoprectin -advance diet Code(s): R19.7 - DIARRHEA, UNSPECIFIED (3) UTI (urinary tract infection) Assessment/Plan: -ID consult -UA shows 2+ leuks, 1+ blood, 1+ protein -UC pending Microbiology 02/26/19 11:10 Urine - Urine Clean Catch Urine Culture - Preliminary Non Lactose Fermenting Gnb -no leukocytosis -afebrile -received Ceftriaxone 1g IVPB x 1 dose in ER Code(s): N39.0 - URINARY TRACT INFECTION, SITE NOT SPECIFIED (4) Diabetes Assessment/Plan: -BGM ACHS -ISS -HgA1c Code(s): E11.9 - TYPE 2 DIABETES MELLITUS WITHOUT COMPLICATIONS Qualifiers: Diabetes mellitus type: type 2 Diabetes mellitus complication status: with unspecified complications (5) Hypertension Assessment/Plan: -Furosemide -low Na diet Code(s): I10 - ESSENTIAL (PRIMARY) HYPERTENSION Qualifiers: Hypertension type: essential hypertension Qualified Code(s): I10 - Essential (primary) hypertension (6) PAF (paroxysmal atrial fibrillation) Assessment/Plan: -Eliquis Code(s): I48.0 - PAROXYSMAL ATRIAL FIBRILLATION
[2019-02-28] MEDS ORDERED: PT OWN MED DRAWER 7, Y5N ONE (08:57)
[2019-02-28] MEDS ORDERED: cefTRIAXone SODIUM 1 GM VIAL ONE (08:57)
[2019-02-28] MEDS ORDERED: DEXTROSE 5%-WATER - 50 ML IVPB ONE (08:58)
--- NOTE | 2019-02-28 09:08 | PN.GI ---
GI Progress Note Subjective: Patient denies further episodes of diarrhea. Denies nausea, vomiting, abdominal pain, rectal bleeding. - Objective Vital Signs: Vital Signs Temperature 98.1 F 02/28/19 06:02 Pulse Rate 88 02/28/19 06:02 Respiratory Rate 18 02/28/19 06:02 Blood Pressure 106/47 L 02/28/19 06:02 O2 Sat by Pulse Oximetry (%) 95 02/27/19 21:00 Constitutional: No Distress, Calm Eyes: Yes: Conjunctiva Clear HENT: Yes: Atraumatic Cardiovascular: Yes: Regular Rate and Rhythm Respiratory: Yes: Regular, CTA Bilaterally Gastrointestinal Inspection: Yes: Distention. No: WNL, Ascites, Hernia, Scars, Other ...Auscultate: Yes: Normoactive Bowel Sounds. No: Hyperactive Bowel Sounds, Hypoactive Bowel Sounds, No Bowel Sounds, Other ...Palpate: Yes: Soft, Tenderness (umbilical). No: Firm/Rigid, Guarding, Hepatomegaly, Mass, Pulsatile Mass, Splenomegaly, Tenderness, Epigastium, Tenderness, Rebound, Other ...Percussion: Yes: Tympanitic. No: Dullness, Fluid Wave, Other Neurological: Yes: Alert Psychiatric: Yes: Alert Labs: CBC, BMP 02/27/19 07:42 02/27/19 07:42 INR, PTT INR 1.50 (0.83-1.09) H 02/26/19 11:10 Active Medications Generic Name Dose Route Start Last Admin Trade Name Freq PRN Reason Stop Dose Admin Albuterol/Ipratropium 1 amp 02/27/19 01:06 02/27/19 02:45 Duoneb - NEB 1 amp RQID PRN Administration SHORTNESS OF BREATH Apixaban 5 mg 02/26/19 22:00 02/27/19 21:48 Eliquis - PO 5 mg BID [facility] Administration Cholecalciferol 1,000 unit 02/27/19 10:00 02/27/19 11:44 Vitamin D3 - PO 1,000 unit DAILY [facility] Administration Cyanocobalamin 1,000 mcg 02/27/19 10:00 02/27/19 11:44 Vitamin B12 - PO 1,000 mcg DAILY [facility] Administration Furosemide 40 mg 02/27/19 10:00 02/27/19 11:44 Lasix - PO 40 mg DAILY [facility] Administration Ceftriaxone Sodium 1 gm/ 50 mls @ 100 mls/hr 02/27/19 10:00 02/27/19 11:50 Dextrose IVPB 100 mls/hr DAILY [facility] Administration Protocol Metronidazole 500 mg in 100 mls @ 100 mls/hr 02/27/19 10:00 02/28/19 02:25 Flagyl 500mg Premixed Ivpb - IVPB 100 mls/hr Q8H-IV [facility] Administration Insulin Aspart 1 vial 02/26/19 22:00 02/28/19 06:05 Novolog Vial Sliding Scale - SQ Not Given ACHS [facility] Protocol Mometasone Furoate 1 puff 02/27/19 22:00 02/27/19 21:48 Asmanex 220mcg - IH 1 puff HS [facility] Administration Pancrelipase 3 cap 02/26/19 17:30 02/27/19 18:[address] 6,000 Units Capsule PO 3 cap TIDCM [facility] Administration Rosuvastatin Calcium 5 mg 02/26/19 22:00 02/27/19 21:48 Crestor - PO 5 mg HS [facility] Administration Umeclidinium/Vilanterol 1 puff 02/27/19 10:00 02/27/19 11:47 Anoro Ellipta 62.5-25 Mcg Inh IH 1 puff DAILY [facility] Administration Problem List - Problems (1) Diarrhea Assessment/Plan: >CTAP shows 1.2cm left adrenal nodule which appears slightly more prominent probably representing an adenoma, colonic diverticulosis, small nonobstructing bilateral renal calculi >Stool Culture, Stool WBC, Calpoprectin, and Ova and Parasite ordered >will upgrade diet to low fiber lactose free >Zosyn and Flagyl Code(s): R19.7 - DIARRHEA, UNSPECIFIED
[2019-02-28] MEDS: CEFTRIAXONE 1 GM in DEXTROSE 5%-WATER - 50 ML IVPB SCH (10:22)
[2019-02-28] MEDS: APIXABAN 5 MG TABLET PO SCH ×2 (10:22→21:33)
[2019-02-28] MEDS: LIPASE/PROTEASE/AMYLASE 6,000 UNIT CAPSULE PO SCH ×3 (10:22→17:37)
[2019-02-28] MEDS: CHOLECALCIFEROL (VIT D3) 1,000 UNIT (25 MCG) TABLET PO SCH (10:22)
[2019-02-28] MEDS: CYANOCOBALAMIN 1,000 MCG TABLET (FP) PO SCH (10:22)
[2019-02-28] MEDS: UMECLIDINIUM/VILANTEROL (ANORO) 62.5/25 MCG INHALER IH SCH (10:25)
[2019-02-28] MEDS: FUROSEMIDE 40 MG TABLET (FP) PO SCH (10:27)
--- NOTE | 2019-02-28 11:55 | EKG ---
Test Reason : Blood Pressure : / mmHG Vent. Rate : 077 BPM Atrial Rate : 077 BPM P-R Int : 252 ms QRS Dur : 118 ms QT Int : 384 ms P-R-T Axes : 063 -48 076 degrees QTc Int : 434 ms SINUS RHYTHM WITH 1ST DEGREE A-V BLOCK WITH OCCASIONAL PREMATURE VENTRICULAR COMPLEXES LEFT AXIS DEVIATION NON-SPECIFIC INTRA-VENTRICULAR CONDUCTION DELAY NONSPECIFIC ST AND T WAVE ABNORMALITY ABNORMAL ECG WHEN COMPARED WITH ECG OF 18-AUG-2016 03:32, FUSION COMPLEXES ARE NO LONGER PRESENT [place] INTERVAL HAS INCREASED T WAVE INVERSION LESS EVIDENT IN LATERAL LEADS Confirmed by DAVID LYNCH MD ([id number]) on 02/28/2019 11:55:01 AM Referred By: Confirmed By:DAVID LYNCH MD
--- NOTE | 2019-02-28 13:53 | PN ---
Progress Note (short form) - Note Progress Note: Renal follow up for adrenal nodule [facility] no acute complaints no shortness of breath or chest pain no diarrhea Vital Signs Temperature 97.3 F L 02/28/19 13:36 Pulse Rate 70 02/28/19 13:36 Respiratory Rate 20 02/28/19 13:36 Blood Pressure 135/61 02/28/19 13:36 O2 Sat by Pulse Oximetry (%) 95 02/27/19 21:00 Intake & Output 02/25/19 02/26/19 02/27/19 02/28/19 23:59 23:59 23:59 23:59 Intake Total 736 172 7175 Balance 824 298 0870 Weight 95.283 kg NAD RRR, no M/R CTA, no rales or wheeze soft NT/ND no LE edema, clubbing or cyanoiss no CVA tenderness CBC, BMP 02/27/19 07:42 02/27/19 07:42 Current Medications Albuterol/Ipratropium (Duoneb -) 1 amp NEB RQID PRN PRN Reason: SHORTNESS OF BREATH Last Admin: 02/27/19 02:45 Dose: 1 amp Apixaban (Eliquis -) 5 mg PO BID [facility] Last Admin: 02/28/19 10:22 Dose: 5 mg Cholecalciferol (Vitamin D3 -) 1,000 unit PO DAILY [facility] Last Admin: 02/28/19 10:22 Dose: 1,000 unit Cyanocobalamin (Vitamin B12 -) 1,000 mcg PO DAILY [facility] Last Admin: 02/28/19 10:22 Dose: 1,000 mcg Furosemide (Lasix -) 40 mg PO DAILY [facility] Last Admin: 02/28/19 10:27 Dose: 40 mg Ceftriaxone Sodium 1 gm/ (Dextrose) 50 mls @ 100 mls/hr IVPB DAILY [facility]; Protocol Last Admin: 02/28/19 10:22 Dose: 100 mls/hr Metronidazole (Flagyl 500mg Premixed Ivpb -) 500 mg in 100 mls @ 100 mls/hr IVPB Q8H-IV [facility] Last Admin: 02/28/19 10:22 Dose: 100 mls/hr Insulin Aspart (Novolog Vial Sliding Scale -) 1 vial SQ ACHS [facility]; Protocol Last Admin: 02/28/19 13:41 Dose: Not Given Mometasone Furoate (Asmanex 220mcg -) 1 puff IH HS [facility] Last Admin: 02/27/19 21:48 Dose: 1 puff Pancrelipase (Creon Dr 6,000 Units Capsule) 3 cap PO TIDCM [facility] Last Admin: 02/28/19 13:43 Dose: 3 cap Rosuvastatin Calcium (Crestor -) 5 mg PO HS [facility] Last Admin: 02/27/19 21:48 Dose: 5 mg Umeclidinium/Vilanterol (Anoro Ellipta 62.5-25 Mcg Inh) 1 puff IH DAILY [facility] Last Admin: 02/28/19 10:25 Dose: 1 puff 78 year old gentleman with history of hypertension, CHF/nonischemic cardiomyopathy with AICD, CAD, DM, nephrolithiasis who presented with complaints of loose stools over several days. 1. Elevated serum Cr now normalized, with normal eGFR 2. Adrenal adenoma 3. Diarrhea 4. CHF/Cardiomyopathy 5. DM Renal function stable. No further work up is needed at this time. Check plasma renin activity, serum aldosterone- results pending will need repeat imaging CT with contrast of adrenal glands in 3-4 months Continue Abx as per primary GI follow up Continue lasix daily, low sodium diet Thank you Toy Swanson DO
--- NOTE | 2019-02-28 16:26 | PN ---
Progress Note (short form) - Note Progress Note: s: no chest pain, palps, dizziness, dyspnea Current Medications Albuterol/Ipratropium (Duoneb -) 1 amp NEB RQID PRN PRN Reason: SHORTNESS OF BREATH Last Admin: 02/27/19 02:45 Dose: 1 amp Apixaban (Eliquis -) 5 mg PO BID [facility] Last Admin: 02/28/19 10:22 Dose: 5 mg Cholecalciferol (Vitamin D3 -) 1,000 unit PO DAILY [facility] Last Admin: 02/28/19 10:22 Dose: 1,000 unit Cyanocobalamin (Vitamin B12 -) 1,000 mcg PO DAILY [facility] Last Admin: 02/28/19 10:22 Dose: 1,000 mcg Furosemide (Lasix -) 40 mg PO DAILY [facility] Last Admin: 02/28/19 10:27 Dose: 40 mg Ceftriaxone Sodium 1 gm/ (Dextrose) 50 mls @ 100 mls/hr IVPB DAILY [facility]; Protocol Last Admin: 02/28/19 10:22 Dose: 100 mls/hr Metronidazole (Flagyl 500mg Premixed Ivpb -) 500 mg in 100 mls @ 100 mls/hr IVPB Q8H-IV [facility] Last Admin: 02/28/19 10:22 Dose: 100 mls/hr Insulin Aspart (Novolog Vial Sliding Scale -) 1 vial SQ ACHS [facility]; Protocol Last Admin: 02/28/19 13:41 Dose: Not Given Mometasone Furoate (Asmanex 220mcg -) 1 puff IH [facility] Last Admin: 02/27/19 21:48 Dose: 1 puff Pancrelipase (Creon Dr 6,000 Units Capsule) 3 cap PO TIDCM [facility] Last Admin: 02/28/19 13:43 Dose: 3 cap Rosuvastatin Calcium (Crestor -) 5 mg PO HS [facility] Last Admin: 02/27/19 21:48 Dose: 5 mg Umeclidinium/Vilanterol (Anoro Ellipta 62.5-25 Mcg Inh) 1 puff IH DAILY [facility] Last Admin: 02/28/19 10:25 Dose: 1 puff Vital Signs Period Temp Pulse Resp BP Sys/[place] Pulse Ox Last 24 Hr 97.3 F-98.9 F 65-88 18-20 105-135/47-65 95 Constitutional: Yes: Well Nourished, No Distress, Calm Eyes: Conjunctiva Clear, HENT: Atraumatic, Normocephalic Neck: Supple, Trachea Midline Respiratory: Yes: Regular, On Nasal O2, Rales. No: Rhonchi, SOB, Wheezes Gastrointestinal: Normal Bowel Sounds, Soft. No: Distention, Tenderness Cardiovascular: Yes: Pulse Irregular. No: Bradycardia, Tachycardia, Gallop, Rub , Varicosities JVD: No Carotid Bruit: No PMI: Non-Displaced Heart Sounds: Yes: S1, S2. 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 colitis: -abx per GI evan: -likely due to diarrhea, Cr improved chronic systolic CHF: -seems euvolemic now -cont home lasix 40 qd -resume home toprol and entresto when bp improves (still low) -outpt icd checks Afib-paroxysmal: -in sr, cont bb for rate control when bp improves -cont eliquis hld: -cont statin HTN: -on low side, likely due to vol depletion 2/2 diarrhea, hold home meds for now
--- NOTE | 2019-02-28 17:39 | PN ---
Progress Note (short form) - Note Progress Note: ID CONSULT DICTATED ACUTE GASTROENTERITIS ENTEROBACTER UTI OBTAIN STOOL STUDIES OK TO SUBSTITUTE BACTRIM DS PO BID X 7D
[2019-02-28] MEDS: ROSUVASTATIN CA 5 MG TABLET (FP) PO SCH (21:33)
[2019-02-28] MEDS: MOMETASONE FUROATE 220 MCG/IH INHALER IH SCH (21:35)
[2019-03-01] MEDS: INSULIN SLIDING SCALE (NOVOLOG) 1 VIAL SQ SCH ×2 (06:21→12:27)
[2019-03-01] MEDS ORDERED: cefTRIAXone SODIUM 1 GM VIAL ONE (08:54)
[2019-03-01] MEDS ORDERED: PT OWN MED DRAWER 7, Y5N ONE (08:54)
[2019-03-01] MEDS ORDERED: DEXTROSE 5%-WATER - 50 ML IVPB ONE (08:54)
[2019-03-01] MEDS: CEFTRIAXONE 1 GM in DEXTROSE 5%-WATER - 50 ML IVPB SCH (10:03)
[2019-03-01] MEDS: CYANOCOBALAMIN 1,000 MCG TABLET (FP) PO SCH (10:04)
[2019-03-01] MEDS: APIXABAN 5 MG TABLET PO SCH (10:04)
[2019-03-01] MEDS: CHOLECALCIFEROL (VIT D3) 1,000 UNIT (25 MCG) TABLET PO SCH (10:05)
[2019-03-01] MEDS: LIPASE/PROTEASE/AMYLASE 6,000 UNIT CAPSULE PO SCH ×2 (10:05→12:31)
[2019-03-01] MEDS: FUROSEMIDE 40 MG TABLET (FP) PO SCH (10:05)
[2019-03-01] MEDS: UMECLIDINIUM/VILANTEROL (ANORO) 62.5/25 MCG INHALER IH SCH (10:06)
--- NOTE | 2019-03-01 10:08 | DS ---
Physical Examination Vital Signs: Vital Signs Temperature 98.9 F 03/01/19 06:24 Pulse Rate 83 03/01/19 06:24 Respiratory Rate 20 03/01/19 06:24 Blood Pressure 107/45 L 03/01/19 06:24 O2 Sat by Pulse Oximetry (%) 97 02/28/19 21:00 Cardiovascular: Yes: S1, S2 Respiratory: Yes: Regular, CTA Bilaterally Gastrointestinal: Yes: Normal Bowel Sounds, Soft. No: Tenderness Labs: CBC, BMP 02/27/19 07:42 02/27/19 07:42 Discharge Summary Problems reviewed: Yes Reason For Visit: ACUTE KIDNEY INJURY,UTI,DIARRHEA Current Active Problems ARLENE (acute kidney injury) (Acute) ARLENE (acute kidney injury) (Acute) Abdominal bloating (Acute) Diarrhea (Acute) IBS (irritable bowel syndrome) (Acute) UTI (urinary tract infection) (Acute) Hospital Course: Problems (1) ARLENE (acute kidney injury) Assessment/Plan: -BUN/Cr Laboratory Tests 02/26/19 02/27/19 11:10 07:42 BUN 30.9 H 22.8 H Creatinine 1.5 H 1.2 -Stable -Renal consult -monitor renal function daily for downtrend Code(s): N17.9 - ACUTE KIDNEY FAILURE, UNSPECIFIED (2) Diarrhea Assessment/Plan: -GI consult -CTAP shows 1.2cm left adrenal nodule which appears slightly more prominent probably representing an adenoma, colonic diverticulosis, small nonobstructing bilateral renal calculi -Stool O&P, Stool Culture, Stool WBC, Calpoprectin -advance diet Code(s): R19.7 - DIARRHEA, UNSPECIFIED (3) UTI (urinary tract infection) Assessment/Plan: -ID consult -UA shows 2+ leuks, 1+ blood, 1+ protein -UC pending Microbiology 02/26/19 11:10 Urine - Urine Clean Catch Urine Culture - Preliminary Non Lactose Fermenting Gnb -no leukocytosis -afebrile -received Ceftriaxone 1g IVPB---po bactrim Code(s): N39.0 - URINARY TRACT INFECTION, SITE NOT SPECIFIED (4) Diabetes Assessment/Plan: -BGM ACHS -ISS -HgA1c Code(s): E11.9 - TYPE 2 DIABETES MELLITUS WITHOUT COMPLICATIONS Qualifiers: Diabetes mellitus type: type 2 Diabetes mellitus complication status: with unspecified complications (5) Hypertension Assessment/Plan: -Furosemide -low Na diet Code(s): I10 - ESSENTIAL (PRIMARY) HYPERTENSION Qualifiers: Hypertension type: essential hypertension Qualified Code(s): I10 - Essential (primary) hypertension (6) PAF (paroxysmal atrial fibrillation) Assessment/Plan: -Eliquis -start metoprolol 50 and adjust as outpatient Code(s): I48.0 - PAROXYSMAL ATRIAL FIBRILLATION Condition: Improved - Instructions Referrals: Lyndsey Negro MD [Primary Care Provider] - 1 Week Disposition: HOME - Home Medications Comprehensive Discharge Medication List: Ambulatory Orders Apixaban [Eliquis] 5 mg PO BID 02/26/19 Cholecalciferol (Vitamin D3) [Vitamin D3 -] 1,000 unit PO DAILY 02/26/19 Cyanocobalamin (Vitamin B-12) [Vitamin B-12] 1,000 mcg PO DAILY 02/26/19 Fluticasone/Umeclidin/Vilanter [Trelegy Ellipta 100-62.5-25] 1 puff PO DAILY Furosemide [Lasix -] 40 mg PO DAILY 02/26/19 Lipase/Protease/Amylase [Zenpep Dr 25,000 Unit Capsule] 1 cap PO TID 02/26/19 [place]-3S/Dha/Epa/Fish Oil [[place]-3 Fish Oil 1,000 mg Sfgl] 1 cap PO DAILY Sacubitril/Valsartan [Entresto 97 mg-103 mg Tablet] 1 tab PO BID 02/26/19 Tamsulosin HCl [Flomax] 0.4 mg PO DAILY 02/26/19 Potassium Citrate ER 15 meq PO BID 02/27/19 Albuterol 2.5/Ipratropium 0.5 [Duoneb -] 1 amp NEB RQID PRN amp 03/01/19 Metoprolol Succinate [Toprol Xl -] 50 mg PO DAILY #30 tablet 03/01/19 Sulfamethoxazole/Trimethoprim [Bactrim Ds -] 1 tab PO BID #14 tablet 03/01/19
[2019-03-01 12:11] LABS: BASO % 1.1 % (0-2.0); EOS % 1.6 % (0-4.5); HEMATOCRIT 32.1 % (35.4-49); LYMPH % 18.5 % (8-40); MCHC 31.2 g/dl (32.0-35.9); MEAN CELL VOLUME 70.6 fl (80-96); MEAN PLT VOLUME 8.2 fl (7.5-11.1); MONO % 21.7 % (3.8-10.2); NEUT % 57.1 % (42.8-82.8); PLATELET COUNT 244 K/MM3 (134-434); RBC 4.54 M/mm3 (4.00-5.60); RDW 16.9 % (11.9-15.9); WHITE BLOOD COUNT 5.4 K/mm3 (4.0-10.0)
[2019-03-01 12:43] LABS: ALBUMIN 3.4 g/dl (3.4-5.0); BILIRUBIN,TOTAL 0.6 mg/dL (0.2-1); BLOOD UREA NITROGEN 13.5 mg/dL (7-18); CALCIUM 8.4 mg/dL (8.5-10.1); CREATININE 1.1 mg/dL (0.55-1.3); POTASSIUM 3.4 mmol/L (3.5-5.1); TOT PROT 7.3 g/dl (6.4-8.2)
[2019-03-01] MEDS ORDERED: POTASSIUM CHLORIDE TABS 20 MEQ TABLET.ER (FP) PO ONE (12:46)
--- NOTE | 2019-03-01 13:15 | PN ---
Progress Note (short form) - Note Progress Note: Renal follow up for adrenal nodule Seen and examined at the bedside offers no acute complaints making urine no flank pain Vital Signs Temperature 98.0 F 03/01/19 09:00 Pulse Rate 82 03/01/19 09:00 Respiratory Rate 18 03/01/19 09:00 Blood Pressure 131/72 03/01/19 09:00 O2 Sat by Pulse Oximetry (%) 97 03/01/19 09:00 Intake & Output 02/26/19 02/27/19 02/28/19 03/01/19 23:59 23:59 23:59 23:59 Intake Total 260 784 7912 100 Balance 713 031 0476 100 Weight 95.283 kg NAD RRR, no M/R CTA, no rales or wheeze soft NT/ND no LE edema, clubbing or cyanoiss no CVA tenderness CBC, BMP 03/01/19 11:55 03/01/19 11:55 Current Medications Albuterol/Ipratropium (Duoneb -) 1 amp NEB RQID PRN PRN Reason: SHORTNESS OF BREATH Last Admin: 02/27/19 02:45 Dose: 1 amp Apixaban (Eliquis -) 5 mg PO BID [facility] Last Admin: 03/01/19 10:04 Dose: 5 mg Cholecalciferol (Vitamin D3 -) 1,000 unit PO DAILY [facility] Last Admin: 03/01/19 10:05 Dose: 1,000 unit Cyanocobalamin (Vitamin B12 -) 1,000 mcg PO DAILY [facility] Last Admin: 03/01/19 10:04 Dose: 1,000 mcg Furosemide (Lasix -) 40 mg PO DAILY [facility] Last Admin: 03/01/19 10:05 Dose: 40 mg Ceftriaxone Sodium 1 gm/ (Dextrose) 50 mls @ 100 mls/hr IVPB DAILY [facility]; Protocol Last Admin: 03/01/19 10:03 Dose: 100 mls/hr Metronidazole (Flagyl 500mg Premixed Ivpb -) 500 mg in 100 mls @ 100 mls/hr IVPB Q8H-IV [facility] Last Admin: 03/01/19 10:03 Dose: 100 mls/hr Insulin Aspart (Novolog Vial Sliding Scale -) 1 vial SQ ACHS [facility]; Protocol Last Admin: 03/01/19 12:27 Dose: Not Given Mometasone Furoate (Asmanex 220mcg -) 1 puff IH HS [facility] Last Admin: 02/28/19 21:35 Dose: 1 puff Non-Formulary Medication (Potassium Citrate Er) 15 meq PO BID [facility] Pancrelipase (Creon Dr 6,000 Units Capsule) 3 cap PO TIDCM [facility] Last Admin: 03/01/19 12:31 Dose: 3 cap Rosuvastatin Calcium (Crestor -) 5 mg PO HS [facility] Last Admin: 02/28/19 21:33 Dose: 5 mg Umeclidinium/Vilanterol (Anoro Ellipta 62.5-25 Mcg Inh) 1 puff IH DAILY [facility] Last Admin: 03/01/19 10:06 Dose: 1 puff 78 year old gentleman with history of hypertension, CHF/nonischemic cardiomyopathy with AICD, CAD, DM, nephrolithiasis who presented with complaints of loose stools over several days. 1. Elevated serum Cr now normalized, with normal eGFR 2. Adrenal adenoma 3. Diarrhea 4. CHF/Cardiomyopathy 5. DM Renal function stable. No further work up is needed at this time. Check plasma renin activity, serum aldosterone- results pending will need repeat imaging CT with contrast of adrenal glands in 3-4 months discharge planning as per primary can follow up renin/adlosterone levels as an outpatient, no clinical signs of hyperaldosteronism Thank you Toy Swanson DO
[2019-03-01 13:53] LABS: ANISOCYTOSIS 1+; MACROCYTOSIS 0; OVALOCYTE 1+; PLATELET ESTIMATE NORMAL; TARGET CELLS 1+
[2019-03-01 14:09] VITALS: BP 147/60; PULSE 80; TEMP 98.2
--- NOTE | 2019-03-01 15:33 | PN ---
Progress Note (short form) - Note Progress Note: s: no chest pain, palps, dizziness, dyspnea Home Medications Medication Instructions Recorded Apixaban [Eliquis] 5 mg PO BID 02/26/19 Cholecalciferol (Vitamin D3) 1,000 unit PO DAILY 02/26/19 [Vitamin D3 -] Cyanocobalamin (Vitamin B-12) 1,000 mcg PO DAILY 02/26/19 [Vitamin B-12] Fluticasone/Umeclidin/Vilanter 1 puff PO DAILY 02/26/19 [Trelegy Ellipta 100-62.5-25] Furosemide [Lasix -] 40 mg PO DAILY 02/26/19 Lipase/Protease/Amylase [Zenpep Dr 1 cap PO TID 02/26/19 25,000 Unit Capsule] [place]-3S/Dha/Epa/Fish Oil [[place]ins-3 1 cap PO DAILY 02/26/19 Fish Oil 1,000 mg Sfgl] Sacubitril/Valsartan [Entresto 97 1 tab PO BID 02/26/19 mg-103 mg Tablet] Tamsulosin HCl [Flomax] 0.4 mg PO DAILY 02/26/19 Potassium Citrate ER 15 meq PO BID 02/27/19 Albuterol 2.5/Ipratropium 0.5 1 amp NEB RQID PRN amp 03/01/19 [Duoneb -] Metoprolol Succinate [Toprol Xl -] 50 mg PO DAILY #30 tablet 03/01/19 Sulfamethoxazole/Trimethoprim 1 tab PO BID #14 tablet 03/01/19 [Bactrim Ds -] Vital Signs Period Temp Pulse Resp BP Sys/[place] Pulse Ox Last 24 Hr 98.0 F-98.9 F 80-99 18-20 107-149/45-72 97-97 Constitutional: Yes: Well Nourished, No Distress, Calm Eyes: Conjunctiva Clear, HENT: Atraumatic, Normocephalic Neck: Supple, Trachea Midline Respiratory: Yes: Regular, On Nasal O2, Rales. No: Rhonchi, SOB, Wheezes Gastrointestinal: Normal Bowel Sounds, Soft. No: Distention, Tenderness Cardiovascular: Yes: Pulse Irregular. No: Bradycardia, Tachycardia, Gallop, Rub , Varicosities JVD: No Carotid Bruit: No PMI: Non-Displaced Heart Sounds: Yes: S1, S2. 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 colitis: -abx per GI, ID evan: -likely due to diarrhea, Cr improved chronic systolic CHF: -seems euvolemic now -cont home lasix 40 qd -continue toprol and entresto -outpt icd checks Afib-paroxysmal: -in sr, cont bb for rate control -cont eliquis hld: -cont statin HTN: -continue entresto and toprol (resumed at lower dose due to low bp's here, f/u with cardiology 2 weeks)
[2019-03-01] MEDS ORDERED: POTASSIUM CITRATE 15 MEQ PO SCH (22:00)
[2019-03-06 12:12] LABS: RENIN ACTIVITY(PRA) 9.979 ng/mL/hr (0.167-5.380)
== END 2019-03-01 15:22 | disposition home or self-care (01) | DRG 690 ==
LOC: JER 09:59 → JERBED 13:08 → J7W 17:25
PROVIDERS: ADMIT Family Medicine; ATTEND Family Medicine
DX: N39.0 Urinary tract infection, site not specified (principal); N17.9 Acute kidney failure, unspecified; I50.22 Chronic systolic (congestive) heart failure; I42.8 Other cardiomyopathies; E11.9 Type 2 diabetes mellitus without complications; I48.0 Paroxysmal atrial fibrillation; I10 Essential (primary) hypertension; E78.5 Hyperlipidemia, unspecified; I25.10 Atherosclerotic heart disease of native coronary artery without angina pectoris; K52.9 Noninfective gastroenteritis and colitis, unspecified; B96.89 Other specified bacterial agents as the cause of diseases classified elsewhere
CPT/HCPCS: 36415; 74177-TC; 80053; 81003; 82088; 82272; 82962; 83735; 84100; 84244; 84436; 84443; 85025; 85610; 87086; 87186; 87804; 93005; 93010; 94640; 97116-GP; 97161-GP; 99283-25; J0131

== ENCOUNTER 2019-11-10 19:38 | Inpatient (IN) | payer OTHER, BC ==
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
--- OUTSIDE RECORDS SUMMARY | 2019-11-10 20:25 | XMS ---
:1940 Demographics Address [address] [place] [address] Preferred Language en Marital Status Not or Latter-Day Affiliation BA Race BL Ethnic Group Not or Author Organization [facility] Support Name Relationship Address Phone RE Unavailable Unavailable Unavailable AUTUMN CABRERA [address] [place] [address] Re-disclosure Warning The records that you are about to access may contain information from federally- assisted alcohol or drug abuse programs. If such information is present, then the following federally mandated warning applies: This information has been disclosed to you from records protected by federal confidentiality rules (42 CFR part 2). The federal rules prohibit you from making any further disclosure of this information unless further disclosure is expressly permitted by the written consent of the person to whom it pertains or as otherwise permitted by 42 CFR part 2. A general authorization for the release of medical or other information is NOT sufficient for this purpose. The Federal rules restrict any use of the information to criminally investigate or prosecute any alcohol or drug abuse patient.The records that you are about to access may contain highly sensitive health information, the redisclosure of which is protected by Article 27-F of the [facility] Public Health law. If you continue you may haveaccess to information: Regarding HIV / AIDS; Provided by facilities licensed or operated by the [facility] Office of Mental Health; or Provided by the [facility] Office for People With Developmental Disabilities. If such information is present, then the following [facility] mandated warning applies: This information has been disclosed to you from confidential records which are protected by state law. State law prohibits you from making any further disclosure of this information without the specific written consent of the person to whom it pertains, or as otherwise permitted by law. Any unauthorized further disclosure in violation of state law may result in a fine or fpc sentence or both. A general authorization for the release of medical or other information is NOT sufficient authorization for further disclosure. Insurance Providers Payer name Policy type Policy ID Covered Covered green party's Policy P oma / Coverage green party ID relationship to [employer] Inf ormation type nieto MEDICARE [id number] BLUE CROSS [id number] [place] [id number] OTHER 89 BC PPO [id number] SP [id number] MEDICARE [id number] A Social History Code Duration Value Status Description Data Source(s ) Smoking Unknown if ever completed Unknown if ever Tammy Goodson smoked [facility]
[2019-11-10 20:45] LABS: BASO % 0.8 % (0-2.0); EOS % 3.9 % (0-4.5); HEMATOCRIT 34.5 % (35.4-49); HEMOGLOBIN 10.6 GM/dL (11.7-16.9); LYMPH % 13.3 % (8-40); MCH 22.5 pg (25.7-33.7); MCHC 30.6 g/dl (32.0-35.9); MEAN CELL VOLUME 73.5 fl (80-96); MEAN PLT VOLUME 8.5 fl (7.5-11.1); MONO % 14.9 % (3.8-10.2); NEUT % 67.1 % (42.8-82.8); PLATELET COUNT 263 K/MM3 (134-434); RDW 16.2 % (11.9-15.9); WHITE BLOOD COUNT 7.5 K/mm3 (4.0-10.0)
[2019-11-10 20:58] LABS: INR 1.39 (0.83-1.09); PROTHROMBIN TIME (PATIENT) 16.5 SEC (9.7-13.0)
[2019-11-10 21:01] LABS: ACTIVATED PTT 38.6 SECONDS (25.2-36.5)
[2019-11-10 21:17] LABS: ALBUMIN 3.4 g/dl (3.4-5.0); ALK PHOS 70 U/L (45-117); ANION GAP 6 MMOL/L (8-16); BILIRUBIN,TOTAL 0.6 mg/dL (0.2-1); BLOOD UREA NITROGEN 15.4 mg/dL (7-18); CALCIUM 8.7 mg/dL (8.5-10.1); CHLORIDE 104 mmol/L (98-107); CO2 29 mmol/L (21-32); CREATININE 1.1 mg/dL (0.55-1.3); GLUCOSE,RANDOM 192 mg/dL (74-106); POTASSIUM 4.4 mmol/L (3.5-5.1); SGOT/AST 17 U/L (15-37); SGPT/ALT 13 U/L (13-61); SODIUM 139 mmol/L (136-145); TOT PROT 7.3 g/dl (6.4-8.2)
--- NOTE | 2019-11-10 22:14 | HP ---
Admitting History and Physical - Primary Care Physician PCP: Lyndsey Negro - Admission Chief Complaint: Syncope, Palpitations, AICD Discharging History of Present Illness: This is a 79 y/o male with significant past medical history of HTN, HLD, DM, CAD, Nonischemic Dilated Cardiomyopathy s/p AICD ([employer] 2011), CHF, Renal Colic, Diverticulosis. Who presents via ambulance to the ED for palpitations and syncopal episode x today. Per the patient 2 days ago his AICD discharged, when he was trying to break up a fight between his grandchildren. He reports not seeking medical attention. Patient reports while sitting in his chair watching television with his , he suddenly began to have severe palpitations and SOB. He denies that his AICD discharged, but became unresponsive for a few minutes, his caught him to prevent him from falling out of the chair. He reports feeling back to his baseline. Patient denies fever, chills, cough, CP, N/V/D, constipation, melena, hematochezia, hematuria, dysuria. Patient denies sick contacts or recent travel. History Source: Patient Limitations to Obtaining History: No Limitations - Past Medical History Cardiovascular: Yes: AFIB, CAD (non-obstructive CAD, recent cath at [facility]--12/2014, 30% LAD, EF 35%), CHF (Non-ischemic cardiomyopathy s/p ICD for primary prevention), HTN, Other ([employer] device interrogation 12/2014: NSVT, one run required ATP) Renal/: Yes: Renal Calculi Endocrine: Yes: Diabetes Mellitus - Past Surgical History Past Surgical History: Yes: AICD Additional Past Surgical History: Left Knee Artthroscopy - Smoking History Smoking history: Former smoker Have you smoked in the past 12 months: No Aproximately how many cigarettes per day: 0 If you are a former smoker, when did you quit?: 2009 - Alcohol/Substance Use Hx Alcohol Use: No History of Substance Use: reports: None - Social History Usual Living Arrangement: Yes: With Spouse ADL: Independent Occupation: Retired History of Recent Travel: No Home Medications - Allergies Allergies/Adverse Reactions: Allergies Allergy/AdvReac Type Severity Reaction Status Date / Time weed pollen Allergy Verified 11/10/19 19:44 - Home Medications Home Medications: Ambulatory Orders Apixaban [Eliquis] 5 mg PO BID 02/26/19 Cholecalciferol (Vitamin D3) [Vitamin D3 -] 1,000 unit PO DAILY 02/26/19 Cyanocobalamin (Vitamin B-12) [Vitamin B-12] 1,000 mcg PO DAILY 02/26/19 Fluticasone/Umeclidin/Vilanter [Trelegy Ellipta 100-62.5-25] 1 puff PO DAILY 02/26/19 Furosemide [Lasix -] 40 mg PO DAILY 02/26/19 Lipase/Protease/Amylase [Zenpep Dr 25,000 Unit Capsule] 1 cap PO TID 02/26/19 Francis-3S/Dha/Epa/Fish Oil [Francis-3 Fish Oil 1,000 mg Sfgl] 1 cap PO DAILY 02/26/19 Sacubitril/Valsartan [Entresto 97 mg-103 mg Tablet] 1 tab PO BID 02/26/19 Tamsulosin HCl [Flomax] 0.4 mg PO DAILY 02/26/19 Potassium Citrate ER 15 meq PO BID 02/27/19 Albuterol 2.5/Ipratropium 0.5 [Duoneb -] 1 amp NEB RQID PRN amp 03/01/19 Metoprolol Succinate [Toprol Xl -] 50 mg PO DAILY #30 tablet 03/01/19 Sulfamethoxazole/Trimethoprim [Bactrim Ds -] 1 tab PO BID #14 tablet 03/01/19 Family Medical History Family History: As Documented Family Hx Coronary Artery Disease: Mother Review of Systems - Review of Systems Constitutional: reports: No Symptoms Eyes: reports: No Symptoms HENT: reports: No Symptoms Neck: reports: No Symptoms Cardiovascular: reports: Palpitations, Shortness of Breath Respiratory: reports: SOB, SOB on Exertion Gastrointestinal: reports: No Symptoms Genitourinary: reports: No Symptoms Breasts: reports: No Symptoms Reported Musculoskeletal: reports: No Symptoms Integumentary: reports: No Symptoms Neurological: reports: Dizziness, Syncope Endocrine: reports: No Symptoms Hematology/Lymphatic: reports: No Symptoms Psychiatric: reports: No Symptoms Pain Intensity: 0 Physical Examination Vital Signs: Vital Signs Temperature 98.1 F 11/10/19 19:40 Pulse Rate 78 11/10/19 20:39 Respiratory Rate 22 H 11/10/19 20:39 Blood Pressure 122/77 11/10/19 20:39 O2 Sat by Pulse Oximetry (%) 97 11/10/19 20:39 Constitutional: Yes: Mild Distress, Obese Eyes: Yes: Conjunctiva Clear, PERRL HENT: Yes: Atraumatic, Normocephalic Neck: Yes: Supple, Trachea Midline Cardiovascular: Yes: Regular Rate and Rhythm Respiratory: Yes: On Nasal O2, Rhonchi, SOB on Exertion, Wheezes Gastrointestinal: Yes: Normal Bowel Sounds, Soft, Abdomen, Obese ...Rectal Exam: Yes: Deferred Renal/: Yes: WNL Breast(s): Yes: WNL Musculoskeletal: Yes: WNL Extremities: Yes: WNL Edema: No Peripheral Pulses WNL: Yes Integumentary: Yes: WNL Neurological: Yes: WNL, Alert, Oriented, Cran Nerves II-XII Intact ...Motor Strength: WNL Psychiatric: Yes: WNL, Alert, Oriented Labs: CBC, BMP 11/10/19 20:08 11/10/19 20:08 Laboratory Results - last 24 hr 11/10/19 11/10/19 11/10/19 20:08 20:08 20:08 WBC 7.5 RBC 4.70 Hgb 10.6 L Hct 34.5 L MCV 73.5 L MCH 22.5 L MCHC 30.6 L RDW 16.2 H Plt Count 263 MPV 8.5 Absolute Neuts (auto) 5.0 Neutrophils % 67.1 Lymphocytes % 13.3 D Monocytes % 14.9 H Eosinophils % 3.9 D Basophils % 0.8 Nucleated RBC % 0 PT with INR 16.50 H INR 1.39 H PTT (Actin FS) 38.6 H Sodium 139 Potassium 4.4 Chloride 104 Carbon Dioxide 29 Anion Gap 6 L BUN 15.4 Creatinine 1.1 Est GFR (CKD-EPI)AfAm 74.13 Est GFR (CKD-EPI)NonAf 63.96 Random Glucose 192 H Calcium 8.7 Magnesium 1.9 Total Bilirubin 0.6 AST 17 ALT 13 Alkaline Phosphatase 70 Creatine Kinase 95 Troponin I < 0.02 B-Natriuretic Peptide Total Protein 7.3 Albumin 3.4 TSH 1.30 D 11/10/19 20:08 WBC RBC Hgb Hct MCV MCH MCHC RDW Plt Count MPV Absolute Neuts (auto) Neutrophils % Lymphocytes % Monocytes % Eosinophils % Basophils % Nucleated RBC % PT with INR INR PTT (Actin FS) Sodium Potassium Chloride Carbon Dioxide Anion Gap BUN Creatinine Est GFR (CKD-EPI)AfAm Est GFR (CKD-EPI)NonAf Random Glucose Calcium Magnesium Total Bilirubin AST ALT Alkaline Phosphatase Creatine Kinase Troponin I B-Natriuretic Peptide 295.2 Total Protein Albumin TSH Intake & Output 11/08/19 11/09/19 11/10/19 11/11/19 23:59 23:59 23:59 23:59 Weight 92.986 kg Current Medications Generic Name Dose Route Start Last Admin Trade Name Freq PRN Reason Stop Dose Admin Apixaban 5 mg 11/10/19 22:15 11/10/19 23:17 Eliquis - PO 5 mg BID [facility] Administration Cholecalciferol 1,000 unit 11/11/19 10:00 Vitamin D3 - PO DAILY [facility] Cyanocobalamin 1,000 mcg 11/11/19 10:00 Vitamin B12 - PO DAILY [facility] Furosemide 40 mg 11/11/19 10:00 Lasix - PO DAILY [facility] Metoprolol Succinate 50 mg 11/11/19 10:00 Toprol Xl - PO DAILY [facility] Non-Formulary Medication 1 puff 11/11/19 10:00 Fluticasone/Umeclidin/Vilanter [Trelegy Ellipta 100-62.5-25] PO DAILY [facility] Non-Formulary Medication 15 meq 11/11/19 10:00 Potassium Citrate Er PO BID [facility] Caiod-1-Dufe Ethyl Esters 1 gm 11/11/19 10:00 Lovaza - PO DAILY [facility] Pancrelipase 4 cap 11/11/19 08:[address] 6,000 Units Capsule PO TIDCM [facility] Sacubitril/Valsartan 1 tab 11/10/19 22:15 11/10/19 23:17 Entresto 97 Mg-103 Mg Tablet PO 1 tab BID [facility] Administration Tamsulosin HCl 0.4 mg 11/11/19 08:30 Flomax - PO DAILY@0830 [facility] Imaging - Results Chest X-ray: Image Reviewed EKG: Image Reviewed Problem List - Problems (1) Syncope and collapse Assessment/Plan: Likely secondary to dysrhythmia Continue cardiac monitoring [employer] interrogated in ED- report reviewed Appreciate Cardiology consult EKG- SR with 1st degree AV-block Serial enzymes Carotid Doppler r/o stenosis Monitor CBC, CMP, Mg level-pending Code(s): R55 - SYNCOPE AND COLLAPSE (2) Palpitations Assessment/Plan: see above Code(s): R00.2 - PALPITATIONS (3) AICD discharge Assessment/Plan: [employer] interrogated in ED- report reviewed Appreciate Cardiology consult Cardiac Monitoring Monitor CMP Code(s): Z45.02 - ENCNTR FOR ADJUST AND MGMT OF AUTOMATIC IMPLNTBL CARD DEFIB (4) Shortness of breath Assessment/Plan: Likely secondary to dysrhythmia vs cardiomyopathy Chest Xray reviewed O2 Monitor vitals Albuterol MDI Continue current meds Consider Pulmonology consult if condition worsens Code(s): R06.02 - SHORTNESS OF BREATH (5) Non-ischemic cardiomyopathy Assessment/Plan: s/p AICD EKG- reviewed Continue current meds Monitor CMP Code(s): I42.9 - CARDIOMYOPATHY, UNSPECIFIED (6) ASHD (arteriosclerotic heart disease) Assessment/Plan: Continue current meds Code(s): I25.10 - ATHSCL HEART DISEASE OF [place] CORONARY ARTERY W/O ANG PCTRS (7) BPH (benign prostatic hyperplasia) Assessment/Plan: stable Continue Flomax Code(s): N40.0 - BENIGN PROSTATIC HYPERPLASIA WITHOUT LOWER URINRY TRACT SYMP (8) Hypertension Assessment/Plan: stable Monitor BP Continue current meds with parameters Monitor renal function Code(s): I10 - ESSENTIAL (PRIMARY) HYPERTENSION Qualifiers: Hypertension type: essential hypertension Qualified Code(s): I10 - E ssential (primary) hypertension (9) IBS (irritable bowel syndrome) Assessment/Plan: stable Continue current med Code(s): K58.9 - IRRITABLE BOWEL SYNDROME WITHOUT DIARRHEA Qualifiers: Irritable bowel syndrome type: with diarrhea Qualified Code(s): K58.0 - Irritable bowel syndrome with diarrhea (10) PAF (paroxysmal atrial fibrillation) Assessment/Plan: stable EKG- 1st degree AV- Block [id number] 5 Continue Eliquis, Metoprolol with parameters Code(s): I48.0 - PAROXYSMAL ATRIAL FIBRILLATION (11) Diabetes Assessment/Plan: stable BGMs ISS Monitor CMP Code(s): E11.9 - TYPE 2 DIABETES MELLITUS WITHOUT COMPLICATIONS Qualifiers: Diabetes mellitus type: type 2 Diabetes mellitus complication status: with unspecified complications (12) Encounter for screening laboratory testing for COVID-19 virus Assessment/Plan: Low Risk] COVID PCR-pending Isolation Precautions Code(s): Z11.59 - ENCOUNTER FOR SCREENING FOR OTHER VIRAL DISEASES Assessment/Plan This is a 79 y/o male with significant past medical history of HTN, HLD, DM, CAD, Nonischemic Dilated Cardiomyopathy s/p AICD ([employer] 2011), CHF, Renal Colic, Diverticulosis. Admitted to Telemetry for Syncope, Palpitations, AICD Discharging for further evaluation of their emergent condition. Plan: See Problem List FEN Fluid Restriction 1L Replete lytes prn Low Na, Diabetic Diet DVT ppx OOB SCDs Continue Eliquis Code Status: Full Code Dispo: Requires Inpatient Care Visit type - Medication Review Med list reviewed for High Risk Meds patients 65 and older: Yes - Emergency Visit Emergency Visit: Yes ED Registration Date: 11/10/19 Care time: The patient presented to the Emergency Department on the above date and was hospitalized for further evaluation of their emergent condition. - New Patient This patient is new to me today: Yes Date on this admission: 11/10/19 - Critical Care Critical Care patient: No
--- OUTSIDE RECORDS SUMMARY | 2019-11-10 22:17 | XMS ---
:1940 Demographics Address [address] [place] [address] Preferred Language en Marital Status Not or Quaker Affiliation BA Race BL Ethnic Group Not or Author Organization [facility] Support Name Relationship Address Phone RE, RETIRED Unavailable Unavailable Unavailable RE Unavailable Unavailable Unavailable AUTUMN CABRERA [address] [place] [address] Re-disclosure Warning The records that you are [...] is protected by Article 27-F of the [facility] Public Health law. If you continue you may haveaccess to information: Regarding HIV / AIDS; Provided by facilities licensed or operated by the [facility] Office of Mental Health; or Provided by the [facility] Office for People With Developmental Disabilities. If such information is present, then the following [facility] mandated warning applies: This information has been [...] law may result in a fine or half-way sentence or both. A general authorization for the release of medical or other information is NOT sufficient authorization for further disclosure. Insurance Providers Payer name Policy type Policy ID Covered Covered green party's Policy P oma / Coverage green party ID relationship to [employer] Inf ormation type nieto MEDICARE [id number] BLUE CROSS [id number] [place] [id number] OTHER 89 BC PPO [id number] SP [id number] MEDICARE [id number] A Social History Code Duration Value Status Description Data Source(s ) Smoking Unknown if ever completed Unknown if ever Tammy Goodson smoked [facility]
[2019-11-10] MEDS ORDERED: APIXABAN 5 MG TABLET ONE (22:39)
[2019-11-10] MEDS: SACUBITRIL/VALSARTAN 97 MG-103 MG TABLET PO SCH (23:17)
[2019-11-10] MEDS: APIXABAN 5 MG TABLET PO SCH (23:17)
[2019-11-10] MEDS ORDERED: ALBUTEROL SO4 HFA INHALER IH ONE (23:18)
[2019-11-11 00:40] LABS: MAGNESIUM 1.9 mg/dL (1.8-2.4)
[2019-11-11 06:24] LABS: BASO % 0.8 % (0-2.0); EOS % 3.6 % (0-4.5); HEMATOCRIT 33.5 % (35.4-49); HEMOGLOBIN 10.3 GM/dL (11.7-16.9); LYMPH % 17.7 % (8-40); MCH 22.8 pg (25.7-33.7); MCHC 30.9 g/dl (32.0-35.9); MEAN CELL VOLUME 73.8 fl (80-96); MEAN PLT VOLUME 8.2 fl (7.5-11.1); MONO % 15.8 % (3.8-10.2); NEUT % 62.1 % (42.8-82.8); PLATELET COUNT 235 K/MM3 (134-434); RBC 4.53 M/mm3 (4.00-5.60); RDW 16.1 % (11.9-15.9); WHITE BLOOD COUNT 7.5 K/mm3 (4.0-10.0)
[2019-11-11 06:51] LABS: ALBUMIN 3.4 g/dl (3.4-5.0); BILIRUBIN,TOTAL 0.8 mg/dL (0.2-1); BLOOD UREA NITROGEN 16.5 mg/dL (7-18); CALCIUM 8.6 mg/dL (8.5-10.1); CREATININE 1.1 mg/dL (0.55-1.3); POTASSIUM 4.4 mmol/L (3.5-5.1); TOT PROT 7.3 g/dl (6.4-8.2)
[2019-11-11] MEDS ORDERED: INSULIN SLIDING SCALE (NOVOLOG) 1 VIAL SQ SCH (07:00)
--- NOTE | 2019-11-11 09:03 | PN ---
Progress Note, Physician History of Present Illness: 79 y/o male with significant past medical history of HTN, HLD, DM, CAD, Nonischemic Dilated Cardiomyopathy s/p AICD ([employer] 2011), CHF, Renal Colic, Diverticulosis. Admitted to Telemetry for Syncope, Palpitations, AICD Discharging for further evaluation of their emergent condition. - Current Medication List Current Medications: Active Medications Apixaban (Eliquis -) 5 mg PO BID [facility] Last Admin: 11/10/19 23:17 Dose: 5 mg Documented by: Cholecalciferol (Vitamin D3 -) 1,000 unit PO DAILY [facility] Cyanocobalamin (Vitamin B12 -) 1,000 mcg PO DAILY [facility] Furosemide (Lasix -) 40 mg PO DAILY [facility] Insulin Aspart (Novolog Vial Sliding Scale -) 1 vial SQ [facility]; Protocol Metoprolol Succinate (Toprol Xl -) 50 mg PO DAILY [facility] Non-Formulary Medication (Fluticasone/Umeclidin/Vilanter [Trelegy Ellipta 100-62.5-25]) 1 puff PO DAILY [facility] Non-Formulary Medication (Potassium Citrate Er) 15 meq PO BID [facility] [id number] Ethyl Esters (Lovaza -) 1 gm PO DAILY [facility] Pancrelipase (Creon Dr 6,000 Units Capsule) 4 cap PO TIDCM [facility] Sacubitril/Valsartan (Entresto 97 Mg-103 Mg Tablet) 1 tab PO BID [facility] Last Admin: 11/10/19 23:17 Dose: 1 tab Documented by: Tamsulosin HCl (Flomax -) 0.4 mg PO DAILY@0830 [facility] - Objective Vital Signs: Vital Signs Temperature 97.8 F 11/11/19 06:16 Pulse Rate 54 L 11/11/19 06:16 Respiratory Rate 18 11/11/19 06:16 Blood Pressure 121/65 11/11/19 06:16 O2 Sat by Pulse Oximetry (%) 100 11/11/19 01:04 Cardiovascular: Yes: S1, S2 Respiratory: Yes: Regular, CTA Bilaterally Gastrointestinal: Yes: Normal Bowel Sounds, Soft. No: Tenderness Neurological: Yes: Alert, Oriented Labs: CBC, BMP 11/11/19 06:00 11/11/19 06:00 INR, PTT INR 1.39 (0.83-1.09) H 11/10/19 20:08 Assessment/Plan - Problems (1) Syncope and collapse Assessment/Plan: Likely secondary to dysrhythmia Continue cardiac monitoring [employer] interrogated in ED- report reviewed Appreciate Cardiology consult EKG- SR with 1st degree AV-block Serial enzymes Carotid Doppler r/o stenosis Monitor CBC, CMP, Mg level-pending Code(s): R55 - SYNCOPE AND COLLAPSE (2) Palpitations Assessment/Plan: see above Code(s): R00.2 - PALPITATIONS (3) AICD discharge Assessment/Plan: [employer] interrogated in ED- report reviewed Appreciate Cardiology consult Cardiac Monitoring Monitor CMP Code(s): Z45.02 - ENCNTR FOR ADJUST AND MGMT OF AUTOMATIC IMPLNTBL CARD DEFIB (4) Shortness of breath Assessment/Plan: Likely secondary to dysrhythmia vs cardiomyopathy Chest Xray reviewed O2 Monitor vitals Albuterol MDI Continue current meds Consider Pulmonology consult if condition worsens Code(s): R06.02 - SHORTNESS OF BREATH (5) Non-ischemic cardiomyopathy Assessment/Plan: s/p AICD EKG- reviewed Continue current meds Monitor CMP Code(s): I42.9 - CARDIOMYOPATHY, UNSPECIFIED (6) ASHD (arteriosclerotic heart disease) Assessment/Plan: Continue current meds Code(s): I25.10 - ATHSCL HEART DISEASE OF [place] CORONARY ARTERY W/O ANG PCTRS (7) BPH (benign prostatic hyperplasia) Assessment/Plan: stable Continue Flomax Code(s): N40.0 - BENIGN PROSTATIC HYPERPLASIA WITHOUT LOWER URINRY TRACT SYMP (8) Hypertension Assessment/Plan: stable Monitor BP Continue current meds with parameters Monitor renal function Code(s): I10 - ESSENTIAL (PRIMARY) HYPERTENSION Qualifiers: Hypertension type: essential hypertension Qualified Code(s): I10 - Essential (primary) hypertension (9) IBS (irritable bowel syndrome) Assessment/Plan: stable Continue current med Code(s): K58.9 - IRRITABLE BOWEL SYNDROME WITHOUT DIARRHEA Qualifiers: Irritable bowel syndrome type: with diarrhea Qualified Code(s): K58.0 - Irritable bowel syndrome with diarrhea (10) PAF (paroxysmal atrial fibrillation) Assessment/Plan: stable EKG- 1st degree AV- Block [id number] 5 Continue Eliquis, Metoprolol with parameters Code(s): I48.0 - PAROXYSMAL ATRIAL FIBRILLATION (11) Diabetes Assessment/Plan: stable BGMs ISS Monitor CMP Code(s): E11.9 - TYPE 2 DIABETES MELLITUS WITHOUT COMPLICATIONS Qualifiers: Diabetes mellitus type: type 2 Diabetes mellitus complication status: with unspecified complications (12) Encounter for screening laboratory testing for COVID-19 virus Assessment/Plan: Low Risk] COVID PCR-pending Isolation Precautions Code(s): Z11.59 - ENCOUNTER FOR SCREENING FOR OTHER VIRAL DISEASES
[2019-11-11 09:33] LABS: URINE APPEARANCE CLOUDY; URINE BILIRUBIN NEGATIVE (NEGATIVE); URINE COLOR YELLOW; URINE GLUCOSE (UA) NEGATIVE (NEGATIVE); URINE KETONE NEGATIVE (NEGATIVE); URINE LEUK ESTERASE 2+ (NEGATIVE); URINE NITRITE NEGATIVE (NEGATIVE); URINE PROTEIN TRACE (NEGATIVE); URINE UROBILINOGEN 0.2 mg/dL (0.2-1.0)
[2019-11-11] MEDS ORDERED: APIXABAN 5 MG TABLET ONE (09:41)
[2019-11-11] MEDS ORDERED: FUROSEMIDE 40 MG TABLET (FP) ONE (09:41)
[2019-11-11] MEDS ORDERED: TAMSULOSIN HCL 0.4 MG CAP ONE (09:42)
[2019-11-11] MEDS: FUROSEMIDE 40 MG TABLET (FP) PO SCH (09:50)
[2019-11-11] MEDS: TAMSULOSIN HCL 0.4 MG CAP PO SCH (09:50)
[2019-11-11] MEDS: APIXABAN 5 MG TABLET PO SCH ×2 (09:50→21:48)
[2019-11-11] MEDS ORDERED: POTASSIUM CITRATE 15 MEQ PO SCH (10:00)
[2019-11-11 10:26] LABS: EPI CELLS 5 /uL (0-25.1); HYALINE CASTS 7 /uL (0-3.1); URINE BACTERIA 24144 /uL (0-1359); URINE RBC 11 /uL (0-23.9); URINE WBC 694 /uL (0-25.8)
[2019-11-11 10:30] LABS: URINE CRYSTALS NEGATIVE /hpf; YEAST NEGATIVE (NEGATIVE)
--- NOTE | 2019-11-11 12:08 | CON.CARD ---
Cardiology Consult (text) - Consultation Consultation Note: Chief Complaint: syncope History of Present Illness: 79 year old man with a history of HTN, DM, NICM with severe LV dysfunction s/p ICD ([place]), chronic systolic CHF, paroxysmal atrial fibrillation, hld here with syncope. Last evening was sitting watching tv and felt dizzy, palps and then fainted. Awoke few mins later and felt ok. No cp sob pnd orthopnea le edema. In ER icd check showed episode of vt that was treated with icd shock. Sees dr marte for cardio. - History Source History Provided By: Patient, Medical Record Limitations to Obtaining History: No Limitations - Past Medical History Cardio/Vascular: Yes: AFIB, CAD (non-obstructive CAD, recent cath at [facility]--12/2014, 30% LAD, EF 35%), CHF (Non-ischemic cardiomyopathy s/p ICD for primary prevention), HTN, Other (blabfeed Sci device interrogation 12/2014: NSVT, one run required ATP) Endocrine: Yes: Diabetes Mellitus - Past Surgical History Past Surgical History: Yes: AICD - Alcohol/Substance Use Hx Alcohol Use: No - Smoking History Smoking history: Former smoker Have you smoked in the past 12 months: No Aproximately how many cigarettes per day: 0 If you are a former smoker, when did you quit?: 2009 - Social History Usual Living Arrangement: With Spouse ADL: Independent History of Recent Travel: No Home Medications - Allergies Allergies/Adverse Reactions: Current Medications Generic Name Dose Route Start Last Admin Trade Name Freq PRN Reason Stop Dose Admin Apixaban 5 mg 11/10/19 22:15 11/10/19 23:17 Eliquis - PO 5 mg BID AYAN Administration Cholecalciferol 1,000 unit 11/11/19 10:00 Vitamin D3 - PO DAILY AYAN Cyanocobalamin 1,000 mcg 11/11/19 10:00 Vitamin B12 - PO DAILY AYAN Furosemide 40 mg 11/11/19 10:00 Lasix - PO DAILY AYAN Insulin Aspart 1 vial 11/11/19 08:33 Novolog Vial Sliding Scale - SQ ACHS AYAN Protocol Metoprolol Succinate 50 mg 11/11/19 10:00 Toprol Xl - PO DAILY AYAN Non-Formulary Medication 1 puff 11/11/19 10:00 Fluticasone/Umeclidin/Vilanter [Trelegy Ellipta 100-62.5-25] PO DAILY [facility] Non-Formulary Medication 15 meq 11/11/19 10:00 Potassium Citrate Er PO BID [facility] [id number] Ethyl Esters 1 gm 11/11/19 10:00 Lovaza - PO DAILY [facility] Pancrelipase 4 cap 11/11/19 08:00 Marcial Rodgers 6,000 Units Capsule PO TIDCM AYAN Sacubitril/Valsartan 1 tab 11/10/19 22:15 11/10/19 23:17 Entresto 97 Mg-103 Mg Tablet PO 1 tab BID [facility] Administration Tamsulosin HCl 0.4 mg 11/11/19 08:30 Flomax - PO DAILY@0830 [facility] Allergies Allergy/AdvReac Type Severity Reaction Status Date / Time weed pollen Allergy Verified 11/10/19 19:44 Home Medications Medication Instructions Recorded Apixaban [Eliquis] 5 mg PO BID 02/26/19 Cholecalciferol (Vitamin D3) 1,000 unit PO DAILY 02/26/19 [Vitamin D3 -] Cyanocobalamin (Vitamin B-12) 1,000 mcg PO DAILY 02/26/19 [Vitamin B-12] Fluticasone/Umeclidin/Vilanter 1 puff PO DAILY 02/26/19 [Trelegy Ellipta 100-62.5-25] Furosemide [Lasix -] 40 mg PO DAILY 02/26/19 Lipase/Protease/Amylase [Zenpep Dr 1 cap PO TID 02/26/19 25,000 Unit Capsule] Waucoma-3S/Dha/Epa/Fish Oil [Waucoma-3 1 cap PO DAILY 02/26/19 Fish Oil 1,000 mg Sfgl] Sacubitril/Valsartan [Entresto 97 1 tab PO BID 02/26/19 mg-103 mg Tablet] Tamsulosin HCl [Flomax] 0.4 mg PO DAILY 02/26/19 Potassium Citrate ER 15 meq PO BID 02/27/19 Albuterol 2.5/Ipratropium 0.5 1 amp NEB RQID PRN amp 03/01/19 [Duoneb -] Metoprolol Succinate [Toprol Xl -] 50 mg PO DAILY #30 tablet 03/01/19 Sulfamethoxazole/Trimethoprim 1 tab PO BID #14 tablet 03/01/19 [Bactrim Ds -] Family Disease History - Family Disease History Family History: Denies Review of Systems per hpi; all others nl - Risk Factors Known Risk Factors: Yes: Diabetes Mellitus, Hypercholesterolemia, Hypertension Vital Signs: Vital Signs Period Temp Pulse Resp BP Sys/[place] Pulse Ox Last 24 Hr 97.7 F-98.1 F 54-90 16-22 106-136/60-77 97-100 Constitutional: Yes: Well Nourished, No Distress, Calm Eyes: Conjunctiva Clear, HENT: Atraumatic, Normocephalic Neck: Supple, Trachea Midline Respiratory: Yes: Regular, On Nasal O2, Rales. No: Rhonchi, SOB, Wheezes Gastrointestinal: Normal Bowel Sounds, Soft. No: Distention, Tenderness Cardiovascular: Yes: rrr No: Bradycardia, Tachycardia, Gallop, Rub, Varicosities JVD: No Carotid Bruit: No PMI: Non-Displaced Heart Sounds: Yes: S1, S2. No: Split S2, S3, S4, Clicks, Gallop, Rub, Bruit Murmur: No: Systolic Murmur, Diastolic Murmur Musculoskeletal: Yes: WNL Edema: no Peripheral Pulses WNL: Yes Peripheral Pulses: 2+ Left Doralis Pedis, 2+ Right Dorsalis Pedis Integumentary: Yes: WNL Psychiatric: Yes: WNL, Alert, Oriented no jaundice diaphoresis Laboratory Last Values WBC 7.5 K/mm3 (4.0-10.0) 11/11/19 06:00 RBC 4.53 M/mm3 (4.00-5.60) 11/11/19 06:00 Hgb 10.3 GM/dL (11.7-16.9) L 11/11/19 06:00 Hct 33.5 % (35.4-49) L 11/11/19 06:00 MCV 73.8 fl (80-96) L 11/11/19 06:00 MCH 22.8 pg (25.7-33.7) L 11/11/19 06:00 MCHC 30.9 g/dl (32.0-35.9) L 11/11/19 06:00 RDW 16.1 % (11.9-15.9) H 11/11/19 06:00 Plt Count 235 K/MM3 (134-434) 11/11/19 06:00 MPV 8.2 fl (7.5-11.1) 11/11/19 06:00 Absolute Neuts (auto) 4.7 K/mm3 (1.5-8.0) 11/11/19 06:00 Neutrophils % 62.1 % (42.8-82.8) 11/11/19 06:00 Lymphocytes % 17.7 % (8-40) D 11/11/19 06:00 Monocytes % 15.8 % (3.8-10.2) H 11/11/19 06:00 Eosinophils % 3.6 % (0-4.5) 11/11/19 06:00 Basophils % 0.8 % (0-2.0) 11/11/19 06:00 Nucleated RBC % 0 % (0-0) 11/11/19 06:00 PT with INR 16.50 SEC (9.7-13.0) H 11/10/19 20:08 INR 1.39 (0.83-1.09) H 11/10/19 20:08 PTT (Actin FS) 38.6 SECONDS (25.2-36.5) H 11/10/19 20:08 Sodium 140 mmol/L (136-145) 11/11/19 06:00 Potassium 4.4 mmol/L (3.5-5.1) 11/11/19 06:00 Chloride 104 mmol/L (98-107) 11/11/19 06:00 Carbon Dioxide 32 mmol/L (21-32) 11/11/19 06:00 Anion Gap 4 MMOL/L (8-16) L 11/11/19 06:00 BUN 16.5 mg/dL (7-18) 11/11/19 06:00 Creatinine 1.1 mg/dL (0.55-1.3) 11/11/19 06:00 Est GFR (CKD-EPI)AfAm 74.13 11/11/19 06:00 Est GFR (CKD-EPI)NonAf 63.96 11/11/19 06:00 POC Glucometer 120 UNITS (80-120) 11/11/19 08:01 Random Glucose 138 mg/dL (74-106) H 11/11/19 06:00 Calcium 8.6 mg/dL (8.5-10.1) 11/11/19 06:00 Magnesium 1.9 mg/dL (1.8-2.4) 11/10/19 20:08 Total Bilirubin 0.8 mg/dL (0.2-1) 11/11/19 06:00 AST 8 U/L (15-37) L 11/11/19 06:00 ALT 10 U/L (13-61) L 11/11/19 06:00 Alkaline Phosphatase 74 U/L (45-117) 11/11/19 06:00 Creatine Kinase 64 U/L (26-308) 11/11/19 06:00 Troponin I 0.03 ng/ml (0.00-0.05) 11/11/19 06:00 B-Natriuretic Peptide 295.2 pg/ml (5-450) 11/10/19 20:08 Total Protein 7.3 g/dl (6.4-8.2) 11/11/19 06:00 Albumin 3.4 g/dl (3.4-5.0) 11/11/19 06:00 Triglycerides 148 mg/dL (0-150) 11/11/19 06:00 Cholesterol 113 mg/dL (50-200) 11/11/19 06:00 Total LDL Cholesterol 65 mg/dL (5-100) 11/11/19 06:00 HDL Cholesterol 39 mg/dL (40-60) L 11/11/19 06:00 TSH 1.30 uIU/ml (0.358-3.74) D 11/10/19 20:08 Urine Color Yellow 11/11/19 08:18 Urine Appearance Cloudy 11/11/19 08:18 Urine pH 5.0 (5.0-8.0) 11/11/19 08:18 Ur Specific Rule 1.014 (1.010-1.035) 11/11/19 08:18 Urine Protein Trace (NEGATIVE) 11/11/19 08:18 Urine Glucose (UA) Negative (NEGATIVE) 11/11/19 08:18 Urine Ketones Negative (NEGATIVE) 11/11/19 08:18 Urine Blood 1+ (NEGATIVE) H 11/11/19 08:18 Urine Nitrite Negative (NEGATIVE) 11/11/19 08:18 Urine Bilirubin Negative (NEGATIVE) 11/11/19 08:18 Urine Urobilinogen 0.2 mg/dL (0.2-1.0) 11/11/19 08:18 Ur Leukocyte Esterase 2+ (NEGATIVE) H 11/11/19 08:18 Urine WBC (Auto) 694 /uL (0-25.8) 11/11/19 08:18 Urine RBC (Auto) 11 /uL (0-23.9) 11/11/19 08:18 Urine Casts (Auto) 7 /uL (0-3.1) 11/11/19 08:18 U Epithel Cells (Auto) 5 /uL (0-25.1) 11/11/19 08:18 Urine Crystals (Auto) Negative /hpf 11/11/19 08:18 Urine Bacteria (Auto) 94252 /uL (0-1359) 11/11/19 08:18 Urine Yeast (Auto) Negative (NEGATIVE) 11/11/19 08:18 COVID-19 (LELO) Not detected (Not Detected) 11/10/19 20:30 ecg: sr 1st avb, no iscehmic changes cxr: clear carotids 10/2019: no sig stenosis a/p: 79 year old man with a history of HTN, DM, NICM with severe LV dysfunction s/p ICD ([place]), chronic systolic CHF, paroxysmal atrial fibrillation, hld here with syncope. syncope, VT/ICD shock: -pt with known hx of VT with periodic ICD shocks -Similar presentation now with VT and appropriate ICD shock -carotids unremarkable -check updated echo -no signs acs or chf -will increase toprol to 50 bid to reduce VT, monitor on tele and monitor for hypotension chronic systolic CHF: -seems euvolemic now, bnp low -cont home lasix 40 qd -continue toprol and entresto Afib-paroxysmal: -in sr, cont bb for rate control -cont eliquis hld: -cont statin HTN: -continue entresto and toprol
[2019-11-11] MEDS: SACUBITRIL/VALSARTAN 97 MG-103 MG TABLET PO SCH ×2 (12:41→21:48)
[2019-11-11] MEDS: LIPASE/PROTEASE/AMYLASE 6,000 UNIT CAPSULE PO SCH ×3 (12:41→21:45)
[2019-11-11] MEDS: OMEGA-3 ACID ETHYL ESTERS (FATTY-ACIDS) 1 GM CAPSULE (FP) PO SCH (12:41)
[2019-11-11] MEDS: CYANOCOBALAMIN 1,000 MCG TABLET (FP) PO SCH (12:42)
[2019-11-11] MEDS: CHOLECALCIFEROL (VIT D3) 1,000 UNIT (25 MCG) TABLET PO SCH (12:42)
[2019-11-11] MEDS: INSULIN SLIDING SCALE (NOVOLOG) 1 VIAL SQ SCH ×3 (13:15→21:52)
--- NOTE | 2019-11-11 14:04 | EKG ---
Test Reason : Blood Pressure : / mmHG Vent. Rate : 067 BPM Atrial Rate : 067 BPM P-R Int : 250 ms QRS Dur : 126 ms QT Int : 388 ms P-R-T Axes : 081 -52 064 degrees QTc Int : 409 ms SINUS RHYTHM WITH 1ST DEGREE A-V BLOCK LEFT AXIS DEVIATION NON-SPECIFIC INTRA-VENTRICULAR CONDUCTION BLOCK CANNOT RULE OUT INFERIOR INFARCT (MASKED BY FASCICULAR BLOCK?) , AGE UNDETERMINED CANNOT RULE OUT ANTERIOR INFARCT , AGE UNDETERMINED ABNORMAL ECG WHEN COMPARED WITH ECG OF 26-FEB-2019 14:15, PREMATURE VENTRICULAR COMPLEXES ARE NO LONGER PRESENT Confirmed by WAQAR BELL MD ([id number]) on 11/11/2019 2:03:44 PM Referred By: Confirmed By:WAQAR BELL MD
--- NOTE | 2019-11-11 15:09 | ECHO ---
Name: TRAMAINE CABRERA Exam:Adult Echocardiogram Study Date: 11/11/2019 12:30 PM Age: 79 yrs Reason For Study: A flutter Height: 71 in Weight: 205 lb BSA: 2.1 m2 MMode/2D Measurements & Calculations IVSd: 0.92 cm Ao root diam: 3.2 cm LVIDd: 5.4 cm LA dimension: 3.0 cm LVIDs: 4.0 cm LVPWd: 1.1 cm EDV(Teich): 143.1 ml LVOT diam: 2.0 cm ESV(Teich): 69.2 ml LAV (MOD-bp): 67.2 ml Doppler Measurements & Calculations MV E max darrell: 52.0 cm/sec Ao V2 max: 152.0 cm/sec MV A max darrell: 61.8 cm/sec Ao max P.2 mmHg MV E/A: 0.84 MV dec time: 0.12 sec TC(V,D): 2.0 cm2 LV V1 max P.5 mmHg MR max darrell: 289.4 cm/sec LV V1 max: 93.0 cm/sec MR max P.3 mmHg TR max darrell: 322.0 cm/sec PA V2 max: 98.6 cm/sec TR max P.5 mmHg PA max P.9 mmHg Med Peak E' Darrell: 7.8 cm/sec Med E/e': 6.6 Lat Peak E' Darrell: 7.3 cm/sec Lat E/e': 7.1 Procedure A complete two-dimensional transthoracic echocardiogram was performed (2D, M-mode, Doppler and color flow Doppler). Technically limited study. Left Ventricle The left ventricle is normal in size. Left ventricular systolic function is mildly reduced. Ejection Fraction = 45-50%. There is mild global hypokinesis of the left ventricle. Right Ventricle The right ventricle is not well visualized. There is a pacemaker lead in the right ventricle. Atria The left atrial size is normal. Right atrium not well visualized. Mitral Valve There is mild mitral annular calcification. There is mild mitral regurgitation. Tricuspid Valve The tricuspid valve is normal in structure and function. There is mild tricuspid regurgitation. PASP is at least 48 mmHg as RA pressure is assumed 3 mmHg. Aortic Valve There is mild aortic sclerosis.;. No aortic regurgitation is present. Pulmonic Valve The pulmonic valve is not well visualized. Great Vessels The aortic root is normal size. Pericardium/Pleura There is no pericardial effusion. Interpretation Summary Technically limited study The left ventricle is normal in size. Left ventricular systolic function is mildly reduced. There is mild global hypokinesis of the left ventricle. Ejection Fraction = 45-50%. There is a pacemaker lead in the right ventricle. There is mild mitral annular calcification. There is mild mitral regurgitation. There is mild tricuspid regurgitation. PASP is at least 48 mmHg as RA pressure is assumed 3 mmHg There is mild aortic sclerosis. There is no pericardial effusion. Sebastián Olson MD 11/11/2019 03:09 PM
[2019-11-12 01:07] VITALS: BMI 30.5
[2019-11-12] MEDS: INSULIN SLIDING SCALE (NOVOLOG) 1 VIAL SQ SCH ×4 (06:11→21:11)
--- NOTE | 2019-11-12 07:32 | PN ---
Progress Note, Physician Chief Complaint: SYNCOPE VS FALL EVENTS AND NOTES REVIEWED AWAKE ALERT FEELS WEAK DENIES CHEST PAIN OR SOB - Current Medication List Current Medications: Active Medications Apixaban (Eliquis -) 5 mg PO BID [facility] Last Admin: 11/11/19 21:48 Dose: 5 mg Documented by: Cholecalciferol (Vitamin D3 -) 1,000 unit PO DAILY [facility] Last Admin: 11/11/19 12:42 Dose: Not Given Documented by: Cyanocobalamin (Vitamin B12 -) 1,000 mcg PO DAILY [facility] Last Admin: 11/11/19 12:42 Dose: Not Given Documented by: Furosemide (Lasix -) 40 mg PO DAILY [facility] Last Admin: 11/11/19 09:50 Dose: 40 mg Documented by: Ceftriaxone Sodium 1 gm/ (Dextrose) 50 mls @ 200 mls/hr IVPB DAILY [facility]; Prot ocol Insulin Aspart (Novolog Vial Sliding Scale -) 1 vial SQ ACHS [facility]; Protocol Last Admin: 11/12/19 06:11 Dose: Not Given Documented by: Metoprolol Succinate (Toprol Xl -) 50 mg PO BID [facility] Last Admin: 11/11/19 21:48 Dose: 50 mg Documented by: Non-Formulary Medication (Fluticasone/Umeclidin/Vilanter [Trelegy Ellipta 100-62.5-25]) 1 puff PO DAILY [facility] Non-Formulary Medication (Potassium Citrate Er) 15 meq PO BID [facility] [id number] Ethyl Esters (Lovaza -) 1 gm PO DAILY [facility] Last Admin: 11/11/19 12:41 Dose: Not Given Documented by: Pancrelipase (Creon Dr 6,000 Units Capsule) 4 cap PO TIDCM [facility] Last Admin: 11/11/19 21:45 Dose: Not Given Documented by: Sacubitril/Valsartan (Entresto 97 Mg-103 Mg Tablet) 1 tab PO BID [facility] Last Admin: 11/11/19 21:48 Dose: 1 tab Documented by: Tamsulosin HCl (Flomax -) 0.4 mg PO DAILY@0830 [facility] Last Admin: 11/11/19 09:50 Dose: 0.4 mg Documented by: - Objective Vital Signs: Vital Signs Temperature 98.2 F 11/12/19 05:00 Pulse Rate 71 11/12/19 05:00 Respiratory Rate 20 11/12/19 05:00 Blood Pressure 92/51 L 11/12/19 05:00 O2 Sat by Pulse Oximetry (%) 96 11/11/19 22:00 Constitutional: Yes: Mild Distress Cardiovascular: Yes: Pulse Irregular Respiratory: Yes: Diminished Gastrointestinal: Yes: Soft Genitourinary: Yes: WNL Musculoskeletal: Yes: Muscle Weakness Edema: Yes Peripheral Pulses WNL: Yes Neurological: Yes: Pre-Existing Deficit Labs: CBC, BMP 11/11/19 06:00 11/11/19 06:00 INR, PTT INR 1.39 (0.83-1.09) H 11/10/19 20:08 Problem List - Problems (1) AICD discharge Code(s): Z45.02 - ENCNTR FOR ADJUST AND MGMT OF AUTOMATIC IMPLNTBL CARD DEFIB (2) Palpitations Code(s): R00.2 - PALPITATIONS (3) Syncope and collapse Code(s): R55 - SYNCOPE AND COLLAPSE (4) ARLENE (acute kidney injury) Code(s): N17.9 - ACUTE KIDNEY FAILURE, UNSPECIFIED (5) ASHD (arteriosclerotic heart disease) Code(s): I25.10 - ATHSCL HEART DISEASE OF [place] CORONARY ARTERY W/O ANG PCTRS (6) Acute on chronic systolic CHF (congestive heart failure) Code(s): I50.23 - ACUTE ON CHRONIC SYSTOLIC (CONGESTIVE) HEART FAILURE (7) BPH (benign prostatic hyperplasia) Code(s): N40.0 - BENIGN PROSTATIC HYPERPLASIA WITHOUT LOWER URINRY TRACT SYMP (8) Diabetes Code(s): E11.9 - TYPE 2 DIABETES MELLITUS WITHOUT COMPLICATIONS Qualifiers: Diabetes mellitus type: type 2 Diabetes mellitus complication status: with unspecified complications (9) Pulmonary hypertension Code(s): I27.2 - OTHER SECONDARY PULMONARY HYPERTENSION * DO NOT USE * (10) Shortness of breath Code(s): R06.02 - SHORTNESS OF BREATH (11) UTI (urinary tract infection) Code(s): N39.0 - URINARY TRACT INFECTION, SITE NOT SPECIFIED Assessment/Plan STARTED CEFTRIAXONE IV FOR UTI AWAIT CX/SENS PT EVAL PULM/CARDIO EVAL AICD INTERROGATION DVT PROPHYLAXIS
[2019-11-12] MEDS ORDERED: PT OWN MED DRAWER 7, Y5N ONE ×6 (08:52→20:37)
[2019-11-12] MEDS: TAMSULOSIN HCL 0.4 MG CAP PO SCH (09:07)
[2019-11-12] MEDS: LIPASE/PROTEASE/AMYLASE 6,000 UNIT CAPSULE PO SCH ×3 (09:07→17:36)
[2019-11-12] MEDS: FUROSEMIDE 40 MG TABLET (FP) PO SCH (09:08)
[2019-11-12] MEDS: CYANOCOBALAMIN 1,000 MCG TABLET (FP) PO SCH (09:08)
[2019-11-12] MEDS: APIXABAN 5 MG TABLET PO SCH ×2 (09:08→21:06)
[2019-11-12] MEDS: OMEGA-3 ACID ETHYL ESTERS (FATTY-ACIDS) 1 GM CAPSULE (FP) PO SCH (09:08)
[2019-11-12] MEDS: SACUBITRIL/VALSARTAN 97 MG-103 MG TABLET PO SCH ×2 (09:11→21:06)
[2019-11-12] MEDS: CHOLECALCIFEROL (VIT D3) 1,000 UNIT (25 MCG) TABLET PO SCH (09:11)
[2019-11-12] MEDS ORDERED: DEXTROSE 5%-WATER - 50 ML IVPB ONE (09:13)
[2019-11-12] MEDS: CEFTRIAXONE 1 GM in DEXTROSE 5%-WATER - 50 ML IVPB SCH (09:13)
[2019-11-12] MEDS ORDERED: cefTRIAXone SODIUM 1 GM VIAL ONE (09:13)
[2019-11-12 10:21] LABS: BLOOD UREA NITROGEN 20.3 mg/dL (7-18); CALCIUM 8.6 mg/dL (8.5-10.1); CREATININE 1.1 mg/dL (0.55-1.3); MAGNESIUM 1.9 mg/dL (1.8-2.4); POTASSIUM 3.9 mmol/L (3.5-5.1)
--- NOTE | 2019-11-12 11:52 | PN ---
Progress Note (short form) - Note Progress Note: Chief Complaint: syncope s: no chest pain, palps, dizziness, dyspnea Current Medications Generic Name Dose Route Start Last Admin Trade Name Ena PRN Reason Stop Dose Admin Apixaban 5 mg 11/10/19 22:15 11/12/19 09:08 Eliquis - PO 5 mg BID AYAN Administration Cholecalciferol 1,000 unit 11/11/19 10:00 11/12/19 09:11 Vitamin D3 - PO 1,000 unit DAILY [facility] Administration Cyanocobalamin 1,000 mcg 11/11/19 10:00 11/12/19 09:08 Vitamin B12 - PO 1,000 mcg DAILY [facility] Administration Furosemide 40 mg 11/11/19 10:00 11/12/19 09:08 Lasix - PO 40 mg DAILY [facility] Administration Ceftriaxone Sodium 1 gm/ 50 mls @ 100 mls/hr 11/12/19 10:00 11/12/19 09:13 Dextrose IVPB 100 mls/hr DAILY [facility] Administration Protocol Insulin Aspart 1 vial 11/11/19 08:33 11/12/19 11:47 Novolog Vial Sliding Scale - SQ Not Given ACHS REPLACED BY [facility] Protocol Metoprolol Succinate 50 mg 11/11/19 22:00 11/12/19 09:07 Toprol Xl - PO 50 mg BID AYAN Administration Non-Formulary Medication 1 puff 11/11/19 10:00 Fluticasone/Umeclidin/Vilanter [Trelegy Ellipta 100-62.5-25] PO DAILY [facility] Non-Formulary Medication 15 meq 11/11/19 10:00 Potassium Citrate Er PO BID AYAN Nizzu-1-Llax Ethyl Esters 1 gm 11/11/19 10:00 11/12/19 09:08 Lovaza - PO 1 gm DAILY [facility] Administration Pancrelipase 4 cap 11/11/19 08:00 11/12/19 09:07 Marcial Rodgers 6,000 Units Capsule PO 4 cap TIDCM AYAN Administration Sacubitril/Valsartan 1 tab 11/10/19 22:15 11/12/19 09:11 Entresto 97 Mg-103 Mg Tablet PO 1 tab BID [facility]AN Administration Tamsulosin HCl 0.4 mg 11/11/19 08:30 11/12/19 09:07 Flomax - PO 0.4 mg DAILY@0830 [facility] Administration Vital Signs Period Temp Pulse Resp BP Sys/[place] Pulse Ox Last 24 Hr 98.1 F-98.3 F 64-79 18-20 92-122/51-83 95-100 Constitutional: Yes: Well Nourished, No Distress, Calm Eyes: Conjunctiva Clear, HENT: Atraumatic, Normocephalic Neck: Supple, Trachea Midline Respiratory: Yes: Regular, On Nasal O2, Rales. No: Rhonchi, SOB, Wheezes Gastrointestinal: Normal Bowel Sounds, Soft. No: Distention, Tenderness Cardiovascular: Yes: rrr No: Bradycardia, Tachycardia, Gallop, Rub, Varicosities JVD: No Carotid Bruit: No PMI: Non-Displaced Heart Sounds: Yes: S1, S2. No: Split S2, S3, S4, Clicks, Gallop, Rub, Bruit Murmur: No: Systolic Murmur, Diastolic Murmur Musculoskeletal: Yes: WNL Edema: no Peripheral Pulses WNL: Yes Peripheral Pulses: 2+ Left Doralis Pedis, 2+ Right Dorsalis Pedis Integumentary: Yes: WNL Psychiatric: Yes: WNL, Alert, Oriented no jaundice diaphoresis Laboratory Last Values WBC 7.5 K/mm3 (4.0-10.0) 11/11/19 06:00 RBC 4.53 M/mm3 (4.00-5.60) 11/11/19 06:00 Hgb 10.3 GM/dL (11.7-16.9) L 11/11/19 06:00 Hct 33.5 % (35.4-49) L 11/11/19 06:00 MCV 73.8 fl (80-96) L 11/11/19 06:00 MCH 22.8 pg (25.7-33.7) L 11/11/19 06:00 MCHC 30.9 g/dl (32.0-35.9) L 11/11/19 06:00 RDW 16.1 % (11.9-15.9) H 11/11/19 06:00 Plt Count 235 K/MM3 (134-434) 11/11/19 06:00 MPV 8.2 fl (7.5-11.1) 11/11/19 06:00 Absolute Neuts (auto) 4.7 K/mm3 (1.5-8.0) 11/11/19 06:00 Neutrophils % 62.1 % (42.8-82.8) 11/11/19 06:00 Lymphocytes % 17.7 % (8-40) D 11/11/19 06:00 Monocytes % 15.8 % (3.8-10.2) H 11/11/19 06:00 Eosinophils % 3.6 % (0-4.5) 11/11/19 06:00 Basophils % 0.8 % (0-2.0) 11/11/19 06:00 Nucleated RBC % 0 % (0-0) 11/11/19 06:00 PT with INR 16.50 SEC (9.7-13.0) H 11/10/19 20:08 INR 1.39 (0.83-1.09) H 11/10/19 20:08 PTT (Actin FS) 38.6 SECONDS (25.2-36.5) H 11/10/19 20:08 Sodium 139 mmol/L (136-145) 11/12/19 09:36 Potassium 3.9 mmol/L (3.5-5.1) 11/12/19 09:36 Chloride 102 mmol/L (98-107) 11/12/19 09:36 Carbon Dioxide 31 mmol/L (21-32) 11/12/19 09:36 Anion Gap 6 MMOL/L (8-16) L 11/12/19 09:36 BUN 20.3 mg/dL (7-18) H 11/12/19 09:36 Creatinine 1.1 mg/dL (0.55-1.3) 11/12/19 09:36 Est GFR (CKD-EPI)AfAm 74.13 11/12/19 09:36 Est GFR (CKD-EPI)NonAf 63.96 11/12/19 09:36 POC Glucometer 121 UNITS (80-120) 11/12/19 11:35 Random Glucose 140 mg/dL (74-106) H 11/12/19 09:36 Calcium 8.6 mg/dL (8.5-10.1) 11/12/19 09:36 Magnesium 1.9 mg/dL (1.8-2.4) 11/12/19 09:36 Total Bilirubin 0.8 mg/dL (0.2-1) 11/11/19 06:00 AST 8 U/L (15-37) L 11/11/19 06:00 ALT 10 U/L (13-61) L 11/11/19 06:00 Alkaline Phosphatase 74 U/L (45-117) 11/11/19 06:00 Creatine Kinase 64 U/L (26-308) 11/11/19 06:00 Troponin I 0.03 ng/ml (0.00-0.05) 11/11/19 06:00 B-Natriuretic Peptide 295.2 pg/ml (5-450) 11/10/19 20:08 Total Protein 7.3 g/dl (6.4-8.2) 11/11/19 06:00 Albumin 3.4 g/dl (3.4-5.0) 11/11/19 06:00 Triglycerides 148 mg/dL (0-150) 11/11/19 06:00 Cholesterol 113 mg/dL (50-200) 11/11/19 06:00 Total LDL Cholesterol 65 mg/dL (5-100) 11/11/19 06:00 HDL Cholesterol 39 mg/dL (40-60) L 11/11/19 06:00 TSH 1.30 uIU/ml (0.358-3.74) D 11/10/19 20:08 Urine Color Yellow 11/11/19 08:18 Urine Appearance Cloudy 11/11/19 08:18 Urine pH 5.0 (5.0-8.0) 11/11/19 08:18 Ur Specific [place] 1.014 (1.010-1.035) 11/11/19 08:18 Urine Protein Trace (NEGATIVE) 11/11/19 08:18 Urine Glucose (UA) Negative (NEGATIVE) 11/11/19 08:18 Urine Ketones Negative (NEGATIVE) 11/11/19 08:18 Urine Blood 1+ (NEGATIVE) H 11/11/19 08:18 Urine Nitrite Negative (NEGATIVE) 11/11/19 08:18 Urine Bilirubin Negative (NEGATIVE) 11/11/19 08:18 Urine Urobilinogen 0.2 mg/dL (0.2-1.0) 11/11/19 08:18 Ur Leukocyte Esterase 2+ (NEGATIVE) H 11/11/19 08:18 Urine WBC (Auto) 694 /uL (0-25.8) 11/11/19 08:18 Urine RBC (Auto) 11 /uL (0-23.9) 11/11/19 08:18 Urine Casts (Auto) 7 /uL (0-3.1) 11/11/19 08:18 U Epithel Cells (Auto) 5 /uL (0-25.1) 11/11/19 08:18 Urine Crystals (Auto) Negative /hpf 11/11/19 08:18 Urine Bacteria (Auto) 27079 /uL (0-1359) 11/11/19 08:18 Urine Yeast (Auto) Negative (NEGATIVE) 11/11/19 08:18 COVID-19 (LELO) Not detected (Not Detected) 11/10/19 20:30 ecg: sr 1st avb, no iscehmic changes cxr: clear carotids 10/2019: no sig stenosis echo 10/2019 mildly reduced LV function EF 45-50%, mild global hypokinesis of LV, PPM lead RV, mild MAC, mild MR, mild TR, PASP at least 48 mmHg, mild aortic sclerosis tele: sinus, PVCs a/p: 79 year old man with a history of HTN, DM, NICM with severe LV dysfunction s/p ICD ([place]), chronic systolic CHF, paroxysmal atrial fibrillation, hld here with syncope. syncope, VT/ICD shock: -pt with known hx of VT with periodic ICD shocks -Similar presentation now with VT and appropriate ICD shock -carotids unremarkable -echo shows mildly reduced EF 45-50% -no signs acs or chf -increased toprol to 50 bid to reduce VT, monitor on tele and monitor for hypotension chronic systolic CHF: -appears euvolemic, bnp low -cont home lasix 40 qd -continue toprol and entresto Afib-paroxysmal: -in sr, cont bb for rate control -cont eliquis hld: -cont statin HTN: -continue entresto and toprol UTI - manage per primary
--- NOTE | 2019-11-12 15:10 | PN ---
Progress Note (short form) - Note Progress Note: PULMONARY CONSULTATION DICTATED 11/12/19 IMP SYNCOPE DYSPNEA CHRONIC CHF NICM WITH SEVERE LV DYSFUNCTION S/P ICD DM HTN PAF HLD UTI copd PLAN O2 NEEDED LASIX INHALED BRONCHODILATORS AC CULTURES ABX DR RUELAS Problem List - Problems (1) AICD discharge Code(s): Z45.02 - ENCNTR FOR ADJUST AND MGMT OF AUTOMATIC IMPLNTBL CARD DEFIB (2) Syncope and collapse Code(s): R55 - SYNCOPE AND COLLAPSE (3) ASHD (arteriosclerotic heart disease) Code(s): I25.10 - ATHSCL HEART DISEASE OF [place] CORONARY ARTERY W/O ANG PCTRS (4) Diabetes Code(s): E11.9 - TYPE 2 DIABETES MELLITUS WITHOUT COMPLICATIONS Qualifiers: Diabetes mellitus type: type 2 Diabetes mellitus complication status: with unspecified complications (5) Hypertension Code(s): I10 - ESSENTIAL (PRIMARY) HYPERTENSION Qualifiers: Hypertension type: essential hypertension Qualified Code(s): I10 - Essential (primary) hypertension (6) Non-ischemic cardiomyopathy Code(s): I42.9 - CARDIOMYOPATHY, UNSPECIFIED (7) Non-sustained ventricular tachycardia Code(s): I47.2 - VENTRICULAR TACHYCARDIA (8) PAF (paroxysmal atrial fibrillation) Code(s): I48.0 - PAROXYSMAL ATRIAL FIBRILLATION (9) Shortness of breath Code(s): R06.02 - SHORTNESS OF BREATH (10) UTI (urinary tract infection) Code(s): N39.0 - URINARY TRACT INFECTION, SITE NOT SPECIFIED
--- NOTE | 2019-11-12 17:40 | CONS ---
DATE OF CONSULTATION: 11/12/2019 PULMONARY CONSULTATION REFERRING PHYSICIAN: Maurizio Perry MD. HISTORY OF PRESENT ILLNESS: Mr. Lopez is a 79-year-old male with past medical history of hypertension, nonischemic cardiomyopathy with severe LV dysfunction status post ICD insertion, diabetes, chronic systolic CHF, paroxysmal atrial fibrillation, hyperlipidemia, syncope as well as COPD admitted to [facility] on November 09 status post syncopal episode. Patient stated he was sitting and watching TV and felt dizzy, palpitations and blacked out. Denied any nausea, vomiting, or diaphoresis prior to this episode. woke up and felt okay. In the ER, his ICD was checked and it showed an episode of ventricular tachycardia that was treated with ICD shock. Patient was admitted with the above. Patient also complains of shortness of breath with exertion. He has 2-pillow orthopnea. States he sleeps under 3 to 4 pillows secondary to shortness of breath. Denies any fever, chills, hemoptysis, chest pains, or palpitations. PAST MEDICAL HISTORY: Again includes atrial fibrillation, nonischemic cardiomyopathy, severe LV dysfunction, left ventricular ejection fraction of 35%, CHF status post ICD, hypertension, COPD, nonsustained ventricular tachycardia, diabetes and hyperlipidemia and hypertension. SOCIAL HISTORY: History of tobacco use quit 15 years ago. Positive occupational exposures to dust fumes as well as asbestos. REVIEW OF SYSTEMS: Positive dyspnea. No chest pain. Positive loss of consciousness. No fever, no chills, no hemoptysis, no abdominal pain. CURRENT MEDICATIONS: Include: 1. Trilogy. 2. KCl. 3. Flomax. 4. Entresto. 5. Ceftriaxone. 6. Eliquis. 7. Lovaza. 8. Toprol. 9. Creon. 10. NovoLog. 11. Lasix. 12. Vitamin B12. 13. Vitamin D3. PHYSICAL EXAMINATION: General: The patient is a well-developed, well-nourished male, currently awake, alert, in no acute distress. He is afebrile. Vital Signs: Blood pressure 119/53, respiratory rate 20, O2 saturation is 97% on room air. HEENT: Normocephalic, atraumatic. Neck: Supple. Heart: Irregular. S1, S2. Chest: Clear. Abdomen: Soft, bowel sounds positive. Extremities: No cyanosis, edema. LABORATORY: WBC is 7.5, hemoglobin 10.3, hematocrit 33.5 with platelet count of 235. INR is 1.39. BUN 20, creatinine 1.1. COVID is negative. UA is positive for heme. Positive leukocyte esterase. Carotids, mild atherosclerotic disease, no evidence of hemodynamic stenosis. Chest x-ray, patchy bibasilar opacities with atelectasis. IMPRESSION: 1. Syncope likely secondary to nonsustained ventricular tachycardia. 2. Dyspnea likely multiple factors. 3. Chronic congestive heart failure. 4. Chronic obstructive pulmonary disease. 5. Nonischemic cardiomyopathy with severe left ventricular dysfunction status post implantable cardioverter defibrillator. 6. Diabetes. 7. Hypertension. 8. Paroxysmal atrial fibrillation. 9. Atrial fibrillation. 10. Urinary tract infection. 11. Chronic obstructive pulmonary disease. as needed. Lasix. Inhaled bronchodilators. Anticoagulation. Obtain cultures. Antibiotics. CHRISTIANE RUELAS M.D. [id number]
[2019-11-13] MEDS: INSULIN SLIDING SCALE (NOVOLOG) 1 VIAL SQ SCH ×4 (06:32→21:05)
[2019-11-13 07:00] LABS: HEMATOCRIT 34.3 % (35.4-49); HEMOGLOBIN 10.7 GM/dL (11.7-16.9); MCH 22.7 pg (25.7-33.7); MCHC 31.1 g/dl (32.0-35.9); MEAN PLT VOLUME 8.2 fl (7.5-11.1); PLATELET COUNT 261 K/MM3 (134-434); RDW 15.5 % (11.9-15.9)
--- NOTE | 2019-11-13 07:13 | PN ---
Progress Note, Physician History of Present Illness: PULMONARY ALERT,COMFORTABLE,-C/O SOB,-CP - Current Medication List Current Medications: Active Medications Apixaban (Eliquis -) 5 mg PO BID [facility] Last Admin: 11/12/19 21:06 Dose: 5 mg Documented by: Cholecalciferol (Vitamin D3 -) 1,000 unit PO DAILY [facility] Last Admin: 11/12/19 09:11 Dose: 1,000 unit Documented by: Cyanocobalamin (Vitamin B12 -) 1,000 mcg PO DAILY [facility] Last Admin: 11/12/19 09:08 Dose: 1,000 mcg Documented by: Furosemide (Lasix -) 40 mg PO DAILY [facility] Last Admin: 11/12/19 09:08 Dose: 40 mg Documented by: Ceftriaxone Sodium 1 gm/ (Dextrose) 50 mls @ 100 mls/hr IVPB DAILY [facility]; Protocol Last Admin: 11/12/19 09:13 Dose: 100 mls/hr Documented by: Insulin Aspart (Novolog Vial Sliding Scale -) 1 vial SQ ACHS [facility]; Protocol Last Admin: 11/13/19 06:32 Dose: Not Given Documented by: Metoprolol Succinate (Toprol Xl -) 50 mg PO BID [facility] Last Admin: 11/12/19 21:20 Dose: 50 mg Documented by: Non-Formulary Medication (Fluticasone/Umeclidin/Vilanter [Trelegy Ellipta 100-62.5-25]) 1 puff PO DAILY [facility] Non-Formulary Medication (Potassium Citrate Er) 15 meq PO BID [facility] Vweub-2-Vycu Ethyl Esters (Lovaza -) 1 gm PO DAILY [facility] Last Admin: 11/12/19 09:08 Dose: 1 gm Documented by: Pancrelipase (Creon Dr 6,000 Units Capsule) 4 cap PO TIDCM [facility] Last Admin: 11/12/19 17:36 Dose: 4 cap Documented by: Sacubitril/Valsartan (Entresto 97 Mg-103 Mg Tablet) 1 tab PO BID [facility] Last Admin: 11/12/19 21:06 Dose: 1 tab Documented by: Tamsulosin HCl (Flomax -) 0.4 mg PO DAILY@0830 [facility] Last Admin: 11/12/19 09:07 Dose: 0.4 mg Documented by: - Objective Vital Signs: Vital Signs Temperature 97.8 F 11/13/19 06:00 Pulse Rate 56 L 11/13/19 06:00 Respiratory Rate 20 11/13/19 06:00 Blood Pressure 102/46 L 11/13/19 06:00 O2 Sat by Pulse Oximetry (%) 98 11/13/19 06:00 Constitutional: Yes: Well Nourished, Calm Eyes: Yes: WNL HENT: Yes: WNL Neck: Yes: WNL Cardiovascular: Yes: Pulse Irregular, S1, S2 Respiratory: Yes: CTA Bilaterally Gastrointestinal: Yes: Normal Bowel Sounds, Soft Extremities: Yes: WNL Edema: No Labs: CBC, BMP 11/13/19 06:30 INR, PTT INR 1.39 (0.83-1.09) H 11/10/19 20:08 Problem List - Problems (1) AICD discharge Code(s): Z45.02 - ENCNTR FOR ADJUST AND MGMT OF AUTOMATIC IMPLNTBL CARD DEFIB (2) Syncope and collapse Code(s): R55 - SYNCOPE AND COLLAPSE (3) ASHD (arteriosclerotic heart disease) Code(s): I25.10 - ATHSCL HEART DISEASE OF [place] CORONARY ARTERY W/O ANG PCTRS (4) Diabetes Code(s): E11.9 - TYPE 2 DIABETES MELLITUS WITHOUT COMPLICATIONS Qualifiers: Diabetes mellitus type: type 2 Diabetes mellitus complication status: with unspecified complications (5) Hypertension Code(s): I10 - ESSENTIAL (PRIMARY) HYPERTENSION Qualifiers: Hypertension type: essential hypertension Qualified Code(s): I10 - Essential (primary) hypertension (6) Non-ischemic cardiomyopathy Code(s): I42.9 - CARDIOMYOPATHY, UNSPECIFIED (7) Non-sustained ventricular tachycardia Code(s): I47.2 - VENTRICULAR TACHYCARDIA (8) PAF (paroxysmal atrial fibrillation) Code(s): I48.0 - PAROXYSMAL ATRIAL FIBRILLATION (9) Shortness of breath Code(s): R06.02 - SHORTNESS OF BREATH (10) UTI (urinary tract infection) Code(s): N39.0 - URINARY TRACT INFECTION, SITE NOT SPECIFIED Assessment/Plan IMP SYNCOPE DYSPNEA IMPROVING CHRONIC CHF NICM WITH SEVERE LV DYSFUNCTION S/P ICD DM HTN PAF HLD UTI COPD PLAN O2 NEEDED LASIX INHALED BRONCHODILATORS AC ABX OUTPATIENT PFTS DR RUELAS Problem List - Problems (1) AICD discharge Code(s): Z45.02 - ENCNTR FOR ADJUST AND MGMT OF AUTOMATIC IMPLNTBL CARD DEFIB (2) Syncope and collapse Code(s): R55 - SYNCOPE AND COLLAPSE (3) ASHD (arteriosclerotic heart disease) Code(s): I25.10 - ATHSCL HEART DISEASE OF [place] CORONARY ARTERY W/O ANG PCTRS (4) Diabetes Code(s): E11.9 - TYPE 2 DIABETES MELLITUS WITHOUT COMPLICATIONS Qualifiers: Diabetes mellitus type: type 2 Diabetes mellitus complication status: with unspecified complications (5) Hypertension Code(s): I10 - ESSENTIAL (PRIMARY) HYPERTENSION Qualifiers: Hypertension type: essential hypertension Qualified Code(s): I10 - Essential (primary) hypertension (6) Non-ischemic cardiomyopathy Code(s): I42.9 - CARDIOMYOPATHY, UNSPECIFIED (7) Non-sustained ventricular tachycardia Code(s): I47.2 - VENTRICULAR TACHYCARDIA (8) PAF (paroxysmal atrial fibrillation) Code(s): I48.0 - PAROXYSMAL ATRIAL FIBRILLATION (9) Shortness of breath Code(s): R06.02 - SHORTNESS OF BREATH (10) UTI (urinary tract infection) Code(s): N39.0 - URINARY TRACT INFECTION, SITE NOT SPECIFIED
[2019-11-13 07:24] LABS: ALBUMIN 3.4 g/dl (3.4-5.0); BILIRUBIN,TOTAL 0.7 mg/dL (0.2-1); BLOOD UREA NITROGEN 24.9 mg/dL (7-18); CALCIUM 8.7 mg/dL (8.5-10.1); CREATININE 1.3 mg/dL (0.55-1.3); MAGNESIUM 2.1 mg/dL (1.8-2.4); TOT PROT 7.3 g/dl (6.4-8.2)
[2019-11-13] MEDS ORDERED: DEXTROSE 5%-WATER - 50 ML IVPB ONE (07:38)
[2019-11-13] MEDS ORDERED: cefTRIAXone SODIUM 1 GM VIAL ONE (07:38)
[2019-11-13] MEDS ORDERED: PT OWN MED DRAWER 7, Y5N ONE ×5 (07:42→20:10)
[2019-11-13] MEDS: TAMSULOSIN HCL 0.4 MG CAP PO SCH (07:55)
[2019-11-13] MEDS: LIPASE/PROTEASE/AMYLASE 6,000 UNIT CAPSULE PO SCH ×3 (07:55→17:19)
--- NOTE | 2019-11-13 07:58 | PN ---
Progress Note, Physician Chief Complaint: AWAKE ALERT SITTING UP REPORTS COUGH DRY, WITH SOB OVERNIGHT NO FEVER - Current Medication List Current Medications: Active Medications Apixaban (Eliquis -) 5 mg PO BID [facility] Last Admin: 11/12/19 21:06 Dose: 5 mg Documented by: Cholecalciferol (Vitamin D3 -) 1,000 unit PO DAILY [facility] Last Admin: 11/12/19 09:11 Dose: 1,000 unit Documented by: Cyanocobalamin (Vitamin B12 -) 1,000 mcg PO DAILY [facility] Last Admin: 11/12/19 09:08 Dose: 1,000 mcg Documented by: Furosemide (Lasix -) 40 mg PO DAILY [facility] Last Admin: 11/12/19 09:08 Dose: 40 mg Documented by: Ceftriaxone Sodium 1 gm/ (Dextrose) 50 mls @ 100 mls/hr IVPB DAILY [facility]; Protocol Last Admin: 11/12/19 09:13 Dose: 100 mls/hr Documented by: Insulin Aspart (Novolog Vial Sliding Scale -) 1 vial SQ ACHS [facility]; Protocol Last Admin: 11/13/19 06:32 Dose: Not Given Documented by: Metoprolol Succinate (Toprol Xl -) 50 mg PO BID [facility] Last Admin: 11/12/19 21:20 Dose: 50 mg Documented by: Non-Formulary Medication (Fluticasone/Umeclidin/Vilanter [Trelegy Ellipta 100-62.5-25]) 1 puff PO DAILY [facility] Non-Formulary Medication (Potassium Citrate Er) 15 meq PO BID [facility] Sdvey-2-Asvv Ethyl Esters (Lovaza -) 1 gm PO DAILY [facility] Last Admin: 11/12/19 09:08 Dose: 1 gm Documented by: Pancrelipase (Luciaon Dr 6,000 Units Capsule) 4 cap PO TIDCM [facility] Last Admin: 11/13/19 07:55 Dose: 4 cap Documented by: Sacubitril/Valsartan (Entresto 97 Mg-103 Mg Tablet) 1 tab PO BID [facility] Last Admin: 11/12/19 21:06 Dose: 1 tab Documented by: Tamsulosin HCl (Flomax -) 0.4 mg PO DAILY@0830 [facility] Last Admin: 11/13/19 07:55 Dose: 0.4 mg Documented by: - Objective Vital Signs: Vital Signs Temperature 97.8 F 11/13/19 06:00 Pulse Rate 56 L 09/30/20 06:00 Respiratory Rate 20 11/13/19 06:00 Blood Pressure 102/46 L 11/13/19 06:00 O2 Sat by Pulse Oximetry (%) 98 11/13/19 06:00 Constitutional: Yes: Mild Distress Cardiovascular: Yes: Pulse Irregular Respiratory: Yes: Cough, Wheezes Gastrointestinal: Yes: Soft Genitourinary: Yes: WNL Musculoskeletal: Yes: WNL Edema: Yes Edema: LLE: Trace, RLE: Trace Neurological: Yes: Alert ...Motor Strength: WNL Psychiatric: Yes: WNL Labs: CBC, BMP 11/13/19 06:30 11/13/19 06:30 INR, PTT INR 1.39 (0.83-1.09) H 11/10/19 20:08 Problem List - Problems (1) AICD discharge Code(s): Z45.02 - ENCNTR FOR ADJUST AND MGMT OF AUTOMATIC IMPLNTBL CARD DEFIB (2) Palpitations Code(s): R00.2 - PALPITATIONS (3) Syncope and collapse Code(s): R55 - SYNCOPE AND COLLAPSE (4) ARLENE (acute kidney injury) Code(s): N17.9 - ACUTE KIDNEY FAILURE, UNSPECIFIED (5) ASHD (arteriosclerotic heart disease) Code(s): I25.10 - ATHSCL HEART DISEASE OF [place] CORONARY ARTERY W/O ANG PCTRS (6) Acute on chronic systolic CHF (congestive heart failure) Code(s): I50.23 - ACUTE ON CHRONIC SYSTOLIC (CONGESTIVE) HEART FAILURE (7) BPH (benign prostatic hyperplasia) Code(s): N40.0 - BENIGN PROSTATIC HYPERPLASIA WITHOUT LOWER URINRY TRACT SYMP (8) Diabetes Code(s): E11.9 - TYPE 2 DIABETES MELLITUS WITHOUT COMPLICATIONS Qualifiers: Diabetes mellitus type: type 2 Diabetes mellitus complication status: with unspecified complications (9) Pulmonary hypertension Code(s): I27.2 - OTHER SECONDARY PULMONARY HYPERTENSION * DO NOT USE * (10) Shortness of breath Code(s): R06.02 - SHORTNESS OF BREATH (11) UTI (urinary tract infection) Code(s): N39.0 - URINARY TRACT INFECTION, SITE NOT SPECIFIED Assessment/Plan STARTED CEFTRIAXONE IV FOR UTI ADD AZITHROMYCIN FOR BRONCHITIS CHECK CXR, NEBS AND O2 SUPPORT DAILY WEIGHTS AWAIT CX/SENS PT EVAL PULM/CARDIO EVAL AICD INTERROGATION DVT PROPHYLAXIS
[2019-11-13] MEDS ORDERED: ALBUTEROL SO4 0.042% IH SOL 1.25 MG/3 ML VIAL.NEB NEB PRN (09:08)
[2019-11-13] MEDS: FUROSEMIDE 40 MG TABLET (FP) PO SCH (09:29)
[2019-11-13] MEDS: OMEGA-3 ACID ETHYL ESTERS (FATTY-ACIDS) 1 GM CAPSULE (FP) PO SCH (09:29)
[2019-11-13] MEDS: CYANOCOBALAMIN 1,000 MCG TABLET (FP) PO SCH (09:29)
[2019-11-13] MEDS: APIXABAN 5 MG TABLET PO SCH ×2 (09:29→21:04)
[2019-11-13] MEDS: CHOLECALCIFEROL (VIT D3) 1,000 UNIT (25 MCG) TABLET PO SCH (09:30)
[2019-11-13] MEDS: SACUBITRIL/VALSARTAN 97 MG-103 MG TABLET PO SCH ×2 (09:30→21:05)
[2019-11-13] MEDS: CEFTRIAXONE 1 GM in DEXTROSE 5%-WATER - 50 ML IVPB SCH (09:32)
[2019-11-13] MEDS ORDERED: AZITHROMYCIN IVPB 500 MG/250 ML BAG IVPB ONE (10:00)
--- NOTE | 2019-11-13 11:37 | PN ---
Progress Note (short form) - Note Progress Note: Chief Complaint: syncope s: no chest pain, palps, dizziness, dyspnea Current Medications Generic Name Dose Route Start Last Admin Trade Name Fremarielena PRN Reason Stop Dose Admin Albuterol Sulfate 1 amp 11/13/19 09:08 Ventolin 0.042trength) - NEB Q6H PRN SHORT OF BREATH/WHEEZING Apixaban 5 mg 11/10/19 22:15 11/13/19 09:29 Eliquis - PO 5 mg BID [facility] Administration Cholecalciferol 1,000 unit 11/11/19 10:00 11/13/19 09:30 Vitamin D3 - PO 1,000 unit DAILY [facility] Administration Cyanocobalamin 1,000 mcg 11/11/19 10:00 11/13/19 09:29 Vitamin B12 - PO 1,000 mcg DAILY [facility] Administration Furosemide 40 mg 11/11/19 10:00 11/13/19 09:29 Lasix - PO 40 mg DAILY [facility] Administration Ceftriaxone Sodium 1 gm/ 50 mls @ 100 mls/hr 11/12/19 10:00 11/13/19 09:32 Dextrose IVPB 100 mls/hr DAILY [facility] Administration Protocol Insulin Aspart 1 vial 11/11/19 08:33 11/13/19 06:32 Novolog Vial Sliding Scale - SQ Not Given ACHS [facility] Protocol Metoprolol Succinate 50 mg 11/11/19 22:00 11/13/19 09:29 Toprol Xl - PO 50 mg BID [facility] Administration Non-Formulary Medication 1 puff 11/11/19 10:00 Fluticasone/Umeclidin/Vilanter [Trelegy Ellipta 100-62.5-25] PO DAILY [facility] Non-Formulary Medication 15 meq 11/11/19 10:00 Potassium Citrate Er PO BID [facility] Iulid-0-Dbmj Ethyl Esters 1 gm 11/11/19 10:00 11/13/19 09:29 Lovaza - PO 1 gm DAILY [facility] Administration Pancrelipase 4 cap 11/11/19 08:00 11/13/19 07:55 Marcial Rodgers 6,000 Units Capsule PO 4 cap TIDCM [facility] Administration Sacubitril/Valsartan 1 tab 11/10/19 22:15 11/13/19 09:30 Entresto 97 Mg-103 Mg Tablet PO 1 tab BID [facility] Administration Tamsulosin HCl 0.4 mg 11/11/19 08:30 11/13/19 07:55 Flomax - PO 0.4 mg DAILY@0830 [facility] Administration Vital Signs Period Temp Pulse Resp BP Sys/[place] Pulse Ox Last 24 Hr 97.5 F-98.3 F 56-74 20-20 92-134/46-56 94-98 Constitutional: Yes: Well Nourished, No Distress, Calm Eyes: Conjunctiva Clear, HENT: Atraumatic, Normocephalic Neck: Supple, Trachea Midline Respiratory: Yes: Regular, On Nasal O2, Rales. No: Rhonchi, SOB, Wheezes Gastrointestinal: Normal Bowel Sounds, Soft. No: Distention, Tenderness Cardiovascular: Yes: rrr No: Bradycardia, Tachycardia, Gallop, Rub, Varicosities JVD: No Carotid Bruit: No PMI: Non-Displaced Heart Sounds: Yes: S1, S2. No: Split S2, S3, S4, Clicks, Gallop, Rub, Bruit Murmur: No: Systolic Murmur, Diastolic Murmur Musculoskeletal: Yes: WNL Edema: no Peripheral Pulses WNL: Yes Peripheral Pulses: 2+ Left Doralis Pedis, 2+ Right Dorsalis Pedis Integumentary: Yes: WNL Psychiatric: Yes: WNL, Alert, Oriented no jaundice diaphoresis Laboratory Last Values WBC 8.0 K/mm3 (4.0-10.0) 11/13/19 06:30 RBC 4.70 M/mm3 (4.00-5.60) 11/13/19 06:30 Hgb 10.7 GM/dL (11.7-16.9) L 11/13/19 06:30 Hct 34.3 % (35.4-49) L 11/13/19 06:30 MCV 73.0 fl (80-96) L 11/13/19 06:30 MCH 22.7 pg (25.7-33.7) L 11/13/19 06:30 MCHC 31.1 g/dl (32.0-35.9) L 11/13/19 06:30 RDW 15.5 % (11.9-15.9) 11/13/19 06:30 Plt Count 261 K/MM3 (134-434) 11/13/19 06:30 MPV 8.2 fl (7.5-11.1) 11/13/19 06:30 Absolute Neuts (auto) 4.7 K/mm3 (1.5-8.0) 11/11/19 06:00 Neutrophils % 62.1 % (42.8-82.8) 11/11/19 06:00 Lymphocytes % 17.7 % (8-40) D 11/11/19 06:00 Monocytes % 15.8 % (3.8-10.2) H 11/11/19 06:00 Eosinophils % 3.6 % (0-4.5) 11/11/19 06:00 Basophils % 0.8 % (0-2.0) 11/11/19 06:00 Nucleated RBC % 0 % (0-0) 11/11/19 06:00 PT with INR 16.50 SEC (9.7-13.0) H 11/10/19 20:08 INR 1.39 (0.83-1.09) H 11/10/19 20:08 PTT (Actin FS) 38.6 SECONDS (25.2-36.5) H 11/10/19 20:08 Sodium 136 mmol/L (136-145) 11/13/19 06:30 Potassium 4.0 mmol/L (3.5-5.1) 11/13/19 06:30 Chloride 101 mmol/L (98-107) 11/13/19 06:30 Carbon Dioxide 31 mmol/L (21-32) 11/13/19 06:30 Anion Gap 5 MMOL/L (8-16) L 11/13/19 06:30 BUN 24.9 mg/dL (7-18) H 11/13/19 06:30 Creatinine 1.3 mg/dL (0.55-1.3) 11/13/19 06:30 Est GFR (CKD-EPI)AfAm 60.57 11/13/19 06:30 Est GFR (CKD-EPI)NonAf 52.26 11/13/19 06:30 POC Glucometer 133 UNITS (80-120) 11/13/19 05:42 Random Glucose 144 mg/dL (74-106) H 11/13/19 06:30 Calcium 8.7 mg/dL (8.5-10.1) 11/13/19 06:30 Magnesium 2.1 mg/dL (1.8-2.4) 11/13/19 06:30 Total Bilirubin 0.7 mg/dL (0.2-1) 11/13/19 06:30 AST 9 U/L (15-37) L 11/13/19 06:30 ALT 11 U/L (13-61) L 11/13/19 06:30 Alkaline Phosphatase 73 U/L (45-117) 11/13/19 06:30 Creatine Kinase 64 U/L (26-308) 11/11/19 06:00 Troponin I 0.03 ng/ml (0.00-0.05) 11/11/19 06:00 B-Natriuretic Peptide 295.2 pg/ml (5-450) 11/10/19 20:08 Total Protein 7.3 g/dl (6.4-8.2) 11/13/19 06:30 Albumin 3.4 g/dl (3.4-5.0) 11/13/19 06:30 Triglycerides 148 mg/dL (0-150) 11/11/19 06:00 Cholesterol 113 mg/dL (50-200) 11/11/19 06:00 Total LDL Cholesterol 65 mg/dL (5-100) 11/11/19 06:00 HDL Cholesterol 39 mg/dL (40-60) L 11/11/19 06:00 TSH 1.30 uIU/ml (0.358-3.74) D 11/10/19 20:08 Urine Color Yellow 11/11/19 08:18 Urine Appearance Cloudy 11/11/19 08:18 Urine pH 5.0 (5.0-8.0) 11/11/19 08:18 Ur Specific [place] 1.014 (1.010-1.035) 11/11/19 08:18 Urine Protein Trace (NEGATIVE) 11/11/19 08:18 Urine Glucose (UA) Negative (NEGATIVE) 11/11/19 08:18 Urine Ketones Negative (NEGATIVE) 11/11/19 08:18 Urine Blood 1+ (NEGATIVE) H 11/11/19 08:18 Urine Nitrite Negative (NEGATIVE) 11/11/19 08:18 Urine Bilirubin Negative (NEGATIVE) 11/11/19 08:18 Urine Urobilinogen 0.2 mg/dL (0.2-1.0) 11/11/19 08:18 Ur Leukocyte Esterase 2+ (NEGATIVE) H 11/11/19 08:18 Urine WBC (Auto) 694 /uL (0-25.8) 11/11/19 08:18 Urine RBC (Auto) 11 /uL (0-23.9) 11/11/19 08:18 Urine Casts (Auto) 7 /uL (0-3.1) 11/11/19 08:18 U Epithel Cells (Auto) 5 /uL (0-25.1) 11/11/19 08:18 Urine Crystals (Auto) Negative /hpf 11/11/19 08:18 Urine Bacteria (Auto) 30146 /uL (0-1359) 11/11/19 08:18 Urine Yeast (Auto) Negative (NEGATIVE) 11/11/19 08:18 COVID-19 (LELO) Not detected (Not Detected) 11/10/19 20:30 ecg: sr 1st avb, no iscehmic changes cxr: clear carotids 10/2019: no sig stenosis echo 10/2019 mildly reduced LV function EF 45-50%, mild global hypokinesis of LV, PPM lead RV, mild MAC, mild MR, mild TR, PASP at least 48 mmHg, mild aortic sclerosis tele: sinus, PVCs, 3-4 bt NSVT a/p: 79 year old man with a history of HTN, DM, NICM with severe LV dysfunction s/p ICD (SCI Solution), chronic systolic CHF, paroxysmal atrial fibrillation, hld here with syncope. syncope, VT/ICD shock: -pt with known hx of VT with periodic ICD shocks -Similar presentation now with VT and appropriate ICD shock -carotids unremarkable -echo shows mildly reduced EF 45-50% -no signs acs or chf -increased toprol to 50 bid to reduce VT, monitor on tele and monitor for hypote nsion (per Dr. Sinone has been on higher doses of metoprolol in the past, which were lowered due to soft BPs) chronic systolic CHF: -appears euvolemic, bnp low -cont home lasix 40 qd -continue toprol and entresto Afib-paroxysmal: -in sr, cont bb for rate control -cont eliquis hld: -cont statin HTN: -continue entresto and toprol UTI - manage per primary
--- NOTE | 2019-11-13 23:17 | PN ---
Progress Note (short form) - Note Progress Note: ID CONSULT DICTATED
[2019-11-14] MEDS: INSULIN SLIDING SCALE (NOVOLOG) 1 VIAL SQ SCH ×4 (06:32→21:25)
[2019-11-14] MEDS ORDERED: cefTRIAXone SODIUM 1 GM VIAL ONE (08:26)
[2019-11-14] MEDS ORDERED: DEXTROSE 5%-WATER - 50 ML IVPB ONE (08:26)
[2019-11-14] MEDS ORDERED: PT OWN MED DRAWER 7, Y5N ONE ×3 (08:26→09:36)
[2019-11-14] MEDS: TAMSULOSIN HCL 0.4 MG CAP PO SCH (08:42)
[2019-11-14] MEDS: LIPASE/PROTEASE/AMYLASE 6,000 UNIT CAPSULE PO SCH ×3 (08:42→17:09)
--- NOTE | 2019-11-14 09:08 | PN ---
Progress Note, Physician Chief Complaint: AWAKE ALERT FEELING BETTER - Current Medication List Current Medications: Active Medications Albuterol Sulfate (Ventolin 0.042trength) -) 1 amp NEB Q6H PRN PRN Reason: SHORT OF BREATH/WHEEZING Apixaban (Eliquis -) 5 mg PO BID [facility] Last Admin: 11/13/19 21:04 Dose: 5 mg Documented by: Azithromycin (Zithromax -) 250 mg PO DAILY [facility] Cholecalciferol (Vitamin D3 -) 1,000 unit PO DAILY [facility] Last Admin: 11/13/19 09:30 Dose: 1,000 unit Documented by: Cyanocobalamin (Vitamin B12 -) 1,000 mcg PO DAILY [facility] Last Admin: 11/13/19 09:29 Dose: 1,000 mcg Documented by: Furosemide (Lasix -) 40 mg PO DAILY [facility] Last Admin: 11/13/19 09:29 Dose: 40 mg Documented by: Ceftriaxone Sodium 1 gm/ (Dextrose) 50 mls @ 100 mls/hr IVPB DAILY [facility]; Protocol Last Admin: 11/13/19 09:32 Dose: 100 mls/hr Documented by: Insulin Aspart (Novolog Vial Sliding Scale -) 1 vial SQ ACHS [facility]; Protocol Last Admin: 11/14/19 06:32 Dose: Not Given Documented by: Metoprolol Succinate (Toprol Xl -) 50 mg PO BID [facility] Last Admin: 11/13/19 21:05 Dose: 50 mg Documented by: Non-Formulary Medication (Fluticasone/Umeclidin/Vilanter [Trelegy Ellipta 100-62.5-25]) 1 puff PO DAILY [facility] Non-Formulary Medication (Potassium Citrate Er) 15 meq PO BID [facility] Akprx-0-Tyhs Ethyl Esters (Lovaza -) 1 gm PO DAILY [facility] Last Admin: 11/13/19 09:29 Dose: 1 gm Documented by: Pancrelipase (Creon Dr 6,000 Units Capsule) 4 cap PO TIDCM [facility] Last Admin: 11/14/19 08:42 Dose: 4 cap Documented by: Sacubitril/Valsartan (Entresto 97 Mg-103 Mg Tablet) 1 tab PO BID [facility] Last Admin: 11/13/19 21:05 Dose: 1 tab Documented by: Tamsulosin HCl (Flomax -) 0.4 mg PO DAILY@0830 [facility] Last Admin: 11/14/19 08:42 Dose: 0.4 mg Documented by: - Objective Vital Signs: Vital Signs Temperature 97.7 F 11/14/19 06:00 Pulse Rate 68 11/14/19 06:00 Respiratory Rate 20 11/14/19 06:00 Blood Pressure 106/57 L 11/14/19 06:00 O2 Sat by Pulse Oximetry (%) 95 11/14/19 06:00 Constitutional: Yes: Mild Distress Cardiovascular: Yes: Pulse Irregular Respiratory: Yes: Diminished Gastrointestinal: Yes: Soft Genitourinary: Yes: WNL Musculoskeletal: Yes: Muscle Weakness Neurological: Yes: Unsteady Gait Labs: CBC, BMP 11/13/19 06:30 11/13/19 06:30 INR, PTT INR 1.39 (0.83-1.09) H 11/10/19 20:08 Problem List - Problems (1) AICD discharge Code(s): Z45.02 - ENCNTR FOR ADJUST AND MGMT OF AUTOMATIC IMPLNTBL CARD DEFIB (2) Palpitations Code(s): R00.2 - PALPITATIONS (3) Syncope and collapse Code(s): R55 - SYNCOPE AND COLLAPSE (4) ARLENE (acute kidney injury) Code(s): N17.9 - ACUTE KIDNEY FAILURE, UNSPECIFIED (5) ASHD (arteriosclerotic heart disease) Code(s): I25.10 - ATHSCL HEART DISEASE OF [place] CORONARY ARTERY W/O ANG PCTRS (6) Acute on chronic systolic CHF (congestive heart failure) Code(s): I50.23 - ACUTE ON CHRONIC SYSTOLIC (CONGESTIVE) HEART FAILURE (7) BPH (benign prostatic hyperplasia) Code(s): N40.0 - BENIGN PROSTATIC HYPERPLASIA WITHOUT LOWER URINRY TRACT SYMP (8) Diabetes Code(s): E11.9 - TYPE 2 DIABETES MELLITUS WITHOUT COMPLICATIONS Qualifiers: Diabetes mellitus type: type 2 Diabetes mellitus complication status: with unspecified complications (9) Pulmonary hypertension Code(s): I27.2 - OTHER SECONDARY PULMONARY HYPERTENSION * DO NOT USE * (10) Shortness of breath Code(s): R06.02 - SHORTNESS OF BREATH (11) UTI (urinary tract infection) Code(s): N39.0 - URINARY TRACT INFECTION, SITE NOT SPECIFIED Assessment/Plan STARTED CEFTRIAXONE IV FOR UTI ADD AZITHROMYCIN FOR BRONCHITIS CHECK CXR, NEBS AND O2 SUPPORT DAILY WEIGHTS AWAIT CX/SENS PT EVAL PULM/CARDIO EVAL AICD INTERROGATION DVT PROPHYLAXIS DC PLANNING TOMORROW
[2019-11-14] MEDS: APIXABAN 5 MG TABLET PO SCH ×2 (09:33→21:24)
[2019-11-14] MEDS: AZITHROMYCIN 250 MG TABLET PO SCH (09:33)
[2019-11-14] MEDS: CEFTRIAXONE 1 GM in DEXTROSE 5%-WATER - 50 ML IVPB SCH (09:33)
[2019-11-14] MEDS: CYANOCOBALAMIN 1,000 MCG TABLET (FP) PO SCH (09:33)
[2019-11-14] MEDS: OMEGA-3 ACID ETHYL ESTERS (FATTY-ACIDS) 1 GM CAPSULE (FP) PO SCH (09:33)
[2019-11-14] MEDS: FUROSEMIDE 40 MG TABLET (FP) PO SCH (09:33)
[2019-11-14] MEDS: CHOLECALCIFEROL (VIT D3) 1,000 UNIT (25 MCG) TABLET PO SCH (09:34)
[2019-11-14] MEDS: SACUBITRIL/VALSARTAN 97 MG-103 MG TABLET PO SCH ×2 (09:37→21:24)
--- NOTE | 2019-11-14 11:35 | PN ---
Progress Note (short form) - Note Progress Note: Chief Complaint: syncope s: no chest pain, palps, dizziness, dyspnea Current Medications Generic Name Dose Route Start Last Admin Trade Name Ena PRN Reason Stop Dose Admin Albuterol Sulfate 1 amp 11/13/19 09:08 Ventolin 0.042trength) - NEB Q6H PRN SHORT OF BREATH/WHEEZING Apixaban 5 mg 11/10/19 22:15 11/14/19 09:33 Eliquis - PO 5 mg BID AYAN Administration Azithromycin 250 mg 11/14/19 10:00 11/14/19 09:33 Zithromax - PO 250 mg DAILY AYAN Administration Cholecalciferol 1,000 unit 11/11/19 10:00 11/14/19 09:34 Vitamin D3 - PO 1,000 unit DAILY AYAN Administration Cyanocobalamin 1,000 mcg 11/11/19 10:00 11/14/19 09:33 Vitamin B12 - PO 1,000 mcg DAILY AYAN Administration Furosemide 40 mg 11/11/19 10:00 11/14/19 09:33 Lasix - PO 40 mg DAILY AYAN Administration Ceftriaxone Sodium 1 gm/ 50 mls @ 100 mls/hr 11/12/19 10:00 11/14/19 09:33 Dextrose IVPB 100 mls/hr DAILY AYAN Administration Protocol Insulin Aspart 1 vial 11/11/19 08:33 11/14/19 11:12 Novolog Vial Sliding Scale - SQ Not Given ACHS AYAN Protocol Metoprolol Succinate 50 mg 11/11/19 22:00 11/14/19 09:33 Toprol Xl - PO 50 mg BID AYAN Administration Non-Formulary Medication 1 puff 11/11/19 10:00 Fluticasone/Umeclidin/Vilanter [Trelegy Ellipta 100-62.5-25] PO DAILY AYAN Non-Formulary Medication 15 meq 11/11/19 10:00 Potassium Citrate Er PO BID AYAN Kbqcy-1-Sxdq Ethyl Esters 1 gm 11/11/19 10:00 11/14/19 09:33 Lovaza - PO 1 gm DAILY AYAN Administration Pancrelipase 4 cap 11/11/19 08:00 11/14/19 08:42 Crepaco Rodgers 6,000 Units Capsule PO 4 cap TIDCM AYAN Administration Sacubitril/Valsartan 1 tab 11/10/19 22:15 11/14/19 09:37 Entresto 97 Mg-103 Mg Tablet PO 1 tab BID AYAN Administration Tamsulosin HCl 0.4 mg 11/11/19 08:30 11/14/19 08:42 Flomax - PO 0.4 mg DAILY@0830 AYAN Administration Vital Signs Period Temp Pulse Resp BP Sys/[place] Pulse Ox Last 24 Hr 97.6 F-98.3 F 64-79 18-20 90-137/46-67 94-98 Constitutional: Yes: Well Nourished, No Distress, Calm Eyes: Conjunctiva Clear, HENT: Atraumatic, Normocephalic Neck: Supple, Trachea Midline Respiratory: Yes: Regular, On Nasal O2, Rales. No: Rhonchi, SOB, Wheezes Gastrointestinal: Normal Bowel Sounds, Soft. No: Distention, Tenderness Cardiovascular: Yes: rrr No: Bradycardia, Tachycardia, Gallop, Rub, Varicosities JVD: No Carotid Bruit: No PMI: Non-Displaced Heart Sounds: Yes: S1, S2. No: Split S2, S3, S4, Clicks, Gallop, Rub, Bruit Murmur: No: Systolic Murmur, Diastolic Murmur Musculoskeletal: Yes: WNL Edema: no Peripheral Pulses WNL: Yes Peripheral Pulses: 2+ Left Doralis Pedis, 2+ Right Dorsalis Pedis Integumentary: Yes: WNL Psychiatric: Yes: WNL, Alert, Oriented no jaundice diaphoresis CBC, BMP 11/13/19 06:30 11/13/19 06:30 ecg: sr 1st avb, no iscehmic changes cxr: clear carotids 10/2019: no sig stenosis echo 10/2019 mildly reduced LV function EF 45-50%, mild global hypokinesis of LV, PPM lead RV, mild MAC, mild MR, mild TR, PASP at least 48 mmHg, mild aortic sclerosis tele: sinus, PVCs a/p: 79 year old man with a history of HTN, DM, NICM with severe LV dysfunction s/p ICD ([place]), chronic systolic CHF, paroxysmal atrial fibrillation, hld here with syncope. syncope, VT/ICD shock: -pt with known hx of VT with periodic ICD shocks -Similar presentation now with VT and appropriate ICD shock -carotids unremarkable -echo shows mildly reduced EF 45-50% -no signs acs or chf -increased toprol to 50 bid to reduce VT, cont same chronic systolic CHF: -appears euvolemic, bnp low -cont home lasix 40 qd -continue toprol and entresto Afib-paroxysmal: -in sr, cont bb for rate control -cont eliquis hld: -cont statin HTN: -continue entresto and toprol UTI - manage per primary cardiac sylvester stable
--- NOTE | 2019-11-14 13:25 | PN ---
Progress Note (short form) - Note Progress Note: Resting in NAD. No CP or SOB. No acute events overnight. Intake & Output 11/11/19 11/12/19 11/13/19 11/14/19 23:59 23:59 23:59 23:59 Intake Total 790 1370 460 Balance 790 1370 460 Weight 213 lb 212 lb 3.2 oz 212 lb 12.8 oz Last Vital Signs Temp Pulse Resp BP Pulse Ox 98 F 68 18 110/67 97 11/14/19 10:00 11/14/19 10:00 11/14/19 10:00 11/14/19 10:00 11/14/19 10:00 Active Medications Albuterol Sulfate (Ventolin 0.042trength) -) 1 amp NEB Q6H PRN PRN Reason: SHORT OF BREATH/WHEEZING Apixaban (Eliquis -) 5 mg PO BID [facility] Last Admin: 11/14/19 09:33 Dose: 5 mg Documented by: Azithromycin (Zithromax -) 250 mg PO DAILY [facility] Last Admin: 11/14/19 09:33 Dose: 250 mg Documented by: Cholecalciferol (Vitamin D3 -) 1,000 unit PO DAILY [facility] Last Admin: 11/14/19 09:34 Dose: 1,000 unit Documented by: Cyanocobalamin (Vitamin B12 -) 1,000 mcg PO DAILY [facility] Last Admin: 11/14/19 09:33 Dose: 1,000 mcg Documented by: Furosemide (Lasix -) 40 mg PO DAILY [facility] Last Admin: 11/14/19 09:33 Dose: 40 mg Documented by: Ceftriaxone Sodium 1 gm/ (Dextrose) 50 mls @ 100 mls/hr IVPB DAILY [facility]; Protocol Last Admin: 11/14/19 09:33 Dose: 100 mls/hr Documented by: Insulin Aspart (Novolog Vial Sliding Scale -) 1 vial SQ ACHS [facility]; Protocol Last Admin: 11/14/19 11:12 Dose: Not Given Documented by: Metoprolol Succinate (Toprol Xl -) 50 mg PO BID [facility] Last Admin: 11/14/19 09:33 Dose: 50 mg Documented by: Non-Formulary Medication (Fluticasone/Umeclidin/Vilanter [Trelegy Ellipta 100-62.5-25]) 1 puff PO DAILY [facility] Non-Formulary Medication (Potassium Citrate Er) 15 meq PO BID [facility] Dtzlm-8-Ayah Ethyl Esters (Lovaza -) 1 gm PO DAILY [facility] Last Admin: 11/14/19 09:33 Dose: 1 gm Documented by: Pancrelipase (Marcial Rodgers 6,000 Units Capsule) 4 cap PO TIDCM [facility] Last Admin: 11/14/19 11:54 Dose: 4 cap Documented by: Sacubitril/Valsartan (Entresto 97 Mg-103 Mg Tablet) 1 tab PO BID [facility] Last Admin: 11/14/19 09:37 Dose: 1 tab Documented by: Tamsulosin HCl (Flomax -) 0.4 mg PO DAILY@0830 [facility] Last Admin: 11/14/19 08:42 Dose: 0.4 mg Documented by: Constitutional: Yes: Well Nourished, Calm Eyes: Yes: WNL HENT: Yes: WNL Neck: Yes: WNL Cardiovascular: Yes: Pulse Irregular, S1, S2 Respiratory: Yes: CTA Bilaterally Gastrointestinal: Yes: Normal Bowel Sounds, Soft Extremities: Yes: WNL Edema: No Labs: Laboratory Results - last 24 hr 11/13/19 11/13/19 11/14/19 17:11 21:02 06:22 POC Glucometer 164 145 125 11/14/19 11:07 POC Glucometer 116 Problem List - Problems (1) AICD discharge Code(s): Z45.02 - ENCNTR FOR ADJUST AND MGMT OF AUTOMATIC IMPLNTBL CARD DEFIB (2) Syncope and collapse Code(s): R55 - SYNCOPE AND COLLAPSE (3) ASHD (arteriosclerotic heart disease) Code(s): I25.10 - ATHSCL HEART DISEASE OF [place] CORONARY ARTERY W/O ANG PCTRS (4) Diabetes Code(s): E11.9 - TYPE 2 DIABETES MELLITUS WITHOUT COMPLICATIONS Qualifiers: Diabetes mellitus type: type 2 Diabetes mellitus complication status: with unspecified complications (5) Hypertension Code(s): I10 - ESSENTIAL (PRIMARY) HYPERTENSION Qualifiers: Hypertension type: essential hypertension Qualified Code(s): I10 - Essenti al (primary) hypertension (6) Non-ischemic cardiomyopathy Code(s): I42.9 - CARDIOMYOPATHY, UNSPECIFIED (7) Non-sustained ventricular tachycardia Code(s): I47.2 - VENTRICULAR TACHYCARDIA (8) PAF (paroxysmal atrial fibrillation) Code(s): I48.0 - PAROXYSMAL ATRIAL FIBRILLATION (9) Shortness of breath Code(s): R06.02 - SHORTNESS OF BREATH (10) UTI (urinary tract infection) Code(s): N39.0 - URINARY TRACT INFECTION, SITE NOT SPECIFIED Assessment/Plan IMP SYNCOPE DYSPNEA IMPROVING CHRONIC CHF NICM WITH SEVERE LV DYSFUNCTION S/P ICD DM HTN PAF HLD UTI COPD PLAN O2 NEEDED LASIX INHALED BRONCHODILATORS AC ABX OUTPATIENT PFTS Dr Garner
--- NOTE | 2019-11-15 06:18 | PN ---
Progress Note, Physician Chief Complaint: denies CP/dizziness/palps TELE: SR, demand V pacing. single PVCs - Current Medication List Current Medications: Active Medications Albuterol Sulfate (Ventolin 0.042trength) -) 1 amp NEB Q6H PRN PRN Reason: SHORT OF BREATH/WHEEZING Apixaban (Eliquis -) 5 mg PO BID [facility] Last Admin: 11/14/19 21:24 Dose: 5 mg Documented by: Azithromycin (Zithromax -) 250 mg PO DAILY [facility] Last Admin: 11/14/19 09:33 Dose: 250 mg Documented by: Cholecalciferol (Vitamin D3 -) 1,000 unit PO DAILY [facility] Last Admin: 11/14/19 09:34 Dose: 1,000 unit Documented by: Cyanocobalamin (Vitamin B12 -) 1,000 mcg PO DAILY [facility] Last Admin: 11/14/19 09:33 Dose: 1,000 mcg Documented by: Furosemide (Lasix -) 40 mg PO DAILY [facility] Last Admin: 11/14/19 09:33 Dose: 40 mg Documented by: Ceftriaxone Sodium 1 gm/ (Dextrose) 50 mls @ 100 mls/hr IVPB DAILY [facility]; Protocol Last Admin: 11/14/19 09:33 Dose: 100 mls/hr Documented by: Insulin Aspart (Novolog Vial Sliding Scale -) 1 vial SQ ACHS [facility]; Protocol Last Admin: 11/14/19 21:25 Dose: Not Given Documented by: Metoprolol Succinate (Toprol Xl -) 50 mg PO BID [facility] Last Admin: 11/14/19 21:24 Dose: 50 mg Documented by: Non-Formulary Medication (Fluticasone/Umeclidin/Vilanter [Trelegy Ellipta 100-62.5-25]) 1 puff PO DAILY [facility] Non-Formulary Medication (Potassium Citrate Er) 15 meq PO BID [facility] Jxjnc-1-Nuts Ethyl Esters (Lovaza -) 1 gm PO DAILY [facility] Last Admin: 11/14/19 09:33 Dose: 1 gm Documented by: Pancrelipase (Marcial Rodgers 6,000 Units Capsule) 4 cap PO TIDCM [facility] Last Admin: 11/14/19 17:09 Dose: 4 cap Documented by: Sacubitril/Valsartan (Entresto 97 Mg-103 Mg Tablet) 1 tab PO BID [facility] Last Admin: 11/14/19 21:24 Dose: 1 tab Documented by: Tamsulosin HCl (Flomax -) 0.4 mg PO DAILY@0830 [facility] Last Admin: 11/14/19 08:42 Dose: 0.4 mg Documented by: - Objective Vital Signs: Vital Signs Temperature 97.6 F 11/15/19 01:22 Pulse Rate 64 11/15/19 06:00 Respiratory Rate 20 11/15/19 06:00 Blood Pressure 92/62 11/15/19 06:00 O2 Sat by Pulse Oximetry (%) 95 11/14/19 22:00 Constitutional: Yes: No Distress, Calm Eyes: Yes: Conjunctiva Clear, EOM Intact HENT: Yes: Atraumatic, Normocephalic Neck: Yes: Supple, Trachea Midline Cardiovascular: Yes: Regular Rate and Rhythm Respiratory: Yes: Other (no active wheezing or rales) Gastrointestinal: Yes: Soft, Abdomen, Obese Edema: No Neurological: Yes: Alert, Oriented ...Motor Strength: WNL Labs: CBC, BMP 11/13/19 06:30 11/13/19 06:30 INR, PTT INR 1.39 (0.83-1.09) H 11/10/19 20:08 Assessment/Plan echo 10/2019 mildly reduced LV function EF 45-50%, mild global hypokinesis of LV, PPM lead RV, mild MAC, mild MR, mild TR, PASP at least 48 mmHg, mild aortic sclerosis a/p: 79 year old man with a history of HTN, DM, NICM with severe LV dysfunction s/p ICD ([place]), chronic systolic CHF, paroxysmal atrial fibrillation, hld here with syncope. syncope, VT/ICD shock: -pt with known hx of VT with periodic ICD shocks, referred to EP for ablation but decision made to treat medically. -carotids unremarkable -echo shows mildly reduced EF 45-50% -no signs acs or chf -increased toprol to 50 bid to reduce VT, cont same; outpt f/u with me and EP (Dr. Thurman/[facility]) chronic systolic CHF: -appears euvolemic, bnp low -cont home lasix 40 qd -continue toprol and entresto Afib-paroxysmal: -in sr, cont bb for rate control -cont eliquis hld: -cont statin HTN: -continue entresto and toprol UTI - manage per primary cardiac sylvester stable for discharge. Can d/c telemetry
[2019-11-15] MEDS: INSULIN SLIDING SCALE (NOVOLOG) 1 VIAL SQ SCH (06:44)
--- NOTE | 2019-11-15 07:47 | PN ---
Progress Note, Physician History of Present Illness: pulmonary alert,comfortable,-so,-cp - Current Medication List Current Medications: Active Medications Albuterol Sulfate (Ventolin 0.042trength) -) 1 amp NEB Q6H PRN PRN Reason: SHORT OF BREATH/WHEEZING Apixaban (Eliquis -) 5 mg PO BID [facility] Last Admin: 11/14/19 21:24 Dose: 5 mg Documented by: Azithromycin (Zithromax -) 250 mg PO DAILY [facility] Last Admin: 11/14/19 09:33 Dose: 250 mg Documented by: Cholecalciferol (Vitamin D3 -) 1,000 unit PO DAILY [facility] Last Admin: 11/14/19 09:34 Dose: 1,000 unit Documented by: Cyanocobalamin (Vitamin B12 -) 1,000 mcg PO DAILY [facility] Last Admin: 11/14/19 09:33 Dose: 1,000 mcg Documented by: Furosemide (Lasix -) 40 mg PO DAILY [facility] Last Admin: 11/14/19 09:33 Dose: 40 mg Documented by: Ceftriaxone Sodium 1 gm/ (Dextrose) 50 mls @ 100 mls/hr IVPB DAILY [facility]; Protocol Last Admin: 11/14/19 09:33 Dose: 100 mls/hr Documented by: Insulin Aspart (Novolog Vial Sliding Scale -) 1 vial SQ ACHS [facility]; Protocol Last Admin: 11/15/19 06:44 Dose: Not Given Documented by: Metoprolol Succinate (Toprol Xl -) 50 mg PO BID [facility] Last Admin: 11/14/19 21:24 Dose: 50 mg Documented by: Non-Formulary Medication (Fluticasone/Umeclidin/Vilanter [Trelegy Ellipta 100-62.5-25]) 1 puff PO DAILY [facility] Non-Formulary Medication (Potassium Citrate Er) 15 meq PO BID [facility] Yipxa-1-Blwa Ethyl Esters (Lovaza -) 1 gm PO DAILY [facility] Last Admin: 11/14/19 09:33 Dose: 1 gm Documented by: Pancrelipase (Creon Dr 6,000 Units Capsule) 4 cap PO TIDCM [facility] Last Admin: 11/14/19 17:09 Dose: 4 cap Documented by: Sacubitril/Valsartan (Entresto 97 Mg-103 Mg Tablet) 1 tab PO BID [facility] Last Admin: 11/14/19 21:24 Dose: 1 tab Documented by: Tamsulosin HCl (Flomax -) 0.4 mg PO DAILY@0830 [facility] Last Admin: 11/14/19 08:42 Dose: 0.4 mg Documented by: - Objective Vital Signs: Vital Signs Temperature 97.6 F 11/15/19 01:22 Pulse Rate 64 11/15/19 06:00 Respiratory Rate 20 11/15/19 06:00 Blood Pressure 92/62 11/15/19 06:00 O2 Sat by Pulse Oximetry (%) 95 11/14/19 22:00 Constitutional: Yes: Well Nourished, Calm Eyes: Yes: WNL HENT: Yes: WNL Neck: Yes: WNL Cardiovascular: Yes: Pulse Irregular, S1, S2 Respiratory: Yes: CTA Bilaterally Gastrointestinal: Yes: Normal Bowel Sounds, Soft Extremities: Yes: WNL Edema: No Labs: CBC, BMP Problem List - Problems (1) AICD discharge Code(s): Z45.02 - ENCNTR FOR ADJUST AND MGMT OF AUTOMATIC IMPLNTBL CARD DEFIB (2) Syncope and collapse Code(s): R55 - SYNCOPE AND COLLAPSE (3) ASHD (arteriosclerotic heart disease) Code(s): I25.10 - ATHSCL HEART DISEASE OF [place] CORONARY ARTERY W/O ANG PCTRS (4) Diabetes Code(s): E11.9 - TYPE 2 DIABETES MELLITUS WITHOUT COMPLICATIONS Qualifiers: Diabetes mellitus type: type 2 Diabetes mellitus complication status: with unspecified complications (5) Hypertension Code(s): I10 - ESSENTIAL (PRIMARY) HYPERTENSION Qualifiers: Hypertension type: essential hypertension Qualified Code(s): I10 - Essential (primary) hypertension (6) Non-ischemic cardiomyopathy Code(s): I42.9 - CARDIOMYOPATHY, UNSPECIFIED (7) Non-sustained ventricular tachycardia Code(s): I47.2 - VENTRICULAR TACHYCARDIA (8) PAF (paroxysmal atrial fibrillation) Code(s): I48.0 - PAROXYSMAL ATRIAL FIBRILLATION (9) Shortness of breath Code(s): R06.02 - SHORTNESS OF BREATH (10) UTI (urinary tract infection) Code(s): N39.0 - URINARY TRACT INFECTION, SITE NOT SPECIFIED Assessment/Plan IMP S/P SYNCOPE STABLE DYSPNEA IMPROVED CHRONIC CHF NICM WITH SEVERE LV DYSFUNCTION S/P ICD DM HTN PAF HLD UTI COPD PLAN LASIX INHALED BRONCHODILATORS AC PO ABX OUTPATIENT PFTS DR RUELAS Problem List - Problems (1) AICD discharge Code(s): Z45.02 - ENCNTR FOR ADJUST AND MGMT OF AUTOMATIC IMPLNTBL CARD DEFIB (2) Syncope and collapse Code(s): R55 - SYNCOPE AND COLLAPSE (3) ASHD (arteriosclerotic heart disease) Code(s): I25.10 - ATHSCL HEART DISEASE OF [place] CORONARY ARTERY W/O ANG PCTRS (4) Diabetes Code(s): E11.9 - TYPE 2 DIABETES MELLITUS WITHOUT COMPLICATIONS Qualifiers: Diabetes mellitus type: type 2 Diabetes mellitus complication status: with unspecified complications (5) Hypertension Code(s): I10 - ESSENTIAL (PRIMARY) HYPERTENSION Qualifiers: Hypertension type: essential hypertension Qualified Code(s): I10 - Essential (primary) hypertension (6) Non-ischemic cardiomyopathy Code(s): I42.9 - CARDIOMYOPATHY, UNSPECIFIED (7) Non-sustained ventricular tachycardia Code(s): I47.2 - VENTRICULAR TACHYCARDIA (8) PAF (paroxysmal atrial fibrillation) Code(s): I48.0 - PAROXYSMAL ATRIAL FIBRILLATION (9) Shortness of breath Code(s): R06.02 - SHORTNESS OF BREATH (10) UTI (urinary tract infection) Code(s): N39.0 - URINARY TRACT INFECTION, SITE NOT SPECIFIED
[2019-11-15] MEDS ORDERED: cefTRIAXone SODIUM 1 GM VIAL ONE (07:59)
[2019-11-15] MEDS ORDERED: PT OWN MED DRAWER 7, Y5N ONE ×2 (07:59→09:04)
[2019-11-15] MEDS ORDERED: DEXTROSE 5%-WATER - 50 ML IVPB ONE (08:00)
[2019-11-15] MEDS: LIPASE/PROTEASE/AMYLASE 6,000 UNIT CAPSULE PO SCH (08:19)
[2019-11-15] MEDS: TAMSULOSIN HCL 0.4 MG CAP PO SCH (08:20)
[2019-11-15] MEDS: OMEGA-3 ACID ETHYL ESTERS (FATTY-ACIDS) 1 GM CAPSULE (FP) PO SCH (09:00)
[2019-11-15] MEDS: CHOLECALCIFEROL (VIT D3) 1,000 UNIT (25 MCG) TABLET PO SCH (09:00)
[2019-11-15] MEDS: APIXABAN 5 MG TABLET PO SCH (09:00)
[2019-11-15] MEDS: CEFTRIAXONE 1 GM in DEXTROSE 5%-WATER - 50 ML IVPB SCH (09:00)
[2019-11-15] MEDS: AZITHROMYCIN 250 MG TABLET PO SCH (09:00)
[2019-11-15] MEDS: CYANOCOBALAMIN 1,000 MCG TABLET (FP) PO SCH (09:03)
[2019-11-15] MEDS: FUROSEMIDE 40 MG TABLET (FP) PO SCH (09:03)
[2019-11-15] MEDS: SACUBITRIL/VALSARTAN 97 MG-103 MG TABLET PO SCH (09:04)
--- NOTE | 2019-11-15 10:32 | DS ---
Physical Examination Vital Signs: Vital Signs Temperature 97.6 F 11/15/19 01:22 Pulse Rate 64 11/15/19 06:00 Respiratory Rate 20 11/15/19 06:00 Blood Pressure 92/62 11/15/19 06:00 O2 Sat by Pulse Oximetry (%) 95 11/14/19 22:00 Findings/Remarks: feeling better would like to go home Constitutional: Yes: No Distress Cardiovascular: Yes: Pulse Irregular Respiratory: Yes: CTA Bilaterally Gastrointestinal: Yes: Soft Musculoskeletal: Yes: Other Neurological: Yes: Pre-Existing Deficit Labs: CBC, BMP 11/13/19 06:30 11/13/19 06:30 Discharge Summary Problems reviewed: Yes Reason For Visit: NONISCHEMIC CARDIOMYOPATHY SYNCOPE AND COLLAPSE Current Active Problems AICD discharge (Acute) Encounter for screening laboratory testing for COVID-19 virus (Acute) Palpitations (Acute) Syncope and collapse (Acute) Procedures: Principal: ct scan Hospital Course: admitted for syncope, fall, uti, monitored in telemetry and given iv abx, feels better cleared by cardiology Plan of Treatment: continue bactrim for 3 more day take 2 x day Condition: Improved - Instructions Diet, Activity, Other Instructions: see your doctor in 1 week continue Bactrim for 3 more days Referrals: Lyndsey Negro MD [Primary Care Provider] - Disposition: HOME - Home Medications Comprehensive Discharge Medication List: Ambulatory Orders Apixaban [Eliquis] 5 mg PO BID 02/26/19 Cholecalciferol (Vitamin D3) [Vitamin D3 -] 1,000 unit PO DAILY 02/26/19 Cyanocobalamin (Vitamin B-12) [Vitamin B-12] 1,000 mcg PO DAILY 02/26/19 Fluticasone/Umeclidin/Vilanter [Trelegy Ellipta 100-62.5-25] 1 puff PO DAILY 02/26/19 Furosemide [Lasix -] 40 mg PO DAILY 02/26/19 Lipase/Protease/Amylase [Zenpep Dr 25,000 Unit Capsule] 1 cap PO TID 02/26/19 [place]-3S/Dha/Epa/Fish Oil [[place]-3 Fish Oil 1,000 mg Sfgl] 1 cap PO DAILY 02/26/19 Sacubitril/Valsartan [Entresto 97 mg-103 mg Tablet] 1 tab PO BID 02/26/19 Tamsulosin HCl [Flomax] 0.4 mg PO DAILY 02/26/19 Potassium Citrate ER 15 meq PO BID 02/27/19 Albuterol 2.5/Ipratropium 0.5 [Duoneb -] 1 amp NEB RQID PRN amp 03/01/19 Metoprolol Succinate [Toprol XL -] 50 mg PO DAILY #30 tablet 03/01/19 Sulfamethoxazole/Trimethoprim [Bactrim DS -] 1 tab PO BID #14 tablet 03/01/19 Prescription Drug Monitoring Program (I-STOP) results: I-STOP not reviewed
[2019-11-15 10:47] VITALS: BP 101/40; PULSE 60; TEMP 98
== END 2019-11-15 11:45 | disposition home or self-care (01) | DRG 309 ==
LOC: JER 19:38 → JERBED 20:21 → J4W 11-11 20:06
PROVIDERS: ADMIT Internal Medicine; ATTEND Family Medicine
DX: I47.2 Ventricular tachycardia (principal); I42.8 Other cardiomyopathies; N39.0 Urinary tract infection, site not specified; I50.22 Chronic systolic (congestive) heart failure; I25.10 Atherosclerotic heart disease of native coronary artery without angina pectoris; I48.0 Paroxysmal atrial fibrillation; Z45.02 Encounter for adjustment and management of automatic implantable cardiac defibrillator; J40 Bronchitis, not specified as acute or chronic; K58.9 Irritable bowel syndrome, unspecified; E78.5 Hyperlipidemia, unspecified; I10 Essential (primary) hypertension; I11.0 Hypertensive heart disease with heart failure; I44.0 Atrioventricular block, first degree; K57.90 Diverticulosis of intestine, part unspecified, without perforation or abscess without bleeding; N40.0 Benign prostatic hyperplasia without lower urinary tract symptoms; I27.20 Pulmonary hypertension, unspecified; J44.9 Chronic obstructive pulmonary disease, unspecified; E66.9 Obesity, unspecified; Z68.30 Body mass index [BMI] 30.0-30.9, adult
CPT/HCPCS: 36415; 71045-TC-FY; 71046-TC-FY; 80048; 80053; 80061; 81003; 82550; 82962; 83721; 83735; 83880; 84443; 84484; 85025; 85027; 85610; 85730; 87086; 87186; 93005; 93010; 93306-TC; 93880-TC; 97116-GP; 97161-GP; 99285-25; U0003

== ENCOUNTER 2020-06-29 10:48 | Day surgery (SDC) | payer OTHER, BC ==
[2020-06-29] MEDS ORDERED: FERRIC CARBOXYMALTOSE 750 MG in SODIUM CHLORIDE 250 ML IVPB ONE (11:30)
[2020-06-29 11:35] VITALS: BP 112/52; PULSE 61; TEMP 97.5; BMI 29.4
== END 2020-06-29 13:03 | disposition home or self-care (01) ==
LOC: FINFUSION 10:48 → FM/S 11:00 → FINFUSION 13:03
PROVIDERS: ATTEND Family Medicine
PROC: 3E033GC Introduction of Other Therapeutic Substance into Peripheral Vein, Percutaneous Approach (ICD-10-PCS; principal; 2020-06-29)
DX: D50.9 Iron deficiency anemia, unspecified (principal)
CPT/HCPCS: 96365; J1439

== ENCOUNTER 2020-07-06 10:34 | Day surgery (SDC) | payer OTHER, BC ==
[2020-07-06] MEDS ORDERED: FERRIC CARBOXYMALTOSE 750 MG in SODIUM CHLORIDE 250 ML IVPB ONE (11:00)
[2020-07-06 11:31] VITALS: TEMP 97.7
[2020-07-06 12:20] VITALS: BP 107/52; PULSE 56
== END 2020-07-06 12:42 | disposition home or self-care (01) ==
LOC: FINFUSION 10:34 → FM/S 10:56 → FINFUSION 12:42
PROVIDERS: ATTEND Family Medicine
PROC: 3E033GC Introduction of Other Therapeutic Substance into Peripheral Vein, Percutaneous Approach (ICD-10-PCS; principal; 2020-07-06)
DX: D50.9 Iron deficiency anemia, unspecified (principal)
CPT/HCPCS: 96365; J1439

== ENCOUNTER 2021-01-27 10:00 | Inpatient (IN) | payer OTHER, BC ==
[~2021-01-27 10:00] MED LIST: ALVIMOPAN 12 MG CAP PO ONE; ERTAPENEM SODIUM 1 GM in SODIUM CHLORIDE 50 ML IVPB ONE
[2021-02-02] MEDS ORDERED: ALVIMOPAN 12 MG CAP PO ONE (06:00)
[2021-02-02] MEDS ORDERED: ERTAPENEM SODIUM 0.5 GM in SODIUM CHLORIDE 50 ML IVPB ONE (07:00)
[2021-02-02] MEDS ORDERED: DEXMEDETOMIDINE HCL 200 MCG/2 ML IVPB ONE ×2 (07:00→13:20)
[2021-02-02] MEDS ORDERED: ERTAPENEM SODIUM 1 GM VIAL ONE (07:12)
[2021-02-02] MEDS ORDERED: ceFAZolin SODIUM 1 GM VIAL ONE (07:19)
[2021-02-02] MEDS ORDERED: ETOMIDATE 20 MG/10 ML AMPUL IVPUSH ONE (07:20)
[2021-02-02] MEDS ORDERED: SUGAMMADEX SODIUM 200 MG/2 ML VIAL ONE (07:21)
[2021-02-02] MEDS ORDERED: SUCCINYLCHOLINE CHLORIDE 200 MG/10 ML SYRINGE ONE (07:21)
[2021-02-02] MEDS ORDERED: ROCURONIUM BROMIDE 50 MG/5 ML SYRINGE ONE ×2 (07:21→11:08)
[2021-02-02] MEDS ORDERED: fentaNYL CITRATE 250 MCG/5 ML VIAL ONE (07:23)
[2021-02-02] MEDS ORDERED: PROPOFOL 20 ML ONE ×2 (07:23)
[2021-02-02] MEDS ORDERED: KETAMINE HCL 200 MG/20 ML VIAL ONE (07:23)
[2021-02-02] MEDS ORDERED: BUPIVACAINE HCL/PF 0.5% (5MG/ML) 10 ML VIAL ONE (07:28)
[2021-02-02] MEDS ORDERED: BUPIVACAINE LIPOSOME/PF (EXPAREL) 266 MG/20 ML VIAL ONE (07:28)
[2021-02-02] MEDS ORDERED: MIDAZOLAM HCL 2 MG/2 ML SINGLE DOSE VIAL ONE ×2 (07:50)
[2021-02-02] MEDS ORDERED: ERTAPENEM SODIUM 1 GM VIAL IVPB ONE (08:50)
[2021-02-02] MEDS ORDERED: PROMETHAZINE HCL 25 MG/1 ML VIAL IVPUSH PRN (15:27)
[2021-02-02] MEDS ORDERED: ONDANSETRON 4 MG/2 ML VIAL IVPUSH PRN (15:27)
[2021-02-02] MEDS ORDERED: LACTATED RINGERS SOLUTION 1,000 ML IV SCH (15:30)
[2021-02-02] MEDS ORDERED: SODIUM CHLORIDE 1,000 ML IV SCH (16:45)
[2021-02-02 17:16] LABS: BASO % 0.2 % (0-2.0); EOS % 0.1 % (0-4.5); HEMATOCRIT 32.9 % (35.4-49); HEMOGLOBIN 10.4 GM/dL (11.7-16.9); LYMPH % 5.6 % (8-40); MCH 23.2 pg (25.7-33.7); MCHC 31.6 g/dl (32.0-35.9); MEAN CELL VOLUME 73.2 fl (80-96); MEAN PLT VOLUME 7.7 fl (7.5-11.1); MONO % 12.1 % (3.8-10.2); PLATELET COUNT 193 10^3/uL (134-434); RDW 15.6 % (11.9-15.9); WHITE BLOOD COUNT 13.3 K/mm3 (4.0-10.0)
[2021-02-02 18:29] LABS: BILIRUBIN,TOTAL 0.8 mg/dL (0.2-1); BLOOD UREA NITROGEN 28.2 mg/dL (7-18); CALCIUM 8.3 mg/dL (8.5-10.1); CREATININE 1.5 mg/dL (0.55-1.3); TOT PROT 6.4 g/dl (6.4-8.2)
[2021-02-02] MEDS: ACETAMINOPHEN 1000 MG/100 ML BAG IVPB SCH ×2 (18:53→22:06)
[2021-02-02] MEDS ORDERED: SULFAMETHOXAZOLE/TRIMETHOPRIM 800MG/160MG D.S. TABLET PO SCH (22:00)
[2021-02-02] MEDS: MUPIROCIN 2% TOPICAL OINTMENT FOR DECOLONIZATION NS SCH (22:06)
[2021-02-02] MEDS: ROSUVASTATIN CA 5 MG TABLET PO SCH (22:09)
[2021-02-02] MEDS: SACUBITRIL/VALSARTAN 97 MG-103 MG TABLET PO SCH (22:19)
[2021-02-02] MEDS: HEPARIN NA (PORCINE) 5,000 UNITS/ML 1ML VIAL SQ SCH (22:20)
[2021-02-02] MEDS: ALVIMOPAN 12 MG CAP PO SCH (22:20)
[2021-02-02] MEDS: morphine SULFATE 4 MG/ML VIAL IVPUSH PRN (23:17)
[2021-02-02] MEDS ORDERED: PT OWN MED DRAWER 7, Y5N ONE (23:31)
[2021-02-03] MEDS: ACETAMINOPHEN 1000 MG/100 ML BAG IVPB SCH ×2 (03:49→11:51)
[2021-02-03] MEDS: morphine SULFATE 4 MG/ML VIAL IVPUSH PRN ×2 (04:23→08:03)
[2021-02-03] MEDS: CHLORHEXIDINE GLUCONATE 4% CLEANSER FOR DECOLONIZATION TP SCH ×2 (06:43→22:23)
[2021-02-03] MEDS: TAMSULOSIN HCL 0.4 MG CAP PO SCH (08:04)
[2021-02-03 09:00] LABS: BLOOD UREA NITROGEN 25.8 mg/dL (7-18); CALCIUM 8.1 mg/dL (8.5-10.1)
[2021-02-03 09:01] LABS: MAGNESIUM 2.2 mg/dL (1.8-2.4)
[2021-02-03 09:03] LABS: PHOSPHOROUS 4.6 mg/dL (2.5-4.9)
[2021-02-03 09:04] LABS: CREATININE 1.2 mg/dL (0.55-1.3)
[2021-02-03 09:12] LABS: BASO % 0.2 % (0-2.0); HEMATOCRIT 36.7 % (35.4-49); HEMOGLOBIN 11.6 GM/dL (11.7-16.9); LYMPH % 5.8 % (8-40); MCH 23.7 pg (25.7-33.7); MCHC 31.6 g/dl (32.0-35.9); MEAN CELL VOLUME 75.2 fl (80-96); MEAN PLT VOLUME 8.4 fl (7.5-11.1); MONO % 11.6 % (3.8-10.2); NEUT % 82.4 % (42.8-82.8); PLATELET COUNT 196 10^3/uL (134-434); RBC 4.88 M/mm3 (4.00-5.60); RDW 16.4 % (11.9-15.9); WHITE BLOOD COUNT 9.3 K/mm3 (4.0-10.0)
[2021-02-03] MEDS: MUPIROCIN 2% TOPICAL OINTMENT FOR DECOLONIZATION NS SCH ×2 (09:29→21:16)
[2021-02-03] MEDS: ALVIMOPAN 12 MG CAP PO SCH ×2 (09:31→23:22)
[2021-02-03] MEDS: SACUBITRIL/VALSARTAN 97 MG-103 MG TABLET PO SCH ×2 (09:31→23:22)
[2021-02-03] MEDS: POTASSIUM CHLORIDE TABS 20 MEQ TABLET.ER (FP) PO SCH (09:56)
[2021-02-03] MEDS: FUROSEMIDE 40 MG TABLET (FP) PO SCH (09:56)
[2021-02-03] MEDS: FLUTICASONE/UMECLIDIN/VILANTER(100-62.5-25 TRELEGY ELLIPTA) INAHLER IH SCH (09:57)
[2021-02-03] MEDS: HEPARIN NA (PORCINE) 5,000 UNITS/ML 1ML VIAL SQ SCH ×2 (09:57→21:15)
[2021-02-03] MEDS ORDERED: SODIUM CHLORIDE 1,000 ML IV SCH ×2 (11:40→13:28)
[2021-02-03] MEDS: oxyCODONE HCL 5 MG TABLET PO PRN ×2 (13:32→23:20)
[2021-02-03] MEDS ORDERED: PT OWN MED DRAWER 7, Y5N ONE (20:37)
[2021-02-03] MEDS: ROSUVASTATIN CA 5 MG TABLET PO SCH (23:22)
[2021-02-04] MEDS: ACETAMINOPHEN 500 MG TABLET (FP) PO SCH ×2 (01:01→08:10)
[2021-02-04] MEDS: oxyCODONE HCL 5 MG TABLET PO PRN ×3 (06:22→21:28)
[2021-02-04 07:37] LABS: BASO % 0.3 % (0-2.0); EOS % 0.2 % (0-4.5); HEMATOCRIT 34.2 % (35.4-49); MCH 23.4 pg (25.7-33.7); MEAN CELL VOLUME 73.2 fl (80-96); MEAN PLT VOLUME 8.4 fl (7.5-11.1); MONO % 9.8 % (3.8-10.2); NEUT % 84.7 % (42.8-82.8); PLATELET COUNT 203 10^3/uL (134-434); RBC 4.67 M/mm3 (4.00-5.60); WHITE BLOOD COUNT 10.1 K/mm3 (4.0-10.0)
[2021-02-04 07:53] LABS: BLOOD UREA NITROGEN 18.5 mg/dL (7-18); CALCIUM 8.3 mg/dL (8.5-10.1); MAGNESIUM 2.1 mg/dL (1.8-2.4)
[2021-02-04 07:56] LABS: CREATININE 0.9 mg/dL (0.55-1.3); PHOSPHOROUS 2.8 mg/dL (2.5-4.9)
[2021-02-04] MEDS ORDERED: ARTIFICIAL TEARS (POLYVINYL ALCOHOL) OPTH DROPS OU ONE (08:09)
[2021-02-04] MEDS: TAMSULOSIN HCL 0.4 MG CAP PO SCH (09:43)
[2021-02-04] MEDS: FUROSEMIDE 40 MG TABLET (FP) PO SCH (09:43)
[2021-02-04] MEDS: HEPARIN NA (PORCINE) 5,000 UNITS/ML 1ML VIAL SQ SCH ×2 (09:43→21:28)
[2021-02-04] MEDS: POTASSIUM CHLORIDE TABS 20 MEQ TABLET.ER (FP) PO SCH (09:43)
[2021-02-04] MEDS: FLUTICASONE/UMECLIDIN/VILANTER(100-62.5-25 TRELEGY ELLIPTA) INAHLER IH SCH (09:49)
[2021-02-04] MEDS: MUPIROCIN 2% TOPICAL OINTMENT FOR DECOLONIZATION NS SCH ×2 (09:49→21:29)
[2021-02-04] MEDS ORDERED: PT OWN MED DRAWER 7, Y5N ONE ×3 (10:46→21:11)
[2021-02-04] MEDS: SACUBITRIL/VALSARTAN 97 MG-103 MG TABLET PO SCH ×2 (10:48→21:29)
[2021-02-04] MEDS: ALVIMOPAN 12 MG CAP PO SCH ×2 (10:48→21:28)
[2021-02-04 12:56] VITALS: BMI 29.9
[2021-02-04] MEDS ORDERED: TETRAHYDROZOLINE HCL EYE DROPS OU PRN (13:10)
[2021-02-04] MEDS: ROSUVASTATIN CA 5 MG TABLET PO SCH (21:28)
[2021-02-05] MEDS: ACETAMINOPHEN 500 MG TABLET (FP) PO SCH ×2 (02:12→08:49)
[2021-02-05] MEDS: CHLORHEXIDINE GLUCONATE 4% CLEANSER FOR DECOLONIZATION TP SCH ×2 (02:12→22:04)
[2021-02-05] MEDS ORDERED: PT OWN MED DRAWER 7, Y5N ONE (08:23)
[2021-02-05] MEDS: TAMSULOSIN HCL 0.4 MG CAP PO SCH (08:50)
[2021-02-05] MEDS: MUPIROCIN 2% TOPICAL OINTMENT FOR DECOLONIZATION NS SCH ×2 (09:09→22:04)
[2021-02-05] MEDS: HEPARIN NA (PORCINE) 5,000 UNITS/ML 1ML VIAL SQ SCH (09:10)
[2021-02-05] MEDS: ALVIMOPAN 12 MG CAP PO SCH ×2 (09:10→22:03)
[2021-02-05] MEDS: FUROSEMIDE 40 MG TABLET (FP) PO SCH (09:10)
[2021-02-05] MEDS: POTASSIUM CHLORIDE TABS 20 MEQ TABLET.ER (FP) PO SCH (09:10)
[2021-02-05] MEDS: SACUBITRIL/VALSARTAN 97 MG-103 MG TABLET PO SCH ×2 (09:10→22:04)
[2021-02-05] MEDS: FLUTICASONE/UMECLIDIN/VILANTER(100-62.5-25 TRELEGY ELLIPTA) INAHLER IH SCH (09:11)
[2021-02-05 17:09] LABS: HEMATOCRIT 33.6 % (35.4-49); HEMOGLOBIN 10.7 GM/dL (11.7-16.9); MCHC 31.8 g/dl (32.0-35.9); MEAN CELL VOLUME 72.4 fl (80-96); MEAN PLT VOLUME 8.4 fl (7.5-11.1); PLATELET COUNT 251 10^3/uL (134-434); RBC 4.64 M/mm3 (4.00-5.60); RDW 15.7 % (11.9-15.9); WHITE BLOOD COUNT 9.6 K/mm3 (4.0-10.0)
[2021-02-05 17:36] LABS: ALBUMIN 2.6 g/dl (3.4-5.0); BLOOD UREA NITROGEN 23.2 mg/dL (7-18); CALCIUM 8.4 mg/dL (8.5-10.1); MAGNESIUM 2.1 mg/dL (1.8-2.4)
[2021-02-05 17:39] LABS: CREATININE 0.9 mg/dL (0.55-1.3)
[2021-02-05 17:40] LABS: BILIRUBIN,TOTAL 1.1 mg/dL (0.2-1); TOT PROT 6.3 g/dl (6.4-8.2)
[2021-02-05] MEDS: ROSUVASTATIN CA 5 MG TABLET PO SCH (22:03)
[2021-02-05] MEDS: APIXABAN 5 MG TABLET PO SCH (22:03)
[2021-02-06 07:21] LABS: HEMATOCRIT 31.9 % (35.4-49); HEMOGLOBIN 10.4 GM/dL (11.7-16.9); MCH 23.4 pg (25.7-33.7); MCHC 32.5 g/dl (32.0-35.9); MEAN CELL VOLUME 72.1 fl (80-96); MEAN PLT VOLUME 8.3 fl (7.5-11.1); PLATELET COUNT 260 10^3/uL (134-434); RBC 4.42 M/mm3 (4.00-5.60); RDW 15.3 % (11.9-15.9); WHITE BLOOD COUNT 8.1 K/mm3 (4.0-10.0)
[2021-02-06 07:36] LABS: ALBUMIN 2.3 g/dl (3.4-5.0)
[2021-02-06 07:37] LABS: BLOOD UREA NITROGEN 22.6 mg/dL (7-18); CALCIUM 8.2 mg/dL (8.5-10.1); MAGNESIUM 1.9 mg/dL (1.8-2.4)
[2021-02-06 07:40] LABS: CREATININE 0.9 mg/dL (0.55-1.3)
[2021-02-06 07:41] LABS: TOT PROT 5.8 g/dl (6.4-8.2)
[2021-02-06 07:42] LABS: BILIRUBIN,TOTAL 1.1 mg/dL (0.2-1)
[2021-02-06] MEDS: SACUBITRIL/VALSARTAN 97 MG-103 MG TABLET PO SCH ×2 (09:16→21:11)
[2021-02-06] MEDS: FUROSEMIDE 40 MG TABLET (FP) PO SCH (09:16)
[2021-02-06] MEDS: POTASSIUM CHLORIDE TABS 20 MEQ TABLET.ER (FP) PO SCH (09:16)
[2021-02-06] MEDS: TAMSULOSIN HCL 0.4 MG CAP PO SCH (09:16)
[2021-02-06] MEDS: ALVIMOPAN 12 MG CAP PO SCH ×2 (09:16→21:11)
[2021-02-06] MEDS: MUPIROCIN 2% TOPICAL OINTMENT FOR DECOLONIZATION NS SCH (09:17)
[2021-02-06] MEDS: FLUTICASONE/UMECLIDIN/VILANTER(100-62.5-25 TRELEGY ELLIPTA) INAHLER IH SCH (09:17)
[2021-02-06] MEDS: APIXABAN 5 MG TABLET PO SCH ×2 (09:17→21:11)
[2021-02-06] MEDS ORDERED: PT OWN MED DRAWER 7, Y5N ONE (20:27)
[2021-02-06] MEDS: CHLORHEXIDINE GLUCONATE 4% CLEANSER FOR DECOLONIZATION TP SCH (21:11)
[2021-02-06] MEDS: ROSUVASTATIN CA 5 MG TABLET PO SCH (21:11)
[2021-02-06] MEDS ORDERED: oxyCODONE HCL 5 MG TABLET PO PRN (22:28)
[2021-02-07] MEDS: MUPIROCIN 2% TOPICAL OINTMENT FOR DECOLONIZATION NS SCH ×2 (03:51→10:10)
[2021-02-07 07:01] LABS: BASO % 0.6 % (0-2.0); EOS % 2.1 % (0-4.5); HEMATOCRIT 32.4 % (35.4-49); HEMOGLOBIN 10.5 GM/dL (11.7-16.9); LYMPH % 12.5 % (8-40); MCH 23.3 pg (25.7-33.7); MCHC 32.3 g/dl (32.0-35.9); MEAN CELL VOLUME 72.2 fl (80-96); MONO % 14.6 % (3.8-10.2); NEUT % 70.2 % (42.8-82.8); PLATELET COUNT 269 10^3/uL (134-434); RBC 4.49 M/mm3 (4.00-5.60); RDW 15.5 % (11.9-15.9); WHITE BLOOD COUNT 8.2 K/mm3 (4.0-10.0)
[2021-02-07 07:57] LABS: ALBUMIN 2.3 g/dl (3.4-5.0); CREATININE 0.9 mg/dL (0.55-1.3)
[2021-02-07 07:58] LABS: CALCIUM 8.3 mg/dL (8.5-10.1)
[2021-02-07 07:59] LABS: TOT PROT 5.9 g/dl (6.4-8.2)
[2021-02-07] MEDS: TAMSULOSIN HCL 0.4 MG CAP PO SCH (09:39)
[2021-02-07] MEDS: FUROSEMIDE 40 MG TABLET (FP) PO SCH (09:39)
[2021-02-07] MEDS: POTASSIUM CHLORIDE TABS 20 MEQ TABLET.ER (FP) PO SCH (09:39)
[2021-02-07] MEDS: SACUBITRIL/VALSARTAN 97 MG-103 MG TABLET PO SCH (09:39)
[2021-02-07] MEDS: APIXABAN 5 MG TABLET PO SCH (09:39)
[2021-02-07] MEDS: ALVIMOPAN 12 MG CAP PO SCH (09:40)
[2021-02-07] MEDS: FLUTICASONE/UMECLIDIN/VILANTER(100-62.5-25 TRELEGY ELLIPTA) INAHLER IH SCH (10:10)
[2021-02-07 16:35] VITALS: TEMP 97.8
[2021-02-08 09:21] VITALS: BP 144/51; PULSE 84
== END 2021-02-07 16:00 | disposition home or self-care (01) | DRG 333 ==
LOC: J2C 02-02 04:58 → JICU 02-02 17:39
PROVIDERS: ADMIT Surgery; ATTEND Family Medicine
PROC: 0DBP4ZZ Excision of Rectum, Percutaneous Endoscopic Approach (ICD-10-PCS; principal; 2021-02-03)
PROC: 8E0W4CZ Robotic Assisted Procedure of Trunk Region, Percutaneous Endoscopic Approach (ICD-10-PCS; 2021-02-03)
DX: C20 Malignant neoplasm of rectum (principal); I42.8 Other cardiomyopathies; I50.22 Chronic systolic (congestive) heart failure; J44.9 Chronic obstructive pulmonary disease, unspecified; I48.0 Paroxysmal atrial fibrillation; G89.18 Other acute postprocedural pain; I25.10 Atherosclerotic heart disease of native coronary artery without angina pectoris; E78.5 Hyperlipidemia, unspecified; E11.9 Type 2 diabetes mellitus without complications; Z95.810 Presence of automatic (implantable) cardiac defibrillator; D64.9 Anemia, unspecified; D72.829 Elevated white blood cell count, unspecified; I11.0 Hypertensive heart disease with heart failure; I44.0 Atrioventricular block, first degree; N20.0 Calculus of kidney; K57.30 Diverticulosis of large intestine without perforation or abscess without bleeding
CPT/HCPCS: 36415; 80048; 80053; 81003; 82962; 83735; 84100; 85025; 85027; 86850; 86900; 86901; 88305-TC; 88309-TC; 94010; 94760; 97116-GP; 97161-GP; C9803; J0131; J1644; U0003; U0005

== ENCOUNTER 2021-06-24 14:39 | Inpatient (IN) | payer OTHER, BC ==
[2021-06-24] MEDS ORDERED: ALBUTEROL SO4 2.5/IPRATROPIUM 0.5 INH SOL 3 ML VIAL.NEB. NEB ONE ×2 (17:29→17:47)
[2021-06-24 17:30] LABS: BASO % 0.6 % (0-2.0); HEMATOCRIT 37.3 % (35.4-49); HEMOGLOBIN 11.7 GM/dL (11.7-16.9); LYMPH % 3.9 % (8-40); MCH 22.8 pg (25.7-33.7); MCHC 31.3 g/dl (32.0-35.9); MEAN CELL VOLUME 72.9 fl (80-96); MEAN PLT VOLUME 8.6 fl (7.5-11.1); MONO % 14.4 % (3.8-10.2); NEUT % 81.1 % (42.8-82.8); PLATELET COUNT 193 10^3/uL (134-434); RBC 5.12 M/mm3 (4.00-5.60); RDW 15.7 % (11.9-15.9); WHITE BLOOD COUNT 7.2 K/mm3 (4.0-10.0)
[2021-06-24 17:43] LABS: INR 1.7 (0.83-1.09); PROTHROMBIN TIME (PATIENT) 19.7 SEC (9.7-13.0)
[2021-06-24 17:45] LABS: ACTIVATED PTT 37.6 SECONDS (25.2-36.5)
[2021-06-24 17:47] LABS: CALCIUM 8.8 mg/dL (8.5-10.1)
[2021-06-24 17:48] LABS: ALBUMIN 3.7 g/dl (3.4-5.0); BLOOD UREA NITROGEN 27.9 mg/dL (7-18); MAGNESIUM 2.2 mg/dL (1.8-2.4)
[2021-06-24 17:51] LABS: CREATININE 1.4 mg/dL (0.55-1.3)
[2021-06-24 17:53] LABS: BILIRUBIN,TOTAL 1.6 mg/dL (0.2-1); TOT PROT 7.7 g/dl (6.4-8.2)
[2021-06-24 17:56] LABS: N-TERMINAL BNP 1173.7 pg/ml (5-450)
[2021-06-24] MEDS ORDERED: CEFTRIAXONE 1 GM in DEXTROSE 5%-WATER - 50 ML IVPB ONE (19:10)
[2021-06-24] MEDS ORDERED: AZITHROMYCIN IVPB 500 MG in DEXTROSE 5%-WATER - 250 ML IVPB ONE (19:11)
[2021-06-24] MEDS ORDERED: CEFTRIAXONE 1 GM/50 ML BAG ONE (19:31)
[2021-06-24] MEDS ORDERED: AZITHROMYCIN IVPB 500 MG/250 ML BAG IVPB ONE (19:31)
[2021-06-24 22:47] LABS: VENOUS BASE EXCESS -0.6 mmol/L (-2-2); VENOUS PCO2 59.3 mmHg (38-52); VENOUS PH 7.279 (7.310-7.410)
[2021-06-24 23:18] LABS: ARTERIAL BLD GAS O2 SATURATION 97.6 % (95-98); ARTERIAL BLOOD GAS BASE EXCESS 1.6 mmol/L (-2-2); ARTERIAL BLOOD GAS PO2 105.7 mmHg (80-100); ARTERIAL BLOOD GAS pH 7.354 (7.350-7.450)
[2021-06-24 23:20] LABS: ALLENS TEST POSITIVE
[2021-06-25] MEDS ORDERED: OSELTAMIVIR PHOSPHATE 30 MG CAPSULE PO ONE (03:13)
[2021-06-25] MEDS ORDERED: methylPREDNISolone NA SUCC 125 MG/2 ML VIAL IVPUSH ONE (03:42)
[2021-06-25] MEDS ORDERED: ACETAMINOPHEN 325 MG TABLET (FP) PO PRN (03:45)
[2021-06-25] MEDS ORDERED: methylPREDNISolone NA SUCC 125 MG/2 ML VIAL ONE (04:34)
[2021-06-25] MEDS ORDERED: ALBUTEROL SO4 2.5/IPRATROPIUM 0.5 INH SOL 3 ML VIAL.NEB. NEB PRN (05:26)
[2021-06-25 08:44] LABS: VENOUS BASE EXCESS 1.8 mmol/L (-2-2); VENOUS O2 SATURATION 59.3 % (70-80); VENOUS PCO2 66.2 mmHg (38-52); VENOUS PH 7.279 (7.310-7.410)
[2021-06-25 08:57] LABS: BASO % 0.4 % (0-2.0); HEMATOCRIT 37.9 % (35.4-49); HEMOGLOBIN 12.2 GM/dL (11.7-16.9); LYMPH % 8.7 % (8-40); MCH 23.3 pg (25.7-33.7); MCHC 32.1 g/dl (32.0-35.9); MEAN CELL VOLUME 72.6 fl (80-96); MEAN PLT VOLUME 8.2 fl (7.5-11.1); MONO % 3.9 % (3.8-10.2); PLATELET COUNT 181 10^3/uL (134-434); RBC 5.22 M/mm3 (4.00-5.60); RDW 15.9 % (11.9-15.9); WHITE BLOOD COUNT 5.4 K/mm3 (4.0-10.0)
[2021-06-25 09:25] LABS: ALBUMIN 3.7 g/dl (3.4-5.0); BLOOD UREA NITROGEN 38.7 mg/dL (7-18)
[2021-06-25 09:28] LABS: CREATININE 1.6 mg/dL (0.55-1.3)
[2021-06-25 09:29] LABS: TOT PROT 7.8 g/dl (6.4-8.2)
[2021-06-25 09:30] LABS: BILIRUBIN,TOTAL 1.1 mg/dL (0.2-1)
[2021-06-25] MEDS ORDERED: AZITHROMYCIN IVPB 500 MG in DEXTROSE 5%-WATER - 250 ML IVPB SCH (10:00)
[2021-06-25] MEDS: methylPREDNISolone NA SUCC 40 MG/1 ML VIAL IVPUSH SCH ×3 (10:54→21:33)
[2021-06-25] MEDS: APIXABAN 5 MG TABLET PO SCH ×2 (10:54→21:33)
[2021-06-25] MEDS: FLUTICASONE/UMECLIDIN/VILANTER(100-62.5-25 TRELEGY ELLIPTA) INAHLER IH SCH (10:54)
[2021-06-25] MEDS: SACUBITRIL/VALSARTAN 97 MG-103 MG TABLET PO SCH (11:20)
[2021-06-25 14:21] LABS: ALLENS TEST POSITIVE; ARTERIAL BLD GAS O2 SATURATION 97.2 % (95-98); ARTERIAL BLOOD GAS BASE EXCESS -1.4 mmol/L (-2-2); ARTERIAL BLOOD GAS PO2 100.9 mmHg (80-100); ARTERIAL BLOOD GAS pH 7.334 (7.350-7.450)
[2021-06-25] MEDS: OSELTAMIVIR PHOSPHATE 30 MG CAPSULE PO SCH (21:34)
[2021-06-26] MEDS: methylPREDNISolone NA SUCC 40 MG/1 ML VIAL IVPUSH SCH ×3 (02:28→17:17)
[2021-06-26] MEDS: APIXABAN 5 MG TABLET PO SCH ×2 (09:49→21:48)
[2021-06-26] MEDS: OSELTAMIVIR PHOSPHATE 30 MG CAPSULE PO SCH ×2 (09:51→21:48)
[2021-06-26] MEDS: AZITHROMYCIN IVPB 500 MG/250 ML BAG IVPB SCH (09:58)
[2021-06-26] MEDS: FLUTICASONE/UMECLIDIN/VILANTER(100-62.5-25 TRELEGY ELLIPTA) INAHLER IH SCH (10:03)
[2021-06-26 15:59] LABS: CALCIUM 8.8 mg/dL (8.5-10.1)
[2021-06-26 16:03] LABS: CREATININE 1.6 mg/dL (0.55-1.3)
[2021-06-27] MEDS: methylPREDNISolone NA SUCC 40 MG/1 ML VIAL IVPUSH SCH ×5 (01:43→23:41)
[2021-06-27 09:14] LABS: URINE APPEARANCE CLOUDY; URINE BILIRUBIN NEGATIVE (NEGATIVE); URINE COLOR YELLOW; URINE GLUCOSE (UA) NEGATIVE (NEGATIVE); URINE KETONE NEGATIVE (NEGATIVE); URINE LEUK ESTERASE NEGATIVE (NEGATIVE); URINE NITRITE NEGATIVE (NEGATIVE); URINE PROTEIN NEGATIVE (NEGATIVE); URINE UROBILINOGEN 0.2 mg/dL (0.2-1.0)
[2021-06-27 09:31] LABS: URINE UREA NITROGEN 955 mg/dL (350-1000)
[2021-06-27] MEDS: APIXABAN 5 MG TABLET PO SCH ×2 (09:59→21:24)
[2021-06-27] MEDS: AZITHROMYCIN IVPB 500 MG/250 ML BAG IVPB SCH (10:00)
[2021-06-27] MEDS: OSELTAMIVIR PHOSPHATE 30 MG CAPSULE PO SCH ×2 (10:00→21:25)
[2021-06-27] MEDS: FLUTICASONE/UMECLIDIN/VILANTER(100-62.5-25 TRELEGY ELLIPTA) INAHLER IH SCH (10:02)
[2021-06-27] MEDS: SACUBITRIL/VALSARTAN 97 MG-103 MG TABLET PO SCH (21:26)
[2021-06-28 09:53] LABS: CALCIUM 8.6 mg/dL (8.5-10.1)
[2021-06-28 09:54] LABS: BLOOD UREA NITROGEN 66.9 mg/dL (7-18)
[2021-06-28 09:56] LABS: CREATININE 1.4 mg/dL (0.55-1.3)
[2021-06-28] MEDS: APIXABAN 5 MG TABLET PO SCH ×2 (10:30→21:52)
[2021-06-28] MEDS: OSELTAMIVIR PHOSPHATE 30 MG CAPSULE PO SCH ×2 (10:30→21:53)
[2021-06-28] MEDS: SACUBITRIL/VALSARTAN 97 MG-103 MG TABLET PO SCH ×2 (10:30→21:53)
[2021-06-28] MEDS: AZITHROMYCIN IVPB 500 MG/250 ML BAG IVPB SCH (10:31)
[2021-06-28] MEDS: FLUTICASONE/UMECLIDIN/VILANTER(100-62.5-25 TRELEGY ELLIPTA) INAHLER IH SCH (10:32)
[2021-06-28] MEDS: methylPREDNISolone NA SUCC 40 MG/1 ML VIAL IVPUSH SCH ×2 (11:30→23:19)
[2021-06-29 08:29] LABS: BLOOD UREA NITROGEN 60.5 mg/dL (7-18)
[2021-06-29 08:32] LABS: CALCIUM 8.7 mg/dL (8.5-10.1); CREATININE 1.3 mg/dL (0.55-1.3); PHOSPHOROUS 3.1 mg/dL (2.5-4.9)
[2021-06-29] MEDS: FLUTICASONE/UMECLIDIN/VILANTER(100-62.5-25 TRELEGY ELLIPTA) INAHLER IH SCH (09:39)
[2021-06-29] MEDS: SACUBITRIL/VALSARTAN 97 MG-103 MG TABLET PO SCH ×2 (09:58→21:33)
[2021-06-29] MEDS: OSELTAMIVIR PHOSPHATE 30 MG CAPSULE PO SCH ×2 (09:58→21:33)
[2021-06-29] MEDS: APIXABAN 5 MG TABLET PO SCH ×2 (09:58→21:31)
[2021-06-29] MEDS: methylPREDNISolone NA SUCC 40 MG/1 ML VIAL IVPUSH SCH ×2 (12:05→22:55)
[2021-06-30 06:24] VITALS: BP 129/73; PULSE 77; TEMP 98.1
[2021-06-30] MEDS: SACUBITRIL/VALSARTAN 97 MG-103 MG TABLET PO SCH (09:38)
[2021-06-30] MEDS: APIXABAN 5 MG TABLET PO SCH (09:38)
[2021-06-30] MEDS: OSELTAMIVIR PHOSPHATE 30 MG CAPSULE PO SCH (09:39)
[2021-06-30] MEDS: FLUTICASONE/UMECLIDIN/VILANTER(100-62.5-25 TRELEGY ELLIPTA) INAHLER IH SCH (09:40)
[2021-06-30] MEDS: methylPREDNISolone NA SUCC 40 MG/1 ML VIAL IVPUSH SCH (11:38)
[2021-06-30 21:33] VITALS: BMI 27.4
== END 2021-06-30 14:18 | disposition home or self-care (01) | DRG 193 ==
LOC: JER 14:39 → JERBED 06-25 01:54 → J4W 06-25 05:25
PROVIDERS: ADMIT Hospitalist; ATTEND Family Medicine
DX: J10.1 Influenza due to other identified influenza virus with other respiratory manifestations (principal); J96.02 Acute respiratory failure with hypercapnia; J96.01 Acute respiratory failure with hypoxia; J44.1 Chronic obstructive pulmonary disease with (acute) exacerbation; N17.9 Acute kidney failure, unspecified; E87.1 Hypo-osmolality and hyponatremia; I42.8 Other cardiomyopathies; I11.0 Hypertensive heart disease with heart failure; I25.10 Atherosclerotic heart disease of native coronary artery without angina pectoris; I50.9 Heart failure, unspecified; E78.5 Hyperlipidemia, unspecified; Z95.810 Presence of automatic (implantable) cardiac defibrillator; E11.9 Type 2 diabetes mellitus without complications; I44.0 Atrioventricular block, first degree; N40.0 Benign prostatic hyperplasia without lower urinary tract symptoms; I48.0 Paroxysmal atrial fibrillation; E86.9 Volume depletion, unspecified; Z28.310 Unvaccinated for COVID-19; N28.1 Cyst of kidney, acquired
CPT/HCPCS: 0241U-QW; 36415; 36600; 71045-TC-FY; 71250-TC; 76775-TC; 80048; 80053; 81003; 82570; 82803; 83735; 83880; 84100; 84300; 84484; 84540; 85025; 85610; 85730; 93005; 93010; 99285-25

== ENCOUNTER 2022-05-10 11:09 | Day surgery (SDC) | payer OTHER, BC ==
[2022-05-10] MEDS ORDERED: FERRIC CARBOXYMALTOSE 750 MG in SODIUM CHLORIDE 250 ML IVPB ONE (12:15)
[2022-05-10 13:54] VITALS: BP 106/60; PULSE 71; RESP 18; TEMP 98.4
== END 2022-05-10 13:38 | disposition home or self-care (01) ==
LOC: FINFUSION 11:09 → FM/S 11:40 → FINFUSION 13:38
PROVIDERS: ATTEND Family Medicine
PROC: 3E033GC Introduction of Other Therapeutic Substance into Peripheral Vein, Percutaneous Approach (ICD-10-PCS; principal; 2022-05-10)
DX: D50.9 Iron deficiency anemia, unspecified (principal)
CPT/HCPCS: 96365; J1439

== ENCOUNTER 2022-05-17 09:32 | Day surgery (SDC) | payer OTHER, BC ==
[2022-05-17] MEDS ORDERED: FERRIC CARBOXYMALTOSE 750 MG in SODIUM CHLORIDE 250 ML IVPB ONE (10:45)
[2022-05-17 12:26] VITALS: BP 98/48; PULSE 81; RESP 18; TEMP 98.4
== END 2022-05-17 12:27 | disposition home or self-care (01) ==
LOC: FINFUSION 09:32 → FM/S 09:35 → FINFUSION 12:27
PROVIDERS: ATTEND Family Medicine
PROC: 3E033GC Introduction of Other Therapeutic Substance into Peripheral Vein, Percutaneous Approach (ICD-10-PCS; principal; 2022-05-17)
DX: D50.9 Iron deficiency anemia, unspecified (principal)
CPT/HCPCS: 96365; J1439

== ENCOUNTER 2022-06-14 10:50 | Emergency (ER) | payer OTHER, BC ==
[2022-06-14 10:59] VITALS: BMI 28.5
[2022-06-14] MEDS ORDERED: IBUPROFEN 600 MG TABLET (FP) PO ONE ×2 (12:27→12:59)
[2022-06-14 12:34] LABS: BASO % 0.5 % (0-2.0); EOS % 0.4 % (0-4.5); HEMATOCRIT 39.1 % (35.4-49); HEMOGLOBIN 12.5 GM/dL (11.7-16.9); LYMPH % 6.1 % (8-40); MCH 23.3 pg (25.7-33.7); MCHC 31.9 g/dl (32.0-35.9); MEAN CELL VOLUME 73.1 fl (80-96); MEAN PLT VOLUME 7.5 fl (7.5-11.1); PLATELET COUNT 227 10^3/uL (134-434); RBC 5.35 M/mm3 (4.00-5.60); RDW 16.2 % (11.9-15.9); WHITE BLOOD COUNT 12.1 K/mm3 (4.0-10.0)
[2022-06-14 13:04] LABS: CALCIUM 9.2 mg/dL (8.5-10.1)
[2022-06-14 13:05] LABS: ALBUMIN 3.8 g/dl (3.4-5.0); BLOOD UREA NITROGEN 19.9 mg/dL (7-18)
[2022-06-14 13:08] LABS: CREATININE 1.2 mg/dL (0.55-1.3)
[2022-06-14 13:09] LABS: BILIRUBIN,TOTAL 1.4 mg/dL (0.2-1); TOT PROT 7.8 g/dl (6.4-8.2)
[2022-06-14 13:12] LABS: ERYTHROCYTE SEDIMENTATION RATE 23 mm/hr (0-20)
[2022-06-14 16:21] VITALS: BP 135/75; PULSE 85; RESP 18; TEMP 98.5
== END 2022-06-14 16:19 | disposition home or self-care (01) ==
LOC: JER 10:50
DX: R22.41 Localized swelling, mass and lump, right lower limb (principal); M79.671 Pain in right foot
CPT/HCPCS: 36415; 73610-TC-RT-FY; 73630-TC-RT-FY; 80053; 82550; 82962; 85025; 85651; 86140; 93971-TC; 99285-25

== ENCOUNTER 2023-05-10 11:57 | Day surgery (SDC) | payer OTHER, BC ==
[2023-05-10] MEDS: IRON SUCROSE INJECTION 200 MG in SODIUM CHLORIDE 100 ML IVPB ONE (12:46)
[2023-05-10 13:31] VITALS: BP 125/84; PULSE 71; RESP 18; TEMP 97.9
== END 2023-05-10 14:00 | disposition home or self-care (01) ==
LOC: FINFUSION 11:57 → FM/S 12:00 → FINFUSION 14:00
PROVIDERS: ATTEND Family Medicine
PROC: 3E033GC Introduction of Other Therapeutic Substance into Peripheral Vein, Percutaneous Approach (ICD-10-PCS; principal; 2023-05-10)
DX: D50.9 Iron deficiency anemia, unspecified (principal)
CPT/HCPCS: 96365; J1756

== ENCOUNTER 2023-05-17 12:16 | Day surgery (SDC) | payer OTHER, BC ==
[2023-05-17] MEDS ORDERED: HYDROCORTISONE SOD SUCCINATE 100 MG/2 ML VIAL IVPUSH PRN (12:35)
[2023-05-17] MEDS ORDERED: diphenhydrAMINE HCL 50 MG CAPSULE PO PRN (12:35)
[2023-05-17] MEDS: IRON SUCROSE INJECTION 200 MG in SODIUM CHLORIDE 100 ML IVPB ONE (12:41)
[2023-05-17 12:44] VITALS: RESP 18; TEMP 98.1
[2023-05-17 13:18] VITALS: BP 104/55; PULSE 65
== END 2023-05-17 13:18 | disposition home or self-care (01) ==
LOC: FINFUSION 12:16 → FM/S 12:18 → FINFUSION 13:18
PROVIDERS: ATTEND Family Medicine
PROC: 3E033GC Introduction of Other Therapeutic Substance into Peripheral Vein, Percutaneous Approach (ICD-10-PCS; principal; 2023-05-17)
DX: D50.9 Iron deficiency anemia, unspecified (principal)
CPT/HCPCS: 96365; J1756

== ENCOUNTER 2023-05-24 12:02 | Day surgery (SDC) | payer OTHER, BC ==
[2023-05-24] MEDS: IRON SUCROSE INJECTION 200 MG in SODIUM CHLORIDE 100 ML IVPB ONE (13:06)
[2023-05-24 13:20] VITALS: TEMP 98
[2023-05-24 14:16] VITALS: BP 100/56; PULSE 65; RESP 16
== END 2023-05-24 14:17 | disposition home or self-care (01) ==
LOC: FINFUSION 12:02 → FM/S 12:03 → FINFUSION 14:17
PROVIDERS: ATTEND Family Medicine
PROC: 3E033GC Introduction of Other Therapeutic Substance into Peripheral Vein, Percutaneous Approach (ICD-10-PCS; principal; 2023-05-24)
DX: D50.9 Iron deficiency anemia, unspecified (principal)
CPT/HCPCS: 96365; J1756

== ENCOUNTER 2023-06-11 01:57 | Inpatient (IN) | payer OTHER, BC ==
[2023-06-11 03:36] LABS: BASO % 0.6 % (0-2.0); EOS % 1.8 % (0-4.5); HEMATOCRIT 38.1 % (35.4-49); HEMOGLOBIN 12.2 GM/dL (11.7-16.9); LYMPH % 9.4 % (8-40); MCH 23.4 pg (25.7-33.7); MCHC 31.9 g/dl (32.0-35.9); MEAN CELL VOLUME 73.3 fl (80-96); MEAN PLT VOLUME 8.5 fl (7.5-11.1); MONO % 10.1 % (3.8-10.2); NEUT % 78.1 % (42.8-82.8); PLATELET COUNT 165 10^3/uL (134-434); RDW 16.8 % (11.9-15.9); WHITE BLOOD COUNT 9.4 K/mm3 (4.0-10.0)
[2023-06-11 03:44] LABS: POTASSIUM 5.2 mmol/L (3.5-5.1)
[2023-06-11] MEDS: ALBUTEROL SO4 2.5/IPRATROPIUM 0.5 INH SOL 3 ML VIAL.NEB. NEB SCH (03:45)
[2023-06-11 03:46] LABS: CALCIUM 8.7 mg/dL (8.5-10.1)
[2023-06-11 03:47] LABS: ALBUMIN 3.3 g/dl (3.4-5.0); BLOOD UREA NITROGEN 21.8 mg/dL (7-18)
[2023-06-11 03:52] LABS: BILIRUBIN,TOTAL 0.8 mg/dL (0.2-1); CREATININE 1.1 mg/dL (0.55-1.3)
[2023-06-11 03:55] LABS: N-TERMINAL BNP 169.6 pg/ml (5-450)
[2023-06-11] MEDS: DEXAMETHASONE SOD PHOSPHATE 10 MG/1 ML VIAL IVPUSH ONE (04:24)
[2023-06-11] MEDS: REMDESIVIR 200 MG in SODIUM CHLORIDE 250 ML IVPB ONE (06:31)
[2023-06-11] MEDS ORDERED: ONDANSETRON 4 MG/2 ML VIAL IVPUSH PRN (06:49)
[2023-06-11] MEDS ORDERED: ALBUTEROL SO4 2.5/IPRATROPIUM 0.5 INH SOL 3 ML VIAL.NEB. NEB PRN (08:41)
[2023-06-11] MEDS ORDERED: DEXAMETHASONE SOD PHOSPHATE 10 MG/1 ML VIAL IVPUSH SCH (10:00)
[2023-06-11] MEDS: APIXABAN 5 MG TABLET PO SCH (10:36)
[2023-06-11] MEDS: FUROSEMIDE 40 MG TABLET (FP) PO SCH (10:36)
[2023-06-11] MEDS: SACUBITRIL/VALSARTAN 97 MG-103 MG TABLET PO SCH (10:36)
[2023-06-11] MEDS: TAMSULOSIN HCL 0.4 MG CAP PO SCH (10:36)
[2023-06-11] MEDS: ROSUVASTATIN CA 5 MG TABLET PO SCH (10:36)
[2023-06-11 11:46] VITALS: BMI 27.3
[2023-06-11] MEDS: metoPROLOL SUCCINATE 25 MG TAB.SR.24H (FP) PO SCH (22:17)
[2023-06-12 06:54] LABS: BASO % 0.7 % (0-2.0); EOS % 0.3 % (0-4.5); HEMATOCRIT 32.9 % (35.4-49); HEMOGLOBIN 10.6 GM/dL (11.7-16.9); LYMPH % 12.7 % (8-40); MCH 23.6 pg (25.7-33.7); MCHC 32.2 g/dl (32.0-35.9); MEAN CELL VOLUME 73.2 fl (80-96); MEAN PLT VOLUME 7.9 fl (7.5-11.1); MONO % 11.1 % (3.8-10.2); NEUT % 75.2 % (42.8-82.8); PLATELET COUNT 214 10^3/uL (134-434); RBC 4.49 M/mm3 (4.00-5.60); RDW 16.1 % (11.9-15.9); WHITE BLOOD COUNT 9.6 K/mm3 (4.0-10.0)
[2023-06-12 07:08] LABS: INR 1.43 (0.83-1.09)
[2023-06-12 07:11] LABS: ACTIVATED PTT 34.6 SECONDS (25.2-36.5)
[2023-06-12 07:13] LABS: CHLORIDE 104 mmol/L (98-107); POTASSIUM 4.1 mmol/L (3.5-5.1); SODIUM 136 mmol/L (136-145)
[2023-06-12 07:18] LABS: CALCIUM 8.7 mg/dL (8.5-10.1)
[2023-06-12 07:19] LABS: ANION GAP 2 mmol/L (4-13); BLOOD UREA NITROGEN 25.6 mg/dL (7-18); CO2 30 mmol/L (21-32); GLUCOSE,RANDOM 118 mg/dL (74-106); MAGNESIUM 2.1 mg/dL (1.8-2.4)
[2023-06-12 07:21] LABS: PHOSPHOROUS 3.2 mg/dL (2.5-4.9)
[2023-06-12 07:22] LABS: CREATININE 1.1 mg/dL (0.55-1.3)
[2023-06-12] MEDS: DEXAMETHASONE SOD PHOSPHATE 10 MG/1 ML VIAL IVPUSH SCH (10:20)
[2023-06-12] MEDS: CEFTRIAXONE 1 GM in DEXTROSE 5%-WATER - 50 ML IVPB SCH (11:45)
[2023-06-12] MEDS: AZITHROMYCIN IVPB 500 MG/250 ML BAG IVPB SCH (11:46)
[2023-06-12] MEDS: REMDESIVIR 100 MG in SODIUM CHLORIDE 250 ML IVPB SCH (12:50)
[2023-06-13 07:29] LABS: BASO % 0.3 % (0-2.0); HEMATOCRIT 36.6 % (35.4-49); HEMOGLOBIN 11.3 GM/dL (11.7-16.9); LYMPH % 8.1 % (8-40); MCH 22.8 pg (25.7-33.7); MCHC 30.9 g/dl (32.0-35.9); MEAN CELL VOLUME 73.9 fl (80-96); MEAN PLT VOLUME 8.3 fl (7.5-11.1); MONO % 8.1 % (3.8-10.2); NEUT % 83.5 % (42.8-82.8); PLATELET COUNT 240 10^3/uL (134-434); RBC 4.95 M/mm3 (4.00-5.60); RDW 16.3 % (11.9-15.9); WHITE BLOOD COUNT 11.5 K/mm3 (4.0-10.0)
[2023-06-13] MEDS ORDERED: REMDESIVIR 100 MG in SODIUM CHLORIDE 250 ML IVPB SCH (10:00)
[2023-06-13] MEDS: metoPROLOL SUCCINATE 25 MG TAB.SR.24H (FP) PO ONE (14:41)
[2023-06-13] MEDS: LIPASE/PROTEASE/AMYLASE 24,000 UNIT CAPSULE PO SCH (14:41)
[2023-06-13] MEDS: ROSUVASTATIN CA 5 MG TABLET PO SCH (21:43)
[2023-06-15] MEDS: FLUTICASONE/UMECLIDIN/VILANTER(100-62.5-25 TRELEGY ELLIPTA) INAHLER IH SCH (13:58)
[2023-06-16 08:23] LABS: POTASSIUM 4.9 mmol/L (3.5-5.1)
[2023-06-16 08:27] LABS: BLOOD UREA NITROGEN 35.3 mg/dL (7-18)
[2023-06-16 08:30] LABS: CALCIUM 8.7 mg/dL (8.5-10.1); CREATININE 1.1 mg/dL (0.55-1.3); MAGNESIUM 2.2 mg/dL (1.8-2.4); PHOSPHOROUS 2.6 mg/dL (2.5-4.9)
[2023-06-16 14:29] VITALS: BP 113/65; PULSE 56; RESP 17; TEMP 97.6
== END 2023-06-16 16:52 | disposition home or self-care (01) | DRG 177 ==
LOC: JER 01:57 → JERBED 04:11 → J4S 08:31
PROVIDERS: ADMIT Internal Medicine; ATTEND Family Medicine
PROC: XW033E5 Introduction of Remdesivir Anti-infective into Peripheral Vein, Percutaneous Approach, New Technology Group 5 (ICD-10-PCS; principal; 2023-06-11)
DX: U07.1 COVID-19 (principal); I49.01 Ventricular fibrillation; J12.82 Pneumonia due to coronavirus disease 2019; I50.22 Chronic systolic (congestive) heart failure; I42.8 Other cardiomyopathies; I47.20 Ventricular tachycardia, unspecified; I47.10 Supraventricular tachycardia, unspecified; E11.9 Type 2 diabetes mellitus without complications; I27.20 Pulmonary hypertension, unspecified; I11.0 Hypertensive heart disease with heart failure; J44.9 Chronic obstructive pulmonary disease, unspecified; I08.3 Combined rheumatic disorders of mitral, aortic and tricuspid valves; E78.5 Hyperlipidemia, unspecified; I48.91 Unspecified atrial fibrillation; I25.10 Atherosclerotic heart disease of native coronary artery without angina pectoris
CPT/HCPCS: 0241U-QW; 36415; 71045-TC-FY; 80048; 80053; 82962; 83735; 83880; 84100; 84484; 85025; 85610; 85730; 86140; 93005; 93010; 94761; 97116-GP; 97161-GP; 99285-25; J0248; J1100

== ENCOUNTER 2023-06-20 12:43 | Emergency (ER) | payer OTHER, BC ==
[2023-06-20 13:14] VITALS: BP 113/61; PULSE 73; RESP 20; TEMP 99.1; BMI 27.6
[2023-06-20] MEDS: ACETAMINOPHEN 1000 MG/100 ML BAG IVPB ONE (13:45)
[2023-06-20] MEDS ORDERED: ACETAMINOPHEN INJECTION 100 ML IVPB ONE (13:47)
[2023-06-20 14:03] LABS: HEMATOCRIT 38.8 % (35.4-49); HEMOGLOBIN 12.2 G/dL (11.7-16.9); MCH 23.7 pg (25.7-33.7); MCHC 31.5 g/dl (32.0-35.9); MEAN CELL VOLUME 75.2 fl (80-96); MEAN PLT VOLUME 9.2 fl (7.5-11.1); PLATELET COUNT 232.1 10^3/uL (134-434); RBC 5.16 10^6/uL (4.00-5.60); RDW 17.7 % (11.9-15.9); WHITE BLOOD COUNT 9.7 10^3/uL (4.0-10.8)
[2023-06-20 14:04] LABS: INR 1.44 (0.83-1.09); PROTHROMBIN TIME (PATIENT) 16.2 SEC (9.7-13.0)
[2023-06-20 14:07] LABS: ACTIVATED PTT 39.6 SECONDS (25.2-36.5)
[2023-06-20 14:13] LABS: ALBUMIN 4.1 g/dl (3.4-5.0); ALK PHOS 59 U/L (45-117); ANION GAP 7 mmol/L (4-13); BILIRUBIN,TOTAL 1.3 mg/dl (0.2-1); CALCIUM 9.1 mg/dl (8.5-10.1); CHLORIDE 100 mmol/L (98-107); CO2 29 mmol/L (21-32); CREATININE 1.3 mg/dl (0.6-1.3); GLUCOSE,RANDOM 147 mg/dl (74-106); POTASSIUM 4.7 mmol/L (3.5-5.1); SGOT/AST 9 U/L (15-37); SGPT/ALT 10 U/L (7-52); SODIUM 136 mmol/L (136-145); TOT PROT 6.4 g/dl (6.4-8.2)
[2023-06-20 14:35] LABS: ANISOCYTOSIS 1+; OVALOCYTE 1+; PLATELET ESTIMATE ADEQUATE
== END 2023-06-20 16:57 | disposition home or self-care (01) ==
LOC: FER 12:43
PROC: 3E030NZ Introduction of Analgesics, Hypnotics, Sedatives into Peripheral Vein, Open Approach (ICD-10-PCS; principal; 2023-06-20)
DX: M54.50 Low back pain, unspecified (principal); R10.9 Unspecified abdominal pain
CPT/HCPCS: 36415; 74177-TC; 80053; 81003; 85027; 85610; 85730; 86850; 86900; 86901; 87086; 96374; 99285-25; J0131

== ENCOUNTER 2023-08-20 12:19 | Inpatient (IN) | payer OTHER, BC ==
[2023-08-20 12:46] VITALS: BMI 27.1
[2023-08-20 15:05] LABS: BASO % 0.6 % (0-2.0); EOS % 0.9 % (0-4.5); HEMATOCRIT 34.6 % (35.4-49); HEMOGLOBIN 10.9 GM/dL (11.7-16.9); LYMPH % 9.4 % (8-40); MCH 23.1 pg (25.7-33.7); MCHC 31.6 g/dl (32.0-35.9); MEAN CELL VOLUME 73.1 fl (80-96); MEAN PLT VOLUME 7.8 fl (7.5-11.1); MONO % 11.9 % (3.8-10.2); NEUT % 77.2 % (42.8-82.8); PLATELET COUNT 264 10^3/uL (134-434); RBC 4.73 M/mm3 (4.00-5.60); RDW 16.1 % (11.9-15.9); WHITE BLOOD COUNT 9.2 K/mm3 (4.0-10.0)
[2023-08-20 15:10] LABS: INR 1.6 (0.83-1.09); PROTHROMBIN TIME (PATIENT) 18.1 SEC (9.7-13.0)
[2023-08-20 15:13] LABS: ACTIVATED PTT 41.3 SECONDS (25.2-36.5)
[2023-08-20 15:20] LABS: POTASSIUM 4.4 mmol/L (3.5-5.1)
[2023-08-20 15:21] LABS: ALBUMIN 3.6 g/dl (3.4-5.0); CALCIUM 8.8 mg/dL (8.5-10.1)
[2023-08-20 15:22] LABS: BLOOD UREA NITROGEN 19.9 mg/dL (7-18)
[2023-08-20 15:25] LABS: CREATININE 1.3 mg/dL (0.55-1.3)
[2023-08-20 15:26] LABS: PHOSPHOROUS 2.9 mg/dL (2.5-4.9)
[2023-08-20 15:27] LABS: BILIRUBIN,TOTAL 1.5 mg/dL (0.2-1); TOT PROT 7.3 g/dl (6.4-8.2)
[2023-08-20 15:30] LABS: N-TERMINAL BNP 251.5 pg/ml (5-450)
[2023-08-20 15:36] LABS: EPI CELLS 7 /uL (0-25.1); HYALINE CASTS 1 /uL (0-3.1); URINE APPEARANCE CLOUDY; URINE BACTERIA >9,000 /uL (0-1359); URINE BILIRUBIN NEGATIVE (NEGATIVE); URINE COLOR YELLOW; URINE GLUCOSE (UA) NEGATIVE (NEGATIVE); URINE KETONE NEGATIVE (NEGATIVE); URINE LEUK ESTERASE 3+ (NEGATIVE); URINE NITRITE NEGATIVE (NEGATIVE); URINE PROTEIN NEGATIVE (NEGATIVE); URINE RBC 13 /uL (0-23.9); URINE WBC 643 /uL (0-25.8)
[2023-08-20] MEDS ORDERED: CEFTRIAXONE 1 GM/50 ML BAG ONE (16:35)
[2023-08-20] MEDS: INSULIN ASPART SLIDING SCALE (NOVOLOG) 1 VIAL SQ SCH (21:46)
[2023-08-20] MEDS ORDERED: ALBUTEROL SO4 2.5/IPRATROPIUM 0.5 INH SOL 3 ML VIAL.NEB. NEB ONE (23:26)
[2023-08-20] MEDS: ALBUTEROL SO4 2.5/IPRATROPIUM 0.5 INH SOL 3 ML VIAL.NEB. NEB ONE (23:36)
[2023-08-21] MEDS ORDERED: ALBUTEROL SO4 2.5/IPRATROPIUM 0.5 INH SOL 3 ML VIAL.NEB. NEB PRN (00:12)
[2023-08-21] MEDS ORDERED: APIXABAN 5 MG TABLET ONE ×2 (00:52→15:43)
[2023-08-21] MEDS: APIXABAN 5 MG TABLET PO SCH (00:57)
[2023-08-21] MEDS: ALVIMOPAN 12 MG CAP PO SCH (01:16)
[2023-08-21] MEDS ORDERED: PATIENT'S OWN MEDICATION (NON-FORMULARY) (Lipase/Protease/Amylase [Zenpep Dr 25,000 Unit C PO SCH (06:00)
[2023-08-21] MEDS ORDERED: ALVIMOPAN 12 MG CAP PO SCH (07:15)
[2023-08-21 08:00] LABS: BASO % 0.9 % (0-2.0); EOS % 1.9 % (0-4.5); HEMATOCRIT 33.9 % (35.4-49); HEMOGLOBIN 10.7 GM/dL (11.7-16.9); LYMPH % 10.6 % (8-40); MCH 23.1 pg (25.7-33.7); MCHC 31.7 g/dl (32.0-35.9); MEAN CELL VOLUME 72.9 fl (80-96); MEAN PLT VOLUME 7.8 fl (7.5-11.1); MONO % 13.3 % (3.8-10.2); NEUT % 73.3 % (42.8-82.8); PLATELET COUNT 242 10^3/uL (134-434); RBC 4.64 M/mm3 (4.00-5.60); RDW 15.5 % (11.9-15.9); WHITE BLOOD COUNT 9.3 K/mm3 (4.0-10.0)
[2023-08-21 08:18] LABS: POTASSIUM 4.1 mmol/L (3.5-5.1)
[2023-08-21 08:20] LABS: CALCIUM 8.6 mg/dL (8.5-10.1)
[2023-08-21 08:22] LABS: BLOOD UREA NITROGEN 20.3 mg/dL (7-18)
[2023-08-21 08:24] LABS: CREATININE 1.1 mg/dL (0.55-1.3)
[2023-08-21] MEDS: CYANOCOBALAMIN 1,000 MCG TABLET (FP) PO SCH (15:42)
[2023-08-21] MEDS: CHOLECALCIFEROL (VIT D3) 1,000 UNIT (25 MCG) TABLET PO SCH (15:42)
[2023-08-21] MEDS: SACUBITRIL/VALSARTAN 97 MG-103 MG TABLET PO SCH (15:42)
[2023-08-21] MEDS ORDERED: TAMSULOSIN HCL 0.4 MG CAP ONE (15:43)
[2023-08-21] MEDS ORDERED: CEFTRIAXONE 1 GM/50 ML BAG ONE (15:43)
[2023-08-21] MEDS ORDERED: FUROSEMIDE 40 MG TABLET (FP) ONE (15:43)
[2023-08-21] MEDS: CEFTRIAXONE 1 GM in DEXTROSE 5%-WATER - 50 ML IVPB SCH (15:44)
[2023-08-21] MEDS: FUROSEMIDE 40 MG TABLET (FP) PO SCH (15:44)
[2023-08-21] MEDS: TAMSULOSIN HCL 0.4 MG CAP PO SCH (15:44)
[2023-08-21] MEDS: ROSUVASTATIN CA 5 MG TABLET PO SCH (22:31)
[2023-08-22] MEDS ORDERED: INSULIN ASPART SLIDING SCALE (NOVOLOG) 1 VIAL SQ ONE (06:09)
[2023-08-22 06:34] LABS: BASO % 0.6 % (0-2.0); EOS % 3.1 % (0-4.5); HEMATOCRIT 31.4 % (35.4-49); HEMOGLOBIN 10.2 GM/dL (11.7-16.9); LYMPH % 12.7 % (8-40); MCH 23.4 pg (25.7-33.7); MCHC 32.3 g/dl (32.0-35.9); MEAN CELL VOLUME 72.5 fl (80-96); MONO % 13.6 % (3.8-10.2); PLATELET COUNT 225 10^3/uL (134-434); RBC 4.34 M/mm3 (4.00-5.60); RDW 15.6 % (11.9-15.9); WHITE BLOOD COUNT 8.2 K/mm3 (4.0-10.0)
[2023-08-22 06:52] LABS: CHLORIDE 103 mmol/L (98-107); POTASSIUM 3.8 mmol/L (3.5-5.1); SODIUM 138 mmol/L (136-145)
[2023-08-22 06:55] LABS: ALBUMIN 3.1 g/dl (3.4-5.0); ANION GAP 5 mmol/L (4-13); BLOOD UREA NITROGEN 19.6 mg/dL (7-18); CALCIUM 8.8 mg/dL (8.5-10.1); CO2 30 mmol/L (21-32); GLUCOSE,RANDOM 162 mg/dL (74-106)
[2023-08-22 06:59] LABS: BILIRUBIN,TOTAL 0.7 mg/dL (0.2-1); CREATININE 1.1 mg/dL (0.55-1.3); SGOT/AST 8 U/L (15-37); SGPT/ALT < 6 U/L (13-61); TOT PROT 6.3 g/dl (6.4-8.2)
[2023-08-22 07:01] LABS: ALK PHOS 67 U/L (45-117)
[2023-08-22] MEDS ORDERED: CEFTRIAXONE 1 GM/50 ML BAG ONE (08:52)
[2023-08-23] MEDS: metoPROLOL SUCCINATE 25 MG TAB.SR.24H (FP) PO SCH (09:58)
[2023-08-23] MEDS ORDERED: metoPROLOL SUCCINATE 25 MG TAB.SR.24H (FP) PO SCH (10:00)
[2023-08-23] MEDS: FLUTICASONE/UMECLIDIN/VILANTER(100-62.5-25 TRELEGY ELLIPTA) INAHLER IH SCH (11:32)
[2023-08-23] MEDS: DOCUSATE SODIUM 100 MG CAPSULE (FP) PO PRN (21:41)
[2023-08-23] MEDS: ACETAMINOPHEN 325 MG TABLET (FP) PO PRN (21:41)
[2023-08-24 10:30] VITALS: RESP 18
[2023-08-24 14:42] VITALS: BP 107/60; PULSE 60; TEMP 97.5
== END 2023-08-24 17:17 | disposition home or self-care (01) | DRG 690 ==
LOC: JER 12:19 → JERBED 20:14 → OBSVTOIN 08-21 08:25 → J4S 08-22 14:29
PROVIDERS: ADMIT Internal Medicine; ATTEND Family Medicine
DX: N39.0 Urinary tract infection, site not specified (principal); I50.22 Chronic systolic (congestive) heart failure; I42.8 Other cardiomyopathies; J44.9 Chronic obstructive pulmonary disease, unspecified; E11.9 Type 2 diabetes mellitus without complications; I11.0 Hypertensive heart disease with heart failure; I48.91 Unspecified atrial fibrillation; Z79.01 Long term (current) use of anticoagulants; N40.0 Benign prostatic hyperplasia without lower urinary tract symptoms; R55 Syncope and collapse; D64.9 Anemia, unspecified
CPT/HCPCS: 0241U-QW; 36415; 70450-TC; 71046-TC-FY; 76775-TC; 80048; 80053; 81003; 82248; 82607; 82962; 83735; 83880; 84100; 84484; 85025; 85379; 85610; 85730; 87086; 87186; 93005; 93010; 97116-GP; 97161-GP; 99285-25; G0378

== ENCOUNTER 2023-09-26 21:02 | Observation (INO) | payer OTHER, BC ==
[2023-09-26 23:21] LABS: BASO % 0.6 % (0-2.0); EOS % 1.5 % (0-4.5); HEMATOCRIT 31.3 % (35.4-49); LYMPH % 8.5 % (8-40); MCH 22.9 pg (25.7-33.7); MEAN CELL VOLUME 71.7 fl (80-96); MEAN PLT VOLUME 7.4 fl (7.5-11.1); MONO % 12.3 % (3.8-10.2); NEUT % 77.1 % (42.8-82.8); PLATELET COUNT 250 10^3/uL (134-434); RBC 4.38 M/mm3 (4.00-5.60); WHITE BLOOD COUNT 9.3 K/mm3 (4.0-10.0)
[2023-09-26 23:41] LABS: CALCIUM 8.5 mg/dL (8.5-10.1)
[2023-09-26 23:42] LABS: BLOOD UREA NITROGEN 25.8 mg/dL (7-18)
[2023-09-26 23:45] LABS: CREATININE 1.4 mg/dL (0.55-1.3)
[2023-09-27] MEDS ORDERED: ACETAMINOPHEN 500 MG TABLET (FP) ONE (01:16)
[2023-09-27] MEDS: ACETAMINOPHEN 500 MG TABLET (FP) PO ONE (01:18)
[2023-09-27] MEDS ORDERED: DOCUSATE SODIUM 100 MG CAPSULE (FP) PO PRN (04:36)
[2023-09-27] MEDS ORDERED: ALBUTEROL SO4 2.5/IPRATROPIUM 0.5 INH SOL 3 ML VIAL.NEB. NEB PRN (04:36)
[2023-09-27 06:35] LABS: BASO % 0.7 % (0-2.0); EOS % 2.4 % (0-4.5); HEMATOCRIT 30.4 % (35.4-49); HEMOGLOBIN 9.5 GM/dL (11.7-16.9); LYMPH % 16.1 % (8-40); MCH 22.9 pg (25.7-33.7); MCHC 31.4 g/dl (32.0-35.9); MEAN CELL VOLUME 72.9 fl (80-96); MEAN PLT VOLUME 7.6 fl (7.5-11.1); MONO % 14.1 % (3.8-10.2); NEUT % 66.7 % (42.8-82.8); PLATELET COUNT 242 10^3/uL (134-434); RBC 4.17 M/mm3 (4.00-5.60); RDW 16.7 % (11.9-15.9); WHITE BLOOD COUNT 7.6 K/mm3 (4.0-10.0)
[2023-09-27 06:53] LABS: POTASSIUM 4.7 mmol/L (3.5-5.1)
[2023-09-27 06:55] LABS: BLOOD UREA NITROGEN 25.5 mg/dL (7-18)
[2023-09-27 06:59] LABS: CREATININE 1.3 mg/dL (0.55-1.3)
[2023-09-27] MEDS: TAMSULOSIN HCL 0.4 MG CAP PO SCH (09:44)
[2023-09-27] MEDS: SACUBITRIL/VALSARTAN 97 MG-103 MG TABLET PO SCH (09:44)
[2023-09-27] MEDS: APIXABAN 5 MG TABLET PO SCH (09:44)
[2023-09-27 14:50] LABS: N-TERMINAL BNP 188.3 pg/ml (5-450)
[2023-09-27 18:25] VITALS: BMI 27.1
[2023-09-27] MEDS: AMIODARONE HCL 200 MG TABLET PO SCH (21:10)
[2023-09-27] MEDS: ROSUVASTATIN CA 5 MG TABLET PO SCH (22:10)
[2023-09-28] MEDS: FLUTICASONE/UMECLIDIN/VILANTER(100-62.5-25 TRELEGY ELLIPTA) INAHLER IH SCH (09:23)
[2023-09-28 09:43] VITALS: BP 96/56; PULSE 82; RESP 18; TEMP 97.3
== END 2023-09-28 13:25 | disposition home or self-care (01) ==
LOC: JER 21:02 → JERBED 09-27 01:40 → J4S 09-27 17:43
PROVIDERS: ADMIT Family Medicine; ATTEND Family Medicine
DX: I25.10 Atherosclerotic heart disease of native coronary artery without angina pectoris (principal); I11.0 Hypertensive heart disease with heart failure; Z45.02 Encounter for adjustment and management of automatic implantable cardiac defibrillator; I48.91 Unspecified atrial fibrillation; N40.0 Benign prostatic hyperplasia without lower urinary tract symptoms; I42.9 Cardiomyopathy, unspecified; J44.9 Chronic obstructive pulmonary disease, unspecified; E11.9 Type 2 diabetes mellitus without complications; E78.5 Hyperlipidemia, unspecified; Z87.891 Personal history of nicotine dependence; Z79.01 Long term (current) use of anticoagulants; N20.0 Calculus of kidney; Z85.00 Personal history of malignant neoplasm of unspecified digestive organ
CPT/HCPCS: 36415; 71045-TC-FY; 80048; 83735; 83880; 84100; 84484; 85025; 93005; 93010; 99285-25; G0378

== ENCOUNTER 2024-04-15 10:37 | Inpatient (IN) | payer OTHER, BC ==
[2024-04-15 11:18] VITALS: BMI 25.7
[2024-04-15 11:24] LABS: BASO % 0.8 % (0-2.0); EOS % 1.8 % (0-4.5); HEMATOCRIT 35.2 % (35.4-49); LYMPH % 7.6 % (8-40); MCH 23.2 pg (25.7-33.7); MCHC 31.4 g/dl (32.0-35.9); MEAN CELL VOLUME 73.8 fl (80-96); MEAN PLT VOLUME 8.2 fl (7.5-11.1); MONO % 12.1 % (3.8-10.2); NEUT % 77.7 % (42.8-82.8); PLATELET COUNT 238 10^3/uL (134-434); RBC 4.77 M/mm3 (4.00-5.60); RDW 17.1 % (11.9-15.9); WHITE BLOOD COUNT 7.3 K/mm3 (4.0-10.0)
[2024-04-15 11:31] LABS: INR 1.44 (0.83-1.09); PROTHROMBIN TIME (PATIENT) 15.7 SEC (9.7-13.0)
[2024-04-15 11:34] LABS: ACTIVATED PTT 40.4 SECONDS (25.2-36.5)
[2024-04-15 12:01] LABS: POTASSIUM 5.6 mmol/L (3.5-5.1)
[2024-04-15 12:04] LABS: CALCIUM 8.5 mg/dL (8.5-10.1)
[2024-04-15 12:05] LABS: ALBUMIN 3.4 g/dl (3.4-5.0); BLOOD UREA NITROGEN 20.4 mg/dL (7-18); MAGNESIUM 2.3 mg/dL (1.8-2.4)
[2024-04-15 12:07] LABS: CREATININE 1.2 mg/dL (0.55-1.3)
[2024-04-15 12:08] LABS: PHOSPHOROUS 3.8 mg/dL (2.5-4.9)
[2024-04-15 12:09] LABS: BILIRUBIN,TOTAL 0.8 mg/dL (0.2-1); TOT PROT 6.7 g/dl (6.4-8.2)
[2024-04-15 12:12] LABS: N-TERMINAL BNP 704.8 pg/ml (5-450)
[2024-04-15] MEDS ORDERED: APIXABAN 5 MG TABLET ONE (22:02)
[2024-04-15] MEDS: APIXABAN 5 MG TABLET PO SCH (22:19)
[2024-04-15] MEDS: SACUBITRIL/VALSARTAN 97 MG-103 MG TABLET PO SCH (23:45)
[2024-04-16] MEDS ORDERED: ALBUTEROL SO4 2.5/IPRATROPIUM 0.5 INH SOL 3 ML VIAL.NEB. NEB PRN (07:01)
[2024-04-16 07:42] LABS: EOS % 2.7 % (0-4.5); HEMATOCRIT 35.8 % (35.4-49); HEMOGLOBIN 11.2 GM/dL (11.7-16.9); LYMPH % 11.9 % (8-40); MCH 23.2 pg (25.7-33.7); MCHC 31.3 g/dl (32.0-35.9); MEAN CELL VOLUME 73.9 fl (80-96); MEAN PLT VOLUME 8.4 fl (7.5-11.1); MONO % 14.3 % (3.8-10.2); NEUT % 70.1 % (42.8-82.8); PLATELET COUNT 235 10^3/uL (134-434); RBC 4.84 M/mm3 (4.00-5.60); RDW 16.9 % (11.9-15.9); WHITE BLOOD COUNT 6.9 K/mm3 (4.0-10.0)
[2024-04-16 08:06] LABS: POTASSIUM 4.7 mmol/L (3.5-5.1)
[2024-04-16 08:07] LABS: ALBUMIN 3.4 g/dl (3.4-5.0); BLOOD UREA NITROGEN 17.8 mg/dL (7-18); CALCIUM 8.5 mg/dL (8.5-10.1); MAGNESIUM 2.1 mg/dL (1.8-2.4)
[2024-04-16 08:10] LABS: CREATININE 1.2 mg/dL (0.55-1.3)
[2024-04-16 08:11] LABS: PHOSPHOROUS 3.8 mg/dL (2.5-4.9)
[2024-04-16 08:12] LABS: BILIRUBIN,TOTAL 1.3 mg/dL (0.2-1); TOT PROT 6.7 g/dl (6.4-8.2)
[2024-04-16 08:19] LABS: IRON SERUM 67 ug/dL (50-175)
[2024-04-16 08:20] LABS: TOTAL IRON BINDING CAPACITY 263 ug/dL (250-450)
[2024-04-16] MEDS ORDERED: ALBUTEROL SO4 2.5/IPRATROPIUM 0.5 INH SOL 3 ML VIAL.NEB. NEB SCH (08:30)
[2024-04-16] MEDS: methylPREDNISolone NA SUCC 40 MG/1 ML VIAL IVPUSH SCH (09:37)
[2024-04-16] MEDS: FUROSEMIDE 40 MG TABLET (FP) PO SCH (09:38)
[2024-04-16] MEDS: TAMSULOSIN HCL 0.4 MG CAP PO SCH (09:38)
[2024-04-16] MEDS: AMIODARONE HCL 200 MG TABLET PO SCH (09:42)
[2024-04-16] MEDS ORDERED: FLUTICASONE/UMECLIDIN/VILANTER(100-62.5-25 TRELEGY ELLIPTA) INAHLER IH SCH (10:00)
[2024-04-16] MEDS: FLUTICASONE/UMECLIDIN/VILANTER(200-62.5-25 TRELEGY ELLIPTA) INAHLER IH SCH (12:25)
[2024-04-16] MEDS: BUDESONIDE/FORMETEROL FUMARATE 160/4.5 mcg INHALER IH SCH (14:14)
[2024-04-16] MEDS: ALBUTEROL SO4 2.5/IPRATROPIUM 0.5 INH SOL 3 ML VIAL.NEB. NEB SCH (16:00)
[2024-04-16] MEDS: POLYETHYLENE GLYCOL (HEALTHYLAX) 3350 17 GM PACKET PO SCH (21:14)
[2024-04-16] MEDS: ROSUVASTATIN CA 5 MG TABLET PO SCH (21:14)
[2024-04-17] MEDS: TAMSULOSIN HCL 0.4 MG CAP PO SCH (07:49)
[2024-04-17] MEDS: metoPROLOL SUCCINATE 25 MG TAB.SR.24H (FP) PO SCH (10:14)
[2024-04-17] MEDS: INSULIN (NOVOLOG) ASPART 100 UNITS/ML 10ML VIAL SQ SCH (17:10)
[2024-04-18] MEDS ORDERED: INSULIN ASPART SLIDING SCALE (NOVOLOG) 1 VIAL SQ ONE (06:45)
[2024-04-18] MEDS: methylPREDNISolone NA SUCC 40 MG/1 ML VIAL IVPUSH SCH (22:24)
[2024-04-18] MEDS: INSULIN (LEVEMIR) 100 UNITS/ML UNITS SQ SCH (22:25)
[2024-04-19 08:14] LABS: POTASSIUM 5.1 mmol/L (3.5-5.1)
[2024-04-19 08:17] LABS: CALCIUM 8.5 mg/dL (8.5-10.1)
[2024-04-19 08:18] LABS: ALBUMIN 3.3 g/dl (3.4-5.0)
[2024-04-19 08:21] LABS: CREATININE 1.7 mg/dL (0.55-1.3)
[2024-04-19 08:22] LABS: BILIRUBIN,TOTAL 0.9 mg/dL (0.2-1)
[2024-04-19 08:23] LABS: TOT PROT 6.6 g/dl (6.4-8.2)
[2024-04-19 08:43] LABS: BLOOD UREA NITROGEN 52.9 mg/dL (7-18)
[2024-04-20] MEDS ORDERED: INSULIN ASPART SLIDING SCALE (NOVOLOG) 1 VIAL SQ ONE (07:02)
[2024-04-20 09:46] VITALS: BP 108/53; RESP 18; TEMP 98.2
[2024-04-20 09:49] VITALS: PULSE 53
[2024-04-20 11:36] LABS: POTASSIUM 4.7 mmol/L (3.5-5.1)
[2024-04-20 11:37] LABS: CALCIUM 8.5 mg/dL (8.5-10.1)
[2024-04-20 11:38] LABS: BLOOD UREA NITROGEN 54.7 mg/dL (7-18)
[2024-04-20 11:41] LABS: CREATININE 1.7 mg/dL (0.55-1.3)
[2024-04-20] MEDS: EMPAGLIFLOZIN (JARDIANCE) 10 MG TABLET PO SCH (12:01)
[2024-04-21] MEDS ORDERED: methylPREDNISolone NA SUCC 40 MG/1 ML VIAL IVPUSH SCH (10:00)
== END 2024-04-20 14:38 | disposition home or self-care (01) | DRG 191 ==
LOC: JER 10:37 → JERBED 15:16 → J4W 22:59 → OBSVTOIN 04-16 11:38
PROVIDERS: ADMIT Internal Medicine; ATTEND Internal Medicine
DX: J44.1 Chronic obstructive pulmonary disease with (acute) exacerbation (principal); I47.29 Other ventricular tachycardia; I50.22 Chronic systolic (congestive) heart failure; Z45.02 Encounter for adjustment and management of automatic implantable cardiac defibrillator; I10 Essential (primary) hypertension; E78.5 Hyperlipidemia, unspecified; K59.00 Constipation, unspecified
CPT/HCPCS: 0241U-QW; 36415; 70450-TC; 71045-TC-FY; 80048; 80053; 80299; 82728; 82962; 83036; 83540; 83550; 83735; 83880; 84100; 84443; 84484; 85025; 85610; 85730; 86850; 86900; 86901; 93005; 93010; 93880-TC; 94640; 99285-25; G0378

== ENCOUNTER 2024-06-08 10:50 | Inpatient (IN) | payer OTHER, BC ==
[2024-06-08] MEDS ORDERED: ACETAMINOPHEN INJECTION 100 ML ONE (11:42)
[2024-06-08] MEDS ORDERED: ALBUTEROL SO4 2.5/IPRATROPIUM 0.5 INH SOL 3 ML VIAL.NEB. NEB ONE (11:42)
[2024-06-08 11:51] LABS: ABSOLUTE IMMATURE GRANULOCYTES 0.05 x10^3/uL (0.0-0.031); BASOPHILS # 0.07 x10^3/uL (0.01-0.08); EOSINOPHIL % 0.9 % (0.8-7.0); EOSINOPHILS # 0.08 x10^3/uL (0.04-0.54); HEMATOCRIT 37.4 % (40.1-51.0); HEMOGLOBIN 11.2 g/dL (13.7-17.5); MCHC 29.9 g/dl (32.3-36.5); MEAN PLT VOLUME 10.1 fl (9.4-12.4); MONOCYTE # 0.97 x10^3/uL (0.30-0.82); MONOCYTE % 11.3 % (5.3-12.2); PLATELET COUNT 249 x10^3/uL (163-337); RDW 16.7 % (12.6-16.6)
[2024-06-08] MEDS: ACETAMINOPHEN 1000 MG/100 ML BAG IVPB ONE (11:52)
[2024-06-08] MEDS: ALBUTEROL SO4 2.5/IPRATROPIUM 0.5 INH SOL 3 ML VIAL.NEB. NEB SCH ×2 (11:53→15:52)
[2024-06-08 11:59] LABS: INR 1.76 (0.83-1.09); PROTHROMBIN TIME (PATIENT) 19.4 SEC (9.7-13.0)
[2024-06-08 12:01] LABS: ACTIVATED PTT 40.5 SECONDS (25.2-36.5)
[2024-06-08 12:13] LABS: POTASSIUM 4.4 mmol/L (3.5-5.1)
[2024-06-08 12:15] LABS: CALCIUM 9.2 mg/dL (8.5-10.1)
[2024-06-08 12:16] LABS: ALBUMIN 3.3 g/dl (3.4-5.0); BLOOD UREA NITROGEN 26.2 mg/dL (7-18)
[2024-06-08 12:19] LABS: CREATININE 1.4 mg/dL (0.55-1.3)
[2024-06-08 12:21] LABS: TOT PROT 6.6 g/dl (6.4-8.2)
[2024-06-08] MEDS: SODIUM CHLORIDE 0.9% 500 ML INFUS.BAG IV ONE ×2 (13:09→13:10)
[2024-06-08] MEDS ORDERED: FUROSEMIDE 40 MG/4 ML INJECTABLE VIAL ONE (13:46)
[2024-06-08] MEDS: FUROSEMIDE 40 MG/4 ML INJECTABLE VIAL IVPUSH ONE (13:50)
[2024-06-08] MEDS ORDERED: DOCUSATE SODIUM 100 MG CAPSULE (FP) PO PRN (14:11)
[2024-06-08] MEDS ORDERED: ACETAMINOPHEN 325 MG TABLET (FP) PO PRN (14:14)
[2024-06-08] MEDS: methylPREDNISolone NA SUCC 40 MG/1 ML VIAL IVPUSH SCH (16:34)
[2024-06-08 17:07] VITALS: BMI 26.3
[2024-06-08] MEDS: ROSUVASTATIN CA 5 MG TABLET PO SCH (22:03)
[2024-06-08] MEDS: APIXABAN 5 MG TABLET PO SCH (22:03)
[2024-06-08] MEDS: SACUBITRIL/VALSARTAN 97 MG-103 MG TABLET PO SCH (22:03)
[2024-06-08] MEDS: AMIODARONE HCL 200 MG TABLET PO SCH (22:03)
[2024-06-08] MEDS: POLYETHYLENE GLYCOL (HEALTHYLAX) 3350 17 GM PACKET PO SCH (22:03)
[2024-06-09 07:37] LABS: ABSOLUTE IMMATURE GRANULOCYTES 0.04 x10^3/uL (0.0-0.031); BASOPHILS # 0.01 x10^3/uL (0.01-0.08); HEMATOCRIT 39.3 % (40.1-51.0); HEMOGLOBIN 11.7 g/dL (13.7-17.5); MCHC 29.8 g/dl (32.3-36.5); MEAN CELL VOLUME 76.3 fl (79.0-92.2); MEAN PLT VOLUME 9.8 fl (9.4-12.4); MONOCYTE % 1.4 % (5.3-12.2); PLATELET COUNT 270 x10^3/uL (163-337); RDW 16.7 % (12.6-16.6)
[2024-06-09] MEDS: FUROSEMIDE 40 MG/4 ML INJECTABLE VIAL IVPUSH SCH (07:37)
[2024-06-09 07:57] LABS: POTASSIUM 4.3 mmol/L (3.5-5.1)
[2024-06-09 08:05] LABS: ALBUMIN 3.3 g/dl (3.4-5.0); BLOOD UREA NITROGEN 33.8 mg/dL (7-18); CALCIUM 9.1 mg/dL (8.5-10.1)
[2024-06-09 08:08] LABS: CREATININE 1.7 mg/dL (0.55-1.3)
[2024-06-09 08:09] LABS: BILIRUBIN,TOTAL 0.8 mg/dL (0.2-1)
[2024-06-09 08:10] LABS: TOT PROT 6.8 g/dl (6.4-8.2)
[2024-06-09] MEDS: EMPAGLIFLOZIN (JARDIANCE) 10 MG TABLET PO SCH (09:11)
[2024-06-09] MEDS: TAMSULOSIN HCL 0.4 MG CAP PO SCH (09:11)
[2024-06-09] MEDS: FLUTICASONE/UMECLIDIN/VILANTER(100-62.5-25 TRELEGY ELLIPTA) INAHLER IH SCH (09:12)
[2024-06-10] MEDS: FUROSEMIDE 40 MG TABLET (FP) PO SCH (05:46)
[2024-06-10 06:22] VITALS: RESP 18
[2024-06-10] MEDS: methylPREDNISolone NA SUCC 40 MG/1 ML VIAL IVPUSH SCH (21:37)
[2024-06-11] MEDS: EMPAGLIFLOZIN (JARDIANCE) 10 MG TABLET PO SCH (06:36)
[2024-06-11 18:08] VITALS: BP 104/59; PULSE 72; TEMP 97.7
== END 2024-06-11 18:26 | disposition home or self-care (01) | DRG 291 ==
LOC: JER 10:50 → JERBED 13:17 → J4W 15:44
PROVIDERS: ADMIT Family Medicine; ATTEND Family Medicine
DX: I11.0 Hypertensive heart disease with heart failure (principal); I50.23 Acute on chronic systolic (congestive) heart failure; J44.1 Chronic obstructive pulmonary disease with (acute) exacerbation; I42.8 Other cardiomyopathies; E78.5 Hyperlipidemia, unspecified; I48.91 Unspecified atrial fibrillation; J44.9 Chronic obstructive pulmonary disease, unspecified; I44.0 Atrioventricular block, first degree; I25.10 Atherosclerotic heart disease of native coronary artery without angina pectoris; E11.9 Type 2 diabetes mellitus without complications
CPT/HCPCS: 0241U-QW; 36415; 71045-TC-FY; 71250-TC; 72170-TC-FY; 80053; 82962; 83036; 83880; 84443; 84484; 85025; 85610; 85730; 86850; 86900; 86901; 93005; 93010; 93306-TC; 94640; 97116-GP; 97161-GP; 99285-25; J0131

== ENCOUNTER 2024-07-01 10:11 | Inpatient (IN) | payer OTHER, BC ==
[2024-07-01 13:37] LABS: INR 1.37 (0.83-1.09); PROTHROMBIN TIME (PATIENT) 14.9 SEC (9.7-13.0)
[2024-07-01 13:39] LABS: ACTIVATED PTT 36.5 SECONDS (25.2-36.5)
[2024-07-01 13:40] LABS: ABSOLUTE IMMATURE GRANULOCYTES 0.03 x10^3/uL (0.0-0.031); BASOPHILS # 0.04 x10^3/uL (0.01-0.08); EOSINOPHIL % 1.2 % (0.8-7.0); EOSINOPHILS # 0.09 x10^3/uL (0.04-0.54); HEMATOCRIT 34.4 % (40.1-51.0); HEMOGLOBIN 10.4 g/dL (13.7-17.5); MCHC 30.2 g/dl (32.3-36.5); MEAN CELL VOLUME 75.3 fl (79.0-92.2); MEAN PLT VOLUME 10.9 fl (9.4-12.4); MONOCYTE % 12.3 % (5.3-12.2); PLATELET COUNT 213 x10^3/uL (163-337); RDW 16.1 % (12.6-16.6)
[2024-07-01 14:01] LABS: CHLORIDE 106 mmol/L (98-107); SODIUM 139 mmol/L (136-145)
[2024-07-01 14:03] LABS: CALCIUM 8.7 mg/dL (8.5-10.1)
[2024-07-01 14:04] LABS: ALBUMIN 2.7 g/dl (3.4-5.0); BLOOD UREA NITROGEN 16.5 mg/dL (7-18); CO2 31 mmol/L (21-32); GLUCOSE,RANDOM 124 mg/dL (74-106); MAGNESIUM 1.9 mg/dL (1.8-2.4)
[2024-07-01 14:06] LABS: SGPT/ALT 30 U/L (13-61)
[2024-07-01 14:07] LABS: CREATININE 1.3 mg/dL (0.55-1.3); SGOT/AST 44 U/L (15-37)
[2024-07-01 14:10] LABS: ALK PHOS 53 U/L (45-117)
[2024-07-01 14:12] LABS: N-TERMINAL BNP 1464.2 pg/ml (5-450)
[2024-07-01] MEDS ORDERED: ACETAMINOPHEN INJECTION 100 ML ONE (14:13)
[2024-07-01] MEDS: ACETAMINOPHEN 1000 MG/100 ML BAG IVPB ONE (14:19)
[2024-07-01 14:20] LABS: ANION GAP 2 mmol/L (4-13); POTASSIUM 6.5 mmol/L (3.5-5.1)
[2024-07-01] MEDS ORDERED: FUROSEMIDE 40 MG/4 ML INJECTABLE VIAL ONE (15:03)
[2024-07-01] MEDS: FUROSEMIDE 40 MG/4 ML INJECTABLE VIAL IVPUSH ONE (15:09)
[2024-07-01 15:29] LABS: EPI CELLS 13 /uL (0-25.1); HYALINE CASTS 0 /uL (0-3.1); URINE APPEARANCE CLEAR; URINE BACTERIA 5607 /uL (0-1359); URINE BILIRUBIN NEGATIVE (NEGATIVE); URINE COLOR YELLOW; URINE GLUCOSE (UA) NEGATIVE (NEGATIVE); URINE KETONE NEGATIVE (NEGATIVE); URINE LEUK ESTERASE 1+ (NEGATIVE); URINE NITRITE NEGATIVE (NEGATIVE); URINE PROTEIN NEGATIVE (NEGATIVE); URINE RBC 12 /uL (0-23.9); URINE UROBILINOGEN 0.2 mg/dL (0.2-1.0); URINE WBC 91 /uL (0-25.8)
[2024-07-01 16:00] LABS: HCV DIAGNOSTIC IN-HOUSE W/RFLX NON-REACTIVE (NONREACTIVE); HIV INTERPRETATION NEGATIVE (NEGATIVE)
[2024-07-01 16:03] LABS: POTASSIUM 4.4 mmol/L (3.5-5.1)
[2024-07-01 16:04] LABS: CALCIUM 8.6 mg/dL (8.5-10.1)
[2024-07-01 16:05] LABS: ALBUMIN 2.7 g/dl (3.4-5.0); BLOOD UREA NITROGEN 16.3 mg/dL (7-18)
[2024-07-01 16:08] LABS: CREATININE 1.3 mg/dL (0.55-1.3)
[2024-07-01 16:10] LABS: BILIRUBIN,TOTAL 0.8 mg/dL (0.2-1); TOT PROT 5.6 g/dl (6.4-8.2)
[2024-07-01] MEDS: SACUBITRIL/VALSARTAN 97 MG-103 MG TABLET PO SCH (22:41)
[2024-07-01] MEDS: ROSUVASTATIN CA 5 MG TABLET PO SCH (22:41)
[2024-07-01] MEDS: APIXABAN 5 MG TABLET PO SCH (22:41)
[2024-07-02] MEDS: EMPAGLIFLOZIN (JARDIANCE) 10 MG TABLET PO SCH (06:07)
[2024-07-02 07:20] LABS: HEMATOCRIT 33.3 % (40.1-51.0); MEAN CELL VOLUME 75.2 fl (79.0-92.2); PLATELET COUNT 210 x10^3/uL (163-337)
[2024-07-02 07:59] LABS: ALBUMIN 2.6 g/dl (3.4-5.0); BILIRUBIN,TOTAL 0.7 mg/dL (0.2-1); BLOOD UREA NITROGEN 19.4 mg/dL (7-18); CALCIUM 8.6 mg/dL (8.5-10.1); CREATININE 1.3 mg/dL (0.55-1.3); POTASSIUM 4.3 mmol/L (3.5-5.1); TOT PROT 5.4 g/dl (6.4-8.2)
[2024-07-02] MEDS: ACETAMINOPHEN 325 MG TABLET (FP) PO PRN (09:20)
[2024-07-02] MEDS: TAMSULOSIN HCL 0.4 MG CAP PO SCH (09:21)
[2024-07-02] MEDS: FUROSEMIDE 40 MG TABLET (FP) PO SCH (09:21)
[2024-07-02 14:42] VITALS: BMI 25.9
[2024-07-02] MEDS: FLUTICASONE/UMECLIDIN/VILANTER(100-62.5-25 TRELEGY ELLIPTA) INAHLER IH SCH (15:45)
[2024-07-02] MEDS: FUROSEMIDE 40 MG/4 ML INJECTABLE VIAL IVPUSH ONE (15:46)
[2024-07-02] MEDS: LEVALBUTEROL HCL 0.31 MG/3 ML VIAL.NEB IH SCH (20:40)
[2024-07-02 20:52] LABS: EPI CELLS 3 /uL (0-25.1); HYALINE CASTS 0 /uL (0-3.1); PH,URINE 6.5 (5.0-8.0); URINE APPEARANCE CLEAR; URINE BACTERIA 2555 /uL (0-1359); URINE BILIRUBIN NEGATIVE (NEGATIVE); URINE COLOR YELLOW; URINE GLUCOSE (UA) 2+ (NEGATIVE); URINE KETONE NEGATIVE (NEGATIVE); URINE LEUK ESTERASE TRACE (NEGATIVE); URINE NITRITE NEGATIVE (NEGATIVE); URINE PROTEIN NEGATIVE (NEGATIVE); URINE RBC 4 /uL (0-23.9); URINE UROBILINOGEN 0.2 mg/dL (0.2-1.0); URINE WBC 16 /uL (0-25.8)
[2024-07-03 07:17] LABS: POTASSIUM 3.9 mmol/L (3.5-5.1)
[2024-07-03 07:24] LABS: ALBUMIN 2.6 g/dl (3.4-5.0); BLOOD UREA NITROGEN 21.8 mg/dL (7-18); CALCIUM 8.7 mg/dL (8.5-10.1)
[2024-07-03 07:28] LABS: BILIRUBIN,TOTAL 0.6 mg/dL (0.2-1); CREATININE 1.2 mg/dL (0.55-1.3); TOT PROT 5.5 g/dl (6.4-8.2)
[2024-07-03] MEDS ORDERED: REGADENOSON 0.4 MG/5 ML PRE-FILLED SYRINGE IVPUSH ONE (09:38)
[2024-07-03] MEDS: REGADENOSON 0.4 MG/5 ML PRE-FILLED SYRINGE IVPUSH ONE (10:30)
[2024-07-03] MEDS: AMIODARONE HCL 200 MG TABLET PO SCH (11:52)
[2024-07-03] MEDS: metoPROLOL SUCCINATE 25 MG TAB.SR.24H (FP) PO SCH (11:52)
[2024-07-03] MEDS ORDERED: LEVALBUTEROL HCL 0.63 MG/3 ML VIAL.NEB. IH ONE (19:34)
[2024-07-04 21:20] VITALS: RESP 16
[2024-07-05 02:30] VITALS: PULSE 56; TEMP 98.2
[2024-07-05 07:33] VITALS: BP 116/50
== END 2024-07-05 15:18 | disposition home or self-care (01) | DRG 291 ==
LOC: JER 10:11 → JERBED 14:34 → OBSVTOIN 15:25 → J4S 16:54
PROVIDERS: ADMIT Family Medicine; ATTEND Family Medicine
DX: I13.0 Hypertensive heart and chronic kidney disease with heart failure and stage 1 through stage 4 chronic kidney disease, or unspecified chronic kidney disease (principal); I50.23 Acute on chronic systolic (congestive) heart failure; I42.8 Other cardiomyopathies; E11.22 Type 2 diabetes mellitus with diabetic chronic kidney disease; N18.9 Chronic kidney disease, unspecified; R06.02 Shortness of breath; I48.0 Paroxysmal atrial fibrillation; I25.10 Atherosclerotic heart disease of native coronary artery without angina pectoris; D35.00 Benign neoplasm of unspecified adrenal gland; K59.00 Constipation, unspecified; E78.5 Hyperlipidemia, unspecified; E87.5 Hyperkalemia; N40.0 Benign prostatic hyperplasia without lower urinary tract symptoms; K57.90 Diverticulosis of intestine, part unspecified, without perforation or abscess without bleeding; Z95.810 Presence of automatic (implantable) cardiac defibrillator
CPT/HCPCS: 0241U-QW; 36415; 71045-TC-FY; 74176-TC; 78452-TC; 80053; 81003; 82962; 83690; 83735; 83880; 84484; 85025; 85027; 85610; 85730; 86803; 87389; 93005; 93010; 93017; 99285-25; A9502; G0378; J0131; J2785

== ENCOUNTER 2024-07-21 12:38 | Inpatient (IN) | payer OTHER, BC ==
[2024-07-21 13:37] LABS: ABSOLUTE IMMATURE GRANULOCYTES 0.04 x10^3/uL (0.0-0.031); BASOPHILS # 0.03 x10^3/uL (0.01-0.08); EOSINOPHILS # 0.08 x10^3/uL (0.04-0.54); HEMATOCRIT 35.2 % (40.1-51.0); HEMOGLOBIN 10.6 g/dL (13.7-17.5); MCHC 30.1 g/dl (32.3-36.5); MEAN PLT VOLUME 9.1 fl (9.4-12.4); MONOCYTE # 0.95 x10^3/uL (0.30-0.82); MONOCYTE % 11.9 % (5.3-12.2); PLATELET COUNT 321 x10^3/uL (163-337); RDW 16.3 % (12.6-16.6)
[2024-07-21 13:42] LABS: VENOUS BASE EXCESS 1.7 mmol/L (-2-2); VENOUS O2 SATURATION 31.2 % (70-80); VENOUS PCO2 56.5 mmHg (38-52); VENOUS PH 7.324 (7.310-7.410)
[2024-07-21 14:10] LABS: POTASSIUM 5.2 mmol/L (3.5-5.1)
[2024-07-21 14:12] LABS: CALCIUM 9.5 mg/dL (8.5-10.1)
[2024-07-21 14:13] LABS: ALBUMIN 3.2 g/dl (3.4-5.0); BLOOD UREA NITROGEN 21.3 mg/dL (7-18); MAGNESIUM 2.2 mg/dL (1.8-2.4)
[2024-07-21 14:16] LABS: CREATININE 1.5 mg/dL (0.55-1.3)
[2024-07-21 14:18] LABS: BILIRUBIN,TOTAL 0.9 mg/dL (0.2-1); TOT PROT 6.4 g/dl (6.4-8.2)
[2024-07-21 14:19] LABS: ACTIVATED PTT 41.1 SECONDS (25.2-36.5); INR 1.42 (0.83-1.09); PROTHROMBIN TIME (PATIENT) 15.6 SEC (9.7-13.0)
[2024-07-21 14:21] LABS: N-TERMINAL BNP 1266.6 pg/ml (5-450)
[2024-07-21] MEDS ORDERED: DOCUSATE SODIUM 100 MG CAPSULE (FP) PO PRN (17:41)
[2024-07-21] MEDS: POLYETHYLENE GLYCOL (HEALTHYLAX) 3350 17 GM PACKET PO SCH (22:01)
[2024-07-21] MEDS: SACUBITRIL/VALSARTAN 97 MG-103 MG TABLET PO SCH (22:01)
[2024-07-21] MEDS: AMIODARONE HCL 200 MG TABLET PO SCH (22:01)
[2024-07-21] MEDS: APIXABAN 2.5 MG TABLET PO SCH (22:01)
[2024-07-22] MEDS: EMPAGLIFLOZIN (JARDIANCE) 10 MG TABLET PO SCH (06:32)
[2024-07-22 07:52] LABS: ABSOLUTE IMMATURE GRANULOCYTES 0.05 x10^3/uL (0.0-0.031); BASOPHILS # 0.04 x10^3/uL (0.01-0.08); EOSINOPHIL % 1.1 % (0.8-7.0); EOSINOPHILS # 0.08 x10^3/uL (0.04-0.54); HEMATOCRIT 37.5 % (40.1-51.0); HEMOGLOBIN 11.3 g/dL (13.7-17.5); MCHC 30.1 g/dl (32.3-36.5); MEAN CELL VOLUME 76.2 fl (79.0-92.2); MEAN PLT VOLUME 9.7 fl (9.4-12.4); MONOCYTE # 1.06 x10^3/uL (0.30-0.82); MONOCYTE % 14.1 % (5.3-12.2); PLATELET COUNT 331 x10^3/uL (163-337)
[2024-07-22 08:22] LABS: ALBUMIN 3.1 g/dl (3.4-5.0); BLOOD UREA NITROGEN 21.6 mg/dL (7-18); CALCIUM 8.8 mg/dL (8.5-10.1); CREATININE 1.3 mg/dL (0.55-1.3); POTASSIUM 4.6 mmol/L (3.5-5.1)
[2024-07-22 08:31] LABS: TOT PROT 6.2 g/dl (6.4-8.2)
[2024-07-22] MEDS: TAMSULOSIN HCL 0.4 MG CAP PO SCH (09:24)
[2024-07-22] MEDS: FLUTICASONE/UMECLIDIN/VILANTER(100-62.5-25 TRELEGY ELLIPTA) INAHLER IH SCH (09:32)
[2024-07-22] MEDS ORDERED: FUROSEMIDE 40 MG TABLET (FP) PO SCH (10:00)
[2024-07-22] MEDS: methylPREDNISolone NA SUCC 40 MG/1 ML VIAL IVPUSH SCH (10:25)
[2024-07-22] MEDS ORDERED: ALBUTEROL SO4 2.5/IPRATROPIUM 0.5 INH SOL 3 ML VIAL.NEB. NEB SCH (14:00)
[2024-07-22] MEDS: LEVALBUTEROL HCL 0.63 MG/3 ML VIAL.NEB. IH SCH (14:50)
[2024-07-22] MEDS: FUROSEMIDE 40 MG/4 ML INJECTABLE VIAL IVPUSH SCH (15:10)
[2024-07-22 15:34] VITALS: BMI 26.6
[2024-07-22] MEDS: ROSUVASTATIN CA 5 MG TABLET PO SCH (21:10)
[2024-07-22] MEDS: APIXABAN 5 MG TABLET PO SCH (21:11)
[2024-07-23 09:55] LABS: HEMATOCRIT 36.4 % (40.1-51.0); MCHC 30.2 g/dl (32.3-36.5); MEAN CELL VOLUME 75.4 fl (79.0-92.2); PLATELET COUNT 335 x10^3/uL (163-337); RDW 15.9 % (12.6-16.6)
[2024-07-23] MEDS: methylPREDNISolone NA SUCC 40 MG/1 ML VIAL IVPUSH SCH (09:57)
[2024-07-23 10:16] LABS: POTASSIUM 4.6 mmol/L (3.5-5.1)
[2024-07-23 10:32] LABS: ALBUMIN 3.4 g/dl (3.4-5.0); BLOOD UREA NITROGEN 30.3 mg/dL (7-18); CALCIUM 9.3 mg/dL (8.5-10.1)
[2024-07-23 10:35] LABS: CREATININE 1.7 mg/dL (0.55-1.3)
[2024-07-23 10:38] LABS: BILIRUBIN,TOTAL 0.6 mg/dL (0.2-1); TOT PROT 6.7 g/dl (6.4-8.2)
[2024-07-23 18:19] VITALS: RESP 18
[2024-07-24 07:58] LABS: ABSOLUTE IMMATURE GRANULOCYTES 0.22 x10^3/uL (0.0-0.031); BASOPHILS # 0.02 x10^3/uL (0.01-0.08); HEMATOCRIT 35.7 % (40.1-51.0); HEMOGLOBIN 11.2 g/dL (13.7-17.5); MCHC 31.4 g/dl (32.3-36.5); MEAN CELL VOLUME 73.3 fl (79.0-92.2); MONOCYTE # 0.88 x10^3/uL (0.30-0.82); MONOCYTE % 5.4 % (5.3-12.2); PLATELET COUNT 338 x10^3/uL (163-337); RDW 15.8 % (12.6-16.6)
[2024-07-24 08:02] LABS: POTASSIUM 4.5 mmol/L (3.5-5.1)
[2024-07-24 08:40] LABS: ALBUMIN 3.4 g/dl (3.4-5.0); CALCIUM 9.5 mg/dL (8.5-10.1)
[2024-07-24 08:41] LABS: BLOOD UREA NITROGEN 40.9 mg/dL (7-18)
[2024-07-24 08:44] LABS: CREATININE 1.7 mg/dL (0.55-1.3)
[2024-07-24 08:45] LABS: BILIRUBIN,TOTAL 0.6 mg/dL (0.2-1); TOT PROT 6.8 g/dl (6.4-8.2)
[2024-07-24 09:58] VITALS: BP 103/61; PULSE 71; TEMP 97.9
[2024-07-24] MEDS: TORSEMIDE 20 MG TABLET (FP) PO SCH (11:53)
[2024-07-24] MEDS: predniSONE 20 MG TABLET (UD) PO SCH (11:54)
== END 2024-07-24 12:56 | disposition home health service (06) | DRG 291 ==
LOC: JER 12:38 → JERBED 16:16 → OBSVTOIN 17:40 → J4W 20:21
PROVIDERS: ADMIT Family Medicine; ATTEND Family Medicine
DX: I13.0 Hypertensive heart and chronic kidney disease with heart failure and stage 1 through stage 4 chronic kidney disease, or unspecified chronic kidney disease (principal); I50.33 Acute on chronic diastolic (congestive) heart failure; J44.1 Chronic obstructive pulmonary disease with (acute) exacerbation; I48.91 Unspecified atrial fibrillation; Z79.01 Long term (current) use of anticoagulants; I25.10 Atherosclerotic heart disease of native coronary artery without angina pectoris; N40.0 Benign prostatic hyperplasia without lower urinary tract symptoms; E78.5 Hyperlipidemia, unspecified; I42.8 Other cardiomyopathies; I48.0 Paroxysmal atrial fibrillation; R00.1 Bradycardia, unspecified; R07.9 Chest pain, unspecified; E87.5 Hyperkalemia; E11.22 Type 2 diabetes mellitus with diabetic chronic kidney disease; N18.9 Chronic kidney disease, unspecified
CPT/HCPCS: 0241U-QW; 36415; 71045-TC-FY; 80053; 82803; 82962; 83735; 83880; 84484; 85025; 85610; 85730; 86850; 86900; 86901; 93005; 93010; 99285-25; G0378

== ENCOUNTER 2024-12-10 13:23 | Emergency (ER) | payer OTHER, BC ==
[2024-12-10 13:39] VITALS: BMI 29.7
[2024-12-10 15:41] LABS: ABSOLUTE IMMATURE GRANULOCYTES 0.04 x10^3/uL (0.0-0.031); BASOPHILS # 0.05 x10^3/uL (0.01-0.08); EOSINOPHIL % 1.1 % (0.8-7.0); EOSINOPHILS # 0.11 x10^3/uL (0.04-0.54); MCHC 30.8 g/dl (32.3-36.5); MEAN CELL VOLUME 73.5 fl (79.0-92.2); MEAN PLT VOLUME 10.2 fl (9.4-12.4); MONOCYTE # 1.26 x10^3/uL (0.30-0.82); MONOCYTE % 13.1 % (5.3-12.2); RDW 15.7 % (12.6-16.6)
[2024-12-10 16:02] LABS: GLUCOSE,RANDOM 134.0 mg/dL (74-106); TOT PROT 6.3 g/dl (6.4-8.2)
[2024-12-10 16:03] LABS: CO2 24.0 mmol/L (21-32)
[2024-12-10 16:05] LABS: ALK PHOS 70.0 U/L (40-150)
[2024-12-10 16:07] LABS: SGPT/ALT 6.0 U/L (0-55)
[2024-12-10 16:08] LABS: CREATININE 1.62 mg/dL (0.55-1.3); SGOT/AST 20.0 U/L (5-34)
[2024-12-10 16:19] LABS: N-TERMINAL BNP 457.8 pg/mL (0-299.9)
[2024-12-10 16:26] LABS: HCV DIAGNOSTIC IN-HOUSE W/RFLX NON-REACTIVE (NONREACTIVE)
[2024-12-10 16:27] LABS: HIV INTERPRETATION NEGATIVE (NEGATIVE)
[2024-12-10 17:00] VITALS: BP 102/52; PULSE 57; RESP 14; TEMP 97.3
[2024-12-10] MEDS ORDERED: IBUPROFEN 400 MG TABLET (FP) PO ONE (17:08)
[2024-12-10] MEDS: ACETAMINOPHEN 325 MG TABLET (FP) PO ONE (17:15)
== END 2024-12-10 18:10 | disposition home or self-care (01) ==
LOC: JER 13:23
DX: S93.401A Sprain of unspecified ligament of right ankle, initial encounter (principal); M79.604 Pain in right leg; R06.02 Shortness of breath; R53.1 Weakness; R53.83 Other fatigue; X58.XXXA Exposure to other specified factors, initial encounter
CPT/HCPCS: 36415; 71045-TC-FY; 73610-TC-RT-FY; 73630-TC-RT-FY; 80053; 83735; 83880; 84484; 85025; 86803; 87389; 93005; 93010; 99284-25